=== PATIENT | male | born 1935 | race Caucasian/White ===

== ENCOUNTER → 2018-02-25 10:13 | Outpatient (CLI) | payer MEDICARE, SELFPAY ==
[2018-02-25 12:40] LABS: Anion Gap 9 (5-15); BUN 18 mg/dL (7-18); BUN/Creat Ratio 18.8 RATIO (10-20); Calcium,Total 8.9 mg/dL (8.5-10.1); Chloride 108 mmol/L (98-107); Cholesterol 132 mg/dL (200); Creatinine, Serum 0.96 mg/dL (0.70-1.30); EST Glomerular Filtration Rate 80 mL/min (>60); Est Glom Filt Rate - Afr Amer 97 mL/min (>60); Glucose 143 mg/dL (74-106); High Density Lipoprotein 34 mg/dL; PSA,Total - Annual Screen 1.34 ng/mL (0.00-4.00); Sodium Level 141 mmol/L (136-145); Thyroid Stim Hormone (TSH) 2.44 uIU/mL (0.358-3.74); Triglycerides 131 mg/dL; Very Low Density Lipoprotein 26 mg/dL (5-40)
== END ==
PROVIDERS: Visit Provider Family Medicine
DX: I10 Essential (primary) hypertension (principal); E78.5 Hyperlipidemia, unspecified; N40.0 Benign prostatic hyperplasia without lower urinary tract symptoms
CPT/HCPCS: 36415; 80048; 80061; 84153; 84443; G0103

== ENCOUNTER → 2019-01-16 09:33 | Outpatient (CLI) | payer MEDICARE, SELFPAY ==
[2019-01-16 08:32] VITALS: BMI 29.4
[2019-01-16 11:02] LABS: AST(SGOT) 11 U/L (15-37); Alanine Aminotransfer ALT/SGPT 23 U/L (16-61); Albumin, Serum 3.4 g/dL (3.2-5.0); Alkaline Phosphatase 96 U/L (45-117); Bilirubin, Direct 0.15 mg/dL (0.00-0.30); Cholesterol 117 mg/dL (200); Globulin 3.7 g/dL (2.2-4.2); High Density Lipoprotein 35 mg/dL; Protein, Total 7.1 g/dL (6.4-8.2); Triglycerides 108 mg/dL; Very Low Density Lipoprotein 22 mg/dL (5-40)
== END ==
PROVIDERS: Family Provider Family Medicine; PCP Family Medicine; Referring Provider Internal Medicine Cardiovascular Disease; Visit Provider Internal Medicine Cardiovascular Disease
DX: I10 Essential (primary) hypertension (principal); E78.5 Hyperlipidemia, unspecified
CPT/HCPCS: 36415; 80061; 80076

== ENCOUNTER 2019-07-19 07:08 | Inpatient (IN) | payer MEDICARE, SELFPAY ==
[2019-01-16 08:32] VITALS: BMI 29.4
[2019-07-19] VITALS (28 sets, daily range): BP systolic 105–146; BP diastolic 51–89; PULSE 62–115; RESP 12–26; TEMP 36.1–38.3; O2SAT 96–100; BMI 30.2; BMI 29.4
--- NOTE | 2019-07-19 07:17 | EKG12_ITS ---
Test Reason : GI BLEED Blood Pressure : / mmHG Vent. Rate : 065 BPM Atrial Rate : 065 BPM P-R Int : 260 ms QRS Dur : 094 ms QT Int : 432 ms P-R-T Axes : 039 034 051 degrees QTc Int : 449 ms Sinus rhythm with 1st degree A-V block Otherwise normal ECG Confirmed by MARIBEL VELAZQUEZ, ROSENDO ([id number]), supervising editor trailer DEXTER FOFANA ([id number]) on 07/22/2019 9:56:47 AM Referred By: DOUGLAS Confirmed By:ROSENDO LÓPEZ MD
--- NOTE | 2019-07-19 07:19 | RAD_ITS ---
STUDY: X-RAY - ABDOMEN/PELVIS REASON FOR EXAM: Male, 84 years old. Status post nasogastric tube placement. TECHNIQUE: Single AP view of the abdomen / pelvis. COMPARISON: None. FINDINGS: There is a nasogastric tube with its tip in the region of the stomach. There are nonspecific gaseous bowel loops. The lower abdomen is not included on this examination. RAD/Abdomen Single View (Portable) IMPRESSION: Nasogastric tube with the tip below the level of diaphragm in the region of the stomach. Electronically Signed: Zaire Damian MD at 9:06 EST Tel , Service support ,
--- NOTE | 2019-07-19 07:28 | ED.VIS.GEN ---
History of Present Illness Chief Complaint: GI Bleed Informant: Patient Onset: Today Context: Sudden Onset Timing: Continuous Quality: Read blood per rectum since midnight Location: Lower GI Current Severity: Moderate Maximum Severity: Moderate Worsened by: Possibly ibuprofen Relieved by: Nothing Associated Symptoms: Orthostatic symptoms Narrative: Patient is an elderly male who presents with dark-colored blood per rectum. He has been taking ibuprofen for the past several days. He is on a baby aspirin for paroxysmal H fibrillation. He denies chest discomfort, shortness of breath, dyspnea on exertion, orthopnea PND. He denies vomiting. He denies abdominal pain. He states he has had some increased rumbling. He is on no anticoagulant i.e. Xarelto, Eliquis, Coumadin Pradaxa. He is on no other antiplatelet other than a baby aspirin a day. He denies headache, ocular, visual or auditory symptoms. He denies throat pain, dysphagia, there is bony or dyspepsia. He denies liver problems. He denies bruising easily or problems with bleeding. 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 (4) Hyperlipidemia Status: Chronic (5) Thoracic aortic aneurysm Status: Chronic (6) Postoperative atrial fibrillation Status: Resolved Past Medical History - Allergies and Home Meds Allergies/Adverse Reactions: Allergies ramipril [From Altace] Adverse Reaction (Verified 07/19/19 07:17) dry cough Primary Care Physician: Xu Coleman MD [Primary Care Provider] - Prior records reviewed: Yes Surgical History: noncontributory Lives: Spouse/ Significant Other Smoking Status: Former smoker Alcohol: None Drugs: None Review of Systems General: Denies: Chills, Fever, Sweats Eyes: Denies: Visual changes - bilaterally, Diplopia ENT: Denies: Rhinorrhea, Sore throat Cardiovascular: Reports: - - Static symptoms. Denies: Chest pain, Palpitations, Heart racing Respiratory: Denies: Dyspnea, Cough, Dyspnea on exertion Gastrointestinal: Reports: Hematochezia. Denies: Abdominal pain, Nausea, Vomiting, Diarrhea, Constipation, Melena, -, - Genitourinary: Denies: Dysuria, Hematuria, Frequency Musculoskeletal: Denies: Myalgias, Arthralgias, Neck pain, Back pain, Swelling, Extremity Pain, -, - Skin: Denies: Rash, Wounds Neurological: Reports: Weakness. Denies: Headache, Parasthesia, Numbness, -, - Hematologic: Denies: Easy bruising, Easy bleeding Physical Exam Vital Signs/Narrative: Vital Signs Temp Pulse Resp BP Pulse Ox 07/19/19 07:09 97.8 F 62 15 105/60 97 Inital Vital Signs reviewed: Yes - When patient's bed was at 30 degrees elevation he was hypotensive on more t General: Well nourished, Well developed, No Acute Distress Head: Normocephalic, Atraumatic Eyes: Perrl, EOMI, Pale conjunctiva. Negative for: Scleral icterus ENT: Moist mucous membranes, No rhinorrhea Neck: Supple, Nontender, No lymphadenopathy, No JVD Cardiovascular: Regular rate, Regular rhythm, No murmurs, Normal S1, Normal S2 Respiratory: No distress, CTA bilaterally, Chest nontender Abdomen: Soft, Nontender, Nondistended, Hyperactive bowel sounds Rectal: - - Dark red-brown Back: Nontender, Normal Inspection Extremities: Nontender, No edema, - - Amputation multiple fingers right upper extremity Skin: No rash, Pallor. Negative for: Cyanosis, Diaphoresis, Jaundice, No Trauma Neurological: Alert, Oriented x3, Cranial nerves II-XII grossly intact, Normal Strength, Normal Sensation Psychological: Normal affect, Normal Mood Diagnostic/Tx/Re-eval Chest X-Ray - ED: 1 View, Read by ED Physician, - - KUB was obtained. NG is noted in proper position. X-rays interpreted 0820. 07/19/19 07:19 Abdomen Single View (Portable) [RAD] Stat Laboratory Results 07/19/19 07/19/19 07/19/19 07:34 07:34 07:34 WBC 7.3 RBC 2.99 L Hgb 7.2 L Hct 24.7 L MCV 82.6 MCH 24.1 L MCHC 29.1 L RDW Std Deviation 45.5 H RDW Coeff of Loreta 15.0 H Plt Count 245 MPV 10.5 Immature Gran % (Auto) 0.300 Neut % (Auto) 69.9 Lymph % (Auto) 17.6 L [place] % (Auto) 7.1 Eos % (Auto) 4.6 Baso % (Auto) 0.5 Absolute Neuts (auto) 5.1 Absolute Lymphs (auto) 1.29 Nucleated RBC % 0 PT 15.3 H INR 1.2 APTT 28.0 Sodium 143 Potassium 4.2 Chloride 112 H Carbon Dioxide 26.0 Anion Gap 5 BUN 19 H Creatinine 1.00 Estim Creat Clear Calc 62.51 Est GFR (MDRD) Af Amer 92 Est GFR (MDRD) Non-Af 76 BUN/Creatinine Ratio 19.1 Glucose 148 H Lactic Acid Calcium 7.8 L Total Bilirubin 0.30 AST 11 L ALT 18 Alkaline Phosphatase 75 Troponin I < 0.015 Total Protein 6.1 L Albumin 3.0 L Globulin 3.1 Albumin/Globulin Ratio 1.0 07/19/19 07:34 WBC RBC Hgb Hct MCV MCH MCHC RDW Std Deviation RDW Coeff of Loreta Plt Count MPV Immature Gran % (Auto) Neut % (Auto) Lymph % (Auto) [place] % (Auto) Eos % (Auto) Baso % (Auto) Absolute Neuts (auto) Absolute Lymphs (auto) Nucleated RBC % PT INR APTT Sodium Potassium Chloride Carbon Dioxide Anion Gap BUN Creatinine Estim Creat Clear Calc Est GFR (MDRD) Af Amer Est GFR (MDRD) Non-Af BUN/Creatinine Ratio Glucose Lactic Acid 2.6 H Calcium Total Bilirubin AST ALT Alkaline Phosphatase Troponin I Total Protein Albumin Globulin Albumin/Globulin Ratio Hemoglobin 7.2. Most recent is from a couple years ago and hemoglobin was [address] Ramsey. Lactate is elevated secondary to GI bleed. Labs were normal. Troponin was normal as well. - EKG Initial EKG Interpretation: Sinus Rhythm - Sinus rhythm rate of 65 with a first-degree AV block. NH interval is 260 ms. QS duration 94 ms. QT duration 432 ms. [place] is normal. - Medical Decision Making History and physical exam is consistent with GI bleed. Based on recent ingestion of NSAID and the fact he is hypotensive suspect upper GI bleed. He has been typed and screened. IV bolus was ordered. Appropriate labs were ordered. If NG is positive for blood will page Dr. Guadarrama for emergent EGD. Patient will will require admission to ICU for close observation since he was hypotensive. Patient's heart rate is in the 60s and all likely secondary fact that he is on a beta-samantha and calcium channel samantha. Patient has been scoped in the past. He was scoped at the [facility]. Dr. Ramsey was contacted. He informed me that his last colonoscopy was 2011. There is no edema noted at that time. Dr. Ramsey will gladly follow patient. Because patient was hypotensive with a hemoglobin of 7.2 Dr. Kp Allan for ICU was contacted. He requested IV Protonix. The hospitalist has been paged for admission to ICU. - Critical Care Time Critical care time (excluding procedures): 30-74 minutes - Care time 33 minutes, Discussing w/Patient &/or Family/Road Grader Operator, Discussing w/Consultants, Arranging Admission or Transfer ED Disposition - Plan for ED Patient: Disposition: Acute Care [facility] Diagnosis: GI bleed not requiring more than 4 units of blood in 24 hours, ICU, or surgery, Hypotension, Anemia due to blood loss, acute, Acidosis, lactic Referrals: Xu Coleman MD [Primary Care Provider] -
[2019-07-19] MEDS: 0.9% Normal Saline 1,000 ML 1000 ML IV (07:52)
[2019-07-19 08:14] LABS: Absolute Lymphocyte Count 1.29 X10^3/uL (0.83-4.51); Absolute Neutrophil Count 5.1 X10^3/uL (2.0-7.7); Basophil# 0.04 X10^3/uL; Basophil% 0.5 % (0-1); Eosinophil# 0.34 X10^3/uL; Eosinophils% 4.6 % (0-5); Hematocrit 24.7 % (40-54); Hemoglobin 7.2 g/dL (13.0-16.5); Lymphocyte # 1.29 X10^3/ul (4.0); Lymphocyte % 17.6 % (19-41); Mean Corp Hgb Conc 29.1 g/dL (32-36); Mean Corpuscular Hgb 24.1 pg (27.0-32.0); Mean Corpuscular Volume 82.6 fL (80-94); Mean Platelet Vol. 10.5 fl (6.2-12.0); Monocyte# 0.52 X10^3/uL; Monocyte% 7.1 % (0-10); NRBC Flagged by Analyzer 0 % (0-5); Neutrophil # 5.11 X10^3/uL (2.7-7.7); Neutrophil % 69.9 % (47-70); Platelet Count 245 K/mm3 (150-450); RBC Distribution Width SD 45.5 fl (35.1-43.9); Red Blood Count 2.99 M/mm3 (4.6-6.2); White Blood Count 7.3 K/mm3 (4.4-11.0)
[2019-07-19 08:30] LABS: International Normalized Ratio 1.2; Prothrombin Time (Protime)PT. 15.3 SECONDS (11.7-14.9)
--- NOTE | 2019-07-19 08:34 | HP.PCM_ITS ---
Problem List (1) Hypotension Status: Acute Qualifiers: Hypotension type: unspecified hypotension type Qualified Code(s): I95.9 - Hypotension, unspecified (2) Anemia due to blood loss, acute Status: Acute (3) Postoperative atrial fibrillation Status: Resolved (4) Nonrheumatic mitral (valve) insufficiency Status: Chronic Comment: Severe mitral insufficiency, with ruptured cordae in the P2 area; Mitral valve repair with 34 mm Hutchinson ring 05/16/2007 (5) Essential (primary) hypertension Status: Chronic (6) Hyperlipidemia Status: Chronic Qualifiers: Hyperlipidemia type: unspecified Qualified Code(s): E78.5 - Hyperlipidemia, unspecified (7) Thoracic aortic aneurysm Status: Chronic History of Present Illness Date of Admission: 07/19/19 Chief Complaint: Near syncope, GI bleed - 1 day The patient is a 84 year old M past medical history of mitral valve repair, h ypertension, hyperlipidemia, thoracic aortic aneurysm who comes in with complaints of hematochezia which started on the morning of admission. Patient had noted that he had left knee arthritis and had a history of GI bleed recently when he took ibuprofen. He had gone back to ibuprofen a couple of days prior to admission. He denied any abdominal discomfort or cramps prior to this. He went to bed feeling well. He woke up in the morning and had multiple bowel movements which were bloody. This happened about 5 times. After the last episode, patient felt very lightheaded and diaphoretic and proceeded to lie down on the bathroom floor and called out to his who called the EMS. Patient was observed to have had bright red bleeding in his stools in the bathroom. He had colonoscopy more than 10 years ago and reportedly had no findings. Vitals in the ED showed temperature of 97.8F, heart rate 60, blood pressure 105/60, respiratory rate 15, SPO2 was 97% on room air. Admitting blood work showed WBC count of 7.3, hemoglobin of 7.2, platelet count of 245. INR was 1.2, APTT was 28.0, BMP was unremarkable, lactic acid was 2.6, repeat lactic acid 1.3, troponin x 1 was negative. Past Medical History Past Medical History (Chronic Problems): Chronic Problems (Last Reviewed 01/16/19 @ 09:19 by Zachary August MD) Nonrheumatic mitral (valve) insufficiency (Chronic) Severe mitral insufficiency, with ruptured cordae in the P2 area; Mitral valve repair with 34 mm Hutchinson ring 05/16/2007 Essential (primary) hypertension (Chronic) Hyperlipidemia (Chronic) Thoracic aortic aneurysm (Chronic) History of mitral valve repair (Chronic 05/16/07) 05/16/2007 Mitral valve repair with 34 mm Hutchinson ring Carotid bruit (Chronic) Medical History: Medical History (Last Reviewed 01/16/19 @ 09:19 by Zachary August MD) Postoperative atrial fibrillation (Resolved) I97.89, I48.91 Nonrheumatic mitral (valve) insufficiency (Chronic) I34.0 Severe mitral insufficiency, with ruptured cordae in the P2 area; Mitral valve repair with 34 mm Hutchinson ring 05/16/2007 Essential (primary) hypertension (Chronic) I10 Hyperlipidemia (Chronic) E78.5 Thoracic aortic aneurysm (Chronic) I71.2 Carotid bruit (Chronic) R09.89 CHF (congestive heart failure) I50.9 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 Pulmonary HTN I27.20 Atrial flutter (Inactive) I48.92 Allergies ramipril [From Altace] Adverse Reaction (Verified 07/19/19 07:17) dry cough Home Medications: Ambulatory Orders Medication Instructions Recorded aspirin 81 mg tablet,delayed 81 mg PO QDAY 01/07/18 release multivitamin tablet 1 tab PO QDAY 01/07/18 losartan 50 mg tablet 50 mg PO BID #180 tab 07/15/18 metoprolol tartrate 25 mg tablet 25 mg PO BID #180 tab 07/15/18 Surgical History: Surgical History (Last Reviewed 01/16/19 @ 09:19 by Zachary August MD) History of mitral valve repair (Chronic) Onset Date: 05/16/07 Z98.890 05/16/2007 Mitral valve repair with 34 mm Hutchinson ring History of right and left heart catheterization Onset Date: 05/15/07 Z98.890 Surgical History: noncontributory Psychiatric History: No pertinent psych hx Lives: Spouse/ Significant Other Smoking Status: Former smoker Tobacco Use: Cigarettes Alcohol: None Drugs: None Review of Systems Constitutional: Reports: Weakness, Fatigue. Denies: Anorexia, Chills, Fever, Night Sweats, Malaise, Weight Change Eyes: Denies: Blurred vision, Cataracts, Conjunctivae Inflammation, Pain, Redness HEENT: Denies: Difficulty Hearing, Difficulty Swallowing, Head Aches, Hearing Changes, Sinus Congestion, Sinus Drainage, Sore Throat, Visual Changes Cardiovascular: Reports: Light Headedness, Orthopnea, Syncope - presyncope. Denies: Chest Pain, Claudication, Palpitations, Paroxysmal Noc. Dyspnea Respiratory: Denies: Cough, Shortness of breath at rest, Shortness of breath upon exertion, Sputum production Gastrointestinal: Denies: Abdominal Pain, Hematemesis, Hematochezia, Nausea, Vomiting Genitourinary: Denies: Dysuria Musculoskeletal: Denies: Joint Pain, Joint stiffness, Joint swelling, Joint Tenderness Skin: Denies: Rash, Wounds Neurological: Denies: Numbness, Tingling, Focal weakness Psychiatric: Denies: Anxiety, Depression, Homicidal Ideations, Suicidal Ideations Hematologic/ Lymphatic: Denies: Easy Bruising, Easy Bleeding VTE Information - Inpt Only VTE Present on Admission: No VTE Pharm Prophylaxis ordered?: Yes Patient Problems: Active and Suspected Problems (Last Reviewed 01/16/19 @ 09:19 by Zachary August MD) GI bleed not requiring more than 4 units of blood in 24 hours, ICU, or surgery (Acute) Hypotension (Acute) Anemia due to blood loss, acute (Acute) Acidosis, lactic (Acute) - Physical Exam Vitals/I&O's: Vital Signs Temp Pulse Resp BP Pulse Ox 97.8 F 62 15 105/60 97 07/19/19 07:09 07/19/19 07:09 07/19/19 07:09 07/19/19 07:09 07/19/19 07:09 Oxygen Delivery Method Room Air Weight: 100.9 kg Body Mass Index (BMI) 30.2 General: Alert, Oriented x3, Cooperative, No apparent distress HEENT: Atraumatic, PERRLA, EOMI, Normocephalic Oral: Moist Mucosa Neck: Supple Lungs: Clear to auscultation, Normal air movement Cardiovascular: Regular rate, Regular Rhythm, Normal S1, Normal S2, No murmurs - mechanical click Abdomen: Bowel Sounds Present, Soft, Non Tender, Non-Distended, No Hepato- splenomegaly Extremities: No edema Skin: No rashes, No breakdown Musculoskeletal: No Tenderness to Palpation of Joints or Extremities, - - 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 Neurological: Cranial nerves II-XII grossly intact Psych/Mental Status: Normal Affect, Appropriate Laboratory Results 07/19/19 07:34: WBC 7.3, RBC 2.99 L, Hgb 7.2 L, Hct 24.7 L, MCV 82.6, MCH 24.1 L , MCHC 29.1 L, RDW Std Deviation 45.5 H, RDW Coeff of Loreta 15.0 H, Plt Count 245, MPV 10.5, Immature Gran % (Auto) 0.300, Neut % (Auto) 69.9, Lymph % (Auto) 17.6 L, [place] % (Auto) 7.1, Eos % (Auto) 4.6, Baso % (Auto) 0.5, Absolute Neuts (auto) 5.1, Absolute Lymphs (auto) 1.29, Nucleated RBC % 0 07/19/19 07:34: PT 15.3 H, INR 1.2, APTT 28.0 07/19/19 07:34: Sodium Pending, Potassium Pending, Chloride Pending, Carbon Dioxide Pending, Anion Gap Pending, BUN Pending, Creatinine Pending, Est GFR (MDRD) Af Amer Pending, Est GFR (MDRD) Non-Af Pending, BUN/Creatinine Ratio Pending, Glucose Pending, Calcium Pending, Total Bilirubin Pending, AST Pending, ALT Pending, Alkaline Phosphatase Pending, Troponin I Pending, Total Protein Pending, Albumin Pending 07/19/19 07:34: Lactic Acid Pending 07/19/19 07:34: Blood Type Pending, Antibody Screen Pending Assessment/Plan All Active Problems (Last Reviewed 01/16/19 @ 09:19 by Zachary August MD) GI bleed not requiring more than 4 units of blood in 24 hours, ICU, or surgery (Acute) Hypotension (Acute) Anemia due to blood loss, acute (Acute) Acidosis, lactic (Acute) Postoperative atrial fibrillation (Resolved) 84 year old M with past medical history of mitral valve repair, hypertension, hyperlipidemia, thoracic aortic aneurysm who comes in with complaints of hematochezia which started on the morning of admission. 1. Acute GI bleed/hematochezia, likely secondary to lower GI bleed History of recent NSAID use. Patient is also on aspirin. On IV PPI, Continue to monitor in ICU, H&H every 6hrs, CBCD in am Continue to hold aspirin General surgery consulted 2. Acute blood loss anemia, Hb is 7.2, patient is receiving 2 units of packed RBCs Will trend H&H's 3. Hypertension, on metoprolol and losartan Would hold for now in the light of possible hemodynamic instability May resume in a.m. if patient remains stable 4. History of mitral repair, stable 5. DVT prophylaxis with SCDs Code Visit Inpatient E&M: 11102 Init Hosp L3
[2019-07-19 08:42] LABS: AST(SGOT) 11 U/L (15-37); Alanine Aminotransfer ALT/SGPT 18 U/L (16-61); Alkaline Phosphatase 75 U/L (45-117); Anion Gap 5 (5-15); BUN 19 mg/dL (7-18); BUN/Creat Ratio 19.1 RATIO (10-20); Calcium,Total 7.8 mg/dL (8.5-10.1); Chloride 112 mmol/L (98-107); EST Glomerular Filtration Rate 76 mL/min (>60); Est Glom Filt Rate - Afr Amer 92 mL/min (>60); Estimated Creatinine Clearance 62.51 ml/min; Globulin 3.1 g/dL (2.2-4.2); Glucose 148 mg/dL (74-106); Potassium 4.2 mmol/L (3.5-5.1); Protein, Total 6.1 g/dL (6.4-8.2); Sodium Level 143 mmol/L (136-145)
[2019-07-19 08:48] LABS: Lactic Acid 2.6 mmol/L (0.4-2.0)
--- NOTE | 2019-07-19 09:40 | PCM.CON.CC ---
Reason for Consult Date of Consultation: 07/19/19 Reason for Consultation: Hematochezia/acute blood loss anemia History of Present Illness: The patient is an 84-year-old male, with a history as outlined below, who presented to the emergency department on the morning of July 19 with complaints of several episodes of hematochezia, which initially began overnight. The patient did report some associated dizziness. He is not currently on systemic anticoagulation. Nevertheless, he is on a baby aspirin. He does admit to rather regular use of ibuprofen. He has never had an episode similar to this previously. On presentation to the emergency department, the patient was noted to be afebrile and hemodynamically stable. He was maintaining appropriate oxygen saturations on room air. Initial laboratory work-up revealed a hemoglobin of 7.2 g/dL. INR was noted to be 1.2. Chemistry profile was largely unrevealing. Lactate was notable to be 2.6. An NG tube was placed in the emergency department, which apparently did not demonstrate evidence of upper GI blood loss. The patient did not have any further episodes of hematochezia while in the emergency department. He has remained hemodynamically stable. The patient was typed and crossed with plans to be transfused packed red blood cells. General surgery was contacted and the patient was admitted to the medical intensive care unit for further management. 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/07) 05/16/2007 Mitral valve repair with 34 mm Hutchinson ring Carotid bruit (Chronic) Medical History: Medical History (Last Reviewed 07/20/19 @ 08:16 by Gabriel Ramsey MD) Postoperative atrial fibrillation (Resolved) I97.89, I48.91 Nonrheumatic mitral (valve) insufficiency (Chronic) I34.0 Severe mitral insufficiency, with ruptured cordae in the P2 area; Mitral valve repair with 34 mm Hutchinson ring 05/16/2007 Essential (primary) hypertension (Chronic) I10 Hyperlipidemia (Chronic) E78.5 Thoracic aortic aneurysm (Chronic) I71.2 Carotid bruit (Chronic) R09.89 CHF (congestive heart failure) I50.9 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 Pulmonary HTN I27.20 Atrial flutter (Inactive) I48.92 Allergies ramipril [From Altace] Adverse Reaction (Verified 07/19/19 07:17) dry cough Home Medications: Ambulatory Orders Medication Instructions Recorded aspirin 81 mg tablet,delayed 81 mg PO QDAY 01/07/18 release multivitamin tablet 1 tab PO QDAY 01/07/18 losartan 50 mg tablet 50 mg PO BID #180 tab 07/15/18 metoprolol tartrate 25 mg tablet 25 mg PO BID #180 tab 07/15/18 Surgical History: Surgical History (Last Reviewed 07/20/19 @ 08:16 by Gabriel Ramsey MD) History of mitral valve repair (Chronic) Onset Date: 05/16/07 Z98.890 05/16/2007 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 Denies: Chills, Fever Eyes: Denies: Blurred vision, Double vision HEENT: Denies: Head Aches, Sinus Congestion, Sinus Drainage Cardiovascular: Denies: Chest Pain, Palpitations Respiratory: Denies: Cough, Shortness of breath at rest, Sputum production Gastrointestinal: Reports: Hematochezia. Denies: Abdominal Pain, Nausea, Vomiting Genitourinary: Denies: Dysuria Musculoskeletal: Denies: Joint Pain, Joint Tenderness Skin: Denies: Rash, Wounds Neurological: Denies: Numbness, Tingling, Focal weakness Psychiatric: Denies: Anxiety, Depression, Homicidal Ideations, Suicidal Ideations Hematologic/ Lymphatic: Reports: Anemia Patient Problems: Active and Suspected Problems (Last Reviewed 07/20/19 @ 08:16 by Gabriel Ramsey MD) GI bleed not requiring more than 4 units of blood in 24 hours, ICU, or surgery (Acute) Hypotension (Acute) Anemia due to blood loss, acute (Acute) Acidosis, lactic (Acute) Objective: The patient's most recent lab work, culture data and imaging studies have all been personally reviewed. - Physical Exam Vitals/I&O's: Vital Signs Temp Pulse Resp BP Pulse Ox 97 F L 62 15 115/62 97 07/19/19 08:37 07/19/19 08:37 07/19/19 08:37 07/19/19 08:37 07/19/19 07:09 Oxygen Delivery Method Room Air Weight: 222 lb 7.143 oz Body Mass Index (BMI) 30.2 Intake and Output for Last 24 Hours 07/17/19 07/18/19 07/19/19 23:59 23:59 23:59 Intake Total 250 / 250 Balance 250 / 250 General: Alert, Oriented x3, Cooperative, No apparent distress HEENT: Atraumatic, PERRLA, Normocephalic Oral: No Gingival or Mucosal Lesions/ Ulcerations Neck: Supple, No Nodes, Trachea Midline Lungs: Normal air movement, No rhonchi, No wheeze, No rales Cardiovascular: Regular rate, Regular Rhythm, Normal S1, Normal S2, No murmurs Abdomen: Soft, Non Tender Extremities: No clubbing, No cyanosis, - - 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 Skin: No breakdown Musculoskeletal: No Tenderness to Palpation of Joints or Extremities, No Muscle Wasting Lymphatic: No Cervical, Supraclavicular, or Inguinal Adenopathy Neurological: Cranial nerves II-XII grossly intact, Neuro grossly intact Psych/Mental Status: Normal Affect, Appropriate Labs (Last 48 Hours) 07/19/19 07/19/19 07/19/19 07:34 07:34 07:34 WBC 7.3 RBC 2.99 L Hgb 7.2 L Hct 24.7 L MCV 82.6 MCH 24.1 L MCHC 29.1 L RDW Std Deviation 45.5 H RDW Coeff of Loreta 15.0 H Plt Count 245 MPV 10.5 Immature Gran % (Auto) 0.300 Neut % (Auto) 69.9 Lymph % (Auto) 17.6 L [place] % (Auto) 7.1 Eos % (Auto) 4.6 Baso % (Auto) 0.5 Absolute Neuts (auto) 5.1 Absolute Lymphs (auto) 1.29 Nucleated RBC % 0 PT 15.3 H INR 1.2 APTT 28.0 Sodium 143 Potassium 4.2 Chloride 112 H Carbon Dioxide 26.0 Anion Gap 5 BUN 19 H Creatinine 1.00 Estim Creat Clear Calc 62.51 Est GFR (MDRD) Af Amer 92 Est GFR (MDRD) Non-Af 76 BUN/Creatinine Ratio 19.1 Glucose 148 H Lactic Acid Calcium 7.8 L Total Bilirubin 0.30 AST 11 L ALT 18 Alkaline Phosphatase 75 Troponin I < 0.015 Total Protein 6.1 L Albumin 3.0 L Globulin 3.1 Albumin/Globulin Ratio 1.0 Blood Type Antibody Screen Crossmatch 07/19/19 07/19/19 07/19/19 07:34 07:34 07:34 WBC RBC Hgb Hct MCV MCH MCHC RDW Std Deviation RDW Coeff of Loreta Plt Count MPV Immature Gran % (Auto) Neut % (Auto) Lymph % (Auto) [place] % (Auto) Eos % (Auto) Baso % (Auto) Absolute Neuts (auto) Absolute Lymphs (auto) Nucleated RBC % PT INR APTT Sodium Potassium Chloride Carbon Dioxide Anion Gap BUN Creatinine Estim Creat Clear Calc Est GFR (MDRD) Af Amer Est GFR (MDRD) Non-Af BUN/Creatinine Ratio Glucose Lactic Acid 2.6 H Calcium Total Bilirubin AST ALT Alkaline Phosphatase Troponin I Total Protein Albumin Globulin Albumin/Globulin Ratio Blood Type A POSITIVE Antibody Screen NEGATIVE Crossmatch See Detail Clinical Impression(s) from Imaging Studies KUB X-Ray 07/19/19 07:19 IMPRESSION: Nasogastric tube with the tip below the level of diaphragm in the region of the stomach. Electronically Signed: Zaire Damian MD at 9:06 EST Tel , Service support , Current Medications Acetaminophen (Tylenol) 650 mg PO Q6H PRN PRN PRN Reason: Pain Score 1-3/Temp > 100.7 F Albuterol Sulfate (Ventolin Aerosols) 2.5 mg INHALATION Q2H PRN PRN PRN Reason: SOB/Wheezing Sodium Chloride () 1,000 mls @ 125 mls/hr IV .Q8H SHANTELLE Ondansetron HCl (Zofran) 4 mg IV Q8H PRN PRN PRN Reason: NAUSEA/VOMITING Assessment/Plan Active and Suspected Problems (Last Reviewed 07/20/19 @ 08:16 by Gabriel Ramsey MD) GI bleed not requiring more than 4 units of blood in 24 hours, ICU, or surgery (Acute) Hypotension (Acute) Anemia due to blood loss, acute (Acute) Acidosis, lactic (Acute) RECOMMENDATIONS: 1. Proceed with transfusion of 2 units of packed red blood cells. 2. Check H&H posttransfusion. 3. Continue Protonix twice daily, as ordered. 4. Patient to remain n.p.o. 5. Await general surgery evaluation. IMPRESSIONS: 1. Hematochezia/acute blood loss anemia The patient presented with a hemoglobin of 7.2 g/dL, but has remained hemodynamically stable without further episodes of GI blood loss. There are plans for the patient to be transfused blood products accordingly. Check H&H posttransfusion. The patient does have a long-standing history of ibuprofen use. Therefore, the patient will be continued on Protonix twice daily. General surgery has been consulted to evaluate the patient. 2. Hypertension Antihypertensives are currently on hold. These can be resumed tomorrow, pending stability in the patient's clinical state. This note was generated with Potential dictation software. It may contain incorrect words, spelling, and punctuation that were not noted in checking the note before signing. Code Visit Inpatient E&M: 83293 Init Hosp L3
--- NOTE | 2019-07-19 11:59 | PCM.CONS.GEN ---
Reason for Consult Date of Consultation: 07/19/19 Reason for Consultation: hematochezia History of Present Illness: The patient is a 84 year old M who had multiple episodes of hematochezia. He denied any abdominal pain or burning. He denied upper GI complaints. After multiple episodes of hematochezia he had a near syncopal episode. EMS was notified and is brought twisting the hospital. A CBC was obtained which demonstrated a hemoglobin of 7.2. The patient's lactic acid with level was also elevated. the patient has a history of relatively severe mitral insufficiency and underwent mitral valve repair in April 2007. He has a known chronic thoracic aortic aneurysm. He has chronic bruit and hypertension. 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 Echocardiogram in 2016 demonstrated a normal ejection fraction and mild mitral insufficiency this is stable. the patient notes he has had more arthritic-type pains recently. he notes that he has been taking more Motrin than previously. again however he denies upper abdominal symptoms and denies melena prior to this onset of bleeding. the patient underwent colonoscopy by Dr. Eber Mann in 2011.the patient was found to have few diverticula and small internal hemorrhoids The patient was admitted to the intensive care unit for resuscitation and for transfusion. 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/07) 05/16/2007 Mitral valve repair with 34 mm Hutchinson ring Carotid bruit (Chronic) Medical History: Medical History (Last Reviewed 07/20/19 @ 08:53 by Gabriel Ramsey MD) Postoperative atrial fibrillation (Resolved) I97.89, I48.91 Nonrheumatic mitral (valve) insufficiency (Chronic) I34.0 Severe mitral insufficiency, with ruptured cordae in the P2 area; Mitral valve repair with 34 mm Hutchinson ring 05/16/2007 Essential (primary) hypertension (Chronic) I10 Hyperlipidemia (Chronic) E78.5 Thoracic aortic aneurysm (Chronic) I71.2 Carotid bruit (Chronic) R09.89 CHF (congestive heart failure) I50.9 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 Pulmonary HTN I27.20 Atrial flutter (Inactive) I48.92 Allergies ramipril [From Altace] Adverse Reaction (Verified 07/19/19 07:17) dry cough Home Medications: Ambulatory Orders Medication Instructions Recorded aspirin 81 mg tablet,delayed 81 mg PO QDAY 01/07/18 release multivitamin tablet 1 tab PO QDAY 01/07/18 losartan 50 mg tablet 50 mg PO BID #180 tab 07/15/18 metoprolol tartrate 25 mg tablet 25 mg PO BID #180 tab 07/15/18 Surgical History: Surgical History (Last Reviewed 07/20/19 @ 08:53 by Gabriel Ramsey MD) History of mitral valve repair (Chronic) Onset Date: 05/16/07 Z98.890 05/16/2007 Mitral valve repair with 34 mm Hutchinson ring History of right and left heart catheterization Onset Date: 05/15/07 Z98.890 Surgical History: noncontributory Lives: Spouse/ Significant Other Smoking Status: Former smoker Tobacco Use: Cigarettes, Chew Alcohol: None Drugs: None Review of Systems Constitutional: Denies: Chills, Fever, Weight Change HEENT: Denies: Head Aches, Sinus Congestion, Sinus Drainage Cardiovascular: Denies: Chest Pain, Palpitations Respiratory: Denies: Cough, Shortness of breath at rest, Sputum production Gastrointestinal: Reports: Hematochezia. Denies: Abdominal Pain, Nausea, Vomiting Genitourinary: Denies: Dysuria Musculoskeletal: Denies: Joint Pain, Joint Tenderness Skin: Denies: Rash, Wounds Neurological: Denies: Numbness, Tingling, Focal weakness Psychiatric: Denies: Anxiety, Depression, Homicidal Ideations, Suicidal Ideations Hematologic/ Lymphatic: Denies: Easy Bruising, Easy Bleeding Patient Problems: Active and Suspected Problems (Last Reviewed 07/20/19 @ 08:16 by Gabriel Ramsey MD) GI bleed not requiring more than 4 units of blood in 24 hours, ICU, or surgery (Acute) Hypotension (Acute) Anemia due to blood loss, acute (Acute) Acidosis, lactic (Acute) - Physical Exam Vitals/I&O's: Vital Signs Temp Pulse Resp BP Pulse Ox 97.4 F L 70 16 122/51 H 100 07/19/19 10:33 07/19/19 10:33 07/19/19 10:33 07/19/19 10:33 07/19/19 10:33 Oxygen Delivery Method Room Air Weight: 98.3 kg Body Mass Index (BMI) 29.4 Intake and Output for Last 24 Hours 07/17/19 07/18/19 07/19/19 23:59 23:59 23:59 Intake Total 250 / 250 Balance 250 / 250 General: Alert, Oriented x3, Cooperative Neck: Supple, No JVD, Negative Carotid Bruits Lungs: Clear to auscultation, Normal air movement Cardiovascular: Regular rate, No murmurs Abdomen: Bowel Sounds Present, Soft, Non Tender Laboratory Results 07/19/19 07:34: WBC 7.3, RBC 2.99 L, Hgb 7.2 L, Hct 24.7 L, MCV 82.6, MCH 24.1 L, MCHC 29.1 L, RDW Std Deviation 45.5 H, RDW Coeff of Loreta 15.0 H, Plt Count 245, MPV 10.5, Immature Gran % (Auto) 0.300, Neut % (Auto) 69.9, Lymph % (Auto) 17.6 L, [place] % (Auto) 7.1, Eos % (Auto) 4.6, Baso % (Auto) 0.5, Absolute Neuts (auto) 5.1, Absolute Lymphs (auto) 1.29, Nucleated RBC % 0 07/19/19 07:34: PT 15.3 H, INR 1.2, APTT 28.0 07/19/19 07:34: Sodium 143, Potassium 4.2, Chloride 112 H, Carbon Dioxide 26.0, Anion Gap 5, BUN 19 H, Creatinine 1.00, Estim Creat Clear Calc 62.51, Est GFR (MDRD) Af Amer 92, Est GFR (MDRD) Non-Af 76, BUN/Creatinine Ratio 19.1, Glucose 148 H, Calcium 7.8 L, Total Bilirubin 0.30, AST 11 L, ALT 18, Alkaline Phosphatase 75, Troponin I < 0.015, Total Protein 6.1 L, Albumin 3.0 L, Globulin 3.1, Albumin/Globulin Ratio 1.0 07/19/19 07:34: Lactic Acid 2.6 H 07/19/19 07:34: Blood Type A POSITIVE, Antibody Screen NEGATIVE 07/19/19 07:34: Crossmatch See Detail Current Medications Acetaminophen (Tylenol) 650 mg PO Q6H PRN PRN PRN Reason: Pain Score 1-3/Temp > 100.7 F Albuterol Sulfate (Ventolin Aerosols) 2.5 mg INHALATION Q2H PRN PRN PRN Reason: SOB/Wheezing Sodium Chloride () 1,000 mls @ 125 mls/hr IV .Q8H SHANTELLE Sodium Chloride () 500 mls @ 15 mls/hr IV PRN PRN PRN Reason: Blood Transfusion Sodium Chloride () 250 mls @ 15 mls/hr IV .[id number] PRN PRN Reason: Saline Flush Pantoprazole Sodium 40 mg/ (Sodium Chloride) 110 mls @ 330 mls/hr IV Q12 SHANTELLE Ondansetron HCl (Zofran) 4 mg IV Q8H PRN PRN PRN Reason: NAUSEA/VOMITING Sodium Chloride () 10 - 40 ml IV UD PRN PRN Reason: SALINE FLUSH Assessment/Plan All Active Problems (Last Reviewed 07/20/19 @ 08:16 by Gabriel Ramsey MD) GI bleed not requiring more than 4 units of blood in 24 hours, ICU, or surgery (Acute) Hypotension (Acute) Anemia due to blood loss, acute (Acute) Acidosis, lactic (Acute) Postoperative atrial fibrillation (Resolved) hematochezia, NSAID use, significant anemia with elevated lactic acid level Patient is being admitted to the intensive care unit for transfusion and IV hydration and to assure he has no ongoing significant blood loss. The patient is currently him an enema was stable but given his history and the degree of anemia without a recent blood counts I would plan for resuscitation and transfusion today. If the patient remains stable would plan for bowel prep tomorrow and endoscopy on Sunday. I discussed upper and lower endoscopy with the patient. The patient stands the risks, benefits, alternatives and possible complications and consents to the procedure.
[2019-07-19 12:09] LABS: Reflex Lactate? Y
[2019-07-19 14:13] LABS: Lactic Acid 1.3 mmol/L (0.4-2.0)
--- NOTE | 2019-07-19 15:42 | CM.UR ---
RN CM Assessment Introduced role of RN CM to patient. Patient is alert and able to participate in RN CM Assessment. Care providers, pharmacy, and demographics verified. and daughter at bedside. Presentation: lightheadedness and dark colored blood per rectum. Admit Dx: GI bleed Re-Admit: No Barriers/Issues: motivation--He joked around a lot and did not answer questions directly. 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 PCP: Tamera Specialists: Mariangel Gonzales Pharmacy: [facility] mail order Insurance: [facility] [facility] Rx Benefit: Yes [employer] LNOK: , desiree LW/HPOA: None, declines additional information. Living Arrangements: 1 story home with 1 step to enter. Lives with . ADL?s: independent Transportation: self DME: None DME co: no preference HHC: None SNF: None Goal: Home DC PLAN: Home, NN anticipated. Tobias Marmolejo RN, CCM.
[2019-07-19 22:02] LABS: Hematocrit 29.3 % (40-54)
[2019-07-20] VITALS (14 sets, daily range): BP systolic 105–138; BP diastolic 53–87; PULSE 77–112; RESP 16–21; TEMP 36.7–38.4; O2SAT 92–99
[2019-07-20 06:18] LABS: Absolute Lymphocyte Count 1.92 X10^3/uL (0.83-4.51); Basophil# 0.04 X10^3/uL; Basophil% 0.5 % (0-1); Eosinophil# 0.35 X10^3/uL; Eosinophils% 4.4 % (0-5); Hematocrit 26.8 % (40-54); Hemoglobin 8.2 g/dL (13.0-16.5); Lymphocyte # 1.92 X10^3/ul (4.0); Lymphocyte % 23.9 % (19-41); Mean Corp Hgb Conc 30.6 g/dL (32-36); Mean Corpuscular Hgb 24.8 pg (27.0-32.0); Mean Corpuscular Volume 81.2 fL (80-94); Mean Platelet Vol. 10.6 fl (6.2-12.0); Monocyte# 0.68 X10^3/uL; Monocyte% 8.5 % (0-10); NRBC Flagged by Analyzer 0 % (0-5); Neutrophil # 5.03 X10^3/uL (2.7-7.7); Neutrophil % 62.5 % (47-70); Platelet Count 226 K/mm3 (150-450); RBC Distribution Width CV 14.9 % (11.6-14.6); RBC Distribution Width SD 44.2 fl (35.1-43.9)
--- NOTE | 2019-07-20 06:22 | PN_ITS ---
Subjective: The patient was seen and examined at the bedside this morning. Events from the last 24 hours have been reviewed. The patient is currently febrile with a T-max overnight noted to be 101.1 ?F. He is, nevertheless, hemodynamically stable and maintaining appropriate oxygen saturations on room air. The patient was transfused 2 units packed red blood cells yesterday due to a hemoglobin of 7.2. Hemoglobin initially improved to 9.0 and is currently 8.2 g/dL this morning. The patient denies the presence of abdominal pain or further episodes of he matochezia. Objective: The patient's most recent lab work, culture data and imaging studies have all been personally reviewed. 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 Skin: No breakdown Musculoskeletal: No Tenderness to Palpation of Joints or Extremities Lymphatic: No Cervical, Supraclavicular, or Inguinal Adenopathy Neurological: Cranial nerves II-XII grossly intact, Neuro grossly intact Psych/Mental Status: Normal Affect, Appropriate Vital Signs Temp Pulse Resp BP Pulse Ox 100.0 F H 78 17 138/69 H 92 07/20/19 04:00 07/20/19 06:00 07/20/19 06:00 07/20/19 06:00 07/20/19 06:00 Oxygen Delivery Method Room Air Weight: 217 lb 9.54 oz Body Mass Index (BMI) 29.4 Intake and Output for Last 24 Hours 07/18/19 07/19/19 07/20/19 23:59 23:59 23:59 Intake Total 3285 / 3585 600 / 600 Output Total 300 / 1000 1200 / 1200 Balance 2985 / 2585 -600 / -600 Labs (Last 48 Hours) 07/19/19 07/19/19 07/19/19 07:34 07:34 07:34 WBC 7.3 RBC 2.99 L Hgb 7.2 L Hct 24.7 L MCV 82.6 MCH 24.1 L MCHC 29.1 L RDW Std Deviation 45.5 H RDW Coeff of Loreta 15.0 H Plt Count 245 MPV 10.5 Immature Gran % (Auto) 0.300 Neut % (Auto) 69.9 Lymph % (Auto) 17.6 L [place] % (Auto) 7.1 Eos % (Auto) 4.6 Baso % (Auto) 0.5 Absolute Neuts (auto) 5.1 Absolute Lymphs (auto) 1.29 Nucleated RBC % 0 PT 15.3 H INR 1.2 APTT 28.0 Sodium 143 Potassium 4.2 Chloride 112 H Carbon Dioxide 26.0 Anion Gap 5 BUN 19 H Creatinine 1.00 Estim Creat Clear Calc 62.51 Est GFR (MDRD) Af Amer 92 Est GFR (MDRD) Non-Af 76 BUN/Creatinine Ratio 19.1 Glucose 148 H Lactic Acid Calcium 7.8 L Total Bilirubin 0.30 AST 11 L ALT 18 Alkaline Phosphatase 75 Troponin I < 0.015 Total Protein 6.1 L Albumin 3.0 L Globulin 3.1 Albumin/Globulin Ratio 1.0 Blood Type Antibody Screen Crossmatch 07/19/19 07/19/19 07/19/19 07:34 07:34 07:34 WBC RBC Hgb Hct MCV MCH MCHC RDW Std Deviation RDW Coeff of Loreta Plt Count MPV Immature Gran % (Auto) Neut % (Auto) Lymph % (Auto) [place] % (Auto) Eos % (Auto) Baso % (Auto) Absolute Neuts (auto) Absolute Lymphs (auto) Nucleated RBC % PT INR APTT Sodium Potassium Chloride Carbon Dioxide Anion Gap BUN Creatinine Estim Creat Clear Calc Est GFR (MDRD) Af Amer Est GFR (MDRD) Non-Af BUN/Creatinine Ratio Glucose Lactic Acid 2.6 H Calcium Total Bilirubin AST ALT Alkaline Phosphatase Troponin I Total Protein Albumin Globulin Albumin/Globulin Ratio Blood Type A POSITIVE Antibody Screen NEGATIVE Crossmatch See Detail 07/19/19 07/19/19 07/20/19 13:25 21:40 05:45 WBC 8.0 RBC 3.30 L Hgb 9.0 L 8.2 L Hct 29.3 L 26.8 L MCV 81.2 MCH 24.8 L MCHC 30.6 L RDW Std Deviation 44.2 H RDW Coeff of Loreta 14.9 H Plt Count 226 MPV 10.6 Immature Gran % (Auto) 0.200 Neut % (Auto) 62.5 Lymph % (Auto) 23.9 [place] % (Auto) 8.5 Eos % (Auto) 4.4 Baso % (Auto) 0.5 Absolute Neuts (auto) 5.0 Absolute Lymphs (auto) 1.92 Nucleated RBC % 0 PT INR APTT Sodium Potassium Chloride Carbon Dioxide Anion Gap BUN Creatinine Estim Creat Clear Calc Est GFR (MDRD) Af Amer Est GFR (MDRD) Non-Af BUN/Creatinine Ratio Glucose Lactic Acid 1.3 Calcium Total Bilirubin AST ALT Alkaline Phosphatase Troponin I Total Protein Albumin Globulin Albumin/Globulin Ratio Blood Type Antibody Screen Crossmatch 07/20/19 05:45 WBC RBC Hgb Hct MCV MCH MCHC RDW Std Deviation RDW Coeff of Loreta Plt Count MPV Immature Gran % (Auto) Neut % (Auto) Lymph % (Auto) [place] % (Auto) Eos % (Auto) Baso % (Auto) Absolute Neuts (auto) Absolute Lymphs (auto) Nucleated RBC % PT INR APTT Sodium Pending Potassium Pending Chloride Pending Carbon Dioxide Pending Anion Gap Pending BUN Pending Creatinine Pending Estim Creat Clear Calc Est GFR (MDRD) Af Amer Pending Est GFR (MDRD) Non-Af Pending BUN/Creatinine Ratio Pending Glucose Pending Lactic Acid Calcium Pending Total Bilirubin Pending AST Pending ALT Pending Alkaline Phosphatase Pending Troponin I Total Protein Pending Albumin Pending Globulin Albumin/Globulin Ratio Blood Type Antibody Screen Crossmatch Clinical Impression(s) from Imaging Studies KUB X-Ray 07/19/19 07:19 IMPRESSION: Nasogastric tube with the tip below the level of diaphragm in the region of the stomach. Electronically Signed: Zaire Damian MD at 9:06 EST Tel , Service support , Medical Necessity - Tobacco Use Smoking Status: Former smoker Tobacco Use: Cigarettes, Chew Assessment/Plan All Active Problems (Last Reviewed 07/20/19 @ 08:53 by Gabriel Ramesy MD) GI bleed not requiring more than 4 units of blood in 24 hours, ICU, or surgery (Acute) Hypotension (Acute) Anemia due to blood loss, acute (Acute) Acidosis, lactic (Acute) Postoperative atrial fibrillation (Resolved) RECOMMENDATIONS: 1. Continue to monitor blood counts daily. No indication for transfusion of additional blood products at this time. 2. Continue Protonix twice daily, as ordered. 3. Dietary advancement per surgery recommendations. 4. Plans for prep with endoscopic evaluation tomorrow. 5. The patient is medically stable for transfer out of the ICU. IMPRESSIONS: 1. Hematochezia/acute blood loss anemia The patient presented with a hemoglobin of 7.2 g/dL, but has remained hemodynamically stable without further episodes of GI blood loss. The patient was subsequently transfused 2 units of packed red blood cells. Hemoglobin did improve. There have been no further episodes of hematochezia. The patient will be continued on Protonix with plans to undergo prep and endoscopic evaluation tomorrow. 2. Hypertension Antihypertensives are currently on hold. These can be resumed, pending stability in the patient's clinical state. This note was generated with [employer] dictation software. It may contain incorrect words, spelling, and punctuation that were not noted in checking the note before signing. Code Visit Inpatient E&M: 76119 Subs Hosp L2
[2019-07-20 06:49] LABS: AST(SGOT) 10 U/L (15-37); Alanine Aminotransfer ALT/SGPT 17 U/L (16-61); Albumin, Serum 2.9 g/dL (3.2-5.0); Alkaline Phosphatase 69 U/L (45-117); Anion Gap 6 (5-15); BUN 11 mg/dL (7-18); BUN/Creat Ratio 13.1 RATIO (10-20); Calcium,Total 8.1 mg/dL (8.5-10.1); Chloride 111 mmol/L (98-107); Creatinine, Serum 0.84 mg/dL (0.70-1.30); EST Glomerular Filtration Rate 93 mL/min (>60); Est Glom Filt Rate - Afr Amer 113 mL/min (>60); Estimated Creatinine Clearance 74.42 ml/min; Globulin 2.8 g/dL (2.2-4.2); Glucose 97 mg/dL (74-106); Potassium 3.7 mmol/L (3.5-5.1); Protein, Total 5.7 g/dL (6.4-8.2); Sodium Level 143 mmol/L (136-145)
--- NOTE | 2019-07-20 10:08 | PN_ITS ---
Patient Problems: Active and Suspected Problems (Last Reviewed 07/20/19 @ 08:53 by Gabriel Ramsey MD) GI bleed not requiring more than 4 units of blood in 24 hours, ICU, or surgery (Acute) Hypotension (Acute) Anemia due to blood loss, acute (Acute) Acidosis, lactic (Acute) Subjective: Follow-up on GI bleed: Patient was seen and examined. Denied any new complaints. No more bleeding seen hospital. No acute events overnight. Denies any dizziness or palpitations or chest pain. 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 Neurological: Cranial nerves II-XII grossly intact Psych/Mental Status: Normal Affect, Appropriate Vitals/I&O's: Vital Signs Temp Pulse Resp BP Pulse Ox 98.9 F 93 18 138/65 H 97 07/20/19 07:48 07/20/19 07:48 07/20/19 07:48 07/20/19 07:48 07/20/19 07:48 Oxygen Delivery Method Room Air Weight: 98.7 kg Body Mass Index (BMI) 29.4 Intake and Output for Last 24 Hours 07/18/19 07/19/19 07/20/19 23:59 23:59 23:59 Intake Total 3395 / 3695 600 / 600 Output Total 300 / 1000 1200 / 1200 Balance 3095 / 2695 -600 / -600 Laboratory Results 07/19/19 07:34: Crossmatch See Detail 07/19/19 13:25: Lactic Acid 1.3 07/19/19 21:40: Hgb 9.0 L, Hct 29.3 L 07/20/19 05:45: WBC 8.0, RBC 3.30 L, Hgb 8.2 L, Hct 26.8 L, MCV 81.2, MCH 24.8 L , MCHC 30.6 L, RDW Std Deviation 44.2 H, RDW Coeff of Loreta 14.9 H, Plt Count 226, MPV 10.6, Immature Gran % (Auto) 0.200, Neut % (Auto) 62.5, Lymph % (Auto) 23.9, [place] % (Auto) 8.5, Eos % (Auto) 4.4, Baso % (Auto) 0.5, Absolute Neuts (auto) 5.0, Absolute Lymphs (auto) 1.92, Nucleated RBC % 0 07/20/19 05:45: Sodium 143, Potassium 3.7, Chloride 111 H, Carbon Dioxide 26.0, Anion Gap 6, BUN 11, Creatinine 0.84, Estim Creat Clear Calc 74.42, Est GFR (MDRD) Af Amer 113, Est GFR (MDRD) Non-Af 93, BUN/Creatinine Ratio 13.1, Glucose 97, Calcium 8.1 L, Total Bilirubin 0.70, AST 10 L, ALT 17, Alkaline Phosphatase 69, Total Protein 5.7 L, Albumin 2.9 L, Globulin 2.8, Albumin/Globulin Ratio 1.0 Current Medications Acetaminophen (Tylenol) 650 mg PO Q4H PRN PRN PRN Reason: Pain Score 1-10/Temp > 100.7 F Albuterol Sulfate (Ventolin Aerosols) 2.5 mg INHALATION Q2H PRN PRN PRN Reason: SOB/Wheezing Sodium Chloride () 500 mls @ 15 mls/hr IV PRN PRN PRN Reason: Blood Transfusion Sodium Chloride () 250 mls @ 15 mls/hr IV .[id number] PRN PRN Reason: Saline Flush Pantoprazole Sodium 40 mg/ (Sodium Chloride) 110 mls @ 330 mls/hr IV Q12 [facility] Last Infusion: 07/19/19 23:00 Dose: Infused Documented by: Ondansetron HCl (Zofran) 4 mg IV Q8H PRN PRN PRN Reason: NAUSEA/VOMITING Sodium Chloride () 10 - 40 ml IV UD PRN PRN Reason: SALINE FLUSH STROKE Vital Signs/Narrative: Vital Signs Temp Pulse Resp BP Pulse Ox 07/20/19 07:48 98.9 F 93 18 138/65 H 97 Medical Necessity - Tobacco Use Smoking Status: Former smoker Tobacco Use: Cigarettes, Chew Assessment/Plan All Active Problems (Last Reviewed 07/20/19 @ 08:53 by Gabriel Ramsey MD) GI bleed not requiring more than 4 units of blood in 24 hours, ICU, or surgery (Acute) Hypotension (Acute) Anemia due to blood loss, acute (Acute) Acidosis, lactic (Acute) Postoperative atrial fibrillation (Resolved) 84 year old M with past medical history of mitral valve repair, hypertension, hyperlipidemia, thoracic aortic aneurysm who comes in with complaints of hematochezia which started on the morning of admission. 1. Acute GI bleed/hematochezia, likely secondary to lower GI bleed History of recent NSAID use. Patient was also on aspirin. On IV PPI BID General surgery consulted; EGD/colonoscopy planned for tomorrow morning 2. Acute blood loss anemia due to #1. Hb is 8.2 today, status post 2 units of packed RBCs CBCD in a.m. 3. Hypertension, on metoprolol and losartan, BP this morning remains relatively low. Would continue to hold for now Will resume if blood pressures are much better. 4. History of mitral repair, stable 5. DVT prophylaxis with SCDs Code Visit Inpatient E&M: 36017 Subs Hosp L2
[2019-07-20] MEDS: Losartan Potassium 50 MG Tablet PO (14:40)
[2019-07-20] MEDS: Electrolyte Solution/Peg's 4000 ML PO (16:08)
[2019-07-20] MEDS: Metoprolol Tartrate 25 MG Tablet PO (16:09)
[2019-07-20] MEDS: 0.9% Saline Lock 10 ML Syringe IV ×2 (16:10→21:54)
[2019-07-20 19:15] LABS: Hematocrit 28.2 % (40-54); Hemoglobin 8.6 g/dL (13.0-16.5)
[2019-07-21] VITALS (19 sets, daily range): BP systolic 96–154; BP diastolic 38–89; PULSE 69–116; RESP 12–18; TEMP 36.3–37; O2SAT 94–100; BMI 29.0
[2019-07-21 05:46] LABS: Absolute Lymphocyte Count 2.17 X10^3/uL (0.83-4.51); Absolute Neutrophil Count 4.2 X10^3/uL (2.0-7.7); Basophil# 0.04 X10^3/uL; Basophil% 0.5 % (0-1); Eosinophil# 0.49 X10^3/uL; Eosinophils% 6.4 % (0-5); Hematocrit 26.1 % (40-54); Hemoglobin 7.9 g/dL (13.0-16.5); Lymphocyte # 2.17 X10^3/ul (4.0); Lymphocyte % 28.6 % (19-41); Mean Corp Hgb Conc 30.3 g/dL (32-36); Mean Corpuscular Hgb 24.5 pg (27.0-32.0); Mean Corpuscular Volume 81.1 fL (80-94); Mean Platelet Vol. 10.5 fl (6.2-12.0); Monocyte# 0.68 X10^3/uL; Monocyte% 8.9 % (0-10); NRBC Flagged by Analyzer 0 % (0-5); Neutrophil # 4.19 X10^3/uL (2.7-7.7); Neutrophil % 55.2 % (47-70); Platelet Count 209 K/mm3 (150-450); RBC Distribution Width CV 15.3 % (11.6-14.6); Red Blood Count 3.22 M/mm3 (4.6-6.2); White Blood Count 7.6 K/mm3 (4.4-11.0)
[2019-07-21 06:01] LABS: International Normalized Ratio 1.2; Prothrombin Time (Protime)PT. 15.1 SECONDS (11.7-14.9)
[2019-07-21 06:19] LABS: Anion Gap 7 (5-15); BUN 9 mg/dL (7-18); BUN/Creat Ratio 10.9 RATIO (10-20); Calcium,Total 8.2 mg/dL (8.5-10.1); Chloride 111 mmol/L (98-107); Creatinine, Serum 0.82 mg/dL (0.70-1.30); EST Glomerular Filtration Rate 95 mL/min (>60); Est Glom Filt Rate - Afr Amer 115 mL/min (>60); Estimated Creatinine Clearance 76.23 ml/min; Glucose 89 mg/dL (74-106); Potassium 3.9 mmol/L (3.5-5.1); Sodium Level 144 mmol/L (136-145)
[2019-07-21 07:01] LABS: AST(SGOT) 11 U/L (15-37); Alanine Aminotransfer ALT/SGPT 18 U/L (16-61); Alkaline Phosphatase 72 U/L (45-117); Bilirubin, Direct 0.16 mg/dL (0.00-0.30); Globulin 2.8 g/dL (2.2-4.2); Protein, Total 5.8 g/dL (6.4-8.2)
[2019-07-21] MEDS: 0.9% Saline Lock 10 ML Syringe IV ×2 (08:22→09:34)
[2019-07-21] MEDS: Losartan Potassium 50 MG Tablet PO ×2 (08:23→19:18)
[2019-07-21] MEDS: Metoprolol Tartrate 25 MG Tablet PO ×2 (08:23→19:18)
--- NOTE | 2019-07-21 10:37 | PN_ITS ---
Subjective: Patient did well overnight. No acute issues were reported. Patient is denying any symptoms today, but was orthostatic this morning on check. Patient states he is tolerated his bowel prep and has not noted any blood in the toilet bowl. Patient is on room air. General: Alert, Oriented x3, Cooperative, No apparent distress, Well developed, Well nourished, - - No conversational dyspnea. HEENT: Atraumatic, PERRLA, EOMI, Normocephalic, - - No scleral icterus or injection noted Oral: Moist Mucosa, No Gingival or Mucosal Lesions/ Ulcerations Neck: Supple, No JVD, No Nodes, Trachea Midline Lungs: Clear to auscultation, Normal air movement, No rhonchi, No wheeze, No rales Cardiovascular: Regular rate, Regular Rhythm, Normal S1, Normal S2, No murmurs, No rub noted, No Gallop Abdomen: Bowel Sounds Present, Soft, Non Tender, Non-Distended, Obese Extremities: No clubbing, No cyanosis, No edema, Capillary Refill Less than 3 Seconds, - - Multiple amputation of the right hand Skin: No rashes, No breakdown Musculoskeletal: No Tenderness to Palpation of Joints or Extremities Lymphatic: No Cervical, Supraclavicular, or Inguinal Adenopathy Neurological: Cranial nerves II-XII grossly intact, Neuro grossly intact, Motor Exam 5/5 strength throughout Psych/Mental Status: Alert and oriented to time, place, person, mood and affect Vital Signs Temp Pulse Resp BP Pulse Ox 36.7 C 81 12 125/67 H 95 07/21/19 08:07 07/21/19 08:23 07/21/19 08:08 07/21/19 08:23 07/21/19 08:08 Oxygen Delivery Method Room Air Weight: 97 kg Body Mass Index (BMI) 29.0 Orthostatic Vital Signs Start: 07/21/19 05:37 Freq: Q12H Status: Active Protocol: Activity Type Activity Date Activity User E-Sign Co-Sign Detail Recorded Client Recorded Date Recorded By Document 07/21/19 05:37 MM [id number] 07/21/19 05:44 MM 07/21/19 05:37 Orthostatic Vitals Standing -Blood Pressure (90/60-120/80) 145/89 H -Extremity Use Left Arm -Pulse Rate (60-100) 116 H Sitting -Blood Pressure (90/60-120/80) 136/83 H -Extremity Use Left Arm -Pulse Rate (60-100) 97 Lying -Blood Pressure (90/60-120/80) 135/77 H -Extremity Use Left Arm -Pulse Rate (60-100) 85 Intake and Output for Last 24 Hours 07/19/19 07/20/19 07/21/19 23:59 23:59 23:59 Intake Total 3395 / 3695 1420 / 1420 310 / 310 Output Total 300 / 1000 2125 / 2125 Balance 3095 / 2695 -705 / -705 310 / 310 Labs (Last 48 Hours) 07/19/19 07/19/19 07/19/19 07:34 13:25 21:40 WBC RBC Hgb 9.0 L Hct 29.3 L MCV MCH MCHC RDW Std Deviation RDW Coeff of Loreta Plt Count MPV Immature Gran % (Auto) Neut % (Auto) Lymph % (Auto) [place] % (Auto) Eos % (Auto) Baso % (Auto) Absolute Neuts (auto) Absolute Lymphs (auto) Nucleated RBC % PT INR Sodium Potassium Chloride Carbon Dioxide Anion Gap BUN Creatinine Estim Creat Clear Calc Est GFR (MDRD) Af Amer Est GFR (MDRD) Non-Af BUN/Creatinine Ratio Glucose Lactic Acid 1.3 Calcium Total Bilirubin Direct Bilirubin AST ALT Alkaline Phosphatase Total Protein Albumin Globulin Albumin/Globulin Ratio Crossmatch See Detail 07/20/19 07/20/19 07/20/19 05:45 05:45 19:05 WBC 8.0 RBC 3.30 L Hgb 8.2 L 8.6 L Hct 26.8 L 28.2 L MCV 81.2 MCH 24.8 L MCHC 30.6 L RDW Std Deviation 44.2 H RDW Coeff of Loreta 14.9 H Plt Count 226 MPV 10.6 Immature Gran % (Auto) 0.200 Neut % (Auto) 62.5 Lymph % (Auto) 23.9 [place] % (Auto) 8.5 Eos % (Auto) 4.4 Baso % (Auto) 0.5 Absolute Neuts (auto) 5.0 Absolute Lymphs (auto) 1.92 Nucleated RBC % 0 PT INR Sodium 143 Potassium 3.7 Chloride 111 H Carbon Dioxide 26.0 Anion Gap 6 BUN 11 Creatinine 0.84 Estim Creat Clear Calc 74.42 Est GFR (MDRD) Af Amer 113 Est GFR (MDRD) Non-Af 93 BUN/Creatinine Ratio 13.1 Glucose 97 Lactic Acid Calcium 8.1 L Total Bilirubin 0.70 Direct Bilirubin AST 10 L ALT 17 Alkaline Phosphatase 69 Total Protein 5.7 L Albumin 2.9 L Globulin 2.8 Albumin/Globulin Ratio 1.0 Crossmatch 07/21/19 07/21/19 07/21/19 05:20 05:20 05:20 WBC 7.6 RBC 3.22 L Hgb 7.9 L Hct 26.1 L MCV 81.1 MCH 24.5 L MCHC 30.3 L RDW Std Deviation 45.0 H RDW Coeff of Loreta 15.3 H Plt Count 209 MPV 10.5 Immature Gran % (Auto) 0.400 Neut % (Auto) 55.2 Lymph % (Auto) 28.6 [place] % (Auto) 8.9 Eos % (Auto) 6.4 H Baso % (Auto) 0.5 Absolute Neuts (auto) 4.2 Absolute Lymphs (auto) 2.17 Nucleated RBC % 0 PT 15.1 H INR 1.2 Sodium 144 Potassium 3.9 Chloride 111 H Carbon Dioxide 26.0 Anion Gap 7 BUN 9 Creatinine 0.82 Estim Creat Clear Calc 76.23 Est GFR (MDRD) Af Amer 115 Est GFR (MDRD) Non-Af 95 BUN/Creatinine Ratio 10.9 Glucose 89 Lactic Acid Calcium 8.2 L Total Bilirubin Direct Bilirubin AST ALT Alkaline Phosphatase Total Protein Albumin Globulin Albumin/Globulin Ratio Crossmatch 07/21/19 05:20 WBC RBC Hgb Hct MCV MCH MCHC RDW Std Deviation RDW Coeff of Loreta Plt Count MPV Immature Gran % (Auto) Neut % (Auto) Lymph % (Auto) [place] % (Auto) Eos % (Auto) Baso % (Auto) Absolute Neuts (auto) Absolute Lymphs (auto) Nucleated RBC % PT INR Sodium Potassium Chloride Carbon Dioxide Anion Gap BUN Creatinine Estim Creat Clear Calc Est GFR (MDRD) Af Amer Est GFR (MDRD) Non-Af BUN/Creatinine Ratio Glucose Lactic Acid Calcium Total Bilirubin 0.60 Direct Bilirubin 0.16 AST 11 L ALT 18 Alkaline Phosphatase 72 Total Protein 5.8 L Albumin 3.0 L Globulin 2.8 Albumin/Globulin Ratio Crossmatch Medical Necessity - Tobacco Use Smoking Status: Former smoker Tobacco Use: Cigarettes, Chew Assessment/Plan All Active Problems (Last Reviewed 07/20/19 @ 08:53 by Gabriel Ramsey MD) GI bleed not requiring more than 4 units of blood in 24 hours, ICU, or surgery (Acute) Hypotension (Acute) Anemia due to blood loss, acute (Acute) Acidosis, lactic (Acute) Postoperative atrial fibrillation (Resolved) RECOMMENDATIONS: 1. Continue to monitor blood counts daily. No indication for transfusion of additional blood products at this time. 2. Possibly transition Protonix to p.o. twice daily pending EGD results 3. Dietary advancement per surgery recommendations. 4. Await endoscopic evaluation 5. We will likely sign off from an ICU perspective if endoscopic evaluation is unremarkable IMPRESSIONS: 1. Hematochezia/acute blood loss anemia The patient presented with a hemoglobin of 7.2 g/dL, but has remained hemodynamically stable without further episodes of GI blood loss. Patient is denying any further blood loss, but was orthostatic this morning. Patient may benefit from gentle volume resuscitation. Hemoglobin was relatively stable today. Coagulation studies are within normal limits. Await results of endoscopic evaluation. If unremarkable, will likely sign off from a critical care perspective. If visible vessel or active bleeding, will continue to follow given increased risk for complications. 2. Hypertension Antihypertensives are currently on hold. These can be resumed, pending stability in the patient's clinical state. Code Visit Inpatient E&M: 50052 Subs Hosp L2
--- NOTE | 2019-07-21 14:57 | PCM.PN.HOSP ---
Patient Problems: Active and Suspected Problems (Last Reviewed 07/20/19 @ 08:53 by Gabriel Ramsey MD) GI bleed not requiring more than 4 units of blood in 24 hours, ICU, or surgery (Acute) Hypotension (Acute) Anemia due to blood loss, acute (Acute) Acidosis, lactic (Acute) Subjective: Follow-up on GI bleed: Patient was seen and examined. No more bleeding seen. He did a colonoscopy prep last night. Denied any dizziness or palpitation. Going for EGD/colonoscopy this afternoon. 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 Neurological: Cranial nerves II-XII grossly intact Psych/Mental Status: Normal Affect, Appropriate Vitals/I&O's: Vital Signs Temp Pulse Resp BP Pulse Ox 98.5 F 83 12 137/67 H 97 07/21/19 12:28 07/21/19 12:41 07/21/19 12:41 07/21/19 12:28 07/21/19 12:41 Oxygen Delivery Method Room Air Weight: 97 kg Body Mass Index (BMI) 29.0 Orthostatic Vital Signs Start: 07/21/19 05:37 Freq: Q12H Status: Active Protocol: Activity Type Activity Date Activity User E-Sign Co-Sign Detail Recorded Client Recorded Date Recorded By Document 07/21/19 05:37 MM [id number] 07/21/19 05:44 MM 07/21/19 05:37 Orthostatic Vitals Standing -Blood Pressure (90/60-120/80) 145/89 H -Extremity Use Left Arm -Pulse Rate (60-100) 116 H Sitting -Blood Pressure (90/60-120/80) 136/83 H -Extremity Use Left Arm -Pulse Rate (60-100) 97 Lying -Blood Pressure (90/60-120/80) 135/77 H -Extremity Use Left Arm -Pulse Rate (60-100) 85 Intake and Output for Last 24 Hours 07/19/19 07/20/19 07/21/19 23:59 23:59 23:59 Intake Total 3395 / 3695 1420 / 1420 360 / 360 Output Total 300 / 1000 2125 / 2125 Balance 3095 / 2695 -705 / -705 360 / 360 Laboratory Results 07/20/19 19:05: Hgb 8.6 L, Hct 28.2 L 07/21/19 05:20: WBC 7.6, RBC 3.22 L, Hgb 7.9 L, Hct 26.1 L, MCV 81.1, MCH 24.5 L, MCHC 30.3 L, RDW Std Deviation 45.0 H, RDW Coeff of Loreta 15.3 H, Plt Count 209, MPV 10.5, Immature Gran % (Auto) 0.400, Neut % (Auto) 55.2, Lymph % (Auto) 28.6, [place] % (Auto) 8.9, Eos % (Auto) 6.4 H, Baso % (Auto) 0.5, Absolute Neuts (auto) 4.2, Absolute Lymphs (auto) 2.17, Nucleated RBC % 0 07/21/19 05:20: Sodium 144, Potassium 3.9, Chloride 111 H, Carbon Dioxide 26.0, Anion Gap 7, BUN 9, Creatinine 0.82, Estim Creat Clear Calc 76.23, Est GFR (MDRD) Af Amer 115, Est GFR (MDRD) Non-Af 95, BUN/Creatinine Ratio 10.9, Glucose 89, Calcium 8.2 L 07/21/19 05:20: PT 15.1 H, INR 1.2 07/21/19 05:20: Total Bilirubin 0.60, Direct Bilirubin 0.16, AST 11 L, ALT 18, Alkaline Phosphatase 72, Total Protein 5.8 L, Albumin 3.0 L, Globulin 2.8 Current Medications Acetaminophen (Tylenol) 650 mg PO Q4H PRN PRN PRN Reason: Pain Score 1-10/Temp > 100.7 F Albuterol Sulfate (Ventolin Aerosols) 2.5 mg INHALATION Q2H PRN PRN PRN Reason: SOB/Wheezing Sodium Chloride () 500 mls @ 15 mls/hr IV PRN PRN PRN Reason: Blood Transfusion Sodium Chloride () 250 mls @ 15 mls/hr IV .[id number] PRN PRN Reason: Saline Flush Pantoprazole Sodium 40 mg/ (Sodium Chloride) 110 mls @ 330 mls/hr IV Q12 [facility] Last Infusion: 07/21/19 08:42 Dose: Infused Documented by: Losartan Potassium (Cozaar) 50 mg PO BID [facility] Last Admin: 07/21/19 08:23 Dose: 50 mg Documented by: Metoprolol Tartrate (Lopressor (Beta Andree)) 25 mg PO BID [facility] Last Admin: 07/21/19 08:23 Dose: 25 mg Documented by: Ondansetron HCl (Zofran) 4 mg IV Q8H PRN PRN PRN Reason: NAUSEA/VOMITING Sodium Chloride () 10 - 40 ml IV UD PRN PRN Reason: SALINE FLUSH Last Admin: 07/21/19 09:34 Dose: 10 ml Documented by: STROKE Vital Signs/Narrative: Vital Signs Temp Pulse Resp BP Pulse Ox 07/21/19 12:41 83 12 97 07/21/19 12:28 98.5 F 83 12 137/67 H 97 Medical Necessity - Tobacco Use Smoking Status: Former smoker Tobacco Use: Cigarettes, Chew Assessment/Plan All Active Problems (Last Reviewed 07/20/19 @ 08:53 by Gabriel Ramsey MD) GI bleed not requiring more than 4 units of blood in 24 hours, ICU, or surgery (Acute) Hypotension (Acute) Anemia due to blood loss, acute (Acute) Acidosis, lactic (Acute) Postoperative atrial fibrillation (Resolved) 84 year old M with past medical history of mitral valve repair, hypertension, hyperlipidemia, thoracic aortic aneurysm who comes in with complaints of hematochezia which started on the morning of admission. 1. Acute GI bleed/hematochezia, likely secondary to lower GI bleed No more bleeding seen since admission History of recent NSAID use. Patient was also on aspirin. On IV PPI BID General surgery consulted; EGD/colonoscopy planned for today We will follow-up on recommendations 2. Acute blood loss anemia due to #1. Hb is7.9, drop from 8.6 Status post 2 units of packed RBCs CBCD in a.m. 3. Hypertension, controlled, on metoprolol and losartan Will continue to monitor 4. History of mitral repair, stable 5. DVT prophylaxis with SCDs Code Visit Inpatient E&M: 80223 Subs Hosp L2
--- NOTE | 2019-07-21 15:45 | IMM_PTH ---
PATIENT: AIDEN WHITTAKER LOC: MS3 U#:[id number] AGE/SX: 84/M ROOM: MS308 RE07/19/[address]: Dr. Sharda Hamilton MD : 1935 BED: 1 DIS: 07/22/2019 SPEC #: [id number] RECD: 07/22/19 14:38 STATUS: BIN REQ #: [id number] OLIVIA: 07/21/19 15:[address]: Gabriel Ramsye DEPT: IMMUNOHISTOCHEMISTRY RECD BY: Diana Nelson ENTERED: 07/22/19 14:39 SP TYPE: IMMUNO OTHR DR: MD Dr. Kp Espinal DO Dr. Paul Nielsen, MD Tissues: Stomach, NOS Procedures: H Pylori (initial) PHYSICIAN & INSTITUTION [place] [id number] SPECIMEN INFORMATION: Tissue Source: Antral biopsy Clinical Info: Anemia, blood in stool Specimen Number: [id number] CPT code: 66520 METHODOLOGY: Deparaffinized sections of prefer/formalin-fixed tissue or PAP/DQ stained slides are incubated with monoclonal/polyclonal antibodies/oligonucleotide probes. Localization is made via biotin free immunoperoxidase method. Appropriate controls are performed and reacted as expected. Results on target cell population are indicated in the following table: RESULTS: ANTIBODY / CLONE RESULT H Pylori (polyclonal) negative These tests were developed and their performance characteristics determined by [facility]. They may not have been cleared or approved by the U.S. Food and Drug Administration. The FDA has determined that such clearance or approval is not necessary. INTERPRETATION: Antral biopsy: Negative for Helicobacter pylori organisms. SJ:mi 07/23/19
--- NOTE | 2019-07-21 15:45 | EGD_PTH ---
PATIENT: AIDEN WHITTAKER LOC: MS3 U#:[id number] AGE/SX: 84/M ROOM: MS308 RE07/19/[address]: Dr. Sharda Hamilton MD : 1935 BED: 1 DIS: 07/22/2019 SPEC #: [id number] RECD: 07/21/19 19:31 STATUS: BIN DIEGO #: [id number] OLIVIA: 07/21/19 15:[address]: Gabriel Ramsey DEPT: SURGICAL PATHOLOGY RECD BY: Yao Ochoa ENTERED: 07/22/19 10:53 SP TYPE: EGD BIOPSY OTHR DR: MD Dr. Kp Espinal DO Dr. Paul Nielsen, MD Tissues: Gastric mucous membrane Procedures: Surgery Specimen Level IV HEADER OPERATION: Colonoscopy, EGD ([facility] [place]) PRE-OP DIAGNOSIS: Anemia, blood in stool TISSUE SUBMITTED: Antral biopsy MICROSCOPIC DIAGNOSIS Antral biopsy: Mild gastritis. See microscopic description and comment. SJ:mi 07/23/19 COMMENT The results of immunohistochemistry for Helicobacter pylori will be reported separately ([id number]). MICROSCOPIC DESCRIPTION Slides are reviewed. The specimen shows fragments of gastric mucosa with chronic inflammatory cell infiltrates in the lamina propria consisting of lymphocytes and plasma cells, consistent with mild chronic gastritis. GROSS DESCRIPTION Received in fixative is one container labeled with the patient's name and designated antral biopsy. The specimen consists of one irregular fragment of light lovelace soft tissue that measures 0.4 x 0.3 x 0.1 cm. The specimen is totally submitted in one cassette. / AM:mi 07/22/19 TC:3 CPT: 79333
--- NOTE | 2019-07-21 18:10 | EKG12_ITS ---
Test Reason : ABNORMAL RHYTHM Blood Pressure : / mmHG Vent. Rate : 071 BPM Atrial Rate : 071 BPM P-R Int : 220 ms QRS Dur : 094 ms QT Int : 396 ms P-R-T Axes : 020 043 046 degrees QTc Int : 430 ms Sinus rhythm with 1st degree A-V block with Premature supraventricular complexes Otherwise normal ECG When compared with ECG of 19-JUL-2019 07:22, MANUAL COMPARISON REQUIRED, DATA IS UNCONFIRMED Confirmed by ISABELA MARTINEZ ([id number]), sound editor JULIO CESAR VELA ([id number]) on 07/25/2019 11:37:19 AM Referred By: DR RIOS Confirmed By:ISABELA MARTINEZ
--- NOTE | 2019-07-21 18:11 | OP.EGD_ITS ---
Patient Name: Gabino Grady Procedure Date: 07/21/2019 5:29 PM Date of : 1935 Age: 84 Procedure: Upper GI endoscopy Indications: Hematochezia Providers: Gabriel Ramsey MD Medicines: Monitored Anesthesia Care Patient Profile: This is an 84 year old male. Refer to note in patient chart for documentation of history and physical. Complications: No immediate complications. Procedure: Pre-Anesthesia Assessment: - Prior to the procedure, a History and Physical was performed, and patient medications and allergies were reviewed. The patient is competent. The risks and benefits of the procedure and the sedation options and risks were discussed with the patient. All questions were answered and informed consent was obtained. Patient identification and proposed procedure were verified by the physician, the nurse and the ethnoarchaeology professor in the procedure room. Mental Status Examination: alert and oriented. Airway Examination: normal oropharyngeal airway and neck mobility. Respiratory Examination: clear to auscultation. CV Examination: normal. Prophylactic Antibiotics: The patient does not require prophylactic antibiotics. Prior Anticoagulants: The patient has taken no previous anticoagulant or antiplatelet agents. ASA Grade Assessment: III - A patient with severe systemic disease. After reviewing the risks and benefits, the patient was deemed in satisfactory condition to undergo the procedure. The anesthesia plan was to use monitored anesthesia care (MAC). Immediately prior to administration of medications, the patient was re-assessed for adequacy to receive sedatives. The heart rate, respiratory rate, oxygen saturations, blood pressure, adequacy of pulmonary ventilation, and response to care were monitored throughout the procedure. The physical status of the patient was re-assessed after the procedure. After obtaining informed consent, the endoscope was passed under direct vision. Throughout the procedure, the patient's blood pressure, pulse, and oxygen saturations were monitored continuously. The gastroscope was introduced through the mouth, and advanced to the jejunum. The upper GI endoscopy was accomplished without difficulty. The patient tolerated the procedure well. Scope In: 5:39:52 PM Scope Out: 5:43:02 PM Total Procedure Duration Time 0 hours 3 minutes 10 seconds Findings: The examined jejunum was normal. The entire examined stomach was normal. Biopsies were taken with a cold forceps for Helicobacter pylori testing using PyloriTek test. Biopsies were taken with a cold forceps for histology. Patchy mildly erythematous mucosa without active bleeding and with no stigmata of bleeding was found in the duodenal bulb. The examined esophagus was normal. Impression: - Normal examined jejunum. - Normal stomach. Biopsied. - Erythematous duodenopathy. - Normal esophagus. Recommendation: - Return patient to [facility] for [facility] care. - Continue present medications. Procedure Code(s): --- Professional --- 03855, Esophagogastroduodenoscopy, flexible, transoral; with biopsy, single or multiple CPT copyright 2017 [employer]. All rights reserved. The codes documented in this report are preliminary and upon forest fire specialist supervisor review may be revised to meet current compliance requirements. Gabriel Ramsey MD 07/21/2019 6:11:13 PM This report has been signed electronically. Number of Addenda: 0 Note Initiated On: 07/21/2019 5:29 PM
--- NOTE | 2019-07-21 18:13 | OP.COLON_ITS ---
Patient Name: Gabino Grady Procedure Date: 07/21/2019 5:43 PM Date of : 1935 Age: 84 Procedure: Colonoscopy Indications: Hematochezia Providers: Gabriel Ramsey MD Medicines: Monitored Anesthesia Care Patient Profile: This is an 84 year old male. Refer to note in patient chart for documentation of history and physical. Last Colonoscopy: more than 10 years ago. Complications: No immediate complications. Procedure: Pre-Anesthesia Assessment: - Prior to the procedure, a History and Physical was performed, and patient medications and allergies were reviewed. The patient is competent. The risks and benefits of the procedure and the sedation options and risks were discussed with the patient. All questions were answered and informed consent was obtained. Patient identification and proposed procedure were verified by the physician, the nurse and the equipment worker in the procedure room. Mental Status Examination: alert and oriented. Airway Examination: normal oropharyngeal airway and neck mobility. Respiratory Examination: clear to auscultation. CV Examination: normal. Prophylactic Antibiotics: The patient does not require prophylactic antibiotics. Prior Anticoagulants: The patient has taken no previous anticoagulant or antiplatelet agents. ASA Grade Assessment: III - A patient with severe systemic disease. After reviewing the risks and benefits, the patient was deemed in satisfactory condition to undergo the procedure. The anesthesia plan was to use monitored anesthesia care (MAC). Immediately prior to administration of medications, the patient was re-assessed for adequacy to receive sedatives. The heart rate, respiratory rate, oxygen saturations, blood pressure, adequacy of pulmonary ventilation, and response to care were monitored throughout the procedure. The physical status of the patient was re-assessed after the procedure. After I obtained informed consent, the scope was passed under direct vision. Throughout the procedure, the patient's blood pressure, pulse, and oxygen saturations were monitored continuously. The Duodenoscope was introduced through the anus and advanced to the cecum, identified by the appendiceal orifice, ileocecal valve and palpation. The colonoscopy was performed without difficulty. The patient tolerated the procedure well. The quality of the bowel preparation was good. Scope In: 5:45:58 PM Scope Withdrawal Time 0 hours 5 minutes 8 seconds Scope Out: 6:04:16 PM Total Procedure Duration Time 0 hours 18 minutes 18 seconds Findings: The perianal and digital rectal examinations were normal. Many small and large-mouthed diverticula were found in the sigmoid colon. The exam was otherwise without abnormality. The retroflexed view of the distal rectum and anal verge was normal and showed no anal or rectal abnormalities. Impression: - Diverticulosis in the sigmoid colon. - The examination was otherwise normal. - The distal rectum and anal verge are normal on retroflexion view. - No specimens collected. Recommendation: - Return patient to [facility] for ongoing care. - Resume regular diet. - Continue present medications. - No repeat colonoscopy. Procedure Code(s): --- Professional --- 65078, Colonoscopy, flexible; diagnostic, including collection of specimen(s) by brushing or washing, when performed (separate procedure) CPT copyright 2017 [employer]. All rights reserved. The codes documented in this report are preliminary and upon medical biller/coder review may be revised to meet current compliance requirements. Gabriel Ramsey MD 07/21/2019 6:13:08 PM This report has been signed electronically. Number of Addenda: 0 Note Initiated On: 07/21/2019 5:43 PM
[2019-07-22 04:22] VITALS: BP 119/56; PULSE 99; RESP 18; TEMP 37; O2SAT 95
[2019-07-22 05:35] LABS: Absolute Neutrophil Count 5.7 X10^3/uL (2.0-7.7); Basophil# 0.04 X10^3/uL; Basophil% 0.5 % (0-1); Eosinophil# 0.46 X10^3/uL; Eosinophils% 5.3 % (0-5); Hematocrit 27.8 % (40-54); Hemoglobin 8.4 g/dL (13.0-16.5); Lymphocyte % 21.9 % (19-41); Mean Corp Hgb Conc 30.2 g/dL (32-36); Mean Corpuscular Hgb 24.6 pg (27.0-32.0); Mean Corpuscular Volume 81.3 fL (80-94); Mean Platelet Vol. 10.2 fl (6.2-12.0); Monocyte# 0.55 X10^3/uL; Monocyte% 6.3 % (0-10); NRBC Flagged by Analyzer 0 % (0-5); Neutrophil # 5.72 X10^3/uL (2.7-7.7); Neutrophil % 65.8 % (47-70); Platelet Count 212 K/mm3 (150-450); RBC Distribution Width CV 15.1 % (11.6-14.6); RBC Distribution Width SD 45.1 fl (35.1-43.9); Red Blood Count 3.42 M/mm3 (4.6-6.2); White Blood Count 8.7 K/mm3 (4.4-11.0)
[2019-07-22 06:07] LABS: Anion Gap 9 (5-15); BUN 10 mg/dL (7-18); BUN/Creat Ratio 11.6 RATIO (10-20); Calcium,Total 8.3 mg/dL (8.5-10.1); Chloride 109 mmol/L (98-107); Creatinine, Serum 0.86 mg/dL (0.70-1.30); EST Glomerular Filtration Rate 90 mL/min (>60); Est Glom Filt Rate - Afr Amer 109 mL/min (>60); Estimated Creatinine Clearance 72.69 ml/min; Glucose 131 mg/dL (74-106); Potassium 3.6 mmol/L (3.5-5.1); Sodium Level 141 mmol/L (136-145)
--- NOTE | 2019-07-22 07:42 | PCM.DC ---
- Discharge Diagnoses Current Active Problems: Current Active and Chronic Problems (Last Reviewed 07/20/19 @ 08:53 by Gabriel Ramsey MD) GI bleed not requiring more than 4 units of blood in 24 hours, ICU, or surgery (Acute) Hypotension (Acute) Anemia due to blood loss, acute (Acute) Acidosis, lactic (Acute) Reason(s) for Visit for Discharge Instructions: Acute GI bleed You will use the following diet at home:: Cardiac Your food should be the consistency of: Regular Your liquids should be the consistency of: Regular/Thin Discharge Activity: Return to Normal Activity Additional Instructions: Continue to take all your medications. Continue to keep yourself hydrated Allergies/Adverse Reactions: Allergies ramipril [From Altace] Adverse Reaction (Verified 07/19/19 07:17) dry cough Medications to take at Discharge aspirin 81 mg tablet,delayed release 81 mg PO QDAY 01/07/18 multivitamin tablet 1 tab PO QDAY 01/07/18 losartan 50 mg tablet 50 mg PO BID #180 tab 07/15/18 metoprolol tartrate 25 mg tablet 25 mg PO BID #180 tab 07/15/18 Pantoprazole Sodium 40 mg PO BID #60 tablet.dr 07/22/19 The following prescriptions were given: Pantoprazole Sodium 40 mg PO BID #60 tablet. Transmission Status: Pending to [facility] Primary Care Physician: Xu Coleman MD [Primary Care Provider] - Please follow up with your Primary Care Physician in: within 1-2 weeks Test Results: Test results from this visit will be discussed in further detail at your follow-up appointment, if applicable. Please Follow Up With: Gabriel Ramsey MD When: in 1 week Proposed Discharge Date: 07/22/19
--- NOTE | 2019-07-22 07:45 | DS.PCM_ITS ---
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 Electronically Signed: Zaire Damian MD at 9:06 EST Tel , Service support , General surgery Operations: None Procedures: Colonoscopy, EGD Summary of Care Provided: The patient is a 84 year old M with past medical history of mitral valve repair, hypertension, hyperlipidemia, thoracic aortic aneurysm who was admitted with complaints of hematochezia which started on the morning of admission. Patient had been on ibuprofen for left knee arthritis. He had multiple bright red bloody movement on the day of admission. He was lightheaded and diaphoretic and had a near syncopal episode where he had to lie down on the bathroom floor. He had a history of colonoscopy 10 years prior. His hemoglobin on admission was 7.2. Patient was managed in the ICU initially on PPI drip. General surgery was consulted. He underwent EGD and colonoscopy which showed some gastritis and diverticulosis. He was discharged home on PPIs. Discussed w [facility] general surgery, they are okay with his aspirin being continued. Likely source of his GI bleed was diverticulosis. He will follow-up with general surgery in a week for repeat blood work. Subjective: On the day of discharge, patient was seen and examined. No more bleeding. He underwent colonoscopy and EGD yesterday that showed diverticulosis and some ga stritis. He had tolerated his breakfast. Eager to be discharged. 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 Neurological: Cranial nerves II-XII grossly intact Psych/Mental Status: Normal Affect, Appropriate - Physical Exam Vitals/I&O's: Vital Signs Temp Pulse Resp BP Pulse Ox 98.6 F 99 18 119/56 L 95 07/22/19 04:22 07/22/19 04:22 07/22/19 04:22 07/22/19 04:22 07/22/19 04:22 Oxygen Delivery Method Room Air Weight: 98.1 kg Body Mass Index (BMI) 29.0 Orthostatic Vital Signs Start: 07/21/19 05:37 Freq: Q12H Status: Active Protocol: Activity Type Activity Date Activity User E-Sign Co-Sign Detail Recorded Client Recorded Date Recorded By Document 07/21/19 21:56 [facility] [id number] 07/21/19 22:00 [facility] 07/21/19 21:56 Orthostatic Vitals Standing -Blood Pressure (90/60-120/80) 123/61 H -Extremity Use Left Arm -Pulse Rate (60-100) 94 Sitting -Blood Pressure (90/60-120/80) 135/61 H -Extremity Use Left Arm -Pulse Rate (60-100) 93 Lying -Blood Pressure (90/60-120/80) 126/62 H -Extremity Use Left Arm -Pulse Rate (60-100) 89 Intake and Output for Last 24 Hours 07/20/19 07/21/19 07/22/19 23:59 23:59 23:59 Intake Total 1420 / 1420 810 / 810 800 / 800 Output Total 2124 / 2124 Balance -705 / -705 810 / 810 800 / 800 Laboratory Results 07/22/19 05:20: WBC 8.7, RBC 3.42 L, Hgb 8.4 L, Hct 27.8 L, MCV 81.3, MCH 24.6 L , MCHC 30.2 L, RDW Std Deviation 45.1 H, RDW Coeff of Loreta 15.1 H, Plt Count 212, MPV 10.2, Immature Gran % (Auto) 0.200, Neut % (Auto) 65.8, Lymph % (Auto) 21.9, Grand % (Auto) 6.3, Eos % (Auto) 5.3 H, Baso % (Auto) 0.5, Absolute Neuts (auto) 5.7, Absolute Lymphs (auto) 1.90, Nucleated RBC % 0 07/22/19 05:20: Sodium 141, Potassium 3.6, Chloride 109 H, Carbon Dioxide 23.0, Anion Gap 9, BUN 10, Creatinine 0.86, Estim Creat Clear Calc 72.69, Est GFR (MDRD) Af Amer 109, Est GFR (MDRD) Non-Af 90, BUN/Creatinine Ratio 11.6, Glucose 131 H, Calcium 8.3 L Current Medications Acetaminophen (Tylenol) 650 mg PO Q4H PRN PRN PRN Reason: Pain Score 1-10/Temp > 100.7 F Albuterol Sulfate (Ventolin Aerosols) 2.5 mg INHALATION Q2H PRN PRN PRN Reason: SOB/Wheezing Sodium Chloride () 500 mls @ 15 mls/hr IV PRN PRN PRN Reason: Blood Transfusion Sodium Chloride () 250 mls @ 15 mls/hr IV .[id number] PRN PRN Reason: Saline Flush Pantoprazole Sodium 40 mg/ (Sodium Chloride) 110 mls @ 330 mls/hr IV Q12 [facility] Last Admin: 07/21/19 21:47 Dose: Not Given Documented by: Losartan Potassium (Cozaar) 50 mg PO BID [facility] Last Admin: 07/21/19 19:18 Dose: 50 mg Documented by: Metoprolol Tartrate (Lopressor (Beta Andree)) 25 mg PO BID [facility] Last Admin: 07/21/19 19:18 Dose: 25 mg Documented by: Ondansetron HCl (Zofran) 4 mg IV Q8H PRN PRN PRN Reason: NAUSEA/VOMITING Sodium Chloride () 10 - 40 ml IV UD PRN PRN Reason: SALINE FLUSH Last Admin: 07/21/19 09:34 Dose: 10 ml Documented by: Discharge Diet: Low fat/ Low Cholesterol, 2000 mg Sodium Diet Discharge Activity: Return to Normal Activity Home Medications: Medications to take at Discharge aspirin 81 mg tablet,delayed release 81 mg PO QDAY 01/07/18 multivitamin tablet 1 tab PO QDAY 01/07/18 losartan 50 mg tablet 50 mg PO BID #180 tab 07/15/18 metoprolol tartrate 25 mg tablet 25 mg PO BID #180 tab 07/15/18 Ferrous Sulfate 325 mg PO BID 30 Days #60 tablet. 07/22/19 Pantoprazole Sodium 40 mg PO BID #60 tablet. 07/22/19 Following Prescrptions Were Given to Patient: Ferrous Sulfate 325 mg PO BID 30 Days #60 tablet. Transmission Status: Received by [facility] Pantoprazole Sodium 40 mg PO BID #60 tablet.dr Transmission Status: Received by [facility] Primary Care Physician: Xu Coleman MD [Primary Care Provider] - Please follow up with your Primary Care Physician in: within 1-2 weeks Please Follow Up With: Gabriel Ramsey MD When: in 1 week Disposition: Home Minutes spent on discharge:: 40 Patient Condition:: Stable Medical Necessity - Tobacco Use Smoking Status: Former smoker Tobacco Use: Cigarettes, Chew Meaningful Use Info Meaningful Use Diagnoses (Choose all that apply): None applicable Code Visit Inpatient E&M: 28495 Disch Hosp
[2019-07-22 09:25] VITALS: BP 144/64; PULSE 80; RESP 18; TEMP 37; O2SAT 99
--- NOTE | 2019-07-22 19:33 | PN.SURG_ITS ---
Subjective: no complaints, no further bleeding noted - Physical Exam Vitals/I&O's: Vital Signs Temp Pulse Resp BP Pulse Ox 98.6 F 80 18 144/64 H 99 07/22/19 09:25 07/22/19 09:25 07/22/19 09:25 07/22/19 09:25 07/22/19 09:25 Oxygen Delivery Method Room Air Weight: 98.1 kg Body Mass Index (BMI) 29.0 Intake and Output for Last 24 Hours 07/20/19 07/21/19 07/22/19 23:59 23:59 23:59 Intake Total 1420 / 1420 810 / 810 800 / 800 Output Total 2125 / 2125 Balance -705 / -705 810 / 810 800 / 800 General: Alert, Oriented x3, Cooperative Lungs: Clear to auscultation, Normal air movement Cardiovascular: Regular rate, No murmurs Abdomen: Bowel Sounds Present, Soft, Non Tender Laboratory Results 07/22/19 05:20: WBC 8.7, RBC 3.42 L, Hgb 8.4 L, Hct 27.8 L, MCV 81.3, MCH 24.6 L , MCHC 30.2 L, RDW Std Deviation 45.1 H, RDW Coeff of Loreta 15.1 H, Plt Count 212, MPV 10.2, Immature Gran % (Auto) 0.200, Neut % (Auto) 65.8, Lymph % (Auto) 21.9, Jennings % (Auto) 6.3, Eos % (Auto) 5.3 H, Baso % (Auto) 0.5, Absolute Neuts (auto) 5.7, Absolute Lymphs (auto) 1.90, Nucleated RBC % 0 07/22/19 05:20: Sodium 141, Potassium 3.6, Chloride 109 H, Carbon Dioxide 23.0, Anion Gap 9, BUN 10, Creatinine 0.86, Estim Creat Clear Calc 72.69, Est GFR (MDRD) Af Amer 109, Est GFR (MDRD) Non-Af 90, BUN/Creatinine Ratio 11.6, Glucose 131 H, Calcium 8.3 L Medical Necessity - Tobacco Use Smoking Status: Former smoker Tobacco Use: Cigarettes, Chew Assessment/Plan All Active Problems (Last Reviewed 07/20/19 @ 08:53 by Gabriel Ramsey MD) GI bleed not requiring more than 4 units of blood in 24 hours, ICU, or surgery (Acute) Hypotension (Acute) Anemia due to blood loss, acute (Acute) Acidosis, lactic (Acute) Postoperative atrial fibrillation (Resolved) hematochezia, NSAID use, significant anemia with elevated lactic acid level Patient is being admitted to the intensive care unit for transfusion and IV hydration and to assure he has no ongoing significant blood loss. The patient is currently him an enema was stable but given his history and the degree of anemia without a recent blood counts I would plan for resuscitation and transfusion today. If the patient remains stable would plan for bowel prep tomorrow and endoscopy on Sunday. He underwent upper and lower endoscopy yesterday. He had multiple small polyps, diverticulosis and mild gastritis with no signs of bleeding. The patient is doing well without complaints. He is OK for discharge and should follow up in my office in one week
== END 2019-07-22 10:37 | disposition home or self-care (01) | DRG 378 ==
LOC: ED 08:26 → ICU 10:50 → MS3 07-20 11:11
PROVIDERS: Anesthesiology; Surgery; Admitting Provider Internal Medicine; Emergency Provider Emergency Medicine; Family Provider Family Medicine; PCP Family Medicine; Visit Provider Internal Medicine
PROC: 0DJD8ZZ Inspection of Lower Intestinal Tract, Via Natural or Artificial Opening Endoscopic (ICD-10-PCS; CPT 45378; principal; 2019-07-21 15:40)
DX: K57.31 Diverticulosis of large intestine without perforation or abscess with bleeding (principal); D62 Acute posthemorrhagic anemia; E87.2 Acidosis; K31.89 Other diseases of stomach and duodenum; I48.91 Unspecified atrial fibrillation; I95.9 Hypotension, unspecified; K29.70 Gastritis, unspecified, without bleeding; I34.0 Nonrheumatic mitral (valve) insufficiency; E78.5 Hyperlipidemia, unspecified; I10 Essential (primary) hypertension; M17.12 Unilateral primary osteoarthritis, left knee; Z79.82 Long term (current) use of aspirin; Z72.0 Tobacco use
CPT/HCPCS: 36415; 74018; 80048; 80053; 80076; 83605; 84484; 85014; 85018; 85025; 85610; 85730; 86850; 86900; 86901; 86920; 88305; 88342; 93005; 99285; J7030; P9016; A4216; J2405; J3490

== ENCOUNTER → 2019-09-03 14:10 | Outpatient (CLI) | payer MEDICARE, SELFPAY ==
[2019-07-21 08:29] VITALS: BMI 29.0
[2019-09-03 15:37] LABS: Absolute Lymphocyte Count 1.29 X10^3/uL (0.83-4.51); Absolute Neutrophil Count 6.3 X10^3/uL (2.0-7.7); Basophil# 0.06 X10^3/uL; Basophil% 0.7 % (0-1); Eosinophil# 0.34 X10^3/uL; Eosinophils% 3.9 % (0-5); Hematocrit 33.9 % (40-54); Hemoglobin 9.9 g/dL (13.0-16.5); Lymphocyte # 1.29 X10^3/ul (4.0); Lymphocyte % 14.9 % (19-41); Mean Corp Hgb Conc 29.2 g/dL (32-36); Mean Corpuscular Hgb 25.5 pg (27.0-32.0); Mean Corpuscular Volume 87.4 fL (80-94); Mean Platelet Vol. 10.4 fl (6.2-12.0); Monocyte# 0.69 X10^3/uL; NRBC Flagged by Analyzer 0 % (0-5); Neutrophil # 6.27 X10^3/uL (2.7-7.7); Neutrophil % 72.3 % (47-70); Platelet Count 282 K/mm3 (150-450); RBC Distribution Width CV 19.6 % (11.6-14.6); RBC Distribution Width SD 62.1 fl (35.1-43.9); Red Blood Count 3.88 M/mm3 (4.6-6.2); White Blood Count 8.7 K/mm3 (4.4-11.0)
== END ==
PROVIDERS: Family Provider Family Medicine; PCP Family Medicine; Referring Provider Family Medicine; Visit Provider Family Medicine
DX: D64.9 Anemia, unspecified (principal)
CPT/HCPCS: 36415; 85025

== ENCOUNTER 2019-09-10 01:29 | Observation (INO) | payer MEDICARE, SELFPAY ==
[2019-07-21 08:29] VITALS: BMI 29.0
[2019-09-10] VITALS (9 sets, daily range): BP systolic 131–146; BP diastolic 71–82; PULSE 67–105; RESP 13–20; TEMP 36.3–36.8; O2SAT 95–100; BMI 29.3; BMI 29.4; BMI 27.9
--- NOTE | 2019-09-10 01:55 | ED.VIS.GEN ---
History of Present Illness Chief Complaint: GI Bleed Narrative: Patient is an 84-year-old male who presents with a GI bleed. He has a history of GI bleed last June which required hospitalization and transfusion. He had upper and lower endoscopies which showed diverticulosis and a mild gastritis. His bleeding was attributed to diverticulosis. He has had 4 episodes of maroon-colored stools over the past 4 hours, last episode was about 1 hour ago. He denies any abdominal pain, chest pain, shortness of breath, dizziness, diaphoresis. He is on aspirin but no other anticoagulants. Past Medical History - Allergies and Home Meds Allergies/Adverse Reactions: Allergies ramipril [From Altace] Adverse Reaction (Verified 09/10/19 01:31) dry cough Primary Care Physician: Xu Coleman MD [Primary Care Provider] - Past Medical History: - - Mitral valve repair, history of diverticulosis, history of GI bleed Surgical History: noncontributory Smoking Status: Never smoker Review of Systems All systems negative except as indicated General: Denies: Fever Cardiovascular: Denies: Chest pain Gastrointestinal: Reports: Hematochezia. Denies: Nausea, Vomiting Musculoskeletal: Denies: Myalgias, Arthralgias Skin: Denies: Rash Neurological: Denies: Headache Hematologic: Denies: Easy bruising Allergy: Denies: Uticaria Physical Exam Vital Signs/Narrative: Vital Signs Temp Pulse Resp BP Pulse Ox 09/10/19 01:31 97.5 F L 79 16 146/72 H 95 Inital Vital Signs reviewed: Yes General: Well nourished, Well developed Head: Normocephalic Eyes: EOMI ENT: Moist mucous membranes Neck: Supple Cardiovascular: Regular rate, Regular rhythm Respiratory: No distress, CTA bilaterally Abdomen: Soft, Nontender, Nondistended Rectal: - - Small amount of grossly bloody maroon-colored stool on digital rectal exam Skin: Normal color Neurological: Alert Psychological: Normal affect Diagnostic/Tx/Re-eval Laboratory Results 09/10/19 09/10/19 01:45 01:45 WBC 8.3 RBC 3.61 L Hgb 9.5 L Hct 32.3 L MCV 89.5 MCH 26.3 L MCHC 29.4 L RDW Std Deviation 66.9 H RDW Coeff of Loreta 20.3 H Plt Count 244 MPV 10.3 Immature Gran % (Auto) 0.400 Neut % (Auto) 55.9 Lymph % (Auto) 26.8 Carson % (Auto) 7.3 Eos % (Auto) 9.0 H Baso % (Auto) 0.6 Absolute Neuts (auto) 4.6 Absolute Lymphs (auto) 2.21 Nucleated RBC % 0 Platelet Estimate ADEQUATE Hypochromasia 2+ Anisocytosis 2+ Ovalocytes RARE Schistocytes RARE Sodium 145 Potassium 4.1 Chloride 114 H Carbon Dioxide 29.0 Anion Gap 2 L BUN 17 Creatinine 1.06 Estim Creat Clear Calc 58.97 Est GFR (MDRD) Af Amer 86 Est GFR (MDRD) Non-Af 71 BUN/Creatinine Ratio 16.0 Glucose 113 H Calcium 8.8 - Medical Decision Making Labs as above notable for hemoglobin 9.5. Patient has not had any further bloody bowel movements while here. He is hemodynamically stable. However given his prior history I did feel observation and serial hemoglobins monitoring for ongoing bleeding appropriate. I spoke to the hospitalist who agrees to admit. I suspect this is a recurrent diverticular bleed. ED Disposition - Plan for ED Patient: Disposition: Acute Care Hospital [facility] Diagnosis: GI bleed Referrals: Xu Coleman MD [Primary Care Provider] -
[2019-09-10 02:02] LABS: Absolute Lymphocyte Count 2.21 X10^3/uL (0.83-4.51); Absolute Neutrophil Count 4.6 X10^3/uL (2.0-7.7); Basophil# 0.05 X10^3/uL; Basophil% 0.6 % (0-1); Differential Indicated SCAN CRITERIA MET; Eosinophil# 0.74 X10^3/uL; Hematocrit 32.3 % (40-54); Hemoglobin 9.5 g/dL (13.0-16.5); Lymphocyte # 2.21 X10^3/ul (4.0); Lymphocyte % 26.8 % (19-41); Mean Corp Hgb Conc 29.4 g/dL (32-36); Mean Corpuscular Hgb 26.3 pg (27.0-32.0); Mean Corpuscular Volume 89.5 fL (80-94); Mean Platelet Vol. 10.3 fl (6.2-12.0); Monocyte% 7.3 % (0-10); NRBC Flagged by Analyzer 0 % (0-5); Neutrophil # 4.63 X10^3/uL (2.7-7.7); Neutrophil % 55.9 % (47-70); POSITIVE MORPHOLOGY YES; Platelet Count 244 K/mm3 (150-450); RBC Distribution Width CV 20.3 % (11.6-14.6); RBC Distribution Width SD 66.9 fl (35.1-43.9); Red Blood Count 3.61 M/mm3 (4.6-6.2); White Blood Count 8.3 K/mm3 (4.4-11.0)
[2019-09-10 02:05] LABS: International Normalized Ratio 1.1; Prothrombin Time (Protime)PT. 14.3 SECONDS (11.7-14.9)
[2019-09-10 02:10] LABS: Anion Gap 2 (5-15); BUN 17 mg/dL (7-18); Calcium,Total 8.8 mg/dL (8.5-10.1); Chloride 114 mmol/L (98-107); Creatinine, Serum 1.06 mg/dL (0.70-1.30); EST Glomerular Filtration Rate 71 mL/min (>60); Est Glom Filt Rate - Afr Amer 86 mL/min (>60); Estimated Creatinine Clearance 58.97 ml/min; Glucose 113 mg/dL (74-106); Potassium 4.1 mmol/L (3.5-5.1); Sodium Level 145 mmol/L (136-145)
[2019-09-10 02:21] LABS: Anisocytosis 2+; Hypochromasia 2+; Ovalocyte RARE; Platelet Estimate ADEQUATE (ADEQ); Schistocytes RARE
--- NOTE | 2019-09-10 02:24 | HP.PCM_ITS ---
Problem List (1) GI bleed Status: Acute Qualifiers: GI bleed type/associated pathology: unspecified gastrointestinal hemorrhage type Qualified Code(s): K92.2 - Gastrointestinal hemorrhage, unspecified (2) PAF (paroxysmal atrial fibrillation) Status: Chronic (3) Iron deficiency anemia Status: Chronic Qualifiers: Iron deficiency anemia type: unspecified iron deficiency Qualified Code(s): D50.9 - Iron deficiency anemia, unspecified (4) Essential (primary) hypertension Status: Chronic (5) Hyperlipidemia Status: Chronic Qualifiers: Hyperlipidemia type: unspecified Qualified Code(s): E78.5 - Hyperlipidemia, unspecified (6) Thoracic aortic aneurysm Status: Chronic Qualifiers: Presence of rupture: without rupture Qualified Code(s): I71.2 - Thoracic aortic aneurysm, without rupture (7) History of mitral valve repair Status: Chronic Comment: 05/16/2007 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 CHF Unclear type, Valvular Heart Disease, Hx Thoracic Aortic Aneurysm, HTN, HLD, Fe deficiency anemia, GERD with history of hematochezia with 07/21/2019 endoscopy with normal exam the jejunum, stomach biopsied with erythematous duodenum with a normal esophagus discharge at that time on PPIs with clearance for continuation of aspirin only with concern that GI bleed etiology was secondary to diverticular etiology who now re- presents to the [facility] ED on 09/10/19 with history of onset maroon colored stools on evening prior to ED presentation with last blood bowel movement ~ 1 am, no associated abdominal pain, nausea, emesis associated with rectal exam in the ED with very small amount of maroon appearing stools. He denies any lightheadedness, fatigue. Work-up in the ED included T 97.5, heart rate 79, BP 146/72, respiratory rate 16, 95% on room air, CBC with WBC 8.3, hemoglobin 9.5, platelet 244 with no evidence of left shift, pending coags upon requested evaluation of patient, BMP with chloride 114, glucose 113 otherwise not market appearing, type and screen pending per ED. 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 mm Hutchinson ring 05/16/2007 Essential (primary) hypertension (Chronic) Hyperlipidemia (Chronic) Thoracic aortic aneurysm (Chronic) History of mitral valve repair (Chronic 05/16/07) 05/16/2007 Mitral valve repair with 34 mm Hutchinson ring Carotid bruit (Chronic) Medical History: Medical History (Last Reviewed 07/20/19 @ 08:53 by Gabriel Ramsey MD) Postoperative atrial fibrillation (Resolved) I97.89, I48.91 Nonrheumatic mitral (valve) insufficiency (Chronic) I34.0 Severe mitral insufficiency, with ruptured cordae in the P2 area; Mitral valve repair with 34 mm Hutchinson ring 05/16/2007 Essential (primary) hypertension (Chronic) I10 Hyperlipidemia (Chronic) E78.5 Thoracic aortic aneurysm (Chronic) I71.2 Carotid bruit (Chronic) R09.89 CHF (congestive heart failure) I50.9 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 Pulmonary HTN I27.20 Atrial flutter (Inactive) I48.92 Allergies ramipril [From Altace] Adverse Reaction (Verified 09/10/19 01:31) dry cough Home Medications: Ambulatory Orders Medication Instructions Recorded aspirin 81 mg tablet,delayed 81 mg PO QDAY 01/07/18 release multivitamin 1 tab PO QDAY 01/07/18 losartan 50 mg tablet 50 mg PO BID #180 tab 08/08/19 metoprolol tartrate 25 mg tablet 25 mg PO BID #180 tab 08/08/19 Ferrous Sulfate 352 mg PO BID 09/10/19 Pantoprazole Sodium 40 mg PO DAILY 09/10/19 Surgical History: Surgical History (Last Reviewed 07/20/19 @ 08:53 by Gabriel Ramsey MD) History of mitral valve repair (Chronic) Onset Date: 05/16/07 Z98.890 05/16/2007 Mitral valve repair with 34 mm Hutchinson ring History of right and left heart catheterization Onset Date: 05/15/07 Z98.890 Surgical History: - - Status post mitral valve repair, 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 Psychiatric History: No pertinent psych hx Lives: Spouse/ Significant Other Smoking Status: Never smoker Tobacco Use: Non-smoker Alcohol: None Drugs: None - *Family History Maternal Family History: Family History (Last Reviewed 07/20/19 @ 08:16 by Gabriel Ramsey MD) Mother Arthritis Brother CAD (coronary artery disease) Son Diabetes Son Cancer Multiple sclerosis History Items: - - Mother with history of rheumatoid arthritis. Paternal Family History: Family History (Last Reviewed 07/20/19 @ 08:16 by Gabriel Ramsey MD) Mother Arthritis Brother CAD (coronary artery disease) Son Diabetes Son Cancer Multiple sclerosis History Items: Heart Disease Review of Systems Constitutional: Denies: Chills, Fever, Weight Change HEENT: Denies: Head Aches, Sinus Congestion, Sinus Drainage Cardiovascular: Denies: Chest Pain, Palpitations Respiratory: Denies: Cough, Shortness of breath at rest, Sputum production Gastrointestinal: Reports: Hematochezia. Denies: Abdominal Pain, Nausea, Vomiting Genitourinary: Denies: Dysuria Musculoskeletal: Reports: Joint Pain. Denies: Joint Tenderness Skin: Denies: Rash, Wounds Neurological: Denies: Numbness, Tingling, Focal weakness Psychiatric: Denies: Anxiety, Depression, Homicidal Ideations, Suicidal I deations Hematologic/ Lymphatic: Reports: Anemia. Denies: Easy Bruising, Easy Bleeding VTE Information - Inpt Only VTE Present on Admission: No VTE Mechan Device Prophylaxis: SCD's Reason prophylaxis not ordered:: Medical Contraindication Patient Problems: Active and Suspected Problems (Last Reviewed 07/20/19 @ 08:53 by Gabriel Ramsey MD) GI bleed (Acute) Subjective: Seated upright in the ED bed, well-appearing, notes feeling well and states that he has had no recurrent maroon-colored stools since 1 AM. Objective: Physical Examination: General: awake, alert, oriented x 3 and cooperative, seated upright in the ED bed in no apparent distress. Skin: normal color, turgor, no icterus, cyanosis. HEENT: AT/NC, EOMI, PERRLA, MMM, no carotid bruits or JVD noted. Lungs: CTA bilaterally, moderate effort, mild decrease BL bases, no rales, ronchi or wheezing. Heart: Regular rate and rhythm; no gallop, rub audible. Abdomen: soft, NTTP, ND, hyperactive BS, no HSM. Extremities: no cyanosis, clubbing, or edema but do note that left ankle is enlarged compared to right, discussed with patient and suspected he likely had prior fracture as well as serial strains and sprains but has range of motion no pain. Neurological: patient awake, alert, oriented x 3; cognitive function intact; pupils equally reactive to light and accomodation; cranial nerves II-XII grossly normal, moving all 4 extremities, no focal deficits, strength mildly global decrease secondary to acute presentation. Psychiatric: affect appears normal, no acute evidence of depressive or anxiety feelings. - Physical Exam Vitals/I&O's: Vital Signs Temp Pulse Resp BP Pulse Ox 97.5 F L 79 16 146/72 H 95 09/10/19 01:31 09/10/19 01:31 09/10/19 01:31 09/10/19 01:31 09/10/19 01:31 Oxygen Delivery Method Room Air Weight: 216 lb 7.903 oz Body Mass Index (BMI) 29.3 Laboratory Results 09/10/19 01:45: WBC 8.3, RBC 3.61 L, Hgb 9.5 L, Hct 32.3 L, MCV 89.5, MCH 26.3 L , MCHC 29.4 L, RDW Std Deviation 66.9 H, RDW Coeff of Loreta 20.3 H, Plt Count 244, MPV 10.3, Immature Gran % (Auto) 0.400, Neut % (Auto) 55.9, Lymph % (Auto) 26.8, Webb % (Auto) 7.3, Eos % (Auto) 9.0 H, Baso % (Auto) 0.6, Absolute Neuts (auto) 4.6, Absolute Lymphs (auto) 2.21, Nucleated RBC % 0, Platelet Estimate ADEQUATE, Hypochromasia 2+, Anisocytosis 2+, Ovalocytes RARE, Schistocytes RARE 09/10/19 01:45: PT Pending, INR Pending 09/10/19 01:45: Sodium 145, Potassium 4.1, Chloride 114 H, Carbon Dioxide 29.0, Anion Gap 2 L, BUN 17, Creatinine 1.06, Estim Creat Clear Calc 58.97, Est GFR (MDRD) Af Amer 86, Est GFR (MDRD) Non-Af 71, BUN/Creatinine Ratio 16.0, Glucose 113 H, Calcium 8.8 09/10/19 02:02: Blood Type Pending, Antibody Screen Pending Assessment/Plan All Active Problems (Last Reviewed 07/20/19 @ 08:53 by Gabriel Ramsey MD) GI bleed not requiring more than 4 units of blood in 24 hours, ICU, or surgery (Acute) Hypotension (Acute) Anemia due to blood loss, acute (Acute) Acidosis, lactic (Acute) GI bleed (Acute) Postoperative atrial fibrillation (Resolved) The patient is a 84 y/o M w/ PMHx: PAF, ? CHF Unclear type, Valvular Heart Disease, Hx Thoracic Aortic Aneurysm, HTN, HLD, Fe deficiency anemia, GERD with history of hematochezia with 07/21/2019 endoscopy with normal exam the jejunum, stomach biopsied with erythematous duodenum with a normal esophagus discharge at that time on PPIs with clearance for continuation of aspirin only with concern that GI bleed etiology was secondary to diverticular etiology who now re- presents to the [facility] ED on 09/10/19 with history of onset maroon colored stools on evening prior to ED presentation. 1. Acute GI Bleed w/ iron deficiency anemia, ? Recurrent Diverticular GI Bleed: Admission Hgb 9.5, similar to prior, noted 09/03/19 9.9, will admit to [facility], maintain on IVFs, obtain serial H+H q 4 hours, T+S pending per ED, maintain on IV PPI. Will consult Dr. Willis, pending. Holding ASA. 2. CHF, unclear type: From cardiology's note no mention of CHF, unclear if this was near the time as a valvular heart disease, no echocardiogram in [facility] noted, holding aspirin, continue metoprolol, losartan, not on statin therapy, defer to outpatient. 3. Valvular heart disease: Status post MVR with a 34 mm Hutchinson ring in 2006, last echo 01/2016 demonstrated normal LV size, normal LV systolic function, EF 65%, mild diffuse MV thickening, mild eccentric MVI with a well repaired mitral annuloplasty with no significant change from prior echocardiogram. 4. PAF: Episode noted post-operatively. Continue patient home metoprolol, not anticoagulated. 5. Hypertension: Continue home regimen including metoprolol, losartan, PRN hydralazine. 6. Hyperlipidemia: Not on agent, defer to outpatient. 7. GERD: IV PPI as noted above #1. 8. Thoracic Aortic Aneurysm: Patient w/ history of mitral valve prolapse with insufficiency status post repair w/ postoperative atrial fibrillation and a dilated aortic root. 9. DVT prophylaxis: SCDs, defer chemoprophylaxis given acute presentation as noted. Code Visit OBSV E&M: 30798 Initial observation care L3
[2019-09-10] MEDS: 0.9% Normal Saline 1,000 ML 100 ML IV (03:25)
[2019-09-10 03:42] LABS: Hematocrit 30.9 % (40-54); Hemoglobin 9.2 g/dL (13.0-16.5)
[2019-09-10 03:55] LABS: Anion Gap 2 (5-15); BUN 17 mg/dL (7-18); BUN/Creat Ratio 18.6 RATIO (10-20); Calcium,Total 8.7 mg/dL (8.5-10.1); Chloride 111 mmol/L (98-107); Creatinine, Serum 0.91 mg/dL (0.70-1.30); EST Glomerular Filtration Rate 84 mL/min (>60); Est Glom Filt Rate - Afr Amer 102 mL/min (>60); Estimated Creatinine Clearance 68.69 ml/min; Glucose 103 mg/dL (74-106); Magnesium 2.3 mg/dL (1.6-2.6); Potassium 4.3 mmol/L (3.5-5.1); Sodium Level 144 mmol/L (136-145)
--- NOTE | 2019-09-10 07:10 | PCM.PN.BLA ---
Progress Note Patient is an 84-year-old gentleman admitted with maroon stools. Patient was apparently on admission from 07/19/2019 to 07/22/2019 for similar presentation. GENERAL: cooperative HEENT: Atraumatic; EYES; Anicteric, Normal Conjunctiva NECK; supple, normal thyroid, RESPIRATORY: Diminished to auscultation CARDIOVASCULAR: Regular S1 S2, GI: soft, normoactive bowel sounds, : No Renal angle tenderness; EXTREMITIES: No edema, no clubbing, MUSCULOSKELETAL: no muscle waisting NEURO: Awake; no lateralizing signs. SKIN: No Rash PSYCH; Flat affect 1. Anemia secondary to acute on chronic blood loss from acute lower GI bleed ?Suspected to be secondary to diverticular bleed. Patient is on aspirin this was held. EGD obtained on 07/21/2019 demonstrated normal esophagus, normal jejunum and erythematous duodenum. Patient admitted to monitored bed ordered H&H serially and consult placed to general surgery 2. Congestive heart failure With preserved ejection fraction currently stable 3. 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 Paroxysmal atrial fibrillation ?Rate controlled not on systemic anticoagulation in view of his recent significant lower GI bleed 5. Dyslipidemia ?Diet controlled 6. Essential hypertension ?Blood pressure stable did continue with home meds 7. GERD ?On PPI 8. DVT prophylaxis ?SCDs only at this point STROKE Vital Signs/Narrative: Vital Signs Temp Pulse Resp BP Pulse Ox 09/10/19 04:14 73 09/10/19 03:30 97.3 F L 74 13 131/71 H 95
[2019-09-10 07:42] LABS: Hematocrit 30.4 % (40-54); Hemoglobin 8.9 g/dL (13.0-16.5)
--- NOTE | 2019-09-10 09:52 | CASEMGMT ---
RN CM Assessment Presentation: GIB Intro role of CM and purpose of RN CM assessment to patient in room. Pt is irritable, wanting to know when he can eat. Questions answered, and nurse in room will also explain plan for day. Demographics, PCP and Pharmacy verified. Pt states he is independent, no care needs and short terse answers were given. PCP: Dr. Xu Coleman Specialists: Dr. August, cardiology. GI consult in hospital [facility] (changed in chart) Insurance: [employer] Prescription Benefit: yes LNOK: Vikki Grady Living Arrangements: Lives in one story home with . Denies care needs. Transportation: drives DME: none per pt. HHC/SNF: deferred SW Referral: no Patient DC goals: Home DC PLAN: Home. Bhavik HENRY RN ACM
[2019-09-10] MEDS: oxyCODONE 5 MG Tablet PO (09:59)
[2019-09-10] MEDS: Metoprolol Tartrate 25 MG Tablet PO (09:59)
[2019-09-10] MEDS: Losartan Potassium 50 MG Tablet PO (10:00)
[2019-09-10 12:18] LABS: Hematocrit 30.5 % (40-54); Hemoglobin 8.8 g/dL (13.0-16.5)
--- NOTE | 2019-09-10 12:40 | PCM.CONS.B ---
- Consult Date of Consult: 09/10/19 - Reason for Consult CC: hematochezia History of present illness: 84 y/o WM admitted to the hospitalist service. Had four episode of bloody bowel movements last night. Denies abdominal pain No bowel movements since admission. Alyse hungnaveen Underwent upper and lower endoscopy by Dr. Ramsey on 07/21/19. Suspected diverticular bleeding. The patient was admitted to the MS unit for observation. 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 Pulmonary HTN I27.20 Atrial flutter (Inactive) I48.92 MEDICATIONS aspirin 81 mg tablet,delayed 81 mg PO QDAY 01/07/18 release multivitamin tablet 1 tab PO QDAY 01/07/18 losartan 50 mg tablet 50 mg PO BID #180 tab 07/15/18 metoprolol tartrate 25 mg tablet 25 mg PO BID #180 tab 07/15/18 Allergies ramipril Surgical History: History of mitral valve repair (Chronic) Onset Date: 05/16/07 Z98.890 05/16/2007 Mitral valve repair with 34 mm Hutchinson ring History of right and left heart catheterization Onset Date: 05/15/07 Z98.890 Surgical History: noncontributory Lives: Spouse/ Significant Other Smoking Status: Former smoker Tobacco Use: Cigarettes, Chew Alcohol: None Drugs: None Review of Systems Constitutional: Denies: Chills, Fever, Weight Change HEENT: Denies: Head Aches, Sinus Congestion, Sinus Drainage Cardiovascular: Denies: Chest Pain, Palpitations Respiratory: Denies: Cough, Shortness of breath at rest, Sputum production Gastrointestinal: Reports: Hematochezia. Denies: Abdominal Pain, Nausea, Vomiting Genitourinary: Denies: Dysuria Musculoskeletal: Denies: Joint Pain, Joint Tenderness Skin: Denies: Rash, Wounds Neurological: Denies: Numbness, Tingling, Focal weakness Psychiatric: Denies: Anxiety, Depression, Homicidal Ideations, Suicidal Ideations Hematologic/ Lymphatic: Denies: Easy Bruising, Easy Bleeding PHYSICAL EXAMINATION Temp Pulse Resp BP 98.3F 75 16 135/82 General: Alert, Oriented x3, Cooperative Neck: Supple, No JVD, Negative Carotid Bruits Lungs: Clear to auscultation, Normal air movement Cardiovascular: Regular rate, No murmurs Abdomen: Bowel Sounds Present, Soft, Non Tender Impression: episode of hematochezia Plan: I have discussed above with patient and his who is present with him. I have offered colonoscopy for evaluation, but likelihood that diverticular bleeding has spontaneously ceased. I had scheduled for this tomorrow at noon after patient has completed colon cleansing preparation Patient not interested in colonoscopy at this point and wants to go home. Will discuss with hospitalists - patient's wishes. I have answered all his questions and he has no further questions.
--- NOTE | 2019-09-10 12:53 | DCINST_ITS ---
- Discharge Diagnoses Current Active Problems: Current Active and Chronic Problems (Last Reviewed 07/20/19 @ 08:53 by Gabriel Ramsey MD) PAF (paroxysmal atrial fibrillation) (Chronic) Iron deficiency anemia (Chronic) GI bleed (Acute) GI bleed (Acute) You will use the following diet at home:: No restrictions Your food should be the consistency of: Regular Call your doctor if you observe: Dizziness Allergies/Adverse Reactions: Allergies ramipril [From Altace] Adverse Reaction (Verified 09/10/19 01:31) dry cough Medications to take at Discharge multivitamin 1 tab PO QDAY 01/07/18 losartan 50 mg tablet 50 mg PO BID #180 tab 08/08/19 metoprolol tartrate 25 mg tablet 25 mg PO BID #180 tab 08/08/19 Ferrous Sulfate 352 mg PO BID 09/10/19 Pantoprazole Sodium 40 mg PO DAILY 09/10/19 Primary Care Physician: Xu Coleman MD [Primary Care Provider] - Please follow up with your Primary Care Physician in: in Test Results: Test results from this visit will be discussed in further detail at your follow- up appointment, if applicable. Please Follow Up With: Brianda Willis MD When: in 1-2 weeks Proposed Discharge Date: 09/10/19
--- NOTE | 2019-09-10 13:02 | PCM.DC.SUM ---
Discharge Date and Diagnosis - Problem List Patient Problems: Active and Suspected Problems (Last Reviewed 07/20/19 @ 08:53 by Gabriel Ramsey MD) GI bleed (Acute) GI bleed (Acute) Date of Admission: 09/10/19 Date of Discharge: 09/10/19 - Primary Discharge Diagnosis Active and Suspected Problems (Last Reviewed 07/20/19 @ 08:53 by Gabriel Ramsey MD) GI bleed (Acute) GI bleed (Acute) - Secondary Discharge Diagnosis Chronic Problems (Last Reviewed 07/20/19 @ 08:53 by Gabriel Ramsey MD) PAF (paroxysmal atrial fibrillation) (Chronic) Iron deficiency anemia (Chronic) Nonrheumatic mitral (valve) insufficiency (Chronic) Severe mitral insufficiency, with ruptured cordae in the P2 area; 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 Patient was apparently on admission from 07/19/2019 to 07/22/2019 for similar presentation. 1. Anemia secondary to acute on chronic blood loss from acute lower GI bleed ?Suspected to be secondary to diverticular bleed. Patient is on aspirin this was held. EGD obtained on 07/21/2019 demonstrated normal esophagus, normal jejunum and erythematous duodenum. Patient admitted to monitored bed ordered H&H serially and consult placed to general surgery Dr. Brianda Willis. Patient was seen in consultation by general surgery. He declined any further endoscopic evaluation and requested to be discharged home. He was instructed to hold his aspirin on discharge until he is evaluated by his primary care physician. He was also instructed to present back to the emergency department if his bleeding recurred or if he became lightheaded. 2. Congestive heart failure With preserved ejection fraction currently stable 3. 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 Paroxysmal atrial fibrillation ?Rate controlled not on systemic anticoagulation in view of his recent significant lower GI bleed 5. Dyslipidemia ?Diet controlled 6. Essential hypertension ?Blood pressure stable did continue with home meds 7. GERD ?On PPI 8. DVT prophylaxis ?SCDs only at this point Patient Problems: Active and Suspected Problems (Last Reviewed 07/20/19 @ 08:53 by Gabriel Ramsey MD) GI bleed (Acute) GI bleed (Acute) Objective: GENERAL: cooperative HEENT: Atraumatic; EYES; Anicteric, Normal Conjunctiva NECK; supple, normal thyroid, RESPIRATORY: Diminished to auscultation CARDIOVASCULAR: Regular S1 S2, GI: soft, normoactive bowel sounds, : No Renal angle tenderness; EXTREMITIES: No edema, no clubbing, MUSCULOSKELETAL: no muscle waisting NEURO: Awake; no lateralizing signs. SKIN: No Rash PSYCH; Flat affect - Physical Exam Vitals/I&O's: Vital Signs Temp Pulse Resp BP Pulse Ox 98.3 F 67 20 H 135/82 H 100 09/10/19 08:40 09/10/19 11:36 09/10/19 08:40 09/10/19 08:40 09/10/19 08:40 Oxygen Delivery Method Room Air Weight: 96 kg Body Mass Index (BMI) 27.9 Intake and Output for Last 24 Hours 09/08/19 09/09/19 09/10/19 23:59 23:59 23:59 Intake Total 410 / 410 Output Total 550 / 550 Balance -140 / -140 Laboratory Results 09/10/19 01:45: WBC 8.3, RBC 3.61 L, Hgb 9.5 L, Hct 32.3 L, MCV 89.5, MCH 26.3 L, MCHC 29.4 L, RDW Std Deviation 66.9 H, RDW Coeff of Loreta 20.3 H, Plt Count 244, MPV 10.3, Immature Gran % (Auto) 0.400, Neut % (Auto) 55.9, Lymph % (Auto) 26.8, Sequoyah % (Auto) 7.3, Eos % (Auto) 9.0 H, Baso % (Auto) 0.6, Absolute Neuts (auto) 4.6, Absolute Lymphs (auto) 2.21, Nucleated RBC % 0, Platelet Estimate ADEQUATE, Hypochromasia 2+, Anisocytosis 2+, Ovalocytes RARE, Schistocytes RARE 09/10/19 01:45: PT 14.3, INR 1.1 09/10/19 01:45: Sodium 145, Potassium 4.1, Chloride 114 H, Carbon Dioxide 29.0, Anion Gap 2 L, BUN 17, Creatinine 1.06, Estim Creat Clear Calc 58.97, Est GFR (MDRD) Af Amer 86, Est GFR (MDRD) Non-Af 71, BUN/Creatinine Ratio 16.0, Glucose 113 H, Calcium 8.8 09/10/19 02:02: Blood Type A POSITIVE, Antibody Screen NEGATIVE 09/10/19 03:30: Hgb 9.2 L, Hct 30.9 L 09/10/19 03:30: Sodium 144, Potassium 4.3, Chloride 111 H, Carbon Dioxide 31.0, Anion Gap 2 L, BUN 17, Creatinine 0.91, Estim Creat Clear Calc 68.69, Est GFR (MDRD) Af Amer 102, Est GFR (MDRD) Non-Af 84, BUN/Creatinine Ratio 18.6, Glucose 103, Calcium 8.7, Magnesium 2.3 09/10/19 07:30: Hgb 8.9 L, Hct 30.4 L 09/10/19 12:00: Hgb 8.8 L, Hct 30.5 L Current Medications Acetaminophen (Tylenol) 650 mg PO Q4H PRN PRN PRN Reason: Pain Score 1-10/Temp > 100.7 F Ferrous Sulfate (Ferrous Sulfate) 325 mg PO BID@1200,1700 SHANTELLE Glucagon () 1 mg IM .X1 PRN PRN Reason: Hypoglycemia Guaifenesin (Robitussin) 20 ml PO Q4H PRN PRN PRN Reason: COUGH Hydralazine HCl (Apresoline Iv) 10 mg IV Q4H PRN PRN PRN Reason: SBP > 160 Pantoprazole Sodium 40 mg/ (Sodium Chloride) 110 mls @ 330 mls/hr IV Q12 [facility] Last Infusion: 09/10/19 11:15 Dose: Infused Documented by: Sodium Chloride () 1,000 mls @ 100 mls/hr IV .Q10H [facility] Last Infusion: 09/10/19 04:28 Dose: 100 mls/hr Documented by: Sodium Chloride () 250 mls @ 15 mls/hr IV .[id number] PRN PRN Reason: Saline Flush Sodium Chloride () 250 mls @ 15 mls/hr IV .[id number] PRN PRN Reason: Additional IVPB Infusion Dextrose (Dextrose 10%-Water) 250 mls @ 999 mls/hr IV .Q16M PRN; Protocol PRN Reason: HYPOGLYCEMIA Losartan Potassium (Cozaar) 50 mg PO BID [facility] Last Admin: 09/10/19 10:00 Dose: 50 mg Documented by: Melatonin (Melatonin) 3 mg PO QHS PRN PRN PRN Reason: INSOMNIA Metoprolol Tartrate (Lopressor (Beta Andree)) 25 mg PO BID [facility] Last Admin: 09/10/19 09:59 Dose: 25 mg Documented by: Morphine Sulfate () 2 mg IV Q3H PRN PRN PRN Reason: Pain Score 6-10/10 Ondansetron HCl (Zofran) 4 mg IV Q8H PRN PRN PRN Reason: NAUSEA/VOMITING Oxycodone HCl (Oxyir) 5 mg PO Q4H PRN PRN PRN Reason: Pain Score 4-5/10 Last Admin: 09/10/19 09:59 Dose: 5 mg Documented by: Sodium Chloride () 10 - 40 ml IV UD PRN PRN Reason: SALINE FLUSH Throat Lozenges (Cepacol Sore Throat Lozenge) 1 lozenge MUCOUS MEM Q2H PRN PRN PRN Reason: Sore throat or cough Discharge Diet: No Restrictions Discharge Activity: Return to Normal Activity Call your doctor if you observe: Dizziness Home Medications: Medications to take at Discharge multivitamin 1 tab PO QDAY 01/07/18 losartan 50 mg tablet 50 mg PO BID #180 tab 08/08/19 metoprolol tartrate 25 mg tablet 25 mg PO BID #180 tab 08/08/19 Ferrous Sulfate 352 mg PO BID 09/10/19 Pantoprazole Sodium 40 mg PO DAILY 09/10/19 Primary Care Physician: Xu Coleman MD [Primary Care Provider] - Please follow up with your Primary Care Physician in: in Please Follow Up With: Brianda Willis MD When: in 1-2 weeks Disposition: Home Minutes spent on discharge:: 35 Patient Condition:: Stable Medical Necessity - Tobacco Use Smoking Status: Never smoker Tobacco Use: Non-smoker Meaningful Use Info Meaningful Use Diagnoses (Choose all that apply): None applicable Code Visit OBSV E&M: 92243 Observation care discharge
== END 2019-09-10 13:20 | disposition home or self-care (01) ==
LOC: ED 02:38 → ICU 02:47
PROVIDERS: Admitting Provider Family Medicine; Emergency Provider Emergency Medicine; Family Provider Family Medicine; PCP Family Medicine; Visit Provider Internal Medicine
DX: K92.2 Gastrointestinal hemorrhage, unspecified (principal); D62 Acute posthemorrhagic anemia; E78.5 Hyperlipidemia, unspecified; I48.20 Chronic atrial fibrillation, unspecified; I48.0 Paroxysmal atrial fibrillation; D50.9 Iron deficiency anemia, unspecified; I71.2 Thoracic aortic aneurysm, without rupture; I50.30 Unspecified diastolic (congestive) heart failure; K21.9 Gastro-esophageal reflux disease without esophagitis; I11.0 Hypertensive heart disease with heart failure; I27.20 Pulmonary hypertension, unspecified; Z79.899 Other long term (current) drug therapy; Z79.82 Long term (current) use of aspirin; Z87.891 Personal history of nicotine dependence
CPT/HCPCS: 80048; 83735; 85014; 85018; 85025; 85610; 86850; 86900; 86901; 96361; 96365; 96366; 99218; 99284; J7030; A4216; G0378

== ENCOUNTER → 2019-11-25 15:47 | Outpatient (CLI) | payer MEDICARE, SELFPAY ==
[2019-09-10 09:24] VITALS: BMI 27.9
[2019-11-25 17:44] LABS: Absolute Lymphocyte Count 2.17 X10^3/uL (0.83-4.51); Absolute Neutrophil Count 5.2 X10^3/uL (2.0-7.7); Basophil# 0.07 X10^3/uL; Basophil% 0.8 % (0-1); Eosinophil# 0.34 X10^3/uL; Eosinophils% 3.9 % (0-5); Hematocrit 36.1 % (40-54); Hemoglobin 10.7 g/dL (13.0-16.5); Lymphocyte # 2.17 X10^3/ul (4.0); Lymphocyte % 25.1 % (19-41); Mean Corp Hgb Conc 29.6 g/dL (32-36); Mean Corpuscular Hgb 27.9 pg (27.0-32.0); Mean Platelet Vol. 10.8 fl (6.2-12.0); Monocyte# 0.82 X10^3/uL; Monocyte% 9.5 % (0-10); NRBC Flagged by Analyzer 0 % (0-5); Neutrophil # 5.21 X10^3/uL (2.7-7.7); Neutrophil % 60.5 % (47-70); Platelet Count 287 K/mm3 (150-450); RBC Distribution Width CV 13.2 % (11.6-14.6); RBC Distribution Width SD 45.3 fl (35.1-43.9); Red Blood Count 3.84 M/mm3 (4.6-6.2); White Blood Count 8.6 K/mm3 (4.4-11.0)
[2019-11-25 18:13] LABS: ALB/GLOB Ratio 1.1 RATIO (0.9-2.4); AST(SGOT) 13 U/L (15-37); Alanine Aminotransfer ALT/SGPT 21 U/L (16-61); Albumin, Serum 3.8 g/dL (3.2-5.0); Alkaline Phosphatase 85 U/L (45-117); Anion Gap 6 (5-15); BUN 17 mg/dL (7-18); BUN/Creat Ratio 20.8 RATIO (10-20); Chloride 111 mmol/L (98-107); Creatinine, Serum 0.82 mg/dL (0.70-1.30); EST Glomerular Filtration Rate 96 mL/min (>60); Est Glom Filt Rate - Afr Amer 116 mL/min (>60); Globulin 3.5 g/dL (2.2-4.2); Glucose 94 mg/dL (74-106); Potassium 4.4 mmol/L (3.5-5.1); Protein, Total 7.3 g/dL (6.4-8.2); Sodium Level 144 mmol/L (136-145)
== END ==
PROVIDERS: PCP Family Medicine; Referring Provider Family Medicine; Visit Provider Family Medicine
DX: K92.1 Melena (principal)
CPT/HCPCS: 36415; 80053; 85025

== ENCOUNTER → 2020-03-04 10:09 | Outpatient (CLI) | payer MEDICARE, SELFPAY ==
[2019-09-10 09:24] VITALS: BMI 27.9
[2020-03-04 13:02] LABS: Absolute Lymphocyte Count 1.63 X10^3/uL (0.83-4.51); Absolute Neutrophil Count 5.3 X10^3/uL (2.0-7.7); Basophil# 0.05 X10^3/uL; Basophil% 0.6 % (0-1); Eosinophil# 0.39 X10^3/uL; Eosinophils% 4.8 % (0-5); Hematocrit 42.7 % (40-54); Hemoglobin 12.3 g/dL (13.0-16.5); Lymphocyte # 1.63 X10^3/ul (4.0); Lymphocyte % 20.2 % (19-41); Mean Corp Hgb Conc 28.8 g/dL (32-36); Mean Corpuscular Hgb 24.9 pg (27.0-32.0); Mean Corpuscular Volume 86.4 fL (80-94); Mean Platelet Vol. 11.5 fl (6.2-12.0); Monocyte# 0.71 X10^3/uL; Monocyte% 8.8 % (0-10); NRBC Flagged by Analyzer 0 % (0-5); Neutrophil # 5.25 X10^3/uL (2.7-7.7); Neutrophil % 65.4 % (47-70); Platelet Count 281 K/mm3 (150-450); RBC Distribution Width CV 16.6 % (11.6-14.6); RBC Distribution Width SD 52.3 fl (35.1-43.9); Red Blood Count 4.94 M/mm3 (4.6-6.2); White Blood Count 8.1 K/mm3 (4.4-11.0)
[2020-03-04 13:16] LABS: Anion Gap 7 (5-15); BUN 15 mg/dL (7-18); BUN/Creat Ratio 17.3 RATIO (10-20); Calcium,Total 8.6 mg/dL (8.5-10.1); Chloride 110 mmol/L (98-107); Cholesterol 119 mg/dL (200); Creatinine, Serum 0.87 mg/dL (0.70-1.30); EST Glomerular Filtration Rate 89 mL/min (>60); Est Glom Filt Rate - Afr Amer 108 mL/min (>60); Glucose 111 mg/dL (74-106); High Density Lipoprotein 36 mg/dL; Potassium 4.1 mmol/L (3.5-5.1); Sodium Level 142 mmol/L (136-145); Triglycerides 79 mg/dL; Very Low Density Lipoprotein 16 mg/dL (5-40)
== END ==
PROVIDERS: PCP Family Medicine; Referring Provider Family Medicine; Visit Provider Family Medicine
DX: Z00.00 Encounter for general adult medical examination without abnormal findings (principal); I10 Essential (primary) hypertension; K92.2 Gastrointestinal hemorrhage, unspecified
CPT/HCPCS: 36415; 80048; 80061; 85025

== ENCOUNTER → 2020-03-30 10:38 | Outpatient (CLI) | payer MEDICARE, SELFPAY ==
[2019-09-10 09:24] VITALS: BMI 27.9
[2020-03-30 12:27] LABS: Absolute Lymphocyte Count 1.44 X10^3/uL (0.83-4.51); Absolute Neutrophil Count 8.1 X10^3/uL (2.0-7.7); Basophil# 0.04 X10^3/uL; Basophil% 0.4 % (0-1); Eosinophil# 0.18 X10^3/uL; Eosinophils% 1.7 % (0-5); Hematocrit 37.1 % (40-54); Hemoglobin 10.8 g/dL (13.0-16.5); Lymphocyte # 1.44 X10^3/ul (4.0); Lymphocyte % 13.8 % (19-41); Mean Corp Hgb Conc 29.1 g/dL (32-36); Mean Corpuscular Hgb 26.4 pg (27.0-32.0); Mean Corpuscular Volume 90.7 fL (80-94); Mean Platelet Vol. 11.3 fl (6.2-12.0); Monocyte# 0.65 X10^3/uL; Monocyte% 6.2 % (0-10); NRBC Flagged by Analyzer 0 % (0-5); Neutrophil # 8.07 X10^3/uL (2.7-7.7); Neutrophil % 77.5 % (47-70); Platelet Count 290 K/mm3 (150-450); RBC Distribution Width CV 18.1 % (11.6-14.6); Red Blood Count 4.09 M/mm3 (4.6-6.2); White Blood Count 10.4 K/mm3 (4.4-11.0)
== END ==
PROVIDERS: Family Medicine; PCP Family Medicine; Referring Provider Family Medicine; Visit Provider Family Medicine
DX: K92.1 Melena (principal)
CPT/HCPCS: 36415; 85025

== ENCOUNTER → 2020-03-31 14:42 | Outpatient (CLI) | payer MEDICARE, SELFPAY ==
[2019-09-10 09:24] VITALS: BMI 27.9
[2020-03-31 17:38] LABS: Absolute Lymphocyte Count 2.02 X10^3/uL (0.83-4.51); Absolute Neutrophil Count 5.7 X10^3/uL (2.0-7.7); Basophil# 0.04 X10^3/uL; Basophil% 0.5 % (0-1); Eosinophil# 0.33 X10^3/uL; Eosinophils% 3.7 % (0-5); Hematocrit 34.8 % (40-54); Hemoglobin 9.9 g/dL (13.0-16.5); Lymphocyte # 2.02 X10^3/ul (4.0); Lymphocyte % 22.9 % (19-41); Mean Corp Hgb Conc 28.4 g/dL (32-36); Mean Corpuscular Volume 91.3 fL (80-94); Mean Platelet Vol. 11.1 fl (6.2-12.0); Monocyte# 0.72 X10^3/uL; Monocyte% 8.2 % (0-10); NRBC Flagged by Analyzer 0 % (0-5); Neutrophil # 5.68 X10^3/uL (2.7-7.7); Neutrophil % 64.5 % (47-70); Platelet Count 277 K/mm3 (150-450); RBC Distribution Width CV 17.9 % (11.6-14.6); RBC Distribution Width SD 59.4 fl (35.1-43.9); Red Blood Count 3.81 M/mm3 (4.6-6.2); White Blood Count 8.8 K/mm3 (4.4-11.0)
== END ==
PROVIDERS: PCP Family Medicine; Referring Provider Family Medicine; Visit Provider Family Medicine
DX: K92.1 Melena (principal)
CPT/HCPCS: 36415; 85025

== ENCOUNTER → 2020-04-02 16:00 | Outpatient (CLI) | payer MEDICARE, SELFPAY ==
[2019-09-10 09:24] VITALS: BMI 27.9
[2020-04-02 17:20] LABS: Hematocrit 32.5 % (40-54); Hemoglobin 9.6 g/dL (13.0-16.5); Mean Corp Hgb Conc 29.5 g/dL (32-36); Mean Corpuscular Hgb 25.8 pg (27.0-32.0); Mean Corpuscular Volume 87.4 fL (80-94); Platelet Count 286 K/mm3 (150-450); RBC Distribution Width CV 17.2 % (11.6-14.6); RBC Distribution Width SD 55.6 fl (35.1-43.9); Red Blood Count 3.72 M/mm3 (4.6-6.2); White Blood Count 9.1 K/mm3 (4.4-11.0)
== END ==
PROVIDERS: Family Medicine; PCP Family Medicine; Referring Provider Family Medicine; Visit Provider Family Medicine
DX: K92.2 Gastrointestinal hemorrhage, unspecified (principal)
CPT/HCPCS: 36415; 85027

== ENCOUNTER → 2021-02-10 12:32 | Outpatient (CLI) | payer MEDICARE, SELFPAY ==
[2021-02-04 09:19] VITALS: BMI 29.0
--- NOTE | 2021-02-10 12:35 | ECHOD_ITS ---
Version 2 Reason For Study: VALVE REPLACEMENT EVAL Procedure This was a 2D Doppler, Color Flow transthoracic echocardiogram. Exam performed in department. Left Ventricle Normal LV size. Left ventricular systolic function is normal. The estimated ejection fraction is 60 %. Stage 3 diastolic dysfunction. No regional wall motion abnormalities noted. Right Ventricle Normal RV size. Normal systolic function. Atria Normal left atrium. Normal right atrium. Mitral Valve An annuloplasty ring is noted in the mitral position. Tricuspid Valve Normal tricuspid valve. Mild (1+) tricuspid valve insufficiency. Pulmonary artery systolic pressure is 36 mmHg. Aortic Valve Normal aortic valve. Great Vessels Mildly dilated aortic root. Compared to the previous echo the aortic root is mildly dilated but remains under 4 cm. The pulmonary artery is normal size. Pericardium/Pleural No pericardial effusion. MMode/2D Measurements & Calculations LVIDd: 5.2 cm IVSd: 1.0 cm Ao root diam: 3.9 cm LVIDs: 3.5 cm LVPWd: 1.0 cm RVDd: 3.8 cm FS: 33.5 % LAV(MOD-bp): 101.5 ml LA A4 area: 28.2 cm2 LA dimension(2D): 4.8 cm LAV(MOD-bp) Indexed: 45.3 ml/m2 LAV(MOD-sp2): 99.5 ml LAV(MOD-sp4): 98.0 ml RA A4 area: 18.0 cm2 Time Measurements MV dec time: 0.20 sec Doppler Measurements & Calculations MV E max sebastian: 165.7 cm/sec Lat Peak E' Sebastian: 9.9 cm/sec Med Peak E' Sebastian: 11.6 cm/sec MV A max sebastian: 55.5 cm/sec E/E' lat: 16.8 E/E' med: 14.3 MV E/A: 3.0 MV V2 max: 186.2 cm/sec MV P1/2t max sebastian: 188.8 cm/sec Ao V2 max: 112.7 cm/sec MV max P.9 mmHg MV P1/2t: 59.5 msec Ao max P.1 mmHg MV V2 mean: 89.6 cm/sec MV dec slope: 929.3 cm/sec2 MV mean P.2 mmHg MVA(P1/2t): 3.7 cm2 MV V2 VTI: 39.6 cm LV V1 max: 91.0 cm/sec PA V2 max: 108.8 cm/sec TR max sebastian: 288.1 cm/sec LV V1 max P.3 mmHg TR max P.2 mmHg MV P1/2t-pr_phl: 61.2 msec ECHO/Echo Complete Interpretation Summary Normal LV size. Left ventricular systolic function is normal. The estimated ejection fraction is 60 %. Stage 3 diastolic dysfunction. An annuloplasty ring is noted in the mitral position. Compared to the previous echo the aortic root is mildly dilated but remains und er 4 cm. Ordering Physician: Zachary August Referring Physician: Xu Coleman Performed By: Gertrudis Phan, CHRISTY, RVT
== END ==
PROVIDERS: PCP Family Medicine; Referring Provider Internal Medicine Cardiovascular Disease; Visit Provider Internal Medicine Cardiovascular Disease
DX: Z98.890 Other specified postprocedural states (principal)
CPT/HCPCS: 93306

== ENCOUNTER → 2021-03-07 10:28 | Outpatient (CLI) | payer MEDICARE, SELFPAY ==
[2021-02-04 09:19] VITALS: BMI 29.0
--- NOTE | 2021-03-07 10:11 | FLU_PTH ---
PATIENT: AIDEN WHITTAKER LOC: [facility] U#:[id number] AGE/SX: 89/M ROOM: RE03/07/[address]: Dr. Xu Coleman MD : 1935 BED: DIS: SPEC #: [id number] RECD: 03/07/21 14:26 STATUS: BIN JOHNATHON #: [id number] OLIVIA: 03/07/21 10:[address]: Xu Coleman DEPT: CYTOLOGY RECD BY: Patti Ordoñez Tissues: Urine Procedures: Special Stain Group II Surgery Specimen Level IV Cytospin Fluid HEADER OPERATION: Not noted PRE-OP DIAGNOSIS: Hematuria TISSUE SUBMITTED: Urine for cytology DIAGNOSIS CYTOLOGY Urine for cytology (cytospin and cell block): Negative for malignant cells. AM:mi 03/08/2021 CYTOLOGY STUDY Slides are reviewed. CYTOLOGY GROSS Received is 0.2 ml of red cloudy fluid labeled with the patient's name and and designated per the requisition as urine. Submitted for cytology preparation and cell block. / mi 03/07/2021 TC:5 CPT: 21264, 69344
[2021-03-07 12:55] LABS: Absolute Lymphocyte Count 1.69 X10^3/uL (0.83-4.51); Absolute Neutrophil Count 4.6 X10^3/uL (2.0-7.7); Basophil# 0.07 X10^3/uL; Basophil% 0.9 % (0-1); Eosinophil# 0.61 X10^3/uL; Eosinophils% 8.1 % (0-5); Hematocrit 40.6 % (40-54); Hemoglobin 11.9 g/dL (13.0-16.5); Lymphocyte # 1.69 X10^3/ul (0.83-4.51); Lymphocyte % 22.4 % (19-41); Mean Corp Hgb Conc 29.3 g/dL (32-36); Mean Corpuscular Hgb 25.1 pg (27.0-32.0); Mean Corpuscular Volume 85.7 fL (80-94); Mean Platelet Vol. 11.7 fl (6.2-12.0); NRBC Flagged by Analyzer 0 % (0-5); Neutrophil # 4.56 X10^3/uL (2.7-7.7); Neutrophil % 60.5 % (47-70); Platelet Count 264 K/mm3 (150-450); RBC Distribution Width CV 19.4 % (11.6-14.6); RBC Distribution Width SD 58.5 fl (35.1-43.9); Red Blood Count 4.74 M/mm3 (4.6-6.2); White Blood Count 7.5 K/mm3 (4.4-11.0)
[2021-03-07 13:35] LABS: Cytology, Body Fluid / CSF SEE PATHOLOGY REPORT
[2021-03-07 13:39] LABS: Anion Gap 7 (5-15); BUN 15 mg/dL (7-18); BUN/Creat Ratio 17.2 RATIO (10-20); Calcium,Total 8.7 mg/dL (8.5-10.1); Chloride 109 mmol/L (98-107); Cholesterol 124 mg/dL (200); Creatinine, Serum 0.87 mg/dL (0.70-1.30); EST Glomerular Filtration Rate 89 mL/min (>60); Est Glom Filt Rate - Afr Amer 108 mL/min (>60); Glucose 113 mg/dL (74-106); High Density Lipoprotein 39 mg/dL; PSA,Total - Annual Screen 1.31 ng/mL (0.00-4.00); Potassium 4.4 mmol/L (3.5-5.1); Sodium Level 141 mmol/L (136-145); Triglycerides 93 mg/dL; Very Low Density Lipoprotein 19 mg/dL (5-40)
== END ==
PROVIDERS: PCP Family Medicine; Referring Provider Family Medicine; Visit Provider Family Medicine
DX: Z00.00 Encounter for general adult medical examination without abnormal findings (principal); R31.9 Hematuria, unspecified; Z12.5 Encounter for screening for malignant neoplasm of prostate; I10 Essential (primary) hypertension
CPT/HCPCS: 36415; 80048; 80061; 84153; 85025; 88108; 88305; 88313; G0103

== ENCOUNTER 2021-03-17 19:57 | Inpatient (IN) | payer MEDICARE, SELFPAY ==
[2021-02-04 09:19] VITALS: BMI 29.0
[2021-03-17] VITALS (9 sets, daily range): BP systolic 98–152; BP diastolic 56–85; PULSE 66–86; RESP 16–18; TEMP 36.3–37.2; O2SAT 93–99; BMI 28.5
--- NOTE | 2021-03-17 17:35 | PCM.HP.STD ---
HPI - General General Date of Admission: 03/17/21 HPI Narrative AIDEN WHITTAKER, is a 86 M who presents to the hospital with gross hematuria and significant bleeding that has been getting worse. Patient will be admitted for further control of his bleeding again taken to the operating room for evacuation of blood clots and identify the cause of the bleeding. [facility] Medical History (Updated 03/17/21 @ 17:[address] Taj Bey MD) Acidosis, lactic Alcohol abuse Anemia Anemia due to blood loss, acute Arthritis Atrial fibrillation Cancer Carotid bruit Dilated aortic root Diverticulosis Essential (primary) hypertension GI bleed (08/2019) GI bleed not requiring more than 4 units of blood in 24 hours, ICU, or surgery (08/2019) Hyperlipidemia Iron deficiency anemia Nonrheumatic mitral (valve) insufficiency Postoperative atrial fibrillation (05/16/07) Home Medications multivitamin 1 tab PO QDAY 01/07/18 [History Last Taken 03/17/21] ciprofloxacin HCl [Cipro] 500 mg PO BID #14 tab 03/17/21 [Rx Last Taken Unknown] losartan [Cozaar] 50 mg PO BID 03/17/21 [History Last Taken 03/17/21] metoprolol tartrate 25 mg PO BID 03/17/21 [History Last Taken 03/17/21] polyethylene glycol 3350 [Miralax] 17 g PO DAILY 03/17/21 [History Last Taken 03/16/21] Allergy/AdvReac Type Severity Reaction Status Date / Time No Known Allergies Allergy Verified 03/17/21 16:15 Family History Mother Arthritis Brother CAD (coronary artery disease) CABG Son Diabetes Son Cancer Multiple sclerosis Surgical History History of cardioversion (06/2007) History of mitral valve repair (05/16/07) History of right and left heart catheterization (05/15/07) Social History Smoking Status: Never smoker alcohol intake: current alcohol intake frequency: holidays/special occasions only Alcohol type: beer substance use type: does not use ROS Constitutional Constitutional: Denies chills, fever(s) or malaise Eyes Eyes: Denies blurry vision or change in vision ENT HEENT: Reports none Cardiovascular Cardiovascular: Denies chest pain or palpitations Respiratory/Chest Respiratory/Chest: Denies cough or shortness of breath with exertion Gastrointestinal Gastrointestinal: Denies abdominal pain, constipation or diarrhea Musculoskeletal Musculoskeletal: Denies back pain, joint stiffness or joint swelling Integumentary Integumentary: Denies dry skin, jaundice, lesions or rash Neurologic Neurologic: Denies confusion, syncope or weakness Psychiatric Psychiatric: Reports none; Denies anxiety or depression Endocrine Endocrinology: Denies excessive sweating, fatigue or flushing Hematologic/Lymphatic Hematologic/Lymphatic: Denies anemia, easy bleeding or easy bruising Vital Signs Vital Signs Vital Signs: 03/17/21 16:41 03/17/21 17:00 Temperature 98.9 F Temperature Source Oral Pulse Rate 72 Respiratory Rate 18 Respiratory Effort Normal Non-Labored Respiratory Depth Normal Respiratory Pattern Normal Blood Pressure 129/70 H Blood Pressure Mean 89 Blood Pressure Source Monitor Blood Pressure Position Semi-Fowlers Blood Pressure Location Left Arm Pulse Ox 99 Oxygen Delivery Method Room Air Room Air Weight Weight: 98.2 kg Body Mass Index (BMI) 28.5 Physical Exam Const alert and oriented x3 General Appearance: cooperative HEENT normocephalic, head/scalp atraumatic, EAC's normal and TM's normal bilaterally Eyes PERRL and EOMs intact bilaterally Pupil: sluggish Neck no lymphadenopathy, supple and no JVD General: trachea midline Lymph Lymphatic: no lymphadenopathy noted, lymphedema and lymphadenopathy Resp normal respiratory effort, normal air movement and clear to auscultation bilaterally Cardio regular rate, regular rhythm and peripheral pulses 2+ throughout GI soft to palpation, non-tender and non-distended Extremity normal capillary refill and no clubbing, cyanosis or edema General Extremity: no tenderness to palpation of joints or extremities Skin no rashes or lesions noted General Skin Exam: turgor normal Lesions: no lesions Rashes: no rashes Neuro CN's II-XII intact bilaterally Speech: speech normal Motor Exam: strength 5/5 throughout; Negative for general weakness Psych thought process normal, cooperative and affect normal Appearance: appropriate Assessment & Plan Assessment/Plan (1) Gross hematuria: PLAN: Plan to proceed with evacuation of blood clots and cauterization of bleeding and resection of tumor.
--- NOTE | 2021-03-17 17:40 | BLB_PTH ---
PATIENT: AIDEN WHITTAKER LOC: [facility] U#:[id number] AGE/SX: 86/M ROOM: [facility] [place] RE03/17/[address]: Dr. Taj Bey MD : 1935 BED: 1 DIS: 03/19/2021 SPEC #: [id number] RECD: 03/18/21 12:38 STATUS: BIN DIEGO #: [id number] OLIVIA: 03/17/21 17:[address]: Taj Bey DEPT: SURGICAL PATHOLOGY RECD BY: Yao Ochoa ENTERED: 03/18/21 13:53 SP TYPE: TURB OTHR DR: Dr. Xu Coleman MD Tissues: Urinary bladder, NOS Procedures: Surgery Specimen Level V HEADER OPERATION: Cystoscopy, evacuation hematoma, resection of bladder tumor PRE-OP DIAGNOSIS: Gross hematuria TISSUE SUBMITTED: Bladder tumor MICROSCOPIC DIAGNOSIS Bladder tumor, TUR: Papillary urothelial carcinoma. See cancer summary in the comment section. SJ:mi 03/21/2021 COMMENT BLADDER CANCER (TUR) SUMMARY Procedure: Transurethral resection of bladder (TURBT) Tumor site: Not specified Histologic type: Papillary urothelial carcinoma, noninvasive Histologic grade: Low grade (2/3) Tumor configuration: Papillary Muscularis propria presence: muscularis propria (detrusor muscle) is present and free of tumor. 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 The above summary is in compliance with [employer] (CAP) Cancer Protocols Checklist and [place] Joint Committee on Cancer (AJCC), Staging Manual, 8th Ed. Case has been reviewed in consultation with Dr. Sol who concurs with the above diagnosis. IDC:AM MICROSCOPIC DESCRIPTION Slides are reviewed. GROSS DESCRIPTION Received in fixative is one container labeled with the patient's name and designated bladder tumor. The specimen consists of multiple irregular and friable fragments of pink-lovelace soft tissue that in aggregate measure 7 x 6 x 1.2 cm. The specimen is totally submitted in ten cassettes. / AM:mi 03/18/21 TC:0 CPT: 01401
--- NOTE | 2021-03-17 17:41 | PCM.DC ---
Discharge Instructions Diet Discharge Diet: No restrictions Activity Discharge Activity: Return to Normal Activity and May Not Drive (while taking narcotic pain medications.) Dressing / Incision Call your doctor if you observe: Fever of 101 or Higher Follow Up Care Please Follow Up With: Taj Bey MD When: Call [phone] for an appointment Test Results: Test results from this visit will be discussed in further detail at your follow-up appointment, if applicable. Discharge Plan Admission Admit Date/Time: 03/17/21 15:32 Primary Reason for Your Visit: Gross hematuria Attending Provider: Taj Bey Primary Care Provider: Xu Coleman Discharge Orders/Prescriptions Prescriptions: New ciprofloxacin HCl [Cipro] 500 mg tablet 500 mg PO BID Qty: 14 RF: 0 Continued multivitamin tablet 1 tab PO QDAY RF: 0 losartan [Cozaar] 50 mg tablet 50 mg PO BID RF: 0 metoprolol tartrate 25 mg tablet 25 mg PO BID RF: 0 polyethylene glycol 3350 [Miralax] 17 gram Powder In Packet 17 g PO DAILY RF: 0 Discontinued aspirin [Adult Low Dose Aspirin] 81 mg tablet,delayed release (DR/EC) 81 mg PO DAILY RF: 0 Referrals / Follow Up: Taj Bey MD [STAFF PHYSICIAN] - Xu Coleman MD [Primary Care Provider] -
--- NOTE | 2021-03-17 19:58 | OP.PCM_ITS ---
Report of Operation Date of Procedure: 03/17/21 Pre-Operative Diagnosis: Gross hematuria and large bladder tumor Post-Operative Diagnosis: Transurethral resection of very large bladder tumor, evacuation of blood clots Surgery/Procedure Performed:: Transurethral section of very large bladder tumor, evacuation of blood clots Description of Surgical Findings:: 86-year-old male who I saw today in the office with extensive amount of gross hematuria patient was admitted to the hospital for further care taken back to the operating room, he underwent general anesthesia, I went into the bladder with a resectoscope the penis and testicles were prepped and draped in usual sterile fashion once again the bladder immediately identified a lot of blood clots are evacuated out and then after this was done then a very large tumor was added evident that was coming from the patient's right lateral wall I then proceeded with the resection of the tumor the the tumor was extensively involved in the bladder probably 8 to 10 cm in size as a started resecting this tumor went laterally to tell that this was an invasive tumor that appeared to be invasive through the bladder muscle resected down to the fat of the bladder on the right side I did identify the right ureteral orifice which was resected and identified the left ureter orifice which was not resected after resecting the tumor for quite some long time obtained hemostasis that was not able to do a complete resection given the extensive moderate disease and at this point cauterized as much as possible and I most likely the patient will need more treatment such as either bladder removal or chemotherapy or radiation to treat the rest of his cancer we put a 24 [place] catheter into the bladder and continuous irrigation the patient anesthetic was reversed again an extremely large tumor was resected from the right side of the bladder but it extensively involved was incomplete resection could not resect the entire tumor given how big it was. Surgeon: ness Type of Anesthesia: General Drains: [address] Admit VTE Documentation VTE Present on Admission: No VTE Mechan Device Prophylaxis: SCD's
[2021-03-17] MEDS: Lactated Ringers 1,000 ML 100 ML IV (20:26)
--- NOTE | 2021-03-17 20:55 | NURSING ---
Arrived on unit by bed, CBI running. Awake and alert, denies any pain at this time.
[2021-03-17] MEDS: 0.9% Normal Saline 1,000 ML 125 ML IV (21:12)
[2021-03-17] MEDS: Metoprolol Tartrate 25 MG Tablet PO (21:24)
[2021-03-17] MEDS: Losartan Potassium 50 MG Tablet PO (21:24)
[2021-03-17 23:10] LABS: Bedside Glucose 133 mg/dL (70-110)
--- NOTE | 2021-03-17 23:18 | PCM.PN.BLA ---
Progress Note Rapid response was called because patient was hypotensive with blood pressure of 58/35. Also patient had diaphoresis and blurry vision. At the time of examination patient was getting a normal fluid bolus and blood pressure had improved to 108/50. Nurses reports that there is clot from a Gonzales and Gonzales is difficult to irrigate. Patient is alert oriented x3. S1-S2 present. lungs clear to ausculatate. Abdomen soft nontender nondistended. Gross blood from a Gonzales catheter. Extremities without edema Impression: Acute blood loss anemia. Continue normal saline bolus. Give fresh frozen plasma. Type and screen. Give Tranexamic acid. Discussed with urologist.
[2021-03-17 23:33] LABS: Hemoglobin 9.7 g/dL (13.0-16.5)
[2021-03-17 23:45] LABS: International Normalized Ratio 1.2; Prothrombin Time (Protime)PT. 14.8 SECONDS (11.7-14.9)
[2021-03-18] VITALS (14 sets, daily range): BP systolic 102–138; BP diastolic 48–72; PULSE 60–103; RESP 16–18; TEMP 36–37.3; O2SAT 93–99
[2021-03-18] MEDS: 0.9% Normal Saline 1,000 ML 999 ML IV (00:30)
[2021-03-18] MEDS: Cefazolin 1 GM/50 ML BAG IV ×2 (05:56→11:33)
--- NOTE | 2021-03-18 07:30 | CT_ITS ---
STUDY: CT CHEST, ABDOMEN T PELVIS WITH CONTRAST REASON FOR EXAM: Male, 86 years old. History of recent resection of bladder cancer. RADIATION DOSAGE (If Supplied By Facility): CTDIvol = ( 19.87 ) mGy, DLP = ( 2549.30 ) mGycm TECHNIQUE: Transaxial imaging was performed following intravenous administration of IV 100ML ISOVUE 370. Individualized dose optimization techniques were used for this CT. COMPARISON: No relevant priors. FINDINGS: CHEST Mild heterogeneous enlargement of the left lobe of thyroid gland suggestive of possible goitrous change. This extends into the substernal region. There is a 2.8 cm x 1.7 cm pleural-based mass in the lateral anterior aspect of the right upper lobe. No bony destruction is seen at this time. Increased markings are seen at both lung bases with the findings suggestive of a bibasilar atelectasis. Minimal pleural thickening. There is a 1.5 cm calcified granuloma in the posterior medial segment of the right lower lobe. Sternal cerclage wires and vascular clips are present from a prior sternotomy and coronary artery bypass graft procedure (CABG). Mitral valve replacement. Normal mediastinum. Normal hilar regions. Normal unenhanced pulmonary arteries. There is atherosclerotic calcification of the aortic arch with tortuosity and elongation of the aortic arch and descending thoracic aorta. There are multi-level degenerative changes of the thoracic spine. There is a 1.3 cm x 1.4 cm lytic lesion along the lateral aspect of the T6 or T7 vertebrae. ABDOMEN There is a 1.2 cm cyst in the anterior medial aspect of the right lobe of the liver superiorly. A similar appearing cyst is seen along the anterior margin of the right lobe in its mid level. This measures 1.1 cm x 1.2 cm. There are multiple small gallstones. Normal spleen. Normal pancreas. Normal bilateral adrenal glands. 1.7 cm cyst in the anterior superior margin of the right kidney. 1.9 cm cyst in the lateral midportion of the left kidney. Normal visualized stomach. Normal small intestine. There are scattered colonic diverticula consistent with diverticulosis. The appendix is visualized and appears normal. There is diffuse atherosclerotic calcification of the abdominal aorta, without a demonstrated aneurysm. Normal inferior vena cava. There is borderline retroperitoneal lymphadenopathy with enlarged nodes no greater than 10mm in the short axis diameter. Normal abdominal wall. Normal osseous structures. PELVIS A SPENCER catheter is seen within the urinary bladder. There is a 3.2 cm x 6.5 cm hyperdensity within the urinary bladder. This may represent a mass although with the patient''s history of recent surgery and irrigation this may represent blood clot. Tiny air bubbles are seen within it. No fluid levels are also seen along the anterior aspect of the urinary bladder. There is mild degree of bladder wall thickening. There are increased markings in the peritoneal fat surrounding the urinary bladder. There is no pelvic fluid. There is no pelvic lymphadenopathy or mass lesion. There is diffuse atherosclerotic calcification of the pelvic arteries. Small bilateral inguinal hernias containing fat. There are diffuse degenerative changes of the visualized lumbar spine. CT/CT Chest, Abd, Pel w/Contrast IMPRESSION: 2.8 cm x 1.7 cm pleural-based mass in the lateral anterior aspect of the right upper lobe. No bony destruction is seen at this time. Possible 1.3 cm x 1.4 cm lytic lesion in the lateral aspect of the T6 or T7 vertebrae. Small hepatic cysts. Small bilateral renal cysts. Multiple small gallstones. Heterogeneous appearance of the urinary bladder with the hyperdense mass/process within the bladder as described. Electronically Signed: Mati Knowles MD at 10:23 EDT , Service support ,
--- NOTE | 2021-03-18 07:33 | PCM.PN.GU ---
Subjective Subjective Status post resection of a very large invasive looking bladder tumor was not able to resect the entire tumor out he does not have a tumor that is resectable. I am concerned that he may have more advanced disease so he will need a CT scan of the abdomen pelvis and chest to rule out metastatic disease. Objective Data Objective Data Vital Signs: Vital Signs Temp Pulse Resp BP Pulse Ox 98.7 F 66 18 127/57 H 97 03/18/21 07:18 03/18/21 07:18 03/18/21 07:18 03/18/21 07:18 03/18/21 07:18 Oxygen Flow Rate (L/min) 4 Oxygen Delivery Method Room Air Weight: 98.2 kg Body Mass Index (BMI) 28.5 Intake & Output: Intake and Output for Last 24 Hours 03/16/21 03/17/21 03/18/21 23:59 23:59 23:59 Intake Total 456.67 / 456.67 2485.00 / 2485.00 Output Total 1550 / 2200 1500 / 1500 Balance -1093.33 / -1743.33 985.00 / 985.00 Lab / Micro Data Result Diagrams: 03/17/21 23:20 Labs: Laboratory Results - last 24 hr 03/17/21 23:08: POC Glucose 133 H 03/17/21 23:20: Hgb 9.7 L, Hct 33.0 L 03/17/21 23:20: PT 14.8, INR 1.2 03/17/21 23:20: Blood Type A POSITIVE, Antibody Screen NEGATIVE Physical Exam Const alert and oriented x3 General Appearance: cooperative HEENT normocephalic, head/scalp atraumatic, EAC's normal and TM's normal bilaterally Eyes PERRL and EOMs intact bilaterally Pupil: sluggish Neck no lymphadenopathy, supple and no JVD General: trachea midline Lymph Lymphatic: no lymphadenopathy noted, lymphedema and lymphadenopathy Resp normal respiratory effort, normal air movement and clear to auscultation bilaterally Cardio regular rate, regular rhythm and peripheral pulses 2+ throughout GI soft to palpation, non-tender and non-distended Extremity normal capillary refill and no clubbing, cyanosis or edema General Extremity: no tenderness to palpation of joints or extremities Skin no rashes or lesions noted General Skin Exam: turgor normal Lesions: no lesions Rashes: no rashes Neuro CN's II-XII intact bilaterally Speech: speech normal Motor Exam: strength 5/5 throughout; Negative for general weakness Psych thought process normal, cooperative and affect normal Appearance: appropriate Assessment & Plan Assessment/Plan (1) Gross hematuria: (2) Bladder cancer: QUALIFIERS: Bladder location: overlapping sites Qualified Code(s): C67.8 - Malignant neoplasm of overlapping sites of bladder PLAN: He has bladder cancer plan to do a CT scan of the chest abdomen pelvis with IV contrast to evaluate Gonzales extent of the cancer continue with irrigation. Has significant bleeding last night but this morning has slowed down and stopped continue with irrigation hopefully home tomorrow with a catheter I spoke to the patient today regarding his situation understands he has advanced cancer and he may require a cystectomy and prostatectomy to remove his cancer I do not think this cancer is resectable transurethrally for complete resection it was very difficult large tumor.
[2021-03-18 08:09] LABS: Hematocrit 27.9 % (40-54); Hemoglobin 8.2 g/dL (13.0-16.5); Mean Corp Hgb Conc 29.4 g/dL (32-36); Mean Corpuscular Hgb 25.2 pg (27.0-32.0); Mean Corpuscular Volume 85.8 fL (80-94); Mean Platelet Vol. 10.6 fl (6.2-12.0); Platelet Count 207 K/mm3 (150-450); RBC Distribution Width CV 18.2 % (11.6-14.6); RBC Distribution Width SD 57.1 fl (35.1-43.9); Red Blood Count 3.25 M/mm3 (4.6-6.2); White Blood Count 9.4 K/mm3 (4.4-11.0)
[2021-03-18] MEDS: 0.9% Normal Saline 1,000 ML 125 ML IV ×2 (08:24→18:02)
[2021-03-18 08:33] LABS: Anion Gap 8 (5-15); BUN 14 mg/dL (7-18); BUN/Creat Ratio 18.9 RATIO (10-20); Calcium,Total 8.2 mg/dL (8.5-10.1); Chloride 107 mmol/L (98-107); Creatinine, Serum 0.74 mg/dL (0.70-1.30); EST Glomerular Filtration Rate 107 mL/min (>60); Est Glom Filt Rate - Afr Amer 129 mL/min (>60); Estimated Creatinine Clearance 62.14 ml/min; Glucose 91 mg/dL (74-106); Potassium 3.9 mmol/L (3.5-5.1); Sodium Level 144 mmol/L (136-145)
[2021-03-18] MEDS: Polyethylene Glycol 3350 17 GM PACKET PO (10:05)
[2021-03-18] MEDS: Multivitamins,Therapeutic Tablet 1 TABLET PO (10:08)
[2021-03-18] MEDS: Losartan Potassium 50 MG Tablet PO ×2 (10:08→21:18)
[2021-03-18] MEDS: Metoprolol Tartrate 25 MG Tablet PO ×2 (10:08→21:18)
[2021-03-18] MEDS: 0.9% Saline Lock 10 ML Syringe IV (10:11)
--- NOTE | 2021-03-18 11:00 | CASEMGMT ---
Addendum entered by Caterina Murray 03/18/21 13:00: Pt states he just received his diagnosis of bladder cancer this morning. Pt made several comments about this throughout the assessment. Notified Nancy DE LEON. Original Note: SALIMA FRAGOSO Assessment: Face to Face with pt for initial transition planning/care coordination assessment. SALIMA FRAGOSO introduced self and role at [facility], pt voices understanding and consents to assessment. Pt is A/O x4 and answers all questions appropriately at this time. Pt sitting up in bed in no distress. Care providers, pharmacy, and demographics verified/updated. Admitting Dx: hemorragic cystitis PCP:Jared Specialists: Mariangel, cardio; Barry, derm; Sotero, uro Preferred Pharmacy: [facility] Insurance: [employer] Prescription Benefit: yes LW/HPOA: Pt denies having LW/DPOA LNOK: Vikki Grady, Living Arrangements: Pt lives in a single story house with 2 steps to enter with rail. Pt reports being I in ADL's and denies concerns at home. Transportation: Pt drives self and denies concerns with transportation. DME/HHC/SNF: Pt states his has a bp cuff at home, otherwise no DME. Pt denies any hx of SNF or HHC. Pt states no concerns with going home at time of dc. 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 Discussed that pt may have catheter with leg bag. Pt denies need for HHC. States he would be able to attach leg bag and switch to patel at night without difficulty. Pt states he has a neighbor he could call who he thinks is a SHINE WORKER that could assist if needed. Pt states no further concerns/needs. CM to follow. Advised pt to ask CM if any further question/concerns/needs arise, voices understanding. Pt Goal: Home Plan: Home with support.
--- NOTE | 2021-03-18 12:19 | CASEMGMT ---
Social Work Note SW received referral for diagnosis related support. Pt diagnosed with advanced cancer. SW in to speak with pt. SW introduced self and role at [facility]. Pt states I don't need a Grounds Crew Supervisor. SW informed pt that this worker is just checking in with pt as pt got some hefty news/information this morning. Pt states what, you all know now. SW informed pt that SALIMA FRAGOSO updated this worker regarding the new diagnosis and this worker is just checking in with him. Pt states I am not going to go home and kill myself, there your job is done. Pt states I have guns at home, but I am not going to kill myself. SW informed pt again that this worker is just checking in with pt regarding new diagnosis this morning. Pt states he lives with a , who is older than he is, but is good support. Pt denied wanting any cancer resources/information. Pt denied any current suicidal thoughts/plans/ideations. Pt then switched top to politics. SW remained in room and utilized active listening skills for pt. 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 Pt denied any additional needs or concerns at this time. Carolann Villalobos COMMISSION ASSOCIATE, OPERA SINGER
[2021-03-19] MEDS: 0.9% Normal Saline 1,000 ML 125 ML IV (02:03)
[2021-03-19 02:04] VITALS: BP 119/52; PULSE 102; RESP 18; TEMP 37.6; O2SAT 93
--- NOTE | 2021-03-19 07:04 | DS.PCM_ITS ---
Providers Date of Admission: 03/17/21 Primary Care Physician: Dr. Xu Coleman MD Reason For Visit: HEMORRAGIC CYSTITIS Diagnosis Discharge Diagnosis (1) Gross hematuria: Status: Acute Code(s): R31.0 - Gross hematuria (2) Bladder cancer: Status: Acute Code(s): C67.9 - Malignant neoplasm of bladder, unspecified Qualifiers: Bladder location: overlapping sites Qualified Code(s): C67.8 - Malignant neoplasm of overlapping sites of bladder Medications at Discharge Home Medications multivitamin 1 tab PO QDAY 01/07/18 ciprofloxacin HCl [Cipro] 500 mg PO BID #14 tab 03/17/21 losartan [Cozaar] 50 mg PO BID 03/17/21 metoprolol tartrate 25 mg PO BID 03/17/21 polyethylene glycol 3350 [Miralax] 17 g PO DAILY 03/17/21 Hospital Course Operations - (Transurethral section of a large tumor that was bleeding) Summary of Care Provided Minutes Spent on Discharge: 30 Hospital Course: 86-year-old male who admitted directly from my office to the hospital for continuously worse gross hematuria he was taken to surgery later that day and was found to have a very large mass growing within the bladder I resected a lot of the mass but it was not a resectable mass it was too big too invasive so I cauterized and stop the bleeding first night after surgery had a significant bout of bleeding required fresh frozen plasma and aggressive irrigation and eventually the bleeding stopped. We did a CT scan to do further evaluation the CAT scan demonstrates a large mass within the bladder that is not resectable by a transurethral was approach. There is a question of a lytic lesion in the spine but on my review of the CAT scan I think a bone scan would be necessary to confirm this there is also question of a lesion in the lung but I am not really sure if this is just is some other scarring or finding may not be related to the bladder cancer. Spoke to the patient regarding these findings want to do further work-up when he comes to the office for now he will go home and the catheter will remove the catheter next week and we may have to consider doing a radical cystoprostatectomy and ileal conduit diversion may be just for palliation since he has such a large unresectable tumor inside the bladder and also could be for cure. Probably would need to do work-up when I see him in the office for a PET scan and bone scan and a biopsy of the lung mass. After long discussion with the patient and the family they agree with the with this plan be discharged home today with a catheter I will see him next . Physical Exam Const alert and oriented x3 General Appearance: cooperative HEENT normocephalic, head/scalp atraumatic, EAC's normal and TM's normal bilaterally Eyes PERRL and EOMs intact bilaterally Pupil: sluggish Neck no lymphadenopathy, supple and no JVD General: trachea midline Lymph Lymphatic: no lymphadenopathy noted, lymphedema and lymphadenopathy Resp normal respiratory effort, normal air movement and clear to auscultation bilaterally Cardio regular rate, regular rhythm and peripheral pulses 2+ throughout GI soft to palpation, non-tender and non-distended Extremity normal capillary refill and no clubbing, cyanosis or edema General Extremity: no tenderness to palpation of joints or extremities Skin no rashes or lesions noted General Skin Exam: turgor normal Lesions: no lesions Rashes: no rashes Neuro CN's II-XII intact bilaterally Speech: speech normal Motor Exam: strength 5/5 throughout; Negative for general weakness Psych thought process normal, cooperative and affect normal Appearance: appropriate Medical Records Data Medical Nutrition Assessment Dietitian: Nutrition Therapy Diagnosis Start: 03/18/21 11:50 Freq: Status: Active Protocol: Document 03/18/21 11:58 (Rec: 03/18/21 11:58 [id number]) Nutrition Malnutrition Evidence of Malnutrition Exists No Clinical Problem None at this time Status Active Problem Recommendation Dietitian Recommendations/Changes regular diet Weight / BMI Weight Weight: 98.2 kg Body Mass Index (BMI) 28.5 ABG / Lab / Microbiology Data Result Diagrams: 03/18/21 07:56 03/18/21 07:56 Laboratory: Laboratory Results - last 24 hr 03/18/21 07:56: WBC 9.4, RBC 3.25 L, Hgb 8.2 L, Hct 27.9 L, MCV 85.8, MCH 25.2 L , MCHC 29.4 L, RDW Std Deviation 57.1 H, RDW Coeff of Loreta 18.2 H, Plt Count 207, MPV 10.6 03/18/21 07:56: Sodium 144, Potassium 3.9, Chloride 107, Carbon Dioxide 29.0, Anion Gap 8, BUN 14, Creatinine 0.74, Estim Creat Clear Calc 62.14, Est GFR (MDRD) Af Amer 129, Est GFR (MDRD) Non-Af 107, BUN/Creatinine Ratio 18.9, Glucose 91, Calcium 8.2 L Radiography Diagnostic Testing: Radiology Impression Chest/Abdomen/Pelvis CT 03/18/21 07:30 IMPRESSION: 2.8 cm x 1.7 cm pleural-based mass in the lateral anterior aspect of the right upper lobe. No bony destruction is seen at this time. Possible 1.3 cm x 1.4 cm lytic lesion in the lateral aspect of the T6 or T7 vertebrae. Small hepatic cysts. Small bilateral renal cysts. Multiple small gallstones. Heterogeneous appearance of the urinary bladder with the hyperdense mass/process within the bladder as described. Electronically Signed: Mati Knowles MD at 10:23 EDT , Service support , D/C Instructions Discharge Diet: No restrictions Call your doctor if you observe: Fever of 101 or Higher Catheter: Gonzales to leg bag and Gonzales to large bag Please Follow Up With: Taj Bey MD When: Call [phone] for an appointment Meaningful Use Info Meaningful Use Diagnoses (Choose all that apply): None applicable Discharge Plan Admission Admit Date/Time: 03/17/21 19:57 Primary Reason for Your Visit: Gross hematuria Attending Provider: Taj Bey Primary Care Provider: Xu Coleman Discharge Orders/Prescriptions Prescriptions: New ciprofloxacin HCl [Cipro] 500 mg tablet 500 mg PO BID Qty: 14 RF: 0 Continued multivitamin tablet 1 tab PO QDAY RF: 0 losartan [Cozaar] 50 mg tablet 50 mg PO BID RF: 0 metoprolol tartrate 25 mg tablet 25 mg PO BID RF: 0 polyethylene glycol 3350 [Miralax] 17 gram Powder In Packet 17 g PO DAILY RF: 0 Discontinued aspirin [Adult Low Dose Aspirin] 81 mg tablet,delayed release (DR/EC) 81 mg PO DAILY RF: 0 Referrals / Follow Up: Taj Bey MD [STAFF PHYSICIAN] - Xu Coleman MD [Primary Care Provider] -
[2021-03-19 07:51] VITALS: BP 135/70; PULSE 98; RESP 18; TEMP 36.8; O2SAT 95
--- NOTE | 2021-03-19 11:32 | NURSING ---
pt d/c but wants to take his own meds at home instead of meds provided by hospital
[2021-03-19 11:34] VITALS: BP 132/65; PULSE 80; RESP 18; TEMP 36.9; O2SAT 97
== END 2021-03-19 11:25 | disposition home or self-care (01) | DRG 669 ==
PROVIDERS: Hospitalist; Admitting Provider Urology; PCP Family Medicine; Visit Provider Urology
PROC: 0TBB8ZZ Excision of Bladder, Via Natural or Artificial Opening Endoscopic (ICD-10-PCS; CPT 52214; principal; 2021-03-17 17:40)
DX: C67.8 Malignant neoplasm of overlapping sites of bladder (principal); D62 Acute posthemorrhagic anemia; R31.0 Gross hematuria; I95.9 Hypotension, unspecified; H53.8 Other visual disturbances; Z82.49 Family history of ischemic heart disease and other diseases of the circulatory system; Z95.1 Presence of aortocoronary bypass graft; I10 Essential (primary) hypertension; E78.5 Hyperlipidemia, unspecified
CPT/HCPCS: 36415; 71260; 74177; 80048; 82962; 85014; 85018; 85027; 85610; 86850; 86900; 86901; 88307; 99251; J7030; J7040; J7120; P9017; Q9967; A4216; G0463

== ENCOUNTER 2021-03-21 17:17 | Emergency (ER) | payer MEDICARE, SELFPAY ==
[2021-03-17 17:49] VITALS: BMI 28.5
[2021-03-21 17:19] VITALS: BP 136/67; PULSE 98; RESP 18; TEMP 36.8; O2SAT 96; BMI 28.3
--- NOTE | 2021-03-21 19:56 | US_ITS ---
STUDY: VENOUS DOPPLER ULTRASOUND - RIGHT LOWER EXTREMITY REASON FOR EXAM: Male, 86 years old. SWELLING -- recent hospitalization TECHNIQUE: Ultrasound evaluation of the deep vein system to include garland-scale imaging and compression was performed. Garland-scale imaging and Doppler sonographic evaluation, including duplex spectral analysis and qualitative color flow sonography, was performed. COMPARISON: None. FINDINGS: Common Femoral Vein: Normal compression, spontaneity and augmentation. Normal color Doppler. Common Femoral Vein/Greater Saphenous Junction: Normal compression, spontaneity and augmentation. Normal color Doppler. Deep Femoral Vein: Normal compression, spontaneity and augmentation. Normal color Doppler. Femoral Proximal: Normal compression, spontaneity and augmentation. Normal color Doppler. Femoral Middle: Normal compression, spontaneity and augmentation. Normal color Doppler. Femoral Distal: Normal compression, spontaneity and augmentation. Normal color Doppler. Popliteal Vein: Normal compression, spontaneity and augmentation. Normal color Doppler. Posterior Tibial Vein: Normal compression, spontaneity and augmentation. Normal color Doppler. Peroneal Vein: Normal compression, spontaneity and augmentation. Normal color Doppler. There is evidence of an 8.9 cm x 3.6 cm x 2.4 cm complex fluid collection in the popliteal fossa of the right knee suggestive of a Jean''s cyst. US/Venous Duplex Imag/Limited/Uni IMPRESSION: No evidence of deep venous thrombosis. Findings suggestive of an 8.9 cm x 3.6 cm x 2.4 cm complex Jean''s cyst in the popliteal fossa. Electronically Signed: Mati Knowles MD at 21:16 EDT , Service support ,
--- NOTE | 2021-03-21 19:58 | EDS_ITS ---
HPI History of Present Illness Chief Complaint: Edema Informant: patient Narrative Narrative: 86-year-old male presents the emergency department with right leg swelling. He tells me that he underwent bladder surgery for bladder cancer last . He was discharged in the hospital on Sunday. He had SCDs on and Sunday noted some discomfort in the calf and the foot. He did not think much about it because he was taken to the hospital in a wheelchair and placed in his car. When he got home he had pain in the foot and the leg. He states it got so bad yesterday that it was hard to walk but today he has been able to walk. He states that the nurse from [facility] called him and recommended that he come to emergency. [facility] Medical History Acidosis, lactic Alcohol abuse Anemia Anemia due to blood loss, acute Arthritis Atrial fibrillation Cancer Carotid bruit Dilated aortic root Diverticulosis Essential (primary) hypertension GI bleed (08/2019) GI bleed not requiring more than 4 units of blood in 24 hours, ICU, or surgery (08/2019) Hyperlipidemia Iron deficiency anemia Nonrheumatic mitral (valve) insufficiency Postoperative atrial fibrillation (05/16/07) Home Medications multivitamin 1 tab PO QDAY 01/07/18 [History Last Taken 03/17/21] ciprofloxacin HCl [Cipro] 500 mg PO BID #14 tab 03/17/21 [Rx Last Taken Unknown] losartan [Cozaar] 50 mg PO BID 03/17/21 [History Last Taken 03/17/21] metoprolol tartrate 25 mg PO BID 03/17/21 [History Last Taken 03/17/21] polyethylene glycol 3350 [Miralax] 17 g PO DAILY 03/17/21 [History Last Taken 03/16/21] Allergy/AdvReac Type Severity Reaction Status Date / Time No Known Allergies Allergy Verified 03/21/21 17:22 Family History Mother Arthritis Brother CAD (coronary artery disease) CABG Son Diabetes Son Cancer Multiple sclerosis Surgical History History of cardioversion (06/2007) History of mitral valve repair (05/16/07) History of right and left heart catheterization (05/15/07) Social History Smoking Status: Never smoker alcohol intake: current alcohol intake frequency: holidays/special occasions only Alcohol type: beer substance use type: does not use ROS ROS ED Constitutional Constitutional ED: Denies chills or weight loss Eyes Eyes: Denies change in vision or diplopia ENT ENT ED: Denies ear pain, rhinorrhea or sore throat Cardiovascular Cardiovascular: Denies chest pain, orthopnea, palpitations or racing heartbeat Respiratory/Chest Respiratory/Chest: Denies cough, dyspnea or orthopnea Gastrointestinal Gastrointestinal: Denies abdominal pain, diarrhea, nausea or vomiting Genitourinary Genitourinary ED: Reports hematuria; Denies dysuria or urinary frequency Musculoskeletal Musculoskeletal: Reports other Details: Right leg and foot swelling and pain ; Denies arthralgias or myalgias Integumentary Denies abscess or rash Neurologic Neurologic: Denies headache(s) or weakness Psychiatric Psychiatric: Denies anxiety, depression, suicidal ideation or suicidal thoughts Endocrine Endocrinology: Denies polydipsia, polyphagia or polyuria Allergic/Immunologic Allergic/Immunologic ED: Denies mouth swelling, tongue swelling or urticaria EXAM Physical Exam Const Vital Signs: 03/21/21 17:19 03/21/21 19:17 03/21/21 20:08 Temperature 98.3 F Temperature Source Temporal Pulse Rate 98 Respiratory Rate 18 12 Respiratory Effort Normal Non-Labored Respiratory Pattern Normal Blood Pressure 136/67 H Blood Pressure Mean 90 Pulse Ox 96 Oxygen Delivery Method Room Air Positive well nourished and well developed General Appearance ED: well developed HEENT Reports normocephalic, head/scalp atraumatic and moist mucous membranes Eyes PERRL and EOMs intact bilaterally Neck no lymphadenopathy, supple and no JVD Resp normal respiratory effort and clear to auscultation bilaterally Cardio regular rate, regular rhythm and no murmurs GI normal to inspection, nondistended, normoactive bowel sounds and non-tender Palpation: soft Back/Spine no CVA tenderness and normal ROM Extremity Extremity Narrative: Mild tenderness palpation in the calf. There is mild to moderate swelling nonpitting of the right foot and leg. No palpable cords. No discoloration. Strong dorsalis pedis pulse. Excellent capillary refill General Extremety ED: Yes edema and tenderness General Extremity: edema Neuro oriented x3 and CN's II-XII intact bilaterally Sensorium / Orientation: alert Motor Exam: strength 5/5 throughout Psych mental status grossly normal Mood & Affect: Negative for depressed or tearful Skin no rashes or lesions noted and no wounds MDM MDM MDM Narrative Medical decision making narrative: Duplex ultrasound was negative for DVT. Noted Jean's cyst. Patient will be discharged home. If the cyst becomes more problematic he can follow-up with his orthopedist Dr. Zarate. Discharge Plan Triage Chief Complaint: Edema ED Provider: Angus Rhoades Dx/Rx/DC Orders Clinical Impression: Acute pain of right lower extremity, Jean's cyst of knee Instructions: ED Jean's Cyst Prescriptions: No Action multivitamin tablet 1 tab PO QDAY RF: 0 losartan [Cozaar] 50 mg tablet 50 mg PO BID RF: 0 metoprolol tartrate 25 mg tablet 25 mg PO BID RF: 0 polyethylene glycol 3350 [Miralax] 17 gram Powder In Packet 17 g PO DAILY RF: 0 ciprofloxacin HCl [Cipro] 500 mg tablet 500 mg PO BID Qty: 14 RF: 0 Primary Care Provider: Xu Coleman Referrals: Taj Bey MD [STAFF PHYSICIAN] - Keep [facility] appointment David Zarate DO [STAFF PHYSICIAN] - Keep [facility] appointment Xu Coleman MD [Primary Care Provider] - As Needed Disposition Disposition: Home, Self Care
[2021-03-21 20:08] VITALS: RESP 12
[2021-03-21 21:35] VITALS: BP 139/84; PULSE 77; RESP 16; O2SAT 95
== END 2021-03-21 21:36 | disposition home or self-care (01) ==
PROVIDERS: Emergency Provider Emergency Medicine; PCP Family Medicine
DX: M71.21 Synovial cyst of popliteal space [Baker], right knee (principal); R60.9 Edema, unspecified; M79.604 Pain in right leg; D50.9 Iron deficiency anemia, unspecified; I10 Essential (primary) hypertension; I34.0 Nonrheumatic mitral (valve) insufficiency; I48.91 Unspecified atrial fibrillation; M19.90 Unspecified osteoarthritis, unspecified site; I77.810 Thoracic aortic ectasia
CPT/HCPCS: 93971; 99282

== ENCOUNTER 2021-04-22 05:41 | Inpatient (IN) | payer MEDICARE, SELFPAY ==
--- NOTE | 2021-04-18 12:12 | EKG12_ITS ---
Test Reason : PRE-OP Blood Pressure : / mmHG Vent. Rate : 075 BPM Atrial Rate : 075 BPM P-R Int : 254 ms QRS Dur : 090 ms QT Int : 378 ms P-R-T Axes : 022 027 044 degrees QTc Int : 422 ms Sinus rhythm with marked sinus arrhythmia with 1st degree A-V block Otherwise normal ECG Confirmed by MARIBEL VELAZQUEZ, ROSENDO ([id number]), editorial writer CY SANTANA ([id number]) on 04/19/2021 7:57:48 AM Referred By: Taj Bey Confirmed By:ROSENDO LÓPEZ MD
[2021-04-18 13:35] LABS: Hematocrit 39.8 % (40-54); Hemoglobin 11.5 g/dL (13.0-16.5); Mean Corp Hgb Conc 28.9 g/dL (32-36); Mean Corpuscular Hgb 25.2 pg (27.0-32.0); Mean Corpuscular Volume 87.3 fL (80-94); POSITIVE MORPHOLOGY YES; Platelet Count 235 K/mm3 (150-450); RBC Distribution Width CV 21.6 % (11.6-14.6); RBC Distribution Width SD 68.8 fl (35.1-43.9); Red Blood Count 4.56 M/mm3 (4.6-6.2); White Blood Count 7.7 K/mm3 (4.4-11.0)
[2021-04-18 14:13] LABS: AST(SGOT) 12 U/L (15-37); Alanine Aminotransfer ALT/SGPT 20 U/L (16-61); Albumin, Serum 3.6 g/dL (3.2-5.0); Alkaline Phosphatase 99 U/L (45-117); Anion Gap 3 (5-15); BUN 17 mg/dL (7-18); BUN/Creat Ratio 20.9 RATIO (10-20); Calcium,Total 8.9 mg/dL (8.5-10.1); Chloride 111 mmol/L (98-107); Creatinine, Serum 0.81 mg/dL (0.70-1.30); EST Glomerular Filtration Rate 96 mL/min (>60); Est Glom Filt Rate - Afr Amer 116 mL/min (>60); Globulin 3.7 g/dL (2.2-4.2); Glucose 105 mg/dL (74-106); Protein, Total 7.3 g/dL (6.4-8.2); Sodium Level 141 mmol/L (136-145)
[2021-04-18 14:14] LABS: Scan Indicated on CBC? Y/N YES- FLAGS NOTED
[2021-04-22] VITALS (49 sets, daily range): BP systolic 63–138; BP diastolic 40–73; PULSE 69–160; RESP 15–26; TEMP 35.9–37.3; O2SAT 88–100; BMI 27.9; BMI 29.4
--- NOTE | 2021-04-22 | URE_PTH ---
PATIENT: AIDEN WHITTAKER LOC: MS3 U#:[id number] AGE/SX: 86/M ROOM: [facility] RE04/22/[address]: Dr. Ernesto Stock MD : [id number] BED: 1 DIS: 04/28/2021 SPEC #: [id number] RECD: 04/22/21 11:14 STATUS: BIN [place]IE[place] #: [id number] OLIVIA: 04/22/21 00:[address]: Taj Bey DEPT: SURGICAL PATHOLOGY RECD BY: Diana Nelson ENTERED: 04/22/21 11:47 SP TYPE: URETER BX OTHR DR: MD Dr. Xu Heaton MD Tissues: A - Ureter, NOS B - Ureter, NOS C - Prostate, NOS Procedures: Frozen Section (charge) Surgery Specimen Level IV Surgery Specimen Level HEADER OPERATION: Lap robot cystoprostatectomy and open ileal conduit PRE-OP DIAGNOSIS: Bladder cancer TISSUE SUBMITTED: A ? Left ureteral segment, FS, B ? Right ureteral segment, FS, C ? Bladder/ prostate FROZEN SECTION DIAGNOSIS A. Left ureteral segment, biopsy: Negative for carcinoma. B. Right ureteral segment, biopsy: Negative for carcinoma. SJ:mi 04/22/2021 MICROSCOPIC DIAGNOSIS A. Left ureteral segment, biopsy: Negative for carcinoma. B. Right ureteral segment, biopsy: Negative for carcinoma. C. 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 See cancer checklist below. AM:mi 04/28/2021 COMMENT URINARY BLADDER CANCER SUMMARY Procedure ? radical cystoprostatectomy Tumor site ? anterior wall, posterior wall and right wall Tumor size ? 3.6 x 3 x 1.2 cm Histologic type ? papillary urothelial carcinoma, noninvasive Histologic grade ? low grade (grade 2/3, WHO low grade) Tumor extension - noninvasive papillary carcinoma Margins ? uninvolved by invasive carcinoma. Lymphvascular invasion ? not identified Regional lymph nodes ? no lymph nodes submitted. PATHOLOGIC STAGE: shake feeder Nx Mx Reference is made to the patient's previous TUR ([id number]) in which papillary urothelial carcinoma, low grade (2/3) was identified with no evidence of invasive carcinoma. PROSTATE CANCER (RADICAL) SUMMARY Procedure: Radical cystoprostatectomy Prostate Size: 4 x 3.5 x 3.5 cm Histologic type: Adenocarcinoma Histologic grade: 3+3=7 Percent of Pattern 3: 100% Percent of Pattern 4: 0 Percent of Pattern 5: 0 Intraductal Carcinoma: Not identified Tumor Quantitation: 9 x 7 x 6 millimeters, present in apex of prostate Extraprostatic Extension: Not identified Urinary Bladder Neck Invasion: Not identified Seminal Vesicle Invasion: Not identified Lymphvascular Invasion: Not identified Perineural Invasion: Not identified Margins: Free of carcinoma Regional Lymph Nodes: No lymph nodes submitted. Treatment Effect: Unknown Additional Pathologic Findings: Minimal chronic inflammation and benign hyperplasia. PATHOLOGIC STAGE: T2 Nx Mx The above summary is in compliance with [employer] (CAP) Cancer Protocols Checklist and [place] [employer] Committee on Cancer (AJCC), Staging Manual, 8th Ed. Case has been reviewed in consultation with Dr. Galvan who concurs with the above diagnosis. IDC:[id number] MICROSCOPIC DESCRIPTION Slides are reviewed. GROSS DESCRIPTION A - Received fresh for frozen section diagnosis labeled with the patient's name is a specimen designated left ureteral segment. The specimen consists of a piece of lovelace soft tissue measuring 0.3 x 0.1 x 0.1 cm. The entire specimen is submitted for frozen section diagnosis in one cassette. / SJ:rg 04/22/21 B - Received fresh for frozen section diagnosis labeled with the patient's name is a specimen designated right ureteral segment. The specimen consists of a piece of lovelace-pink soft tissue measuring 0.5 x 0.5 x 0.2 cm. The entire specimen is submitted for frozen section diagnosis in one cassette. / SJ:rg 04/22/21 C - Received in fixative is one container labeled with the patient's name and designated bladder/prostate. The specimen consists of a radical cystoprostatectomy specimen consisting of bladder, prostate and bilateral seminal vesicles and vas deferens weighing 366 gm. The entire specimen measures 12 x 12 x 6 cm. The bladder measures 5 x 4 x 2 cm. Prostate measures 4 cm transversely, 3.5 cm craniocaudally and 3.5 cm anterior-posteriorly. The right seminal vesicle measures 2.5 x 2.5 x 1 cm and right vas deferens measures 3 cm in length and 0.6 cm in diameter. The left seminal vesicle measures 3 x 1.5 x 1 cm and the left vas deferens measures 2.5 cm in length and 0.5 cm in diameter. The entire specimen is inked as follows: anterior surface - yellow, posterior surface - black, right lateral surface - blue, left lateral surface - green. The bladder lumen is filled with hemorrhagic mucoid tumor mass. More dictation will follow after fixation. / SJ:mi 04/25/21 Right and left ureters could not be probed. A polypoid, hemorrhagic tumor tissue is noted in the anterior bladder wall. The loose tumor tissue measures 3 x 2.5 x 1 cm and attached portion of the tumor tissue measures 1.8 x 1 x 1 cm. The posterior bladder wall and right bladder wall appear ragged. A possible segment of right ureter is noted which measures 5 cm in length and 0.5 cm in diameter. The tumor does not appear to invade in to the bladder wall. No tumor is noted at the left bladder wall or dome of the bladder. Sections of the prostate do not reveal any mass lesion. Sections of perivesicle adipose tissue do not reveal any mass lesion. Printing Roller [employer]isher sections are submitted as follows: 1 & 2 - tumor loose in the lumen, 3 & 4 - tumor posterior bladder wall, 5 & 7 - more sections of posterior bladder wall, 8-11 - right bladder wall, 12 - left bladder wall, 13 - dome of bladder, 14 - most apical portion of the bladder close to prostate, 15 - right ureter, 16 - apical portion prostate, 17 - right seminal vesicle and vas deferens, 18 - left seminal vesicle and vas deferens, 19 & 20 - apical portion of prostate, 21 & 22 - middle portion prostate, 23 - basal portion prostate, 24 - perivesicle adipose tissue. / SJ:mi 04/26/21 Additional sections, 25-32 are additional sections of prostate. / AM:mi 04/27/21 TC:0 CPT: 55714 x2, 33665, 76175 x2
[2021-04-22] MEDS: Lactated Ringers 1,000 ML 100 ML IV ×3 (06:15→13:00)
--- NOTE | 2021-04-22 06:46 | HP.PCM_ITS ---
History and Physical Date of Admission: 04/22/21 Intake Vital Signs 03/30/21 08:42 03/30/21 08:46 Height 6 ft Weight: 220 lb 2 oz BMI 29.8 28.3 BP 122/71 H Blood Pressure Location Rt brachial Position Sitting Respiration 18 Pulse 68 Pulse Source NIBP Temp 97.9 F Temp Source Temporal Pulse Oximetry (%) 98 Oxygen Delivery Method room air Intake Visit Reasons: DISCUSS SURGERY Chief Complaint: discuss prostate/bladder surgery Funeral Pre Arrangement Counselor Required: No Is patient in pain?: No Allergies No Known Allergies Allergy (Verified 03/30/21 08:42) Medications multivitamin 1 tab PO QDAY 01/07/18 [History Confirmed 03/30/21] losartan [Cozaar] 50 mg PO BID 03/17/21 [History Confirmed 03/30/21] aspirin 81 mg tablet,delayed release 81 mg PO DAILY 03/30/21 [History Confirmed 03/30/21] ferrous sulfate 325 mg (65 mg iron) tablet,delayed release 325 mg PO DAILY 03/30/21 [History Confirmed 03/30/21] metoprolol tartrate 25 mg tablet 50 mg PO BID tab 03/30/21 [History Confirmed 03/30/21] omega-3 fatty acids 1,000 mg capsule 1,000 mg PO DAILY 03/30/21 [History Confirmed 03/30/21] [facility] Medical History (Updated 03/30/21 @ 08:41 by Ivana Velázquez) Acidosis, lactic Alcohol abuse Anemia due to blood loss, acute Arthritis Atrial fibrillation Cancer Carotid bruit Dilated aortic root Diverticulosis Essential (primary) hypertension GI bleed (08/2019) Hyperlipidemia Iron deficiency anemia Nonrheumatic mitral (valve) insufficiency Postoperative atrial fibrillation (05/16/07) Surgical History (Updated 03/30/21 @ 08:41 by Ivana Velázquez) History of bladder surgery (~02/2021) History of cardioversion (06/2007) History of mitral valve repair (05/16/07) History of right and left heart catheterization (05/15/07) Family History (Updated 03/30/21 @ 08:42 by Ivana Velázquez) Mother Arthritis Brother CAD (coronary artery disease) CABG Myocardial infarction Son Diabetes Son Cancer Multiple sclerosis Social History Smoking Status: Never smoker alcohol intake: current alcohol intake frequency: holidays/special occasions only Alcohol type: beer substance use type: does not use HPI HPI HPI: AIDEN WHITTAKER, is a 86 M who presents to the office today for discussion of cystectomy with ileal conduit. Patient has bladder tumor and requires cystectomy with ileal conduit ROS General General: No weight change, appetite, fatigue, colon cancer, breast cancer or weakness HEENT HEENT: No difficulty swallowing, eye injury, eye surgery, swollen glands or hoarseness Endo Endocrine: No thyroid disease, diabetes mellitus, thyroid cancer, Hair loss, heat intolerance or cold intolerance Musc Musculoskeletal: Yes arthritis; No back problems, rheumatoid arthritis, gout or joint pain Cardio Cardiovascular: Yes high blood pressure; No murmur, pacemaker, heart disease, atrial fibrillation, heart attack, heart stent, palpitations, shortness of breat with exertion or chest pain Psych Psychiatric: No depression, anxiety or hearing voices Resp Respiratory: No shortness of breath, No sleep apnea, No cough, No COPD, No asthma, No emphysema and No wheezing Gastro Gastrointestinal: No abdominal pain, No nausea or vomiting, No diarrhea, No constipation, No blood in stool, No acid reflux, No hemorrhoids, No ulcers, No gallbladder problem and No black,tarry stools Homero Hematologic: No blood thinners, No blood disorders, No bleeding, No anemia and No blood clots Neuro Neurologic: No weakness Exam Const General: cooperative Orientation: alert and oriented x3 HENMT Head: normal to inspection Neck Neck: normal visual inspection and full ROM Chest Chest palpation & inspection: normal inspection of the chest Resp Effort & Inspection: normal respiratory effort Auscultation: clear to auscultation bilaterally Cardio Rate: regular rate Rhythm: regular rhythm GI Inspection: non-distended Palpation: soft and nontender Skin General: no rashes or lesions noted Neuro General: patient alert and patient oriented x3 Extrem General: full ROM Psych Appearance: grossly normal Mental Status: mental status grossly normal Assessment and Plan Assessment and Plan (1) Bladder cancer: Status: Acute Qualifiers: Bladder location: overlapping sites Qualified Code(s): C67.8 - Malignant neoplasm of overlapping sites of bladder Plan - Dr. Jer Ramirez MD: The patient is having radical cystectomy with Dr. Bey. I discussed the ileal conduit portion of the procedure. I discussed bowel resection with ileal conduit and anastomosis. I discussed the risks include modality of bleeding, infection, anastomotic leak, parastomal hernia or injury to surrounding bowel. Patient understands the risks and is willing to proceed. Jer Ramirez MD Pager: [facility] [address] [place] [address], [address] [place] [address] Office: I have re-examined the patient. There are no clinical changes since date of exam.
[2021-04-22] MEDS: Cefotetan 2 GM in 0.9% NS 100 ML IV (07:30)
--- NOTE | 2021-04-22 07:35 | HP.PCM_ITS ---
[facility] - General General Date of Admission: 04/22/21 HPI Narrative 86-year-old male presents for radical cystoprostatectomy and formation of an ileal conduit, he has bladder cancer very large unresectable tumor within the bladder, is possible this is not invasive bladder cancer but given the size and the extensive amount of disease within the bladder I recommended the patient consider cystectomy and he is agreeable with proceeding. anastomosis at the General surgery will be assisting with the and the formation of the ileal conduit. [facility] Medical History (Updated 04/15/21 @ 10:39 by Shelby Pennington) Abrasion Acidosis, lactic Alcohol abuse Anemia due to blood loss, acute Arthritis Atrial fibrillation Bilateral tinnitus Bladder tumor Cancer Cardiology follow-up encounter Carotid bruit Dilated aortic root Diverticulosis Diverticulosis Easy bruising Esophageal spasm Essential (primary) hypertension Excessive bleeding Gastric reflux GI bleed (08/2019) History of CHF (congestive heart failure) History of echocardiogram Hyperlipidemia Iron deficiency anemia Non-smoker Nonrheumatic mitral (valve) insufficiency Postoperative atrial fibrillation (05/16/07) Wears glasses Home Medications multivitamin 1 tab PO QDAY 01/07/18 [History Last Taken 03/17/21] losartan [Cozaar] 50 mg PO BID 03/17/21 [History Last Taken 03/17/21] aspirin 81 mg tablet,delayed release 81 mg PO DAILY 03/30/21 [History Last Taken Unknown] ferrous sulfate 325 mg (65 mg iron) tablet,delayed release 325 mg PO QHS 03/30/21 [History Last Taken Unknown] metoprolol tartrate 25 mg tablet 50 mg PO BID tab 03/30/21 [History Last Taken Unknown] omega-3 fatty acids 1,000 mg capsule 1,000 mg PO DAILY 03/30/21 [History Last Taken Unknown] Cbd Gummies 1 tab PO/SL BID 04/15/21 [History Last Taken Unknown] Allergy/AdvReac Type Severity Reaction Status Date / Time No Known Allergies Allergy Verified 04/22/21 06:11 Family History (Updated 03/30/21 @ 08:42 by Ivana Velázquez) Mother Arthritis Brother CAD (coronary artery disease) CABG Myocardial infarction Son Diabetes Son Cancer Multiple sclerosis Surgical History (Updated 04/15/21 @ 10:15 by Shelby Pennington) History of bladder surgery (~02/2021) History of cardioversion (06/2007) History of colonoscopy History of mitral valve repair (05/16/07) History of right and left heart catheterization (05/15/07) History of surgery on extremity Social History Smoking Status: Never smoker alcohol intake: current alcohol intake frequency: holidays/special occasions only Alcohol type: beer substance use type: does not use Vital Signs Vital Signs Vital Signs: 04/22/21 06:48 Temperature 99.1 F Temperature Source Temporal Pulse Rate 81 Respiratory Rate 16 Respiratory Pattern Normal Blood Pressure 138/73 H Blood Pressure Mean 94 Blood Pressure Source Monitor Blood Pressure Position Semi-Fowlers Blood Pressure Location Right Arm Pulse Ox 94 Oxygen Delivery Method Room Air Weight Weight: 96.2 kg Body Mass Index (BMI) 27.9 Physical Exam Const alert and oriented x3 General Appearance: cooperative HEENT normocephalic, head/scalp atraumatic, EAC's normal and TM's normal bilaterally Eyes PERRL and EOMs intact bilaterally Pupil: sluggish Neck no lymphadenopathy, supple and no JVD General: trachea midline Lymph Lymphatic: no lymphadenopathy noted, lymphedema and lymphadenopathy Resp normal respiratory effort, normal air movement and clear to auscultation bilaterally Cardio regular rate, regular rhythm and peripheral pulses 2+ throughout GI soft to palpation, non-tender and non-distended Extremity normal capillary refill and no clubbing, cyanosis or edema General Extremity: no tenderness to palpation of joints or extremities Skin no rashes or lesions noted General Skin Exam: turgor normal Lesions: no lesions Rashes: no rashes Neuro CN's II-XII intact bilaterally Speech: speech normal Motor Exam: strength 5/5 throughout; Negative for general weakness Psych thought process normal, cooperative and affect normal Appearance: appropriate Results Lab / Micro Data Result Diagrams: 04/18/21 12:31 04/18/21 12:31 Labs: Laboratory Results - last 24 hr 04/18/21 12:35: Blood Type Cancelled, A1 Antigen Typing Cancelled, Rho(D) Type Cancelled, Antibody Screen Cancelled, Crossmatch See Detail Assessment & Plan Assessment/Plan (1) Bladder cancer: QUALIFIERS: Bladder location: overlapping sites Qualified Code(s): C67.8 - Malignant neoplasm of overlapping sites of bladder
--- NOTE | 2021-04-22 12:50 | OP.PCM_ITS ---
Problems Associated Problem List Diagnoses (1) Bladder cancer: Report of Operation Date of Procedure: 04/22/21 Pre-Operative Diagnosis: Bladder cancer Post-Operative Diagnosis: Same Surgery/Procedure Performed:: Ileal conduit Description of Procedure: Please see Dr. Bey's operative report for the portion of the procedure. When I was called into the room the bladder and prostate had been dissected free. Midline incision was created using scalpel and deepened to the fascia is electrocautery. The fascia was elevated and electrocautery was used to divide the fascia. Wound protector was placed into the abdomen. The specimen was delivered through the wound protector. The pelvis was packed. Distal ileum was identified and proximal to this a segment of bowel was selected. Using ANNELIESE stapler the small bowel was divided proximally and distally and the distal conduit was marked with a silk suture. Next the corner of each staple line was removed using scissors and a ANNELIESE stapler was placed into the proximal and distal small bowel. These were stapled together using the 75 ANNELIESE stapler. The staple line was inspected from the inside and was intact. Babcocks were used to grasp the staple lines and a TX 60 was used to close the enterotomy. A crotch suture of 3-0 silk was used to fortify the staple line. Next using the LigaSure impact a small area of mesentery was div ided to allow for mobility of the conduit. The mesenteric defect was closed with running 3-[address] Bey perform the anastomosis from the distal ureters to the proximal conduit. After stents were placed the abdomen was irrigated and suctioned dry and a drain was placed in the left lower quadrant. The bowel appeared viable and in good condition. Next an area of skin on the right side of the abdomen was grasped and elevated and removed using electrocautery. The subcutaneous tissue was divided and the fascia was opened in a cruciate form. The muscle was divided and the posterior sheath was opened using electrocautery with a finger guarding the bowel. The bowel and catheters were delivered through this incision. Next the fascia at the midline incision was closed with running #1 PDS suture starting at the top and bottom meeting in the middle. The distal conduit was matured into an ileostomy using interrupted 3-0 Vicryl sutures in a Emili fashion. There was good perfusion to the mucosa. Next the skin incisions were closed using Monocryl suture. Stoma appliance was applied. This ended my portion of the procedure.
[2021-04-22] MEDS: Bupivacaine Mpf 0.5% 30 ML VIAL (12:56)
--- NOTE | 2021-04-22 13:11 | PCM.OPRPT ---
Report of Operation Date of Procedure: 04/22/21 Pre-Operative Diagnosis: Bladder cancer Post-Operative Diagnosis: Same Surgery/Procedure Performed:: Radical cystoprostatectomy and formation of an ileal conduit Description of Surgical Findings:: 86-year-old male presented to my office with severe bleeding was found to have a very large nonresectable papillary bladder cancer the pathology on the resection came back noninvasive but is such a large tumor that it was not feasible to do a resection and he is at very high risk of recurrence given how extensively involve the bladder is involved with cancer so I recommended that we consider a cystectomy and formation of ileal conduit as a means to manage his bladder cancer he was agreeable with this approach he understands his risk of surgery bleeding infection blood clots heart stroke scar tissue formation anastomotic stricture ureteral stricture and problems with the stoma after full discussion with the patient he did meet with general surgery and general surgery is can assist with the creation of the ileal conduit and the anastomosis of the intestines. Patient was taken back to the operating room at the smooth induction of general anesthesia he was placed supine on the table. The abdomen was shaved prepped and draped in usual sterile fashion, we went into the umbilicus with a Veress needle insufflated the peritoneum with CO2 gas and then placed our camera trocar right arm trocar assistant teaching professor port suction air seal port and 2 left-sided robotic ports. I then started the dissection posterior to the bladder I dissected the sigmoid colon free off the lateral aspect of the abdomen retracted the sigmoid out of the pelvis and then followed the right vas deferens all the way down posteriorly until I encountered the seminal vesicle and then dissected under the several vesicle on the right side and then dissected and some vesicle in the left side and the left vas deferens. I then opened up the window of peritoneum on the right side of the bladder and sidewall and dissected until I reached the endopelvic fascia and then with clips I came along underneath the prostate and bladder clubbing as I went along following the the ureter the ureter was then dissected out the right side and then we dissected out the ureter on the left side. I then came underneath the ureter and with clips ligated the was blood supply to the bladder and prostate as we came along with clips and then we came up deep in the pelvis we went to the left side again took the pedicle to the bladder on the left side with clips all the way down there was some oozing during the entire case we ended up giving 2 units of blood at the end of the case as a result of his minor bleeding. We then dropped the bladder completely came above the prostate transected through the dorsal vein complex place a stitch in the dorsal vein complex to control bleeding and then we transected through the urethra and then the triangular extension of the dynamically's fascia was released and then we released the prostate off the rectum and then we pulled the specimen out of the abdomen. The left ureter was then cut from the bladder and the right ureter was kept in the bladder we sent a specimen from each and these came back negative for the frozen section with no carcinoma at the tips of the ureters. At this point the robot was undocked and then 3 hours of surgery to do this part. The robot was undocked and then Dr. Hudson from general General surgery scrub then please see his dictation for his part basically segment of the conduit about 20 cm in length was isolated from the ileum and anastomosis was performed by the general surgeon and then at this point I did the anastomosis of the ureters to the end of the conduit this was done over 5 Kazakh Pollick catheter the Pollack catheter was secured to the conduit and then the conduit was brought up through the stoma site and the general surgeon matured the stoma on the skin we then irrigated copiously we we removed the sponge in the in the in the abdomen. And then drain was placed in the pelvis and then we closed the fascia with running 0 PDS and then closed the skin with running 4-0 Monocryl the stoma was matured dressings and bandages were placed we placed a drain sponge around the drain the skin was closed with subcuticular stitches and the stoma was matured and an appliance was placed in the PACU. It was about a 5-hour case to remove his prostate and bladder and created an ileal conduit with the assistance of general surgery patient was stable during the case he was given 2 units of blood for some bleeding at the initial part of the case during the initial resection and removal of the bladder. And he is extubated pack taken back to PACU in good condition. All sponges and needles were accounted for and all instruments were accounted for at the end of the case before the fascia was closed. Type of Anesthesia: General Drains: left 5 fr ureteral cath, and right 5fr ureteral cath. drain Admit VTE Documentation VTE Present on Admission: No VTE Mechan Device Prophylaxis: SCD's
--- NOTE | 2021-04-22 14:00 | SUR.PHASEI ---
Ileil conduit care; bag applied to stoma site. Connector for leg bag to be sent with patient.
--- NOTE | 2021-04-22 14:11 | SUR.PHASEI ---
Patient arrived to PACU with blood transfusion complete. Verbal report of blood end time as 1320. Two units given and complete per OR.
[2021-04-22] MEDS: Lactated Ringers 1,000 ML 999 ML IV ×2 (16:15→18:20)
[2021-04-22 16:36] LABS: Hematocrit 38.7 % (40-54); Hemoglobin 11.4 g/dL (13.0-16.5); Mean Corp Hgb Conc 29.5 g/dL (32-36); Mean Corpuscular Hgb 26.1 pg (27.0-32.0); Mean Corpuscular Volume 88.6 fL (80-94); Mean Platelet Vol. 10.8 fl (6.2-12.0); Platelet Count 244 K/mm3 (150-450); RBC Distribution Width CV 19.9 % (11.6-14.6); RBC Distribution Width SD 63.5 fl (35.1-43.9); Red Blood Count 4.37 M/mm3 (4.6-6.2); White Blood Count 21.7 K/mm3 (4.4-11.0)
[2021-04-22 16:40] LABS: International Normalized Ratio 1.3; Prothrombin Time (Protime)PT. 15.4 SECONDS (11.7-14.9)
--- NOTE | 2021-04-22 16:54 | SUR.PHASEI ---
1610 DR GODWIN NOTIFIED OF CONTINUED HYPOTENSION AND BLEEDING FROM [facility] . BP 85/46. PATIENT PLACED IN [place] AGAIN. DR DUNN PAGED. 16[address] GODWIN [address] DR JOHNSON AT BEDSIDE, DR JOHNSON ORDER LABS.
[2021-04-22 17:02] LABS: ALB/GLOB Ratio 0.9 RATIO (0.9-2.4); AST(SGOT) 13 U/L (15-37); Alanine Aminotransfer ALT/SGPT 14 U/L (16-61); Albumin, Serum 2.6 g/dL (3.2-5.0); Alkaline Phosphatase 79 U/L (45-117); Anion Gap 8 (5-15); BUN 15 mg/dL (7-18); BUN/Creat Ratio 9.7 RATIO (10-20); Chloride 110 mmol/L (98-107); Creatinine, Serum 1.55 mg/dL (0.70-1.30); EST Glomerular Filtration Rate 46 mL/min (>60); Est Glom Filt Rate - Afr Amer 55 mL/min (>60); Estimated Creatinine Clearance 40.09 ml/min; Globulin 2.9 g/dL (2.2-4.2); Glucose 212 mg/dL (74-106); Potassium 4.2 mmol/L (3.5-5.1); Protein, Total 5.5 g/dL (6.4-8.2); Sodium Level 144 mmol/L (136-145)
[2021-04-22] MEDS: Lactated Ringers 1,000 ML 125 ML IV (17:25)
--- NOTE | 2021-04-22 17:48 | SUR.PHASEI ---
PT READY FOR DISCHARGE TO FLOOR PER LAMAR RN, WHEN PT REPOSITIONED IN BED WITH HOB ELEVATED, BECAME LT HEADED AND DIZZY, STATED VISION WAS TUNNELED, RECONNECTED TO MONITIR AND BP FOUND AT TO BE 76/44 WHILE SITTING UP. WHEN ASSIST TO LAY BACK DOWN JAD 86/46 HR 90'S, TC TO DR JOHNSON INFORMED. NEW ORDERS FOR ANOTHER 250CC LR BOLUS.
--- NOTE | 2021-04-22 18:00 | SUR.PHASEI ---
ASSUMED CARE OF PT AT 1740, DRESSING TO ABD D/I. SM AMT APPROX 30CC TEA COLORED URINE IN OSTOMY BAG, MICHELLE HAD DK RED DRAINAGE, DRESSING AROUND OSTOMY AND MICHELLE IS D/I. PT PLACED IN SUPINE POSITION D/T BP, LR BOLUS INFUSING
[2021-04-22] MEDS: 0.9% Normal Saline 1,000 ML 999 ML IV ×2 (19:20→20:02)
[2021-04-22] MEDS: 0.9% Saline Lock 10 ML Syringe IV ×2 (19:35→23:13)
[2021-04-22 20:32] LABS: Absolute Lymphocyte Count 0.51 X10^3/uL (0.83-4.51); Absolute Neutrophil Count 22.5 X10^3/uL (2.0-7.7); Basophil# 0.02 X10^3/uL; Basophil% 0.1 % (0-1); Hematocrit 29.3 % (40-54); Hemoglobin 8.4 g/dL (13.0-16.5); Lymphocyte # 0.51 X10^3/ul (0.83-4.51); Lymphocyte % 2.1 % (19-41); Mean Corp Hgb Conc 28.7 g/dL (32-36); Mean Corpuscular Hgb 26.2 pg (27.0-32.0); Mean Corpuscular Volume 91.3 fL (80-94); Mean Platelet Vol. 10.9 fl (6.2-12.0); Monocyte# 1.09 X10^3/uL; Monocyte% 4.5 % (0-10); NRBC Flagged by Analyzer 0 % (0-5); Neutrophil # 22.49 X10^3/uL (2.7-7.7); Neutrophil % 92.6 % (47-70); POSITIVE DIFFERENTIAL YES; POSITIVE MORPHOLOGY YES; Platelet Count 223 K/mm3 (150-450); RBC Distribution Width CV 20.1 % (11.6-14.6); RBC Distribution Width SD 67.3 fl (35.1-43.9); Red Blood Count 3.21 M/mm3 (4.6-6.2); White Blood Count 24.3 K/mm3 (4.4-11.0)
[2021-04-22 20:41] LABS: International Normalized Ratio 1.5; Prothrombin Time (Protime)PT. 17.8 SECONDS (11.7-14.9)
[2021-04-22 20:42] LABS: Partial Thromboplast Time 29.7 Seconds (24.1-36.2)
[2021-04-22 20:46] LABS: Differential Indicated SCAN CRITERIA MET
[2021-04-22 21:14] LABS: Anisocytosis 1+; Crenated RBC 1+; Differential Comment SCANNED
[2021-04-22 21:29] LABS: Anion Gap 13 (5-15); BUN 17 mg/dL (7-18); BUN/Creat Ratio 9.4 RATIO (10-20); Calcium,Total 7.7 mg/dL (8.5-10.1); Chloride 109 mmol/L (98-107); EST Glomerular Filtration Rate 38 mL/min (>60); Est Glom Filt Rate - Afr Amer 46 mL/min (>60); Estimated Creatinine Clearance 33.53 ml/min; Glucose 207 mg/dL (74-106); Magnesium 1.6 mg/dL (1.6-2.6); Phosphorus 6.2 mg/dL (2.5-4.9); Potassium 4.6 mmol/L (3.5-5.1); Sodium Level 142 mmol/L (136-145)
[2021-04-22] MEDS: Ciprofloxacin 400 MG/200 ML BAG 200 MG IV (21:50)
--- NOTE | 2021-04-22 22:04 | PCM.PN.GU ---
Subjective Subjective 86-year-old male status post radical cystoprostatectomy he was transferred to the ICU after long prolonged stay in the PACU because he still had low blood pressures in the ICU he is required some pressors to keep his blood pressure up urine output been marginal at this point we have ordered 2 units of blood stat his hemoglobin is dropped to 8.4 and might be some of signs of acute blood loss. Objective Data Objective Data Vital Signs: Vital Signs Temp Pulse Resp BP Pulse Ox 97 F L 103 H 21 H 92/50 L 97 04/22/21 20:51 04/22/21 20:51 04/22/21 20:51 04/22/21 20:51 04/22/21 20:51 Oxygen Flow Rate (L/min) 5 Oxygen Delivery Method Nasal Cannula Weight: 100.6 kg Body Mass Index (BMI) 29.4 Intake & Output: Intake and Output for Last 24 Hours 04/20/21 04/21/21 04/22/21 23:59 23:59 23:59 Intake Total 3799.3 / 3799.3 Output Total 750 / 750 Balance 3049.3 / 3049.3 Lab / Micro Data Result Diagrams: 04/22/21 20:15 04/22/21 20:15 Labs: Laboratory Results - last 24 hr 04/18/21 12:35: Blood Type TNP, A1 Antigen Typing Cancelled, Rho(D) Type Cancelled, Antibody Screen TNP, Crossmatch See Detail 04/22/21 16:21: WBC 21.7 H, RBC 4.37 L, Hgb 11.4 L, Hct 38.7 L, MCV 88.6, MCH 26.1 L, MCHC 29.5 L, RDW Std Deviation 63.5 H, RDW Coeff of Loreta 19.9 H, Plt Count 244, MPV 10.8 04/22/21 16:21: Sodium 144, Potassium 4.2, Chloride 110 H, Carbon Dioxide 26.0, Anion Gap 8, BUN 15, Creatinine 1.55 H, Estim Creat Clear Calc 40.09, Est GFR (MDRD) Af Amer 55 L, Est GFR (MDRD) Non-Af 46 L, BUN/Creatinine Ratio 9.7 L, Glucose 212 H, Calcium 8.0 L, Total Bilirubin 0.80, AST 13 L, ALT 14 L, Alkaline Phosphatase 79, Total Protein 5.5 L, Albumin 2.6 L, Globulin 2.9, Albumin/Globulin Ratio 0.9 04/22/21 16:21: PT 15.4 H, INR 1.3 04/22/21 20:15: WBC 24.3 H, RBC 3.21 L, Hgb 8.4 L, Hct 29.3 L, MCV 91.3, MCH 26.2 L, MCHC 28.7 L, RDW Std Deviation 67.3 H, RDW Coeff of Loreta 20.1 H, Plt Count 223, MPV 10.9, Immature Gran % (Auto) 0.700, Neut % (Auto) 92.6 H, Lymph % (Auto) 2.1 L, [place] % (Auto) 4.5, Eos % (Auto) 0.0, Baso % (Auto) 0.1, Absolute Neuts (auto) 22.5 H, Absolute Lymphs (auto) 0.51 L, Nucleated RBC % 0, Differential Comment SCANNED, Anisocytosis 1+, Crenated Cell 1+ 04/22/21 20:15: PT 17.8 H, INR 1.5, APTT 29.7 04/22/21 20:15: Sodium 142, Potassium 4.6, Chloride 109 H, Carbon Dioxide 20.0 L, Anion Gap 13, BUN 17, Creatinine 1.80 H, Estim Creat Clear Calc 33.53, Est GFR (MDRD) Af Amer 46 L, Est GFR (MDRD) Non-Af 38 L, BUN/Creatinine Ratio 9.4 L, Glucose 207 H, Calcium 7.7 L, Phosphorus 6.2 H, Magnesium 1.6 Physical Exam Narrative On exam he is alert he is lucid he is talking he is interactive he is not in any distress his abdomen is soft and benign Assessment & Plan Assessment/Plan (1) Bladder cancer: QUALIFIERS: Bladder location: overlapping sites Qualified Code(s): C67.8 - Malignant neoplasm of overlapping sites of bladder PLAN: Status post cystectomy and prostatectomy for bladder cancer postop hypotension we will give him fluid support 2 units of blood will recheck after 2 units of bladder given possible he may need more blood but hopefully this will resolve the issues urine output been low I think it is prerenal he has stents in place bilaterally. Abdomen soft is not distended. I think he is hypovolemic and probably has acute blood loss anemia. Will consult hospitalist for possible central line if necessary and further care and also will consult new accounts banking representative to manage him for hemodynamic stability. Currently I do not see any reason to take the patient back to the operating room I think resuscitation is with necessary at this point.
[2021-04-22] MEDS: Acetaminophen 500 MG Tablet 1000 MG PO (23:05)
--- NOTE | 2021-04-22 23:14 | PCM.CONS.GEN ---
Assessment & Plan Assessment/Plan (1) Hemorrhagic shock: PLAN: The patient is an 86 y/o M w/ PMHx: PAF, HTN, HLD, GERD, Chronic anemia/Fe deficiency anemia w/ Hx GI bleed, Chronic CHF unclear type, Bladder CA with ongoing hematuria following w/ Dr. Bey who presented to the [facility] on 04/22/21 for planned Radical cystoprostatectomy and formation of an ileal conduit with operative intervention in conjunction with Dr. Ramirez with post-operatively notably low blood pressures, eventually initiated on NEP with repeat CBC with notable Hgb drop. 1. Acute hemorrhagic shock secondary to recent interventions as noted #2: We will admit patient from PACU to the ICU, continue plan administration 2 unit PRBC as well as FFP with repeat H&H following completion of transfusion and repeat CBC in a.m., maintain on fall precautions, utilize Trendelenburg as needed, continue norepinephrine administration and if elevated level required we will plan placement central line, academic affairs specialist consulted per patient primary surgeon. 2. Acute kidney injury: Secondary to likely hypovolemia with shock as noted #1. Preop 04/18/2021 BUN/creatinine 17/0.81, currently postoperative BUN/: 17/1.80, continue IV fluids judiciously given underlying cardiac history, planned 2 unit PRBC administration as noted as well as FFP. We will hold nephrotoxic medications, trend CMP's as noted. 3. Bladder cancer: Status post 04/22/2021 cystoprostatectomy, radical with ileal conduit placement. Patient admitted per Dr. Bey with OR assist with creation conduit per Dr. Ramirez. Continued interventions as noted #1. 4. Chronic CHF, Unclear type: Given acute presentation as noted #1, discussed with ICU staff and if necessary may require IV Lasix in between unit and IV fluids, continue to closely monitor, holding aspirin, holding metoprolol as well as losartan, not on statin therapy, defer until off pressor therapy as noted. 5. PAF: Given significant hypotension will temporarily hold patient metoprolol, resume once appropriate, not anticoagulated and given presentation will defer. 6. Hypertension: Currently holding all hypertensive regimen given hypotensive presentation requiring pressors noted above, resume once appropriate. 7. Hyperlipidemia: Not on statin therapy, defer to outpatient. 8. DVT prophylaxis: SCDs, defer any chemoprophylaxis given acute presentation as noted #1. Critical Care Time: 50 minutes, time from 23:00-23:50, were spent addressing patients acute post-operative hemorrhagic shock, addressing initiation of blood products, review of all data in collaboration with care team in addition to discussion with patient and care team. HPI Consult Data Date of Consult: 04/23/21 HPI Narrative HPI Narrative: The patient is an 86 y/o M w/ PMHx: PAF, HTN, HLD, GERD, Chronic anemia/Fe deficiency anemia w/ Hx GI bleed, Chronic CHF unclear type, Bladder CA with ongoing hematuria following w/ Dr. Bey who presented to the [facility] on 04/22/21 for planned Radical cystoprostatectomy and formation of an ileal conduit with operative intervention in conjunction with Dr. Ramirez with post-operatively notably low blood pressures, eventually initiated on NEP with repeat CBC with notable Hgb drop with reported intraoperative decent blood loss with 2 U PRBC as well as FFP ordered per Urology. Patient transitioned from PACU to the ICU given hemorrhagic shock. Hospitalist medicine consultation and evaluation requested. Patient noted significant lightheadedness, dizziness while in the PACU. Upon ICU transition he notes feeling improved, reporting notable fatigue and dry mouth. Patient MICHELLE in place with serosanguinous drainage and ileal conduit with no evidence of any bleeding. 04/18/2021 hemoglobin 11.5, preop 04/22/2021 hemoglobin 11.4, postop 8.4 but by that time patient had received significant IV fluids. [facility] Medical History (Updated 04/23/21 @ 04:[address] Serena Rangel MD) Abrasion Acidosis, lactic Alcohol abuse Anemia due to blood loss, acute Arthritis Atrial fibrillation Bilateral tinnitus Bladder tumor Cancer Cardiology follow-up encounter Carotid bruit Dilated aortic root Diverticulosis Diverticulosis Easy bruising Esophageal spasm Essential (primary) hypertension Excessive bleeding Gastric reflux GI bleed (08/2019) History of CHF (congestive heart failure) History of echocardiogram Hyperlipidemia Iron deficiency anemia Non-smoker Nonrheumatic mitral (valve) insufficiency Postoperative atrial fibrillation (05/16/07) Wears glasses Home Medications multivitamin 1 tab PO QDAY 01/07/18 [History Last Taken 03/17/21] losartan [Cozaar] 50 mg PO BID 03/17/21 [History Last Taken 03/17/21] aspirin 81 mg tablet,delayed release 81 mg PO DAILY 03/30/21 [History Last Taken Unknown] ferrous sulfate 325 mg (65 mg iron) tablet,delayed release 325 mg PO QHS 03/30/21 [History Last Taken Unknown] metoprolol tartrate 25 mg tablet 50 mg PO BID tab 03/30/21 [History Last Taken Unknown] omega-3 fatty acids 1,000 mg capsule 1,000 mg PO DAILY 03/30/21 [History Last Taken Unknown] Cbd Gummies 1 tab PO/SL BID 04/15/21 [History Last Taken Unknown] Allergy/AdvReac Type Severity Reaction Status Date / Time No Known Allergies Allergy Verified 04/22/21 06:11 Family History (Updated 03/30/21 @ 08:42 by Ivana Velázquez) Mother Arthritis Brother CAD (coronary artery disease) CABG Myocardial infarction Son Diabetes Son Cancer Multiple sclerosis Surgical History (Updated 04/15/21 @ 10:15 by Shelby Pennington) History of bladder surgery (~02/2021) History of cardioversion (06/2007) History of colonoscopy History of mitral valve repair (05/16/07) History of right and left heart catheterization (05/15/07) History of surgery on extremity Social History (Updated 04/23/21 @ 04:[address] Serena Rangel MD) household members: spouse Smoking Status: Never smoker alcohol intake: current alcohol intake frequency: holidays/special occasions only Alcohol type: beer substance use type: does not use ROS ROS Narrative Admission Review of Systems: CONSTITUTIONAL: No weight loss, fever, chills, + weakness or fatigue. HEENT: Eyes: No visual loss, blurred vision, double vision or yellow sclerae. Ears, Nose, Throat: No hearing loss, sneezing, congestion, runny nose or sore throat. SKIN: No rash or itching, lesions, wounds. CARDIOVASCULAR: + LH/dizziness. No chest pain, chest pressure or chest discomfort, palpitations, edema, orthopnea, syncopal events. RESPIRATORY: No shortness of breath, cough or sputum, wheezing, hemoptysis. GASTROINTESTINAL: + anorexia, nausea, abdominal pain, No vomiting, diarrhea, melena, BRBPR. GENITOURINARY: + s/p bladder resection with ileal conduit. NEUROLOGICAL: + LH/Dizziness. No headache, syncope, paralysis, ataxia, numbness or tingling in the extremities, focal weakness, change in bowel or bladder control, seizure. MUSCULOSKELETAL: + muscle, back pain, joint pain or stiffness. HEMATOLOGIC: No anemia, bleeding or bruising. LYMPHATICS: No enlarged nodes. No history of splenectomy. PSYCHIATRIC: No history of depression or anxiety. ENDOCRINOLOGIC: + reports of sweating, cold or heat intolerance. No polyuria or polydipsia. ALLERGIES: No history of asthma, hives, eczema or rhinitis. Physical Exam Narrative Physical Examination: General: Awake, alert, oriented x 3 and cooperative, laying in the ICU bed, pale, notes feeling improved with less lightheadedness and dizziness, recently taken out of Trendelenburg. Skin: Normal color, normal turgor, no icterus, no cyanosis. HEENT: AT/NC, EOMI, PERRLA, dry MM, no carotid bruits or JVD noted. Lungs: Diminished, greater bases, moderate effort, no rales, ronchi or wheezing. Heart: Moderately tachycardic with regular rhythm; no gallop, rub audible. Abdomen: Soft, expected tenderness palpation with recent operative intervention, MICHELLE with serosanguineous drainage, ileal conduit in place right lower quadrant, moderately distended, hypoactive bowel sounds, no obvious HSM however recent intervention and pain makes evaluation difficult. Extremities: No cyanosis, clubbing, or edema. Neurological: Patient awake, alert, oriented as noted, cognitive function intact; pupils equally reactive to light and accommodation, cranial nerves II-XII grossly normal, moving all 4 extremities, no focal deficits, strength severely global decrease secondary to recent interventions and acute presentation currently. Psychiatric: Affect appears fatigued, no acute evidence of depressive or anxiety feelings. Lab / Micro Data Result Diagrams: 04/22/21 20:15 04/22/21 20:15 Labs: Laboratory Results - last 24 hr 04/18/21 12:35: Blood Type TNP, A1 Antigen Typing Cancelled, Rho(D) Type Cancelled, Antibody Screen TNP, Crossmatch See Detail 04/22/21 16:21: WBC 21.7 H, RBC 4.37 L, Hgb 11.4 L, Hct 38.7 L, MCV 88.6, MCH 26.1 L, MCHC 29.5 L, RDW Std Deviation 63.5 H, RDW Coeff of Loreta 19.9 H, Plt Count 244, MPV 10.8 04/22/21 16:21: Sodium 144, Potassium 4.2, Chloride 110 H, Carbon Dioxide 26.0, Anion Gap 8, BUN 15, Creatinine 1.55 H, Estim Creat Clear Calc 40.09, Est GFR (MDRD) Af Amer 55 L, Est GFR (MDRD) Non-Af 46 L, BUN/Creatinine Ratio 9.7 L, Glucose 212 H, Calcium 8.0 L, Total Bilirubin 0.80, AST 13 L, ALT 14 L, Alkaline Phosphatase 79, Total Protein 5.5 L, Albumin 2.6 L, Globulin 2.9, Albumin/Globulin Ratio 0.9 04/22/21 16:21: PT 15.4 H, INR 1.3 04/22/21 20:15: WBC 24.3 H, RBC 3.21 L, Hgb 8.4 L, Hct 29.3 L, MCV 91.3, MCH 26.2 L, MCHC 28.7 L, RDW Std Deviation 67.3 H, RDW Coeff of Loreta 20.1 H, Plt Count 223, MPV 10.9, Immature Gran % (Auto) 0.700, Neut % (Auto) 92.6 H, Lymph % (Auto) 2.1 L, [place] % (Auto) 4.5, Eos % (Auto) 0.0, Baso % (Auto) 0.1, Absolute Neuts (auto) 22.5 H, Absolute Lymphs (auto) 0.51 L, Nucleated RBC % 0, Differential Comment SCANNED, Anisocytosis 1+, Crenated Cell 1+ 04/22/21 20:15: PT 17.8 H, INR 1.5, APTT 29.7 04/22/21 20:15: Sodium 142, Potassium 4.6, Chloride 109 H, Carbon Dioxide 20.0 L, Anion Gap 13, BUN 17, Creatinine 1.80 H, Estim Creat Clear Calc 33.53, Est GFR (MDRD) Af Amer 46 L, Est GFR (MDRD) Non-Af 38 L, BUN/Creatinine Ratio 9.4 L, Glucose 207 H, Calcium 7.7 L, Phosphorus 6.2 H, Magnesium 1.6 04/22/21 22:10: Crossmatch See Detail Charges/Coding Procedures Hospitalists Procedures: [id number] [facility] H[facility]
[2021-04-23] VITALS (38 sets, daily range): BP systolic 80–133; BP diastolic 44–80; PULSE 94–119; RESP 15–30; TEMP 36.1–36.8; O2SAT 82–98
[2021-04-23] MEDS: Lactated Ringers 1,000 ML 150 ML IV ×3 (02:56→15:23)
--- NOTE | 2021-04-23 06:02 | EX.PCM.CONCC ---
Assessment & Plan Assessment/Plan (1) Hemorrhagic shock: PLAN: RECOMMENDATIONS: 1. Continue Levophed and wean to maintain a mean arterial pressure at or above 65 mmHg. 2. Recheck CBC this afternoon. Plan to transfuse for hemoglobin less than 7 g/dL. 3. Continue lactated ringer infusion. 4. Encourage incentive spirometer use while in bed. 5. If no improvement clinically, recommend CT abdomen/pelvis be obtained. IMPRESSIONS: 1. Hemorrhagic shock The patient developed postoperative hypotension and was noted to have a 3 g drop in his hemoglobin. The patient did receive supplemental IV fluids along with transfusion of blood products. The patient did require the initiation of vasopressor support to maintain hemodynamic stability. However, the patient has improved clinically and is only on a small amount of Levophed. Hemoglobin has improved this morning to 10.6 g/dL. Platelet count is stable. 2. Acute kidney injury Clinical concern for prerenal etiology/ischemic ATN in the setting of #1. The patient's hemodynamic status has stabilized. Hopeful for improvement in creatinine in light of the aforementioned intervention. Continue to monitor urine output for now. No current indication for renal replacement therapy. 3. Bladder cancer, now POD #1 s/p radical cystoprostatectomy and formation of ileal conduit Continue routine postoperative care per general surgery/urology recommendations. 4. History of paroxysmal atrial fibrillation/hypertension/hyperlipidemia Complicates care, management, recovery and prognosis. Continue to hold home antihypertensives for now, pending stability and hemodynamics. TIME: 33 minutes of critical care time, independent of procedures, was spent addressing the patient's hemorrhagic shock, acute kidney injury, bladder cancer, review of all data and collaboration with the care team. ([id number]) HPI Consult Data Date of Consult: 04/24/21 HPI Narrative Reason for Consultation: Hypovolemic shock HPI Narrative: The patient is an 86-year-old male, with a history as outlined below, who presented to the hospital for elective outpatient radical cystoprostatectomy and formation of an ileal conduit due to a history of bladder cancer with an unresectable tumor within the bladder. The patient was taken to the OR on the afternoon of April 22. It was documented that the case lasted approximately 5 hours. 2 units of intraoperative packed red blood cells was administered. Postoperatively, the patient was hypotensive in the PACU. The patient was initially noted to have a hemoglobin of 11.4 g/dL at 1600 hrs. 4 hours later, the patient had a 3 g drop in his hemoglobin to 8.4 g/dL. Platelet count has been normal. Coagulation profile was within normal limits. The patient has also developed acute kidney injury with a creatinine this morning of 1.8. Bicarbonate is low at 20. The patient was unable to be stabilized in the PACU and was subsequently transferred to the medical intensive care unit, where he was placed on vasopressor support. The patient is currently on Levophed at 5 mcg/min. In total, as of this morning, the patient has received 4 units of packed red blood cells and 2 units of FFP. No abdominal imaging was completed overnight. Surface echocardiogram from January 2021 demonstrated evidence of stage III diastolic dysfunction and a pulmonary artery systolic pressure estimated to be 36 mmHg. The patient is resting comfortably in bed this morning without any specific complaints. [facility] Medical History (Updated 04/23/21 @ 04:[address] Serena Rangel MD) Abrasion Acidosis, lactic Alcohol abuse Anemia due to blood loss, acute Arthritis Atrial fibrillation Bilateral tinnitus Bladder tumor Cancer Cardiology follow-up encounter Carotid bruit Dilated aortic root Diverticulosis Diverticulosis Easy bruising Esophageal spasm Essential (primary) hypertension Excessive bleeding Gastric reflux GI bleed (08/2019) History of CHF (congestive heart failure) History of echocardiogram Hyperlipidemia Iron deficiency anemia Non-smoker Nonrheumatic mitral (valve) insufficiency Postoperative atrial fibrillation (05/16/07) Wears glasses Home Medications multivitamin 1 tab PO QDAY 01/07/18 [History Last Taken 03/17/21] losartan [Cozaar] 50 mg PO BID 03/17/21 [History Last Taken 03/17/21] aspirin 81 mg tablet,delayed release 81 mg PO DAILY 03/30/21 [History Last Taken Unknown] ferrous sulfate 325 mg (65 mg iron) tablet,delayed release 325 mg PO QHS 03/30/21 [History Last Taken Unknown] metoprolol tartrate 25 mg tablet 50 mg PO BID tab 03/30/21 [History Last Taken Unknown] omega-3 fatty acids 1,000 mg capsule 1,000 mg PO DAILY 03/30/21 [History Last Taken Unknown] Cbd Gummies 1 tab PO/SL BID 04/15/21 [History Last Taken Unknown] Allergy/AdvReac Type Severity Reaction Status Date / Time oxycodone AdvReac Other Verified 04/23/21 21:44 Family History (Updated 03/30/21 @ 08:42 by Ivana Velázquez) Mother Arthritis Brother CAD (coronary artery disease) CABG Myocardial infarction Son Diabetes Son Cancer Multiple sclerosis Surgical History (Updated 04/23/21 @ 08:[address] Ayana Brewer MD) History of bladder surgery (~02/2021) History of cardioversion (06/2007) History of colonoscopy History of mitral valve repair (05/16/07) History of right and left heart catheterization (05/15/07) History of surgery on extremity Social History (Updated 04/23/21 @ 04:[address] Serena Rangel MD) household members: spouse Smoking Status: Never smoker alcohol intake: current alcohol intake frequency: holidays/special occasions only Alcohol type: beer substance use type: does not use ROS Constitutional Constitutional: Denies chills, fatigue or fever(s) Eyes Eyes: Denies blurry vision or change in vision ENT HEENT: Denies headache(s), hoarseness or loss taste/smell Cardiovascular Cardiovascular: Denies chest pain or dyspnea Respiratory/Chest Respiratory/Chest: Denies cough or dyspnea Gastrointestinal Gastrointestinal: Reports abdominal pain; Denies diarrhea, nausea or vomiting Genitourinary Genitourinary: Reports difficulty urinating Musculoskeletal Musculoskeletal: Denies arthralgias or back pain Integumentary Integumentary: Denies lesions, rash or skin ulcer Neurologic Neurologic: Denies abnormal gait, abnormal speech or confusion Psychiatric Psychiatric: Denies anxiety or depression Endocrine Endocrinology: Denies fatigue or polydipsia Hematologic/Lymphatic Hematologic/Lymphatic: Denies easy bleeding or easy bruising Physical Exam Const alert and no apparent distress General Appearance: cooperative HEENT normocephalic and head/scalp atraumatic Eyes PERRL, EOMs intact bilaterally and conjunctivae normal Neck supple General: trachea midline Resp normal respiratory effort Effort and Inspection: able to speak in complete sentences Auscultation: Negative for rales, rhonchi or wheezes Cardio S1 normal heart sound and S2 normal heart sound Rate: tachycardic GI soft to palpation and non-tender Inspection: abdominal distention Extremity no clubbing, cyanosis or edema Skin no rashes or lesions noted Neuro CN's II-XII intact bilaterally and no focal motor deficits Psych cooperative and affect normal Lab / Micro Data Result Diagrams: 04/24/21 03:50 04/24/21 03:50 Labs: Laboratory Results - last 24 hr 04/18/21 12:35: Blood Type TNP, A1 Antigen Typing Cancelled, Rho(D) Type Cancelled, Antibody Screen TNP, Crossmatch See Detail 04/22/21 16:21: WBC 21.7 H, RBC 4.37 L, Hgb 11.4 L, Hct 38.7 L, MCV 88.6, MCH 26.1 L, MCHC 29.5 L, RDW Std Deviation 63.5 H, RDW Coeff of Loreta 19.9 H, Plt Count 244, MPV 10.8 04/22/21 16:21: Sodium 144, Potassium 4.2, Chloride 110 H, Carbon Dioxide 26.0, Anion Gap 8, BUN 15, Creatinine 1.55 H, Estim Creat Clear Calc 40.09, Est GFR (MDRD) Af Amer 55 L, Est GFR (MDRD) Non-Af 46 L, BUN/Creatinine Ratio 9.7 L, Glucose 212 H, Calcium 8.0 L, Total Bilirubin 0.80, AST 13 L, ALT 14 L, Alkaline Phosphatase 79, Total Protein 5.5 L, Albumin 2.6 L, Globulin 2.9, Albumin/Globulin Ratio 0.9 04/22/21 16:21: PT 15.4 H, INR 1.3 04/22/21 20:15: WBC 24.3 H, RBC 3.21 L, Hgb 8.4 L, Hct 29.3 L, MCV 91.3, MCH 26.2 L, MCHC 28.7 L, RDW Std Deviation 67.3 H, RDW Coeff of Loreta 20.1 H, Plt Count 223, MPV 10.9, Immature Gran % (Auto) 0.700, Neut % (Auto) 92.6 H, Lymph % (Auto) 2.1 L, [place] % (Auto) 4.5, Eos % (Auto) 0.0, Baso % (Auto) 0.1, Absolute Neuts (auto) 22.5 H, Absolute Lymphs (auto) 0.51 L, Nucleated RBC % 0, Differential Comment SCANNED, Anisocytosis 1+, Crenated Cell 1+ 04/22/21 20:15: PT 17.8 H, INR 1.5, APTT 29.7 04/22/21 20:15: Sodium 142, Potassium 4.6, Chloride 109 H, Carbon Dioxide 20.0 L, Anion Gap 13, BUN 17, Creatinine 1.80 H, Estim Creat Clear Calc 33.53, Est GFR (MDRD) Af Amer 46 L, Est GFR (MDRD) Non-Af 38 L, BUN/Creatinine Ratio 9.4 L, Glucose 207 H, Calcium 7.7 L, Phosphorus 6.2 H, Magnesium 1.6 04/22/21 22:10: Blood Type A POSITIVE, Antibody Screen NEGATIVE, Crossmatch See Detail Charges/Coding Procedures Hospitalists Procedures: [id number] Critial Care 1st Hr
[2021-04-23 06:45] LABS: Hematocrit 35.3 % (40-54); Hemoglobin 10.6 g/dL (13.0-16.5); Mean Corpuscular Hgb 26.5 pg (27.0-32.0); Mean Corpuscular Volume 88.3 fL (80-94); Mean Platelet Vol. 10.5 fl (6.2-12.0); Platelet Count 191 K/mm3 (150-450); RBC Distribution Width CV 18.9 % (11.6-14.6); RBC Distribution Width SD 61.1 fl (35.1-43.9); White Blood Count 20.9 K/mm3 (4.4-11.0)
[2021-04-23 07:04] LABS: Anion Gap 9 (5-15); BUN 24 mg/dL (7-18); BUN/Creat Ratio 8.7 RATIO (10-20); Calcium,Total 7.7 mg/dL (8.5-10.1); Chloride 107 mmol/L (98-107); Creatinine, Serum 2.76 mg/dL (0.70-1.30); EST Glomerular Filtration Rate 23 mL/min (>60); Est Glom Filt Rate - Afr Amer 28 mL/min (>60); Estimated Creatinine Clearance 21.87 ml/min; Glucose 171 mg/dL (74-106); Potassium 5.4 mmol/L (3.5-5.1); Sodium Level 138 mmol/L (136-145)
[2021-04-23] MEDS: Ciprofloxacin 400 MG/200 ML BAG 200 MG IV (07:12)
[2021-04-23] MEDS: Acetaminophen 500 MG Tablet PO ×2 (08:18→15:25)
[2021-04-23] MEDS: Docusate Sodium 100 MG Capsule 200 MG PO ×2 (08:20→21:41)
--- NOTE | 2021-04-23 08:41 | PCM.PN.SRG ---
Subjective Subjective events overnight noted, Hb 10.6 this AM, got additional 2 units PRBC and levo on 5 Objective Data Objective Data Vital Signs: Vital Signs Temp Pulse Resp BP Pulse Ox 98.2 F 109 H 19 H 121/52 H 92 04/23/21 05:30 04/23/21 07:00 04/23/21 07:00 04/23/21 07:00 04/23/21 07:00 Oxygen Flow Rate (L/min) 2 Oxygen Delivery Method Room Air Weight: 224 lb 6.889 oz Body Mass Index (BMI) 29.4 Intake & Output: Intake and Output for Last 24 Hours 04/21/21 04/22/21 04/23/21 23:59 23:59 23:59 Intake Total 7879.38 / 7884.08 1912.80 / 1912.80 Output Total 775 / 775 60 / 60 Balance 7104.38 / 7109.08 1852.80 / 1852.80 Lab / Micro Data Result Diagrams: 04/23/21 06:30 04/23/21 06:30 Labs: Laboratory Results - last 24 hr 04/18/21 12:35: Blood Type TNP, Antibody Screen TNP, Crossmatch See Detail 04/22/21 16:21: WBC 21.7 H, RBC 4.37 L, Hgb 11.4 L, Hct 38.7 L, MCV 88.6, MCH 26.1 L, MCHC 29.5 L, RDW Std Deviation 63.5 H, RDW Coeff of Loreta 19.9 H, Plt Count 244, MPV 10.8 04/22/21 16:21: Sodium 144, Potassium 4.2, Chloride 110 H, Carbon Dioxide 26.0, Anion Gap 8, BUN 15, Creatinine 1.55 H, Estim Creat Clear Calc 40.09, Est GFR (MDRD) Af Amer 55 L, Est GFR (MDRD) Non-Af 46 L, BUN/Creatinine Ratio 9.7 L, Glucose 212 H, Calcium 8.0 L, Total Bilirubin 0.80, AST 13 L, ALT 14 L, Alkaline Phosphatase 79, Total Protein 5.5 L, Albumin 2.6 L, Globulin 2.9, Albumin/Globulin Ratio 0.9 04/22/21 16:21: PT 15.4 H, INR 1.3 04/22/21 20:15: WBC 24.3 H, RBC 3.21 L, Hgb 8.4 L, Hct 29.3 L, MCV 91.3, MCH 26.2 L, MCHC 28.7 L, RDW Std Deviation 67.3 H, RDW Coeff of Loreta 20.1 H, Plt Count 223, MPV 10.9, Immature Gran % (Auto) 0.700, Neut % (Auto) 92.6 H, Lymph % (Auto) 2.1 L, [place] % (Auto) 4.5, Eos % (Auto) 0.0, Baso % (Auto) 0.1, Absolute Neuts (auto) 22.5 H, Absolute Lymphs (auto) 0.51 L, Nucleated RBC % 0, Differential Comment SCANNED, Anisocytosis 1+, Crenated Cell 1+ 04/22/21 20:15: PT 17.8 H, INR 1.5, APTT 29.7 04/22/21 20:15: Sodium 142, Potassium 4.6, Chloride 109 H, Carbon Dioxide 20.0 L, Anion Gap 13, BUN 17, Creatinine 1.80 H, Estim Creat Clear Calc 33.53, Est GFR (MDRD) Af Amer 46 L, Est GFR (MDRD) Non-Af 38 L, BUN/Creatinine Ratio 9.4 L, Glucose 207 H, Calcium 7.7 L, Phosphorus 6.2 H, Magnesium 1.6 04/22/21 22:10: Blood Type A POSITIVE, Antibody Screen NEGATIVE, Crossmatch See Detail 04/23/21 06:30: WBC 20.9 H, RBC 4.00 L, Hgb 10.6 L, Hct 35.3 L, MCV 88.3, MCH 26.5 L, MCHC 30.0 L, RDW Std Deviation 61.1 H, RDW Coeff of Loreta 18.9 H, Plt Count 191, MPV 10.5 04/23/21 06:30: Sodium 138, Potassium 5.4 H, Chloride 107, Carbon Dioxide 22.0, Anion Gap 9, BUN 24 H, Creatinine 2.76 H, Estim Creat Clear Calc 21.87, Est GFR (MDRD) Af Amer 28 L, Est GFR (MDRD) Non-Af 23 L, BUN/Creatinine Ratio 8.7 L, Glucose 171 H, Calcium 7.7 L Physical Exam Narrative abd: s/nd/ tender near incisions c/d/i, MICHELLE sang. and leaking small amount at drain site. Assessment & Plan Assessment/Plan (1) S/P ileal conduit: (2) Hemorrhagic shock: PLAN: BP improved and Hb adequate after 2 units- weaning levo per ICU continue sips until +BF
--- NOTE | 2021-04-23 12:20 | CASEMGMT ---
SALIMA FRAGOSO assessment: Face to Face with patient for initial transition planning/care coordination assessment. SALIMA FRAGOSO introduced self and role at [facility], pt voices understanding and consents to assessment. Pt is lying in bed in no distress. Pt is A/Ox4 and answers all questions appropriately. Care providers, pharmacy, and demographics verified/updated. Presentation: cystoprostatectomy with sotero Admitting dx: Hypovolemic shock s/p cystoprostatectomy PCP: Jared Specialists: Sotero, uro; Mariangel, cardio [facility] Living Will/HPOA: Pt does not have LW/HPOA and declines info at this time. LNOK: Vikki Grady, Living Arrangements: Pt lives with in 1 story home with 2 steps in and states no concerns at home. Pt is independent with ADL's. Transportation: Pt states drives self and states no transportation concerns. DME/HHC: Pt has a walker at home and states no need for any further DME. Pt states no hx of HHC or SNF. Pt states no concerns with going home at time of discharge. Pt works parts person. Pt states does not smoke cigarettes and rarely drinks ETOH. Pt states no further concerns/needs. CM to follow for any further discharge planning/needs. Advised pt to ask for CM if any further questions/concerns/needs arise, voices understanding. Pt Goal: Home Plan: [place] SALIMA FRAGOSO
[2021-04-23 13:15] LABS: Absolute Lymphocyte Count 1.99 X10^3/uL (0.83-4.51); Absolute Neutrophil Count 15.8 X10^3/uL (2.0-7.7); Basophil# 0.03 X10^3/uL; Basophil% 0.2 % (0-1); Hemoglobin 9.5 g/dL (13.0-16.5); Lymphocyte # 1.99 X10^3/ul (0.83-4.51); Lymphocyte % 10.1 % (19-41); Mean Corp Hgb Conc 30.6 g/dL (32-36); Mean Corpuscular Hgb 26.6 pg (27.0-32.0); Mean Corpuscular Volume 86.8 fL (80-94); Mean Platelet Vol. 10.7 fl (6.2-12.0); Monocyte# 1.82 X10^3/uL; Monocyte% 9.2 % (0-10); NRBC Flagged by Analyzer 0 % (0-5); Neutrophil # 15.83 X10^3/uL (2.7-7.7); Neutrophil % 80.1 % (47-70); POSITIVE DIFFERENTIAL YES; Platelet Count 180 K/mm3 (150-450); RBC Distribution Width SD 59.7 fl (35.1-43.9); Red Blood Count 3.57 M/mm3 (4.6-6.2); White Blood Count 19.7 K/mm3 (4.4-11.0)
[2021-04-23 13:18] LABS: Differential Indicated SCAN CRITERIA MET
[2021-04-23 13:23] LABS: International Normalized Ratio 1.4; Prothrombin Time (Protime)PT. 16.5 SECONDS (11.7-14.9)
[2021-04-23 13:39] LABS: Anisocytosis 1+; Hypochromasia 2+; Macrocytosis 1+; Platelet Estimate ADEQUATE (ADEQ)
--- NOTE | 2021-04-23 16:47 | PN.HOSP_ITS ---
Subjective Subjective Patient seen and examined. He has no complaints and feels well. He developed hemorrhagic shock after his urologic procedure yesterday was admitted to the ICU. He is s/p transfusion of 2 units of packed red blood cells as well as FFP's. He also had KHADIJAH and was hydrated with IV fluids. He has no complaints this morning though he was mildly tachycardic at time of review. Review of symptoms otherwise negative. Objective Data Objective Data Vital Signs: Vital Signs Temp Pulse Resp BP Pulse Ox 98.1 F 99 24 H 119/52 L 93 04/23/21 14:00 04/23/21 16:00 04/23/21 16:00 04/23/21 16:00 04/23/21 16:00 Oxygen Flow Rate (L/min) 2 Oxygen Delivery Method Room Air Weight: 224 lb 6.889 oz Body Mass Index (BMI) 29.4 Intake & Output: Intake and Output for Last 24 Hours 04/21/21 04/22/21 04/23/21 23:59 23:59 23:59 Intake Total 7879.38 / 7884.08 3789.70 / 3789.70 Output Total 775 / 775 200 / 200 Balance 7104.38 / 7109.08 3589.70 / 3589.70 Lab / Micro Data Result Diagrams: 04/23/21 13:00 04/23/21 06:30 Labs: Laboratory Results - last 24 hr 04/18/21 12:35: Blood Type TNP, Antibody Screen TNP, Crossmatch See Detail 04/22/21 16:21: Sodium 144, Potassium 4.2, Chloride 110 H, Carbon Dioxide 26.0, Anion Gap 8, BUN 15, Creatinine 1.55 H, Estim Creat Clear Calc 40.09, Est GFR (MDRD) Af Amer 55 L, Est GFR (MDRD) Non-Af 46 L, BUN/Creatinine Ratio 9.7 L, G lucose 212 H, Calcium 8.0 L, Total Bilirubin 0.80, AST 13 L, ALT 14 L, Alkaline Phosphatase 79, Total Protein 5.5 L, Albumin 2.6 L, Globulin 2.9, Albumin/Globulin Ratio 0.9 04/22/21 20:15: WBC 24.3 H, RBC 3.21 L, Hgb 8.4 L, Hct 29.3 L, MCV 91.3, MCH 26.2 L, MCHC 28.7 L, RDW Std Deviation 67.3 H, RDW Coeff of Loreta 20.1 H, Plt Count 223, MPV 10.9, Immature Gran % (Auto) 0.700, Neut % (Auto) 92.6 H, Lymph % (Auto) 2.1 L, [place] % (Auto) 4.5, Eos % (Auto) 0.0, Baso % (Auto) 0.1, Absolute Neuts (auto) 22.5 H, Absolute Lymphs (auto) 0.51 L, Nucleated RBC % 0, Differential Comment SCANNED, Anisocytosis 1+, Crenated Cell 1+ 04/22/21 20:15: PT 17.8 H, INR 1.5, APTT 29.7 04/22/21 20:15: Sodium 142, Potassium 4.6, Chloride 109 H, Carbon Dioxide 20.0 L , Anion Gap 13, BUN 17, Creatinine 1.80 H, Estim Creat Clear Calc 33.53, Est GFR (MDRD) Af Amer 46 L, Est GFR (MDRD) Non-Af 38 L, BUN/Creatinine Ratio 9.4 L, Glucose 207 H, Calcium 7.7 L, Phosphorus 6.2 H, Magnesium 1.6 04/22/21 22:10: Blood Type A POSITIVE, Antibody Screen NEGATIVE, Crossmatch See Detail 04/23/21 06:30: WBC 20.9 H, RBC 4.00 L, Hgb 10.6 L, Hct 35.3 L, MCV 88.3, MCH 26.5 L, MCHC 30.0 L, RDW Std Deviation 61.1 H, RDW Coeff of Loreta 18.9 H, Plt Count 191, MPV 10.5 04/23/21 06:30: Sodium 138, Potassium 5.4 H, Chloride 107, Carbon Dioxide 22.0, Anion Gap 9, BUN 24 H, Creatinine 2.76 H, Estim Creat Clear Calc 21.87, Est GFR (MDRD) Af Amer 28 L, Est GFR (MDRD) Non-Af 23 L, BUN/Creatinine Ratio 8.7 L, Glucose 171 H, Calcium 7.7 L 04/23/21 13:00: WBC 19.7 H, RBC 3.57 L, Hgb 9.5 L, Hct 31.0 L, MCV 86.8, MCH 26.6 L, MCHC 30.6 L, RDW Std Deviation 59.7 H, RDW Coeff of Loreta 19.0 H, Plt Count 180, MPV 10.7, Immature Gran % (Auto) 0.400, Neut % (Auto) 80.1 H, Lymph % (Auto) 10.1 L, [place] % (Auto) 9.2, Eos % (Auto) 0.0, Baso % (Auto) 0.2, Absolute Neuts (auto) 15.8 H, Absolute Lymphs (auto) 1.99, Nucleated RBC % 0, Diff Path Review December, Platelet Estimate ADEQUATE, Hypochromasia 2+, Anisocytosis 1+, Macrocytosis 1+ 04/23/21 13:00: PT 16.5 H, INR 1.4 Physical Exam Const alert, oriented x3 and no apparent distress Exam Limitations: no limitations HEENT head/scalp atraumatic and moist oral mucous membranes Eyes PERRL, EOMs intact bilaterally and conjunctivae normal Neck no lymphadenopathy Resp normal respiratory effort, no retractions, no use of accessory muscles and clear to auscultation bilaterally Cardio regular rhythm, S1 normal heart sound, S2 normal heart sound and no murmurs Cardio Narrative: Tachycardic GI normal to inspection, nondistended, normoactive bowel sounds, soft to palpation and non-tender GI Narrative: abdominal dressing in place; has ileostomy bag. Extremity normal to inspection Peripheral Pulses: Yes pulses 2+ throughout Neuro oriented x3, CN's II-XII intact bilaterally and moves all extremities Sensorium / Orientation: awake and alert Psych affect normal Assessment & Plan Assessment/Plan (1) Hemorrhagic shock: (2) Bladder cancer: QUALIFIERS: Bladder location: overlapping sites Qualified Code(s): C67.8 - Malignant neoplasm of overlapping sites of bladder PLAN: #Hemorrhagic shock * likely due to acute blood loss from surgery * s/p transfusion of 2 units of PRBCs as well as FFPs * Hb is 9.6 today * stable * #KHADIJAH: Cr trended upwards to 2.76 today from 1.8. Will continue gentle hydration with IVF and trend. Likely pre renal, from KHADIJAH. #Hyperkalemia: K is 5.4 today. Will give kayexalate and trend #Bladder cancer * s/p radical cystoprostatectomy with ileal conduit placement * management as per urology and general surgery * #HF: EF unknown. Not in exacerbation. stable #Paroxysmal afib * metoprolol was held yesterday * patient tachycardic today. Will resume metoprolol * #Hyeprtension: BP meds held on admission due to hemorrhagic shock DVT prophylaxis: SCDs Charges/Coding Visit Charges Inpatient E&M: 10479 [facility] Hosp L3
[2021-04-23] MEDS: Morphine 2 MG/ML Syringe IV ×2 (17:10→20:14)
[2021-04-23 20:24] LABS: Hematocrit 28.5 % (40-54); Hemoglobin 8.9 g/dL (13.0-16.5); Mean Corp Hgb Conc 31.2 g/dL (32-36); Mean Corpuscular Hgb 27.5 pg (27.0-32.0); Mean Platelet Vol. 10.7 fl (6.2-12.0); Platelet Count 161 K/mm3 (150-450); RBC Distribution Width CV 19.4 % (11.6-14.6); RBC Distribution Width SD 62.7 fl (35.1-43.9); Red Blood Count 3.24 M/mm3 (4.6-6.2); White Blood Count 19.1 K/mm3 (4.4-11.0)
--- NOTE | 2021-04-23 22:42 | PCM.HOSP.N ---
Hospitalist Note From discussions with nursing staff patient during day with oozing frequently with several dressing reinforcements required. Hgb repeat decreased from AM although VS stable, off NEP. Patient with worsening hypoxia, crackles. Does have noted KHADIJAH; however, given current status will d/c IVFs, obtain CXR and plan IV lasix administration as suspected volume overload given notable amounts of IVFs and blood products administered over the last 24 hours.
[2021-04-23] MEDS: Furosemide 40 MG/4 ML Vial IV (22:51)
--- NOTE | 2021-04-23 23:05 | NURSING ---
Addendum entered by Beatriz Powell 04/24/21 04:44: pulse ox dropping into the 80's, not 60's Original Note: pt pulse ox dropping into the high 60'S, pt placed on 2l then eventually needed 6l to maintain a pox of 92%, lungs now with crackles to the left base, resp in the room, call placed to dr henriquez, dc'd ivf and lasix 40mg given.
--- NOTE | 2021-04-23 23:15 | RAD_ITS ---
HISTORY: Dyspnea EXAMINATION/TECHNIQUE: XR Chest 1 View portable AP view COMPARISON: Chest CT from 03/18/21 FINDINGS: LINES/DEVICES: Sternotomy wires, monitor car operator leads and prosthetic mitral valve. LUNGS: No overt pulmonary edema. Left basilar linear opacities. Mildly elevated right hemidiaphragm. No sizable pleural effusion. No pneumothorax detected. MEDIASTINUM AND CARDIOVASCULAR STRUCTURES: Heart size within normal limits for imaging technique. Status post mitral valve replacement. Atherosclerotic calcifications along the aorta. BONES AND SOFT TISSUES: Skeletal degenerative changes. RAD/Chest 1 View (Portable) IMPRESSION: Left basilar linear scarring versus atelectasis. at 0042 Reported and signed by: Jomar Thomas MD Electronically Signed: Jomar Thomas MD at 0:41 EDT Tel , Service support ,
[2021-04-24] VITALS (18 sets, daily range): BP systolic 102–147; BP diastolic 47–77; PULSE 78–122; RESP 15–23; TEMP 36.2–36.9; O2SAT 95–113
[2021-04-24 00:10] LABS: Hematocrit 27.9 % (40-54); Hemoglobin 8.6 g/dL (13.0-16.5)
[2021-04-24 03:59] LABS: Hematocrit 27.9 % (40-54); Hemoglobin 8.7 g/dL (13.0-16.5)
[2021-04-24 04:17] LABS: Absolute Lymphocyte Count 1.39 X10^3/uL (0.83-4.51); Basophil# 0.03 X10^3/uL; Basophil% 0.2 % (0-1); Hematocrit 28.4 % (40-54); Hemoglobin 8.6 g/dL (13.0-16.5); Lymphocyte # 1.39 X10^3/ul (0.83-4.51); Lymphocyte % 7.3 % (19-41); Mean Corp Hgb Conc 30.3 g/dL (32-36); Mean Corpuscular Hgb 26.5 pg (27.0-32.0); Mean Corpuscular Volume 87.7 fL (80-94); Monocyte# 1.66 X10^3/uL; Monocyte% 8.7 % (0-10); NRBC Flagged by Analyzer 0 % (0-5); Neutrophil # 15.98 X10^3/uL (2.7-7.7); Neutrophil % 83.3 % (47-70); POSITIVE DIFFERENTIAL YES; Platelet Count 172 K/mm3 (150-450); RBC Distribution Width CV 19.2 % (11.6-14.6); RBC Distribution Width SD 61.8 fl (35.1-43.9); Red Blood Count 3.24 M/mm3 (4.6-6.2); White Blood Count 19.2 K/mm3 (4.4-11.0)
[2021-04-24 04:40] LABS: ALB/GLOB Ratio 0.8 RATIO (0.9-2.4); AST(SGOT) 39 U/L (15-37); Alanine Aminotransfer ALT/SGPT 25 U/L (16-61); Albumin, Serum 2.5 g/dL (3.2-5.0); Alkaline Phosphatase 63 U/L (45-117); Anion Gap 4 (5-15); BUN 40 mg/dL (7-18); BUN/Creat Ratio 12.9 RATIO (10-20); Calcium,Total 7.8 mg/dL (8.5-10.1); Chloride 106 mmol/L (98-107); Creatinine, Serum 3.11 mg/dL (0.70-1.30); EST Glomerular Filtration Rate 20 mL/min (>60); Est Glom Filt Rate - Afr Amer 25 mL/min (>60); Estimated Creatinine Clearance 19.98 ml/min; Globulin 3.1 g/dL (2.2-4.2); Glucose 124 mg/dL (74-106); Potassium 5.5 mmol/L (3.5-5.1); Protein, Total 5.6 g/dL (6.4-8.2); Sodium Level 137 mmol/L (136-145)
[2021-04-24 04:42] LABS: Differential Indicated SCAN CRITERIA MET
--- NOTE | 2021-04-24 07:00 | PCM.PN.INT ---
Assessment & Plan Assessment/Plan (1) Hemorrhagic shock: PLAN: RECOMMENDATIONS: 1. Wean supplemental oxygen to maintain saturations at or above 90%. 2. Encourage incentive spirometer use and mobilize patient as tolerated. 3. Gentle diuresis as tolerated by hemodynamics and renal function. 4. Restart home beta-samantha. 5. Continue to monitor blood counts and transfuse if hemoglobin is less than 7 g/dL. IMPRESSIONS: 1. Hemorrhagic shock The patient developed postoperative hypotension and was noted to have a 3 g drop in his hemoglobin. The patient did receive supplemental IV fluids along with transfusion of blood products. The patient did require the initiation of vasopressor support to maintain hemodynamic stability. However, the patient has improved clinically and has since been weaned from vasopressor support. Hemoglobin and platelet count are stable this morning. Plan to continue to monitor blood counts daily and transfuse if hemoglobin drops below 7 g/dL. 2. Acute hypoxemic respiratory insufficiency Likely secondary to hypervolemia and atelectasis leading to VQ mismatch. Recommend cautious use of diuretics given underlying renal insufficiency. Encourage incentive spirometer use and mobilize patient as tolerated. Wean supplemental oxygen to maintain saturations at or above 90%. 3. Acute kidney injury Clinical concern for prerenal etiology/ischemic ATN in the setting of #1. The patient's hemodynamic status has stabilized. Hopeful for improvement in creatinine in light of the aforementioned intervention. Continue to monitor urine output for now. No current indication for renal replacement therapy. 4. Bladder cancer, now POD #2 s/p radical cystoprostatectomy and formation of ileal conduit Continue routine postoperative care per general surgery/urology recommendations. 5. History of paroxysmal atrial fibrillation/hypertension/hyperlipidemia Complicates care, management, recovery and prognosis. Restart home beta-samantha dose. This note was generated with [employer] dictation software. It may contain incorrect words, spelling, and punctuation that were not noted in checking the note before signing. Subjective Subjective The patient was seen and examined at the bedside this morning. Events from the last 24 hours have been reviewed. The patient is currently afebrile, hemodynamically stable and maintaining appropriate oxygen saturations on 5 L/min via nasal cannula. The patient was able to be weaned off of Levophed completely. However, in light of the patient's volume resuscitation and administration of blood products yesterday, he is now documented to be overall net +11 L for the hospital admission. Fluids were subsequently discontinued and IV Lasix was ordered. However, the patient's creatinine is 3.1. Hemoglobin is stable at 8.6 g/dL. Platelet count is likewise stable. The patient has been going in and out of atrial fibrillation with a rapid ventricular rate, as his home beta-samantha was on hold yesterday. The patient has been utilizing his incentive spirometer as encouraged. Objective Data Objective Data The patient's most recent lab work, culture data and imaging studies have all been personally reviewed. Vital Signs: Vital Signs Temp Pulse Resp BP Pulse Ox 97.2 F L 101 H 17 129/58 H 95 04/24/21 04:00 04/24/21 05:00 04/24/21 05:00 04/24/21 05:00 04/24/21 05:00 Oxygen Flow Rate (L/min) 6 Oxygen Delivery Method Nasal Cannula Weight: 101.8 kg Body Mass Index (BMI) 29.4 Intake & Output: Intake and Output for Last 24 Hours 04/22/21 04/23/21 04/24/21 23:59 23:59 23:59 Intake Total 7879.38 / 7884.08 4789.70 / 4789.70 Output Total 775 / 775 305 / 530 675 / 675 Balance 7104.38 / 7109.08 4484.70 / 4259.70 -675 / -675 Lab / Micro Data Attestation: I reviewed the patient's lab results. Result Diagrams: 04/24/21 03:50 04/24/21 03:50 Labs: Laboratory Results - last 24 hr 04/23/21 06:30: Sodium 138, Potassium 5.4 H, Chloride 107, Carbon Dioxide 22.0, Anion Gap 9, BUN 24 H, Creatinine 2.76 H, Estim Creat Clear Calc 21.87, Est GFR (MDRD) Af Amer 28 L, Est GFR (MDRD) Non-Af 23 L, BUN/Creatinine Ratio 8.7 L, Glucose 171 H, Calcium 7.7 L 04/23/21 13:00: WBC 19.7 H, RBC 3.57 L, Hgb 9.5 L, Hct 31.0 L, MCV 86.8, MCH 26.6 L, MCHC 30.6 L, RDW Std Deviation 59.7 H, RDW Coeff of Loreta 19.0 H, Plt Count 180, MPV 10.7, Immature Gran % (Auto) 0.400, Neut % (Auto) 80.1 H, Lymph % (Auto) 10.1 L, [place] % (Auto) 9.2, Eos % (Auto) 0.0, Baso % (Auto) 0.2, Absolute Neuts (auto) 15.8 H, Absolute Lymphs (auto) 1.99, Nucleated RBC % 0, Diff Path Review December, Platelet Estimate ADEQUATE, Hypochromasia 2+, Anisocytosis 1+, Macrocytosis 1+ 04/23/21 13:00: PT 16.5 H, INR 1.4 04/23/21 20:05: WBC 19.1 H, RBC 3.24 L, Hgb 8.9 L, Hct 28.5 L, MCV 88.0, MCH 27.5, MCHC 31.2 L, RDW Std Deviation 62.7 H, RDW Coeff of Loreta 19.4 H, Plt Count 161, MPV 10.7 04/23/21 23:55: Hgb 8.6 L, Hct 27.9 L 04/24/21 03:50: Hgb 8.7 L, Hct 27.9 L 04/24/21 03:50: WBC 19.2 H, RBC 3.24 L, Hgb 8.6 L, Hct 28.4 L, MCV 87.7, MCH 26.5 L, MCHC 30.3 L, RDW Std Deviation 61.8 H, RDW Coeff of Loreta 19.2 H, Plt Count 172, MPV 11.0, Immature Gran % (Auto) 0.500, Neut % (Auto) 83.3 H, Lymph % (Auto) 7.3 L, [place] % (Auto) 8.7, Eos % (Auto) 0.0, Baso % (Auto) 0.2, Absolute Neuts (auto) 16.0 H, Absolute Lymphs (auto) 1.39, Nucleated RBC % 0, Diff Path Review December burton 04/24/21 03:50: Sodium 137, Potassium 5.5 H, Chloride 106, Carbon Dioxide 27.0, Anion Gap 4 L, BUN 40 H, Creatinine 3.11 H, Estim Creat Clear Calc 19.98, Est GFR (MDRD) Af Amer 25 L, Est GFR (MDRD) Non-Af 20 L, BUN/Creatinine Ratio 12.9, Glucose 124 H, Calcium 7.8 L, Total Bilirubin 0.50, AST 39 H, ALT 25, Alkaline Phosphatase 63, Total Protein 5.6 L, Albumin 2.5 L, Globulin 3.1, Albumin/Globulin Ratio 0.8 L Radiography Diagnostic Testing: Radiology Impression Chest X-Ray 04/23/21 23:15 IMPRESSION: Left basilar linear scarring versus atelectasis. at 0042 Reported and signed by: Jomar Thomas MD Electronically Signed: Jomar Thomas MD at 0:41 EDT Tel , Service support , Physical Exam Const alert and no apparent distress General Appearance: cooperative HEENT normocephalic and head/scalp atraumatic Eyes PERRL, EOMs intact bilaterally and conjunctivae normal Neck supple General: trachea midline Resp normal respiratory effort Effort and Inspection: able to speak in complete sentences Auscultation: rales; Negative for rhonchi or wheezes Cardio S1 normal heart sound and S2 normal heart sound Rate: tachycardic Rhythm: abnormal rhythm GI soft to palpation and non-tender Inspection: abdominal distention Extremity General Extremity: edema; Negative for clubbing Skin no rashes or lesions noted Neuro CN's II-XII intact bilaterally and no focal motor deficits Psych cooperative and affect normal Charges/Coding Visit Charges Inpatient E&M: 87822 Subs Hosp L3
--- NOTE | 2021-04-24 08:20 | PCM.PN.SRG ---
Subjective Subjective Patient states he is feeling better today. Patient's hemoglobin still 8.6. Patient still having burping and denies any flatus. Drain sanguinous, patient did have some leaking out of port site on the right lower quadrant which a pressure dressing was placed. No current leakage this morning. Objective Data Objective Data Vital Signs: Vital Signs Temp Pulse Resp BP Pulse Ox 97.2 F L 122 H 17 129/58 H 95 04/24/21 04:00 04/24/21 07:03 04/24/21 05:00 04/24/21 05:00 04/24/21 05:00 Oxygen Flow Rate (L/min) 6 Oxygen Delivery Method Nasal Cannula Weight: 224 lb 6.889 oz Body Mass Index (BMI) 29.4 Intake & Output: Intake and Output for Last 24 Hours 04/22/21 04/23/21 04/24/21 23:59 23:59 23:59 Intake Total 7879.38 / 7884.08 4789.70 / 4789.70 Output Total 775 / 775 305 / 530 675 / 675 Balance 7104.38 / 7109.08 4484.70 / 4259.70 -675 / -675 Lab / Micro Data Result Diagrams: 04/24/21 03:50 04/24/21 03:50 Labs: Laboratory Results - last 24 hr 04/23/21 13:00: WBC 19.7 H, RBC 3.57 L, Hgb 9.5 L, Hct 31.0 L, MCV 86.8, MCH 26.6 L, MCHC 30.6 L, RDW Std Deviation 59.7 H, RDW Coeff of Loreta 19.0 H, Plt Count 180, MPV 10.7, Immature Gran % (Auto) 0.400, Neut % (Auto) 80.1 H, Lymph % (Auto) 10.1 L, [place] % (Auto) 9.2, Eos % (Auto) 0.0, Baso % (Auto) 0.2, Absolute Neuts (auto) 15.8 H, Absolute Lymphs (auto) 1.99, Nucleated RBC % 0, Diff Path Review December, Platelet Estimate ADEQUATE, Hypochromasia 2+, Anisocytosis 1+, Macrocytosis 1+ 04/23/21 13:00: PT 16.5 H, INR 1.4 04/23/21 20:05: WBC 19.1 H, RBC 3.24 L, Hgb 8.9 L, Hct 28.5 L, MCV 88.0, MCH 27.5, MCHC 31.2 L, RDW Std Deviation 62.7 H, RDW Coeff of Loreta 19.4 H, Plt Count 161, MPV 10.7 04/23/21 23:55: Hgb 8.6 L, Hct 27.9 L 04/24/21 03:50: Hgb 8.7 L, Hct 27.9 L 04/24/21 03:50: WBC 19.2 H, RBC 3.24 L, Hgb 8.6 L, Hct 28.4 L, MCV 87.7, MCH 26.5 L, MCHC 30.3 L, RDW Std Deviation 61.8 H, RDW Coeff of Loreta 19.2 H, Plt Count 172, MPV 11.0, Immature Gran % (Auto) 0.500, Neut % (Auto) 83.3 H, Lymph % (Auto) 7.3 L, [place] % (Auto) 8.7, Eos % (Auto) 0.0, Baso % (Auto) 0.2, Absolute Neuts (auto) 16.0 H, Absolute Lymphs (auto) 1.39, Nucleated RBC % 0, Diff Path Review December04/24/21 03:50: Sodium 137, Potassium 5.5 H, Chloride 106, Carbon Dioxide 27.0, Anion Gap 4 L, BUN 40 H, Creatinine 3.11 H, Estim Creat Clear Calc 19.98, Est GFR (MDRD) Af Amer 25 L, Est GFR (MDRD) Non-Af 20 L, BUN/Creatinine Ratio 12.9, Glucose 124 H, Calcium 7.8 L, Total Bilirubin 0.50, AST 39 H, ALT 25, Alkaline Phosphatase 63, Total Protein 5.6 L, Albumin 2.5 L, Globulin 3.1, Albumin/Globulin Ratio 0.8 L Radiography Diagnostic Testing: Radiology Impression Chest X-Ray 04/23/21 23:15 IMPRESSION: Left basilar linear scarring versus atelectasis. at 0042 Reported and signed by: Jomar Thomas MD Electronically Signed: Jomar Thomas MD at 0:41 EDT Tel , Service support , Physical Exam Narrative abd: s/nd/ tender near incisions c/d/i, MICHELLE sang. No further drainage from the right lower quadrant port site. Incision dry, ileal conduit pink Assessment & Plan Assessment/Plan (1) S/P ileal conduit: (2) Hemorrhagic shock: PLAN: Continue sips until patient has bowel function as well as decrease burping. Out of bed to chair today. Aynaa Brewer M.D. Pager: [phone] [facility] [address] [place] [address], [address] [place] [id number] Office: [phone]
[2021-04-24] MEDS: Docusate Sodium 100 MG Capsule 200 MG PO ×2 (08:34→20:39)
[2021-04-24] MEDS: Metoprolol Tartrate 50 MG Tablet PO ×2 (08:34→20:39)
[2021-04-24] MEDS: Furosemide 40 MG/4 ML Vial IV (08:34)
--- NOTE | 2021-04-24 09:02 | PCM.PN.GU ---
Subjective Subjective 86-year-old male status post radical cystoprostatectomy, had acute blood loss anemia postop we had a transfusing 4 units of blood 2 units in the operating room 2 units postop and this caused him up he did have low urine output and has acute renal failure with creatinine bumped up to 3.1 but now he is now making better urine output and I expect his creatinine to plateau and slowly improve. He is up adage the bed in a chair he is up he is conversational he is alert and oriented x3 in no acute distress. Objective Data Objective Data Vital Signs: Vital Signs Temp Pulse Resp BP Pulse Ox 97.8 F 120 H 16 127/54 H 98 04/24/21 08:00 04/24/21 08:34 04/24/21 08:00 04/24/21 08:00 04/24/21 08:00 Oxygen Flow Rate (L/min) 4 Oxygen Delivery Method Nasal Cannula Weight: 101.8 kg Body Mass Index (BMI) 29.4 Intake & Output: Intake and Output for Last 24 Hours 04/22/21 04/23/21 04/24/21 23:59 23:59 23:59 Intake Total 7879.38 / 7884.08 4789.70 / 4789.70 Output Total 775 / 775 305 / 530 675 / 675 Balance 7104.38 / 7109.08 4484.70 / 4259.70 -675 / -675 Lab / Micro Data Result Diagrams: 04/24/21 03:50 04/24/21 03:50 Labs: Laboratory Results - last 24 hr 04/23/21 13:00: WBC 19.7 H, RBC 3.57 L, Hgb 9.5 L, Hct 31.0 L, MCV 86.8, MCH 26.6 L, MCHC 30.6 L, RDW Std Deviation 59.7 H, RDW Coeff of [place]ore[place] 19.0 H, Plt Count 180, MPV 10.7, Immature Gran % (Auto) 0.400, Neut % (Auto) 80.1 H, Lymph % (Auto) 10.1 L, [place] % (Auto) 9.2, Eos % (Auto) 0.0, Baso % (Auto) 0.2, Absolute Neuts (auto) 15.8 H, Absolute Lymphs (auto) 1.99, Nucleated RBC % 0, Diff Path Review May foll, Platelet Estimate ADEQUATE, Hypochromasia 2+, Anisocytosis 1+, Macrocytosis 1+ 04/23/21 13:00: PT 16.5 H, INR 1.4 04/23/21 20:05: WBC 19.1 H, RBC 3.24 L, Hgb 8.9 L, Hct 28.5 L, MCV 88.0, MCH 27.5, MCHC 31.2 L, RDW Std Deviation 62.7 H, RDW Coeff of [place] 19.4 H, Plt Count 161, MPV 10.7 04/23/21 23:55: Hgb 8.6 L, Hct 27.9 L 04/24/21 03:50: Hgb 8.7 L, Hct 27.9 L 04/24/21 03:50: WBC 19.2 H, RBC 3.24 L, Hgb 8.6 L, Hct 28.4 L, MCV 87.7, MCH 26.5 L, MCHC 30.3 L, RDW Std Deviation 61.8 H, RDW Coeff of [place] 19.2 H, Plt Count 172, MPV 11.0, Immature Gran % (Auto) 0.500, Neut % (Auto) 83.3 H, Lymph % (Auto) 7.3 L, [place] % (Auto) 8.7, Eos % (Auto) 0.0, Baso % (Auto) 0.2, Absolute Neuts (auto) 16.0 H, Absolute Lymphs (auto) 1.39, Nucleated RBC % 0, Diff Path Review December04/24/21 03:50: Sodium 137, Potassium 5.5 H, Chloride 106, Carbon Dioxide 27.0, Anion Gap 4 L, BUN 40 H, Creatinine 3.11 H, Estim Creat Clear Calc 19.98, Est GFR (MDRD) Af Amer 25 L, Est GFR (MDRD) Non-Af 20 L, BUN/Creatinine Ratio 12.9, Glucose 124 H, Calcium 7.8 L, Total Bilirubin 0.50, AST 39 H, ALT 25, Alkaline Phosphatase 63, Total Protein 5.6 L, Albumin 2.5 L, Globulin 3.1, Albumin/Globulin Ratio 0.8 L Radiography Diagnostic Testing: Radiology Impression Chest X-Ray 04/23/21 23:15 IMPRESSION: Left basilar linear scarring versus atelectasis. at 0042 Reported and signed by: Jomar Thomas MD Electronically Signed: Jomar Thomas MD at 0:41 EDT Tel , Service support , Physical Exam Const alert and oriented x3 General Appearance: cooperative HEENT normocephalic, head/scalp atraumatic, EAC's normal and TM's normal bilaterally Eyes PERRL and EOMs intact bilaterally Pupil: sluggish Neck no lymphadenopathy, supple and no JVD General: trachea midline Lymph Lymphatic: no lymphadenopathy noted, lymphedema and lymphadenopathy Resp normal respiratory effort, normal air movement and clear to auscultation bilaterally Cardio regular rate, regular rhythm and peripheral pulses 2+ throughout GI soft to palpation, non-tender and non-distended GI Narrative: He is soft slightly distended few bowel sounds. Still has burps no flatus Extremity normal capillary refill and no clubbing, cyanosis or edema General Extremity: no tenderness to palpation of joints or extremities Skin no rashes or lesions noted General Skin Exam: turgor normal Lesions: no lesions Rashes: no rashes Neuro CN's II-XII intact bilaterally Speech: speech normal Motor Exam: strength 5/5 throughout; Negative for general weakness Psych thought process normal, cooperative and affect normal Appearance: appropriate Assessment & Plan Assessment/Plan (1) S/P ileal conduit: (2) Hemorrhagic shock: (3) Gross hematuria: (4) Bladder cancer: QUALIFIERS: Bladder location: overlapping sites Qualified Code(s): C67.8 - Malignant neoplasm of overlapping sites of bladder PLAN: Status post cystoprostatectomy for bladder cancer postop required resuscitation 4 units of blood but now stable urine output has improved and hopefully will not continue to improve which I expect, I expect his creatinine to plateau and then slowly recover from the hemorrhagic shock that he had after surgery but now he looks like he is caught up at this point now we are just awaiting his return of bowel function he can get out of bed I would like him to do a little bit of walking today and I think it would be safe for him to get transferred down to progressive care unit on a monitor. Book Coverer is planning on restarting his beta-blockers he is somewhat tachycardic this could be from holding his beta blockers from low blood pressure. Appreciate input from hospitalist and candy department manager with this patient's postop care thanks
--- NOTE | 2021-04-24 10:34 | PN.HOSP_ITS ---
Subjective Subjective Patient seen and examined. He has no complaints today. He was noted to be more short of breath overnight, so he was given IV lasix. He has been weaned off levophed. He was tachycardic this morning, with his HR being in the 120s. His beta samantha which had been on hold o/a of hypotension was resumed this morning. Review of systems otherwise negative. Objective Data Objective Data Vital Signs: Vital Signs Temp Pulse Resp BP Pulse Ox 97.8 F 117 H 18 123/58 H 97 04/24/21 08:00 04/24/21 09:00 04/24/21 09:00 04/24/21 09:00 04/24/21 09:00 Oxygen Flow Rate (L/min) 4 Oxygen Delivery Method Nasal Cannula Weight: 224 lb 6.889 oz Body Mass Index (BMI) 29.4 Intake & Output: Intake and Output for Last 24 Hours 04/22/21 04/23/21 04/24/21 23:59 23:59 23:59 Intake Total 7879.38 / 7884.08 4789.70 / 4789.70 75 / 75 Output Total 775 / 775 305 / 530 1405 / 1405 Balance 7104.38 / 7109.08 4484.70 / 4259.70 -1330 / -1330 Lab / Micro Data Result Diagrams: 04/24/21 03:50 04/24/21 03:50 Labs: Laboratory Results - last 24 hr 04/23/21 13:00: WBC 19.7 H, RBC 3.57 L, Hgb 9.5 L, Hct 31.0 L, MCV 86.8, MCH 26.6 L, MCHC 30.6 L, RDW Std Deviation 59.7 H, RDW Coeff of [place]ore[place] 19.0 H, Plt Count 180, MPV 10.7, Immature Gran % (Auto) 0.400, Neut % (Auto) 80.1 H, Lymph % (Auto) 10.1 L, [place] % (Auto) 9.2, Eos % (Auto) 0.0, Baso % (Auto) 0.2, Absolute Neuts (auto) 15.8 H, Absolute Lymphs (auto) 1.99, Nucleated RBC % 0, Diff Path Review May , Platelet Estimate ADEQUATE, Hypochromasia 2+, Anisocytosis 1+, Macrocytosis 1+ 04/23/21 13:00: PT 16.5 H, INR 1.4 04/23/21 20:05: WBC 19.1 H, RBC 3.24 L, Hgb 8.9 L, Hct 28.5 L, MCV 88.0, MCH 27.5, MCHC 31.2 L, RDW Std Deviation 62.7 H, RDW Coeff of [place]ore[place] 19.4 H, Plt Count 161, MPV 10.7 04/23/21 23:55: Hgb 8.6 L, Hct 27.9 L 04/24/21 03:50: Hgb 8.7 L, Hct 27.9 L 04/24/21 03:50: WBC 19.2 H, RBC 3.24 L, Hgb 8.6 L, Hct 28.4 L, MCV 87.7, MCH 26.5 L, MCHC 30.3 L, RDW Std Deviation 61.8 H, RDW Coeff of [place] 19.2 H, Plt Count 172, MPV 11.0, Immature Gran % (Auto) 0.500, Neut % (Auto) 83.3 H, Lymph % (Auto) 7.3 L, [place] % (Auto) 8.7, Eos % (Auto) 0.0, Baso % (Auto) 0.2, Absolute Neuts (auto) 16.0 H, Absolute Lymphs (auto) 1.39, Nucleated RBC % 0, Diff Path Review December04/24/21 03:50: Sodium 137, Potassium 5.5 H, Chloride 106, Carbon Dioxide 27.0, Anion Gap 4 L, BUN 40 H, Creatinine 3.11 H, Estim Creat Clear Calc 19.98, Est GFR (MDRD) Af Amer 25 L, Est GFR (MDRD) Non-Af 20 L, BUN/Creatinine Ratio 12.9, Glucose 124 H, Calcium 7.8 L, Total Bilirubin 0.50, AST 39 H, ALT 25, Alkaline Phosphatase 63, Total Protein 5.6 L, Albumin 2.5 L, Globulin 3.1, Albumin/Globulin Ratio 0.8 L Radiography Diagnostic Testing: Radiology Impression Chest X-Ray 04/23/21 23:15 IMPRESSION: Left basilar linear scarring versus atelectasis. at 0042 Reported and signed by: Jomar Thomas MD Electronically Signed: Jomar Thomas MD at 0:41 EDT Tel , Service support , Physical Exam Const alert, oriented x3 and no apparent distress Exam Limitations: no limitations HEENT head/scalp atraumatic and moist oral mucous membranes Head and Scalp: normocephalic Eyes PERRL, EOMs intact bilaterally and conjunctivae normal Neck no lymphadenopathy Resp normal respiratory effort, no retractions, no use of accessory muscles and clear to auscultation bilaterally Cardio S1 normal heart sound, S2 normal heart sound and no murmurs Cardio Narrative: Tachycardic, afib GI normal to inspection, nondistended, normoactive bowel sounds, soft to palpation and non-tender GI Narrative: abdominal dressing in place; has ileostomy bag. Extremity normal to inspection Peripheral Pulses: Yes pulses 2+ throughout Skin no rashes or lesions noted Neuro oriented x3, CN's II-XII intact bilaterally and moves all extremities Sensorium / Orientation: awake and alert Psych affect normal Assessment & Plan Assessment/Plan (1) Hemorrhagic shock: (2) Bladder cancer: QUALIFIERS: Bladder location: overlapping sites Qualified Code(s): C67.8 - Malignant neoplasm of overlapping sites of bladder PLAN: #Hemorrhagic shock * likely due to acute blood loss from surgery * s/p transfusion of 2 units of PRBCs as well as FFPs * Hb is 8.6 * stable * #KHADIJAH: * Cr today has trended upwards some more and is 3.11. * IV dc'd yesterday. now on IV lasix * check FeNa and FeUrea; get renal USG tomorrow * if kidney function trends upward some more tomorrow, consult nephrology. * KHADIJAH is likely pre-renal, due to hemorrhagic shock. * #Hyperkalemia: K is 5.5 today. didnt get kayexalate yesterday as he was NPO. Will give rectal kayexalate tomorrow. #Bladder cancer * s/p radical cystoprostatectomy with ileal conduit placement * management as per urology and general surgery * #HF: EF unknown. Not in exacerbation. stable #Paroxysmal afib * metoprolol resumed today * HR in the 110s and 120s, and he has been in and out of afib. * #Hypertension: BP meds held on admission due to hemorrhagic shock DVT prophylaxis: SCDs Charges/Coding Visit Charges Inpatient E&M: 88576 Subs Hosp L3
[2021-04-24] MEDS: Acetaminophen 500 MG Tablet PO ×2 (11:32→20:39)
[2021-04-25] VITALS (12 sets, daily range): BP systolic 121–137; BP diastolic 55–69; PULSE 72–86; RESP 18; TEMP 36.7–37.3; O2SAT 94–96
[2021-04-25 07:04] LABS: Absolute Lymphocyte Count 1.04 X10^3/uL (0.83-4.51); Basophil# 0.02 X10^3/uL; Basophil% 0.1 % (0-1); Eosinophil# 0.03 X10^3/uL; Eosinophils% 0.2 % (0-5); Hematocrit 24.9 % (40-54); Hemoglobin 7.5 g/dL (13.0-16.5); Lymphocyte # 1.04 X10^3/ul (0.83-4.51); Lymphocyte % 7.4 % (19-41); Mean Corp Hgb Conc 30.1 g/dL (32-36); Mean Corpuscular Hgb 26.7 pg (27.0-32.0); Mean Corpuscular Volume 88.6 fL (80-94); Monocyte# 0.92 X10^3/uL; Monocyte% 6.5 % (0-10); NRBC Flagged by Analyzer 0 % (0-5); Neutrophil # 11.98 X10^3/uL (2.7-7.7); Neutrophil % 85.3 % (47-70); Platelet Count 187 K/mm3 (150-450); RBC Distribution Width CV 19.1 % (11.6-14.6); RBC Distribution Width SD 62.8 fl (35.1-43.9); Red Blood Count 2.81 M/mm3 (4.6-6.2); White Blood Count 14.1 K/mm3 (4.4-11.0)
--- NOTE | 2021-04-25 07:08 | PN.SURG_ITS ---
Subjective Subjective Patient reports no nausea or vomiting. He reports minimal abdominal pain. He says he is passing flatus and did have a small liquid bowel movement. Objective Data Objective Data Vital Signs: Vital Signs Temp Pulse Resp BP Pulse Ox 98.8 F 79 18 129/55 H 94 04/25/21 02:54 04/25/21 02:54 04/25/21 02:54 04/25/21 02:54 04/25/21 02:54 Oxygen Flow Rate (L/min) 2 Oxygen Delivery Method Room Air Weight: 217 lb 13.067 oz Body Mass Index (BMI) 29.4 Intake & Output: Intake and Output for Last 24 Hours 04/23/21 04/24/21 04/25/21 23:59 23:59 23:59 Intake Total 4789.70 / 4789.70 75 / 75 0 / 0 Output Total 305 / 530 1985 / 2220 645 / 645 Balance 4484.70 / 4259.70 -1910 / -2145 -645 / -645 Lab / Micro Data Result Diagrams: 04/25/21 06:26 04/24/21 03:50 Labs: Laboratory Results - last 24 hr 04/25/21 06:26: WBC 14.1 H, RBC 2.81 L, Hgb 7.5 L, Hct 24.9 L, MCV 88.6, MCH 26.7 L, MCHC 30.1 L, RDW Std Deviation 62.8 H, RDW Coeff of [place]oreta 19.1 H, Plt Count 187, MPV 11.0, Immature Gran % (Auto) 0.500, Neut % (Auto) 85.3 H, Lymph % (Auto) 7.4 L, [place] % (Auto) 6.5, Eos % (Auto) 0.2, Baso % (Auto) 0.1, Absolute Neuts (auto) 12.0 H, Absolute Lymphs (auto) 1.04, Nucleated RBC % 0 Physical Exam Const no apparent distress Resp normal respiratory effort Cardio regular rate GI soft to palpation Assessment & Plan Assessment/Plan (1) S/P ileal conduit: PLAN: Patient has some bloody urine in the ostomy bag and stoma looks pink. Patient reports minimal abdominal pain. He does report flatus and small liquid bowel movement. If okay with Dr. Bey, I would advance the patient to a clear liquid diet. Jer Ramirez MD Pager: [facility] [address] [place] [address], [address] [place] [address] Office:
[2021-04-25 07:16] LABS: Anion Gap 7 (5-15); BUN 50 mg/dL (7-18); BUN/Creat Ratio 25.5 RATIO (10-20); Calcium,Total 8.1 mg/dL (8.5-10.1); Chloride 108 mmol/L (98-107); Creatinine, Serum 1.96 mg/dL (0.70-1.30); EST Glomerular Filtration Rate 35 mL/min (>60); Est Glom Filt Rate - Afr Amer 42 mL/min (>60); Estimated Creatinine Clearance 31.71 ml/min; Glucose 106 mg/dL (74-106); Potassium 4.5 mmol/L (3.5-5.1); Sodium Level 140 mmol/L (136-145)
--- NOTE | 2021-04-25 08:56 | NURSING ---
Pt resting in bed. states he has had some loose stools. pt states I think I would feel much better if I could eat. Pt states he has only been able to have a very small amount of water. ostomy appliance is intact. dressing to abdomen is D&I. plan to change ostomy appliance with later today when she visits. Pt denies further needs at this time. Dr Ramirez had been in to see patient this am.
[2021-04-25] MEDS: Metoprolol Tartrate 50 MG Tablet PO ×2 (10:22→21:35)
[2021-04-25] MEDS: Furosemide 40 MG/4 ML Vial IV (10:54)
[2021-04-25] MEDS: 0.9% Saline Lock 10 ML Syringe IV (10:55)
--- NOTE | 2021-04-25 11:06 | PN.HOSP_ITS ---
Subjective Subjective Patient seen and examined. He complained of feeling bored because he was just lying in bed; he also expressed frustration about not being able to eat. He had no other complaints today. Review of systems otherwise negative. Hemoglobin has dropped to 7.5 today from 8.6 yesterday. Wbc is 14.1 today, and CR has trended down to 1.96. Objective Data Objective Data Vital Signs: Vital Signs Temp Pulse Resp BP Pulse Ox 98.0 F 80 18 127/65 H 94 04/25/21 07:34 04/25/21 10:22 04/25/21 07:34 04/25/21 07:34 04/25/21 08:46 Oxygen Flow Rate (L/min) 2 Oxygen Delivery Method Room Air Weight: 217 lb 13.067 oz Body Mass Index (BMI) 29.4 Intake & Output: Intake and Output for Last 24 Hours 04/23/21 04/24/21 04/25/21 23:59 23:59 23:59 Intake Total 4789.70 / 4789.70 75 / 75 0 / 0 Output Total 305 / 530 1984 / 2220 645 / 645 Balance 4484.70 / 4259.70 -1910 / -2145 -645 / -645 Lab / Micro Data Result Diagrams: 04/25/21 06:26 04/25/21 06:26 Labs: Laboratory Results - last 24 hr 04/22/21 22:10: Crossmatch See Detail 04/25/21 06:26: WBC 14.1 H, RBC 2.81 L, Hgb 7.5 L, Hct 24.9 L, MCV 88.6, MCH 26.7 L, MCHC 30.1 L, RDW Std Deviation 62.8 H, RDW Coeff of [place]oreta 19.1 H, Plt Count 187, MPV 11.0, Immature Gran % (Auto) 0.500, Neut % (Auto) 85.3 H, Lymph % (Auto) 7.4 L, [place] % (Auto) 6.5, Eos % (Auto) 0.2, Baso % (Auto) 0.1, Absolute Neuts (auto) 12.0 H, Absolute Lymphs (auto) 1.04, Nucleated RBC % 0 04/25/21 06:26: Sodium 140, Potassium 4.5, Chloride 108 H, Carbon Dioxide 25.0, Anion Gap 7, BUN 50 H, Creatinine 1.96 H, Estim Creat Clear Calc 31.71, Est GFR (MDRD) Af Amer 42 L, Est GFR (MDRD) Non-Af 35 L, BUN/Creatinine Ratio 25.5 H, Glucose 106, Calcium 8.1 L Physical Exam Const alert, oriented x3 and no apparent distress Exam Limitations: no limitations HEENT head/scalp atraumatic and moist oral mucous membranes Head and Scalp: normocephalic Eyes PERRL, EOMs intact bilaterally and conjunctivae normal Neck no lymphadenopathy Resp normal respiratory effort, no retractions, no use of accessory muscles and clear to auscultation bilaterally Cardio S1 normal heart sound, S2 normal heart sound and no murmurs Cardio Narrative: afib, rate controlled GI normal to inspection, nondistended, normoactive bowel sounds, soft to palpation and non-tender GI Narrative: abdominal dressing in place; has ileostomy bag which contains blood tinged fluid. Surgical drain also contains blood tinged fluid. Extremity normal to inspection Peripheral Pulses: Yes pulses 2+ throughout Skin no rashes or lesions noted Neuro oriented x3, CN's II-XII intact bilaterally and moves all extremities Sensorium / Orientation: awake and alert Psych affect normal Assessment & Plan Assessment/Plan (1) Hemorrhagic shock: (2) Bladder cancer: QUALIFIERS: Bladder location: overlapping sites Qualified Code(s) : C67.8 - Malignant neoplasm of overlapping sites of bladder PLAN: #Hemorrhagic shock * likely due to acute blood loss from surgery * s/p transfusion of 2 units of PRBCs as well as FFPs * Hb is 7.5. shock has resolved today. * stable * #Acute on chronic anemia * due to acute blood loss from surgery * is s/p 4 units of PRBCs * Hb dropped to 7.5 today, from 8.5 yesterday. WIll transfuse with one more unit of PRBC today * #KHADIJAH: * CR is down to 1.96 today. All likely due to hemorrhagic shock * hold off on renal USG since kidney function is improving * will trend Cr * #Hyperkalemia: K is 4.5 today. Will monitor #Bladder cancer * s/p radical cystoprostatectomy with ileal conduit placement * management as per urology and general surgery * #HF: EF unknown. Not in exacerbation. stable #Paroxysmal afib * on metoprolol 50mg bid. * * #Hypertension:metoprolol resumed o/a of paroxysmal afib. losartan on hold. DVT prophylaxis: SCDs Charges/Coding Visit Charges Inpatient E&M: 23374 Subs Hosp L2
--- NOTE | 2021-04-25 13:03 | NURSING ---
Ileal conduit appliance leaking. removed at this time. there was some blistering noted to the lateral edge of the flange. stent in place to stoma. stoma is well budded and beefy red. peristomal skin is intact. cleansed with warm water. pat dry. applied a new flat 1 piece [place] appliance. Pt tolerated well. will monitor. planned on changing appliance with , but not present in room at this time. will continue education with patient and spouse.
--- NOTE | 2021-04-25 13:08 | PN.CC_ITS ---
Assessment & Plan Assessment/Plan (1) Hemorrhagic shock: PLAN: RECOMMENDATIONS: 1. Walking oximetry prior to discharge. 2. Encourage incentive spirometer use and mobilize patient as tolerated. 3. Defer further diuresis to primary surface 4. Continue beta-samantha. 5. Hemodynamically stable on room air. Will sign off from a critical care perspective IMPRESSIONS: 1. Hemorrhagic shock The patient developed postoperative hypotension and was noted to have a 3 g drop in his hemoglobin. The patient did receive supplemental IV fluids along with transfusion of blood products. The patient did require the initiation of vasopressor support to maintain hemodynamic stability. However, the patient has improved clinically and has since been weaned off vasopressor support. Hemoglobin and platelet count are stable this morning. Plan to continue to monitor blood counts daily and transfuse if hemoglobin drops below 7 g/dL. Patient did have a drop in hemoglobin, but has remained normotensive. Clinical suspicion for an element of equilibration leading to a drop in hemoglobin. 2. Acute hypoxemic respiratory insufficiency Likely secondary to hypervolemia and atelectasis leading to VQ mismatch. Recommend cautious use of diuretics given underlying renal insufficiency. Encourage incentive spirometer use and mobilize patient as tolerated. Patient has been able to be taken off of supplemental oxygen. Atelectasis versus mild volume overload would be a concern. Patient should have a walking oximetry prior to discharge. 3. Acute kidney injury Clinical concern for prerenal etiology/ischemic ATN in the setting of #1. The patient's hemodynamic status has stabilized. Hopeful for improvement in creatinine in light of the aforementioned intervention. Continue to monitor urine output for now. No current indication for renal replacement therapy. 4. Bladder cancer, now POD #3 s/p radical cystoprostatectomy and formation of ileal conduit Continue routine postoperative care per general surgery/urology recommendations. 5. History of paroxysmal atrial fibrillation/hypertension/hyperlipidemia Complicates care, management, recovery and prognosis. Restart home beta- samantha dose. This note was generated with [employer] dictation software. It may contain incorrect words, spelling, and punctuation that were not noted in checking the note before signing. Subjective Subjective Patient did well overnight. No acute issues were reported. Patient overall feels subjectively improved compared to previous. No bleeding clinically has been noted. Patient is not reporting any change in his abdominal findings. Objective Data Objective Data Vital Signs: Vital Signs Temp Pulse Resp BP Pulse Ox 37.3 C 81 18 124/63 H 94 08/30/21 12:45 04/25/21 12:45 04/25/21 12:45 04/25/21 12:45 04/25/21 12:45 Oxygen Flow Rate (L/min) 2 Oxygen Delivery Method Room Air Weight: 98.8 kg Body Mass Index (BMI) 29.4 Intake & Output: Intake and Output for Last 24 Hours 04/23/21 04/24/21 04/25/21 23:59 23:59 23:59 Intake Total 4789.70 / 4789.70 75 / 75 700 / 700 Output Total 305 / 530 1985 / 2220 1845 / 1845 Balance 4484.70 / 4259.70 -1910 / -2145 -1145 / -1145 Lab / Micro Data Result Diagrams: 04/25/21 06:26 04/25/21 06:26 Labs: Laboratory Results - last 24 hr 04/22/21 22:10: Crossmatch See Detail 04/22/21 22:10: Crossmatch See Detail 04/25/21 06:26: WBC 14.1 H, RBC 2.81 L, Hgb 7.5 L, Hct 24.9 L, MCV 88.6, MCH 26.7 L, MCHC 30.1 L, RDW Std Deviation 62.8 H, RDW Coeff of [place]ore[place] 19.1 H, Plt Count 187, MPV 11.0, Immature Gran % (Auto) 0.500, Neut % (Auto) 85.3 H, Lymph % (Auto) 7.4 L, [place] % (Auto) 6.5, Eos % (Auto) 0.2, Baso % (Auto) 0.1, Absolute Neuts (auto) 12.0 H, Absolute Lymphs (auto) 1.04, Nucleated RBC % 0 04/25/21 06:26: Sodium 140, Potassium 4.5, Chloride 108 H, Carbon Dioxide 25.0, Anion Gap 7, BUN 50 H, Creatinine 1.96 H, Estim Creat Clear Calc 31.71, Est GFR (MDRD) Af Amer 42 L, Est GFR (MDRD) Non-Af 35 L, BUN/Creatinine Ratio 25.5 H, Glucose 106, Calcium 8.1 L Physical Exam Const alert, oriented x3 and no apparent distress General Appearance: cooperative, comfortable and well kempt HEENT normocephalic and head/scalp atraumatic Head and Scalp: normal to inspection Eyes PERRL, EOMs intact bilaterally, conjunctivae normal and no scleral icterus Chest inspection of chest normal Chest: symmetrical chest wall rise; Negative for crepitus Resp Auscultation: rales Cardio Rhythm: abnormal rhythm GI soft to palpation and non-tender GI Narrative: MICHELLE drain with 15 mL seroanguinous Auscultation: normoactive bowel sounds Palpation: soft Extremity General Extremity: edema; Negative for clubbing Skin Skin Narrative: Incisions clean, dry and intact. No fluctuance Neuro oriented x3, CN's II-XII intact bilaterally, moves all extremities and no focal motor deficits Psych mental status grossly normal, thought process normal, cooperative and affect normal Charges/Coding Visit Charges Inpatient E&M: 44623 Subs Hosp L2
[2021-04-25 14:05] LABS: Pathologist Review Reviewed
[2021-04-25 14:10] LABS: Pathologist Review Reviewed
[2021-04-25] MEDS: Acetaminophen 500 MG Tablet PO (14:23)
--- NOTE | 2021-04-25 15:36 | PCM.PN.GU ---
Subjective Subjective doing well improving good uop cr better, givne PRBC today but okay stable Objective Data Objective Data Vital Signs: Vital Signs Temp Pulse Resp BP Pulse Ox 98.7 F 82 18 137/66 H 96 04/25/21 13:45 04/25/21 13:45 04/25/21 13:45 04/25/21 13:45 04/25/21 13:45 Oxygen Flow Rate (L/min) 2 Oxygen Delivery Method Room Air Weight: 98.8 kg Body Mass Index (BMI) 29.4 Intake & Output: Intake and Output for Last 24 Hours 04/23/21 04/24/21 04/25/21 23:59 23:59 23:59 Intake Total 4789.70 / 4789.70 75 / 75 1625 / 1625 Output Total 305 / 530 1984 / 2220 2395 / 2395 Balance 4484.70 / 4259.70 -1910 / -2145 -770 / -770 Lab / Micro Data Result Diagrams: 04/25/21 06:26 04/25/21 06:26 Labs: Laboratory Results - last 24 hr 04/22/21 22:10: Crossmatch See Detail 04/22/21 22:10: Crossmatch See Detail 04/23/21 13:00: Diff Path Review Reviewed 04/24/21 03:50: Diff Path Review Reviewed 04/25/21 06:26: WBC 14.1 H, RBC 2.81 L, Hgb 7.5 L, Hct 24.9 L, MCV 88.6, MCH 26.7 L, MCHC 30.1 L, RDW Std Deviation 62.8 H, RDW Coeff of Loreta 19.1 H, Plt Count 187, MPV 11.0, Immature Gran % (Auto) 0.500, Neut % (Auto) 85.3 H, Lymph % (Auto) 7.4 L, [place] % (Auto) 6.5, Eos % (Auto) 0.2, Baso % (Auto) 0.1, Absolute Neuts (auto) 12.0 H, Absolute Lymphs (auto) 1.04, Nucleated RBC % 0 04/25/21 06:26: Sodium 140, Potassium 4.5, Chloride 108 H, Carbon Dioxide 25.0, Anion Gap 7, BUN 50 H, Creatinine 1.96 H, Estim Creat Clear Calc 31.71, Est GFR (MDRD) Af Amer 42 L, Est GFR (MDRD) Non-Af 35 L, BUN/Creatinine Ratio 25.5 H, Glucose 106, Calcium 8.1 L Physical Exam Const alert and oriented x3 General Appearance: cooperative HEENT normocephalic, head/scalp atraumatic, EAC's normal and TM's normal bilaterally Eyes PERRL and EOMs intact bilaterally Pupil: sluggish Neck no lymphadenopathy, supple and no JVD General: trachea midline Lymph Lymphatic: no lymphadenopathy noted, lymphedema and lymphadenopathy Resp normal respiratory effort, normal air movement and clear to auscultation bilaterally Cardio regular rate, regular rhythm and peripheral pulses 2+ throughout GI soft to palpation, non-tender and non-distended Extremity normal capillary refill and no clubbing, cyanosis or edema General Extremity: no tenderness to palpation of joints or extremities Skin no rashes or lesions noted General Skin Exam: turgor normal Lesions: no lesions Rashes: no rashes Neuro CN's II-XII intact bilaterally Speech: speech normal Motor Exam: strength 5/5 throughout; Negative for general weakness Psych thought process normal, cooperative and affect normal Appearance: appropriate
[2021-04-26] VITALS (7 sets, daily range): BP systolic 121–140; BP diastolic 61–72; PULSE 72–93; RESP 16–18; TEMP 36.8–37.6; O2SAT 94–96
--- NOTE | 2021-04-26 01:15 | PCS.PANDOC ---
PANDEMIC DOCUMENTATION INITIATED: Date: 04/22/2021 Time: 914
[2021-04-26 05:52] LABS: Absolute Lymphocyte Count 1.25 X10^3/uL (0.83-4.51); Absolute Neutrophil Count 9.3 X10^3/uL (2.0-7.7); Basophil# 0.03 X10^3/uL; Basophil% 0.3 % (0-1); Eosinophil# 0.15 X10^3/uL; Eosinophils% 1.3 % (0-5); Hematocrit 29.3 % (40-54); Hemoglobin 8.9 g/dL (13.0-16.5); Lymphocyte # 1.25 X10^3/ul (0.83-4.51); Lymphocyte % 10.7 % (19-41); Mean Corp Hgb Conc 30.4 g/dL (32-36); Mean Corpuscular Hgb 27.1 pg (27.0-32.0); Mean Corpuscular Volume 89.3 fL (80-94); Mean Platelet Vol. 10.4 fl (6.2-12.0); Monocyte# 0.92 X10^3/uL; Monocyte% 7.8 % (0-10); NRBC Flagged by Analyzer 0 % (0-5); Neutrophil # 9.31 X10^3/uL (2.7-7.7); Neutrophil % 79.3 % (47-70); Platelet Count 217 K/mm3 (150-450); RBC Distribution Width SD 59.6 fl (35.1-43.9); Red Blood Count 3.28 M/mm3 (4.6-6.2); White Blood Count 11.7 K/mm3 (4.4-11.0)
[2021-04-26 06:19] LABS: Anion Gap 6 (5-15); BUN 45 mg/dL (7-18); BUN/Creat Ratio 34.4 RATIO (10-20); Calcium,Total 8.4 mg/dL (8.5-10.1); Chloride 109 mmol/L (98-107); Creatinine, Serum 1.31 mg/dL (0.70-1.30); EST Glomerular Filtration Rate 55 mL/min (>60); Est Glom Filt Rate - Afr Amer 67 mL/min (>60); Estimated Creatinine Clearance 47.44 ml/min; Glucose 118 mg/dL (74-106); Potassium 4.1 mmol/L (3.5-5.1); Sodium Level 139 mmol/L (136-145)
--- NOTE | 2021-04-26 07:36 | PN.SURG_ITS ---
Subjective Subjective Reports he is passing flatus with no abdominal pain. No nausea or vomiting. Tolerated clears. Objective Data Objective Data Vital Signs: Vital Signs Temp Pulse Resp BP Pulse Ox 99.0 F 72 18 136/61 H 94 04/26/21 02:18 04/26/21 02:18 04/26/21 02:18 04/26/21 02:18 04/26/21 02:18 Oxygen Flow Rate (L/min) 2 Oxygen Delivery Method Room Air Weight: 212 lb 4.882 oz Body Mass Index (BMI) 29.4 Intake & Output: Intake and Output for Last 24 Hours 04/24/21 04/25/21 04/26/21 23:59 23:59 23:59 Intake Total 75 / 75 1625 / 1625 Output Total 1984 / 2219 2745 / 2745 550 / 550 Balance -1910 / -2145 -1120 / -1120 -550 / -550 Lab / Micro Data Result Diagrams: 04/26/21 05:44 04/26/21 05:44 Labs: Laboratory Results - last 24 hr 04/22/21 22:10: Crossmatch See Detail 04/22/21 22:10: Crossmatch See Detail 04/23/21 13:00: Diff Path Review Reviewed 04/24/21 03:50: Diff Path Review Reviewed 04/26/21 05:44: WBC 11.7 H, RBC 3.28 L, Hgb 8.9 L, Hct 29.3 L, MCV 89.3, MCH 27.1, MCHC 30.4 L, RDW Std Deviation 59.6 H, RDW Coeff of [place]oreta 18.0 H, Plt Count 217, MPV 10.4, Immature Gran % (Auto) 0.600, Neut % (Auto) 79.3 H, Lymph % (Auto) 10.7 L, [place] % (Auto) 7.8, Eos % (Auto) 1.3, Baso % (Auto) 0.3, Absolute Neuts (auto) 9.3 H, Absolute Lymphs (auto) 1.25, Nucleated RBC % 0 04/26/21 05:44: Sodium 139, Potassium 4.1, Chloride 109 H, Carbon Dioxide 24.0, Anion Gap 6, BUN 45 H, Creatinine 1.31 H, Estim Creat Clear Calc 47.44, Est GFR (MDRD) Af Amer 67, Est GFR (MDRD) Non-Af 55 L, BUN/Creatinine Ratio 34.4 H, Glucose 118 H, Calcium 8.4 L Physical Exam Const oriented x3 and no apparent distress Resp normal respiratory effort GI soft to palpation Assessment & Plan Assessment/Plan (1) S/P ileal conduit: PLAN: Stoma is pink and has blood tinged urine in the bag. Patient tolerating clears and passing flatus. I will advance to full liquids for breakfast and advance as tolerated to regular throughout the rest of the day. Jer Ramirez MD Pager: [facility] [address] [place] [address], [address] [place] [address] Office:
--- NOTE | 2021-04-26 08:01 | WOUNDNOTE ---
Ileal conduit appliance intact. emptied for 250 cc's blood tinged urine. appliance was changed by this nurse yesterday. the blistering around the appliance improving. blistering most likely d/t abdominal distension. pt up to chair. moving well. denies further needs at this time.
[2021-04-26] MEDS: Metoprolol Tartrate 50 MG Tablet PO ×2 (08:32→21:31)
--- NOTE | 2021-04-26 11:09 | WOUNDNOTE ---
Pt had small watery yellow/green stool in the bathroom. patient had just started on full liquids this am. patient denies cramping now, but states he did have some cramping after he ate the chocolate pudding for breakfast. pt currently resting in bed. has been up moving around well in the room.
[2021-04-26] MEDS: 0.9% Saline Lock 10 ML Syringe IV (11:19)
[2021-04-26] MEDS: Furosemide 40 MG/4 ML Vial IV (11:19)
--- NOTE | 2021-04-26 11:25 | CASEMGMT ---
Addendum entered by Caterina Murray 04/26/21 15:06: [facility] will accept pt for SN services. Pt notified. Original Note: RN CM in to pt room to discuss [place]. Pt is agreeable to this. Patient was provided a list of C providers including quality and resource use data and consistent with the patient?s preferred geographic region, medical needs, and insurance network. The patient?s preferred provider is [facility]. TC to Isabel intake and left voicemail with referral. Awaiting returned call.
--- NOTE | 2021-04-26 13:19 | PCM.PN.HOSP ---
Subjective Subjective Doing well, no issues overnight. Does have multiple bowel movements. He does have some blood in his MICHELLE and blood-tinged urine in his urostomy Objective Data Objective Data Vital Signs: Vital Signs Temp Pulse Resp BP Pulse Ox 98.2 F 81 18 137/72 H 96 04/26/21 08:29 04/26/21 08:32 04/26/21 08:29 04/26/21 08:32 04/26/21 08:29 Oxygen Flow Rate (L/min) 2 Oxygen Delivery Method Room Air Weight: 212 lb 4.882 oz Body Mass Index (BMI) 29.4 Intake & Output: Intake and Output for Last 24 Hours 04/25/21 04/26/21 04/27/21 03:59 03:59 03:59 Intake Total 75 / 75 1625 / 1625 480 / 480 Output Total 1670 / 1670 2785 / 2785 1925 / 1925 Balance -1595 / -1595 -1160 / -1160 -1445 / -1445 Lab / Micro Data Result Diagrams: 04/26/21 05:44 04/26/21 05:44 Labs: Laboratory Results - last 24 hr 04/22/21 22:10: Crossmatch See Detail 04/23/21 13:00: Diff Path Review Reviewed 04/24/21 03:50: Diff Path Review Reviewed 04/26/21 05:44: WBC 11.7 H, RBC 3.28 L, Hgb 8.9 L, Hct 29.3 L, MCV 89.3, MCH 27.1, MCHC 30.4 L, RDW Std Deviation 59.6 H, RDW Coeff of Loreta 18.0 H, Plt Count 217, MPV 10.4, Immature Gran % (Auto) 0.600, Neut % (Auto) 79.3 H, Lymph % (Auto) 10.7 L, [place] % (Auto) 7.8, Eos % (Auto) 1.3, Baso % (Auto) 0.3, Absolute Neuts (auto) 9.3 H, Absolute Lymphs (auto) 1.25, Nucleated RBC % 0 04/26/21 05:44: Sodium 139, Potassium 4.1, Chloride 109 H, Carbon Dioxide 24.0, Anion Gap 6, BUN 45 H, Creatinine 1.31 H, Estim Creat Clear Calc 47.44, Est GFR (MDRD) Af Amer 67, Est GFR (MDRD) Non-Af 55 L, BUN/Creatinine Ratio 34.4 H, Glucose 118 H, Calcium 8.4 L Physical Exam Const alert, oriented x3 and no apparent distress General Appearance: cooperative HEENT normocephalic and moist oral mucous membranes Eyes PERRL, EOMs intact bilaterally and conjunctivae normal Neck supple and no JVD Resp normal respiratory effort, no retractions, no use of accessory muscles and clear to auscultation bilaterally Auscultation: Negative for crackles, rales, rhonchi or wheezes Cardio regular rate, regular rhythm, S1 normal heart sound, S2 normal heart sound and no murmurs GI soft to palpation, non-tender and non-distended; Negative for hepatosplenomegaly Extremity no clubbing, cyanosis or edema Skin no rashes or lesions noted Neuro no focal motor deficits and no sensory deficits noted Psych affect normal Appearance: appropriate Assessment & Plan Assessment/Plan (1) Hemorrhagic shock: (2) Bladder cancer: QUALIFIERS: Bladder location: overlapping sites Qualified Code(s): C67.8 - Malignant neoplasm of overlapping sites of bladder PLAN: 1. 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 HTN/HLD/chronic diastolic CHF/A. fib -No anticoagulation given his hemorrhagic shock -Continue with his home blood pressure medications -Will hold off his his losartan until his renal function is stable -Echo in January 2021 with an EF of 60% and stage III diastolic dysfunction -Continue with Lasix for now and continue to monitor kidney function closely DVT: SCDs Charges/Coding Visit Charges Inpatient E&M: 57077 Subs Hosp L2
--- NOTE | 2021-04-26 13:49 | WOUNDNOTE ---
Script for ostomy on front of chart for Dr Bey to sign prior to patient going home. Case Management getting home health arranged for home for further ostomy teaching as well. was not able to watch ostomy change yesterday since patient had leak prior to coming for visit. Pt has been shown how to empty the ostomy appliance and how to hook appliance up to the night drainage bag. Pt denies needs at this time.
[2021-04-26 19:16] LABS: Hematocrit 31.1 % (40-54); Hemoglobin 9.6 g/dL (13.0-16.5)
[2021-04-27] VITALS (9 sets, daily range): BP systolic 120–150; BP diastolic 60–74; PULSE 70–110; RESP 16–18; TEMP 36.8–37.2; O2SAT 94–98
[2021-04-27 07:05] LABS: Absolute Lymphocyte Count 1.17 X10^3/uL (0.83-4.51); Absolute Neutrophil Count 8.2 X10^3/uL (2.0-7.7); Basophil# 0.03 X10^3/uL; Basophil% 0.3 % (0-1); Eosinophil# 0.36 X10^3/uL; Eosinophils% 3.3 % (0-5); Hematocrit 30.6 % (40-54); Hemoglobin 9.1 g/dL (13.0-16.5); Lymphocyte # 1.17 X10^3/ul (0.83-4.51); Lymphocyte % 10.7 % (19-41); Mean Corp Hgb Conc 29.7 g/dL (32-36); Mean Corpuscular Hgb 27.1 pg (27.0-32.0); Mean Corpuscular Volume 91.1 fL (80-94); Mean Platelet Vol. 10.5 fl (6.2-12.0); Monocyte# 1.13 X10^3/uL; Monocyte% 10.3 % (0-10); NRBC Flagged by Analyzer 0 % (0-5); Neutrophil # 8.16 X10^3/uL (2.7-7.7); Neutrophil % 74.8 % (47-70); Platelet Count 231 K/mm3 (150-450); RBC Distribution Width CV 17.6 % (11.6-14.6); RBC Distribution Width SD 59.5 fl (35.1-43.9); Red Blood Count 3.36 M/mm3 (4.6-6.2); White Blood Count 10.9 K/mm3 (4.4-11.0)
[2021-04-27 07:31] LABS: Anion Gap 6 (5-15); BUN 42 mg/dL (7-18); BUN/Creat Ratio 38.2 RATIO (10-20); Calcium,Total 8.4 mg/dL (8.5-10.1); Chloride 110 mmol/L (98-107); EST Glomerular Filtration Rate 68 mL/min (>60); Est Glom Filt Rate - Afr Amer 82 mL/min (>60); Estimated Creatinine Clearance 56.49 ml/min; Glucose 110 mg/dL (74-106); Potassium 3.7 mmol/L (3.5-5.1); Sodium Level 141 mmol/L (136-145)
[2021-04-27] MEDS: Metoprolol Tartrate 50 MG Tablet PO ×2 (09:31→21:23)
[2021-04-27] MEDS: Furosemide 40 MG/4 ML Vial IV (09:32)
--- NOTE | 2021-04-27 12:00 | PN.URO_ITS ---
Subjective Subjective 86-year-old male with a history of bladder cancer status post radical cystoprostatectomy is now doing well tolerating regular diet had some bowel movements abdomen soft and benign MICHELLE drain is still quite high so we will leave the MICHELLE drain in place ileostomy output is good he is clinically stable. Objective Data Objective Data Vital Signs: Vital Signs Temp Pulse Resp BP Pulse Ox 98.7 F 74 16 133/60 H 94 04/27/21 08:22 04/27/21 09:31 04/27/21 08:22 04/27/21 09:31 04/27/21 08:22 Oxygen Flow Rate (L/min) 2 Oxygen Delivery Method Room Air Weight: 95.6 kg Body Mass Index (BMI) 29.4 Intake & Output: Intake and Output for Last 24 Hours 04/25/21 04/26/21 04/27/21 23:59 23:59 23:59 Intake Total 1625 / 1625 480 / 480 Output Total 2745 / 2745 3450 / 3450 1100 / 1100 Balance -1120 / -1120 -2970 / -2970 -1100 / -1100 Lab / Micro Data Result Diagrams: 04/27/21 06:44 04/27/21 06:44 Labs: Laboratory Results - last 24 hr 04/26/21 19:10: Hgb 9.6 L, Hct 31.1 L 04/27/21 06:44: WBC 10.9, RBC 3.36 L, Hgb 9.1 L, Hct 30.6 L, MCV 91.1, MCH 27.1, MCHC 29.7 L, RDW Std Deviation 59.5 H, RDW Coeff of Loreta 17.6 H, Plt Count 231, MPV 10.5, Immature Gran % (Auto) 0.600, Neut % (Auto) 74.8 H, Lymph % (Auto) 10.7 L, [place] % (Auto) 10.3 H, Eos % (Auto) 3.3, Baso % (Auto) 0.3, Absolute Neuts (auto) 8.2 H, Absolute Lymphs (auto) 1.17, Nucleated RBC % 0 04/27/21 06:44: Sodium 141, Potassium 3.7, Chloride 110 H, Carbon Dioxide 25.0, Anion Gap 6, BUN 42 H, Creatinine 1.10, Estim Creat Clear Calc 56.49, Est GFR (MDRD) Af Amer 82, Est GFR (MDRD) Non-Af 68, BUN/Creatinine Ratio 38.2 H, Glucose 110 H, Calcium 8.4 L Physical Exam Const alert and oriented x3 General Appearance: cooperative HEENT normocephalic, head/scalp atraumatic, EAC's normal and TM's normal bilaterally Eyes PERRL and EOMs intact bilaterally Pupil: sluggish Neck no lymphadenopathy, supple and no JVD General: trachea midline Lymph Lymphatic: no lymphadenopathy noted, lymphedema and lymphadenopathy Resp normal respiratory effort, normal air movement and clear to auscultation bilaterally Cardio regular rate, regular rhythm and peripheral pulses 2+ throughout GI soft to palpation, non-tender and non-distended Extremity normal capillary refill and no clubbing, cyanosis or edema General Extremity: no tenderness to palpation of joints or extremities Skin no rashes or lesions noted General Skin Exam: turgor normal Lesions: no lesions Rashes: no rashes Neuro CN's II-XII intact bilaterally Speech: speech normal Motor Exam: strength 5/5 throughout; Negative for general weakness Psych thought process normal, cooperative and affect normal Appearance: appropriate Assessment & Plan Assessment/Plan (1) Bladder cancer: QUALIFIERS: Bladder location: overlapping sites Qualified Code(s): C67.8 - Malignant neoplasm of overlapping sites of bladder PLAN: Status post cystoprostatectomy for bladder cancer, doing well plan for discharge home tomorrow with ileal conduit ostomy supplies he will need nu rsing care at home he also have to go with the MICHELLE to drain the MICHELLE he will follow-up next week for MICHELLE removal in my office.
--- NOTE | 2021-04-27 12:02 | CASEMGMT ---
Spoke with , pt to be dc'd tomorrow. States MICHELLE will remain in place and C nurse will need to provide education on draining it. Message to Isabel at [facility] to make aware of this.
--- NOTE | 2021-04-27 12:36 | PN.HOSP_ITS ---
Subjective Subjective Doing well, feels better today. Eating well, there is still some MICHELLE drainage and primary service would like to keep him 1 more day Objective Data Objective Data Vital Signs: Vital Signs Temp Pulse Resp BP Pulse Ox 98.7 F 74 16 133/60 H 94 04/27/21 08:22 04/27/21 09:31 04/27/21 08:22 04/27/21 09:31 04/27/21 08:22 Oxygen Flow Rate (L/min) 2 Oxygen Delivery Method Room Air Weight: 210 lb 12.191 oz Body Mass Index (BMI) 29.4 Intake & Output: Intake and Output for Last 24 Hours 04/26/21 04/27/21 04/28/21 03:59 03:59 03:59 Intake Total 1625 / 1625 480 / 480 850 / 850 Output Total 2785 / 2785 3175 / 3175 1200 / 1200 Balance -1160 / -1160 -2695 / -2695 -350 / -350 Lab / Micro Data Result Diagrams: 04/27/21 06:44 04/27/21 06:44 Labs: Laboratory Results - last 24 hr 04/26/21 19:10: Hgb 9.6 L, Hct 31.1 L 04/27/21 06:44: WBC 10.9, RBC 3.36 L, Hgb 9.1 L, Hct 30.6 L, MCV 91.1, MCH 27.1, MCHC 29.7 L, RDW Std Deviation 59.5 H, RDW Coeff of Loreta 17.6 H, Plt Count 231, MPV 10.5, Immature Gran % (Auto) 0.600, Neut % (Auto) 74.8 H, Lymph % (Auto) 10.7 L, [place] % (Auto) 10.3 H, Eos % (Auto) 3.3, Baso % (Auto) 0.3, Absolute Neuts (auto) 8.2 H, Absolute Lymphs (auto) 1.17, Nucleated RBC % 0 04/27/21 06:44: Sodium 141, Potassium 3.7, Chloride 110 H, Carbon Dioxide 25.0, Anion Gap 6, BUN 42 H, Creatinine 1.10, Estim Creat Clear Calc 56.49, Est GFR (MDRD) Af Amer 82, Est GFR (MDRD) Non-Af 68, BUN/Creatinine Ratio 38.2 H, Glucose 110 H, Calcium 8.4 L Physical Exam Const alert, oriented x3 and no apparent distress General Appearance: cooperative HEENT normocephalic and moist oral mucous membranes Eyes PERRL, EOMs intact bilaterally and conjunctivae normal Neck supple and no JVD Resp normal respiratory effort, no retractions, no use of accessory muscles and clear to auscultation bilaterally Auscultation: Negative for crackles, rales, rhonchi or wheezes Cardio regular rate, regular rhythm, S1 normal heart sound, S2 normal heart sound and no murmurs GI soft to palpation, non-tender and non-distended; Negative for hepatosplenomegaly Extremity normal to inspection and no clubbing, cyanosis or edema Skin no rashes or lesions noted Neuro no focal motor deficits and no sensory deficits noted Psych affect normal Appearance: appropriate Assessment & Plan Assessment/Plan (1) Hemorrhagic shock: (2) Bladder cancer: QUALIFIERS: Bladder location: overlapping sites Qualified Code(s): C67.8 - Malignant neoplasm of overlapping sites of bladder PLAN: 1. Acute on chronic anemia with hemorrhagic shock status post radical cystoprostatectomy for bladder cancer with ileal conduit/KHADIJAH -Feeling much better, he did have to have a transfusion 04/25/2021 his hemoglobin responded, remained stable -Renal function is improving, will continue to monitor -Continue with iron replacement 2. HTN/HLD/chronic diastolic CHF/A. fib -No anticoagulation given his hemorrhagic shock -Continue with his home blood pressure medications -Will hold off his his losartan until his renal function is stable -Echo in January 2021 with an EF of 60% and stage III diastolic dysfunction -Continue with Lasix for now and continue to monitor kidney function closely DVT: SCDs Charges/Coding Visit Charges Inpatient E&M: 51732 Subs Hosp L2
--- NOTE | 2021-04-27 13:18 | WOUNDNOTE ---
Had reviewed and demonstrated emptying the MICHELLE drain with the patient numerous times. Patient states he feels comfortable emptying the drain at home. Pt states the plan is for discharge home tomorrow. Script for ostomy supplies had been faxed to home health per case management. will change ostomy appliance with patient and later today once the arrives to the hospital. will send a few appliances home with patient tomorrow as well. pt denies further needs at this time.
--- NOTE | 2021-04-27 14:04 | WOUNDNOTE ---
Ileal conduit appliance changed with patient and . gently removed the ostomy appliance. patient still has some healing blisters to the edges of the flange. stoma is well budded, pink, and moist. peristomal skin is intact except for the small blistering to the lateral edge of the flange. steri strips remain in place to the mid abdomen and MICHELLE drain in place to the LLQ. Pt states the drain will remain in place until next Sunday. patient has emptied the drain and feels comfortable with the care of the drain. cleansed the peristomal skin with warm water. pat dry. applied a new 1 piece flat appliance. pt tolerated well. Pt will have home health to assist with appliance changes at home as well. No further needs voiced at this time.
[2021-04-27] MEDS: Calcium Carbonate 500 MG Tablet 1000 MG PO (19:44)
[2021-04-27] MEDS: Famotidine 20 MG Tablet PO (21:24)
[2021-04-28 03:55] VITALS: BP 127/64; PULSE 88; RESP 16; TEMP 36.9; O2SAT 97
--- NOTE | 2021-04-28 06:47 | PCM.PN.SRG ---
Subjective Subjective Patient is tolerating a diet and having bowel movements Objective Data Objective Data Vital Signs: Vital Signs Temp Pulse Resp BP Pulse Ox 98.4 F 88 16 127/64 H 97 04/28/21 03:55 04/28/21 03:55 04/28/21 03:55 04/28/21 03:55 04/28/21 03:55 Oxygen Flow Rate (L/min) 2 Oxygen Delivery Method Room Air Weight: 212 lb 1.355 oz Body Mass Index (BMI) 29.4 Intake & Output: Intake and Output for Last 24 Hours 04/26/21 04/27/21 04/28/21 23:59 23:59 23:59 Intake Total 480 / 480 2049 / 2049 Output Total 3450 / 3450 2250 / 2250 Balance -2970 / -2970 -200 / -200 Lab / Micro Data Result Diagrams: 04/27/21 06:44 04/27/21 06:44 Labs: Laboratory Results - last 24 hr 04/27/21 06:44: WBC 10.9, RBC 3.36 L, Hgb 9.1 L, Hct 30.6 L, MCV 91.1, MCH 27.1, MCHC 29.7 L, RDW Std Deviation 59.5 H, RDW Coeff of Loreta 17.6 H, Plt Count 231, MPV 10.5, Immature Gran % (Auto) 0.600, Neut % (Auto) 74.8 H, Lymph % (Auto) 10.7 L, [place] % (Auto) 10.3 H, Eos % (Auto) 3.3, Baso % (Auto) 0.3, Absolute Neuts (auto) 8.2 H, Absolute Lymphs (auto) 1.17, Nucleated RBC % 0 04/27/21 06:44: Sodium 141, Potassium 3.7, Chloride 110 H, Carbon Dioxide 25.0, Anion Gap 6, BUN 42 H, Creatinine 1.10, Estim Creat Clear Calc 56.49, Est GFR (MDRD) Af Amer 82, Est GFR (MDRD) Non-Af 68, BUN/Creatinine Ratio 38.2 H, Glucose 110 H, Calcium 8.4 L Physical Exam Const no apparent distress Resp normal respiratory effort Cardio regular rate GI soft to palpation and non-tender Assessment & Plan Assessment/Plan (1) S/P ileal conduit: PLAN: Patient is doing well and tolerating a regular diet and having bowel movements. Conduit is soft and pink Jer Ramirez MD Pager: [facility] [address] [place] [address] [address] [phone] Office:
[2021-04-28 07:02] LABS: Absolute Lymphocyte Count 1.42 X10^3/uL (0.83-4.51); Absolute Neutrophil Count 9.9 X10^3/uL (2.0-7.7); Basophil# 0.02 X10^3/uL; Basophil% 0.1 % (0-1); Eosinophil# 0.53 X10^3/uL; Eosinophils% 3.9 % (0-5); Hematocrit 29.9 % (40-54); Lymphocyte # 1.42 X10^3/ul (0.83-4.51); Lymphocyte % 10.6 % (19-41); Mean Corp Hgb Conc 30.1 g/dL (32-36); Mean Corpuscular Hgb 26.7 pg (27.0-32.0); Mean Corpuscular Volume 88.7 fL (80-94); Monocyte# 1.44 X10^3/uL; Monocyte% 10.7 % (0-10); NRBC Flagged by Analyzer 0 % (0-5); Neutrophil # 9.92 X10^3/uL (2.7-7.7); Platelet Count 278 K/mm3 (150-450); RBC Distribution Width CV 17.2 % (11.6-14.6); RBC Distribution Width SD 56.6 fl (35.1-43.9); Red Blood Count 3.37 M/mm3 (4.6-6.2); White Blood Count 13.4 K/mm3 (4.4-11.0)
[2021-04-28 07:28] LABS: Anion Gap 6 (5-15); BUN 38 mg/dL (7-18); BUN/Creat Ratio 39.6 RATIO (10-20); Calcium,Total 8.3 mg/dL (8.5-10.1); Chloride 108 mmol/L (98-107); Creatinine, Serum 0.96 mg/dL (0.70-1.30); EST Glomerular Filtration Rate 79 mL/min (>60); Est Glom Filt Rate - Afr Amer 96 mL/min (>60); Estimated Creatinine Clearance 64.73 ml/min; Glucose 109 mg/dL (74-106); Potassium 3.8 mmol/L (3.5-5.1); Sodium Level 138 mmol/L (136-145)
--- NOTE | 2021-04-28 07:44 | PCM.DC ---
Discharge Instructions Diet Discharge Diet: No restrictions Activity Discharge Activity: Return to Normal Activity and May Not Drive (while taking narcotic pain medications.) Dressing / Incision Call your doctor if you observe: Fever of 101 or Higher Additional Dressing/Incision Instructions:: Ostomy care, MICHELLE care Follow Up Care Please Follow Up With: Taj Bey MD When: Call [phone] for an appointment Test Results: Test results from this visit will be discussed in further detail at your follow-up appointment, if applicable. Call for an appt next week to d/c MICHELLE drain Discharge Plan Admission Admit Date/Time: 04/22/21 05:41 Attending Provider: Ernesto Stock Primary Care Provider: Xu Coleman Consulting Providers: Jer Ramirez ; Serena Rangel ; Igor Armijo ; Kp Allan ; Ella Madrigal OCCUPATIONAL THERAPY PROGRAM DIRECTOR Discharge Orders/Prescriptions Prescriptions: New ciprofloxacin HCl [Cipro] 500 mg tablet 500 mg PO BID Qty: 14 RF: 0 Continued multivitamin tablet 1 tab PO QDAY RF: 0 omega-3 fatty acids [Fish Oil Concentrate] 1,000 mg capsule 1,000 mg PO DAILY RF: 0 aspirin 81 mg tablet,delayed release (DR/EC) 81 mg PO DAILY RF: 0 ferrous sulfate 325 mg (65 mg iron) tablet,delayed release (DR/EC) 325 mg PO QHS RF: 0 losartan [Cozaar] 50 mg tablet 50 mg PO BID RF: 0 metoprolol tartrate 25 mg tablet 50 mg PO BID RF: 0 Cbd Gummies 1 tab PO/SL BID RF: 0 Other Ambulatory Orders: T&S with Crossmatch, Red Cells (Routine) Timeframe: [id number] Location: None Selected Ordered By: Dr. Taj Bey Referrals / Follow Up: Taj Bey MD [STAFF PHYSICIAN] - Xu Coleman MD [Primary Care Provider] - Disposition Disposition (needs filled in before D/C Order can be placed): Home Health Service
--- NOTE | 2021-04-28 07:52 | WOUNDNOTE ---
In to review emptying of the ileal conduit and the MICHELLE drain. changed the MICHELLE drain dressing. pt states understanding. teaching booklet given to patient as well. Dr Bey in to see patient and plans to send patient home today. script for supplies already faxed to home health care agency. steri strips remain intact to mid abdominal incision. Pt denies further needs at this time.
[2021-04-28 08:02] VITALS: BP 137/74; PULSE 94; RESP 14; TEMP 36.9; O2SAT 99
[2021-04-28 08:09] VITALS: PULSE 94
[2021-04-28] MEDS: 0.9% Saline Lock 10 ML Syringe IV (08:09)
[2021-04-28] MEDS: Furosemide 40 MG/4 ML Vial IV (08:09)
[2021-04-28] MEDS: Docusate Sodium 100 MG Capsule 200 MG PO (08:09)
[2021-04-28] MEDS: Famotidine 20 MG Tablet PO (08:09)
[2021-04-28] MEDS: Metoprolol Tartrate 50 MG Tablet PO (08:09)
[2021-04-28 08:17] VITALS: O2SAT 96
--- NOTE | 2021-04-28 09:36 | PCM.PN.HOSP ---
Subjective Subjective Doing well, feels much better today. No issues overnight, hemoglobin is stable this morning Objective Data Objective Data Vital Signs: Vital Signs Temp Pulse Resp BP Pulse Ox 98.5 F 94 14 137/74 H 96 04/28/21 08:02 04/28/21 08:09 04/28/21 08:02 04/28/21 08:02 04/28/21 08:17 Oxygen Flow Rate (L/min) 2 Oxygen Delivery Method Room Air Weight: 212 lb 1.355 oz Body Mass Index (BMI) 29.4 Intake & Output: Intake and Output for Last 24 Hours 04/27/21 04/28/21 04/29/21 03:59 03:59 03:59 Intake Total 480 / 480 2049 / 2049 Output Total 3175 / 3175 2250 / 2250 430 / 430 Balance -2695 / -2695 -200 / -200 -430 / -430 Lab / Micro Data Result Diagrams: 04/28/21 06:54 04/28/21 06:54 Labs: Laboratory Results - last 24 hr 04/28/21 06:54: WBC 13.4 H, RBC 3.37 L, Hgb 9.0 L, Hct 29.9 L, MCV 88.7, MCH 26.7 L, MCHC 30.1 L, RDW Std Deviation 56.6 H, RDW Coeff of Loreta 17.2 H, Plt Count 278, MPV 10.0, Immature Gran % (Auto) 0.700, Neut % (Auto) 74.0 H, Lymph % (Auto) 10.6 L, Band[place] % (Auto) 10.7 H, Eos % (Auto) 3.9, Baso % (Auto) 0.1, Absolute Neuts (auto) 9.9 H, Absolute Lymphs (auto) 1.42, Nucleated RBC % 0 04/28/21 06:54: Sodium 138, Potassium 3.8, Chloride 108 H, Carbon Dioxide 24.0, Anion Gap 6, BUN 38 H, Creatinine 0.96, Estim Creat Clear Calc 64.73, Est GFR (MDRD) Af Amer 96, Est GFR (MDRD) Non-Af 79, BUN/Creatinine Ratio 39.6 H, Glucose 109 H, Calcium 8.3 L Physical Exam Const alert, oriented x3 and no apparent distress General Appearance: cooperative HEENT normocephalic and moist oral mucous membranes Eyes PERRL, EOMs intact bilaterally and conjunctivae normal Neck supple and no JVD Resp normal respiratory effort, no retractions, no use of accessory muscles and clear to auscultation bilaterally Auscultation: Negative for crackles, rales, rhonchi or wheezes Cardio regular rate, regular rhythm, S1 normal heart sound, S2 normal heart sound and no murmurs GI soft to palpation, non-tender and non-distended; Negative for hepatosplenomegaly Extremity normal to inspection and no clubbing, cyanosis or edema Skin no rashes or lesions noted Neuro no focal motor deficits and no sensory deficits noted Psych affect normal Appearance: appropriate Assessment & Plan Assessment/Plan (1) Hemorrhagic shock: (2) Bladder cancer: QUALIFIERS: Bladder location: overlapping sites Qualified Code(s): C67.8 - Malignant neoplasm of overlapping sites of bladder PLAN: 1. Acute on chronic anemia with hemorrhagic shock status post radical cystoprostatectomy for bladder cancer with ileal conduit/KHADIJAH -Feeling much better, he did have to have a transfusion 04/25/2021 his hemoglobin responded, remained stable -Renal function is improving, will continue to monitor -Continue with iron replacement -Okay for discharge from medical perspective follow-up as an outpatient with urology and general surgery. Recommend follow-up with PCP in 3 to 5 days. 2. HTN/HLD/chronic diastolic CHF/A. fib -No anticoagulation given his hemorrhagic shock -Continue with his home blood pressure medications -Can resume losartan on discharge -Echo in January 2021 with an EF of 60% and stage III diastolic dysfunction -Continue with Lasix for now and continue to monitor kidney function closely DVT: SCDs Charges/Coding Visit Charges Inpatient E&M: 64999 Subs Hosp L2
[2021-04-28 09:54] VITALS: BP 134/65; PULSE 81; RESP 16; TEMP 37.1; O2SAT 100
--- NOTE | 2021-05-02 08:50 | DS.PCM_ITS ---
Providers Date of Admission: 04/22/21 Primary Care Physician: Dr. Xu Coleman MD Consultations 04/22/21 22:37 Consult: Hospitalist Routine Consulting Provider: Serena Rangel Reason for Consult: blood pressure EMERGENT Consult: Yes Notified: Yes Date Notified: 04/22/21 Time Notified: 22:37 Method of Notification: Provider Initiated Method of Consult:: In-Person 04/22/21 22:38 Consult: Maternity Nurse / Pulmonary Medicine Routine Consulting Provider: Pulmonary Medicine lewis Wirtz Reason for Consult: hypotensive EMERGENT Consult: No Notified: Yes Date Notified: 04/23/21 Time Notified: 07:00 Method of Notification: Verbal Method of Consult:: In-Person 04/25/21 08:59 Consult: Onc/Wound/watch and clock repair clerk Routine Comment: Reason for Consult:: new ileal conduit Reason For Visit: LAP ROBOTIC CYSTECTOMY ILEO CONDUIT Diagnosis Discharge Diagnosis (1) Hemorrhagic shock: Status: Acute Code(s): R57.8 - Other shock (2) Bladder cancer: Status: Acute Code(s): C67.9 - Malignant neoplasm of bladder, unspecified Qualifiers: Bladder location: overlapping sites Qualified Code(s): C67.8 - Malignant neoplasm of overlapping sites of bladder Medications at Discharge Home Medications multivitamin 1 tab PO QDAY 01/07/18 losartan [Cozaar] 50 mg PO BID 03/17/21 aspirin 81 mg tablet,delayed release 81 mg PO DAILY 03/30/21 ferrous sulfate 325 mg (65 mg iron) tablet,delayed release 325 mg PO QHS 03/30/21 metoprolol tartrate 25 mg tablet 50 mg PO BID tab 03/30/21 omega-3 fatty acids 1,000 mg capsule 1,000 mg PO DAILY 03/30/21 Cbd Gummies 1 tab PO/SL BID 04/15/21 ciprofloxacin HCl [Cipro] 500 mg PO BID #14 tab 04/28/21 Hospital Course Summary of Care Provided Minutes Spent on Discharge: 20 Hospital Course: 86-year-old male with history of bladder cancer it was a large low-grade noninvasive tumor that was nonresectable extremely large tumor inside the bladder. Therefore we elected to proceed with a radical cystectomy and formation of ileal conduit. He underwent the surgery and had significant blood loss after the surgery he did require 4 units of blood to stabilize in the intensive care unit then after this his blood pressure stabilized he normalized bleeding stopped. He was transferred to the floor eventually advanced to reg ular diet and was then discharged home on post operative day #6 in good condition final pathology was bladder cancer noninvasive. This was expected given his diagnosis of very large unresectable tumor. He went home and the ileal conduit and he will go home with home health care for teaching of his stoma care. Physical Exam Const alert and oriented x3 General Appearance: cooperative HEENT normocephalic, head/scalp atraumatic, EAC's normal and TM's normal bilaterally Eyes PERRL and EOMs intact bilaterally Pupil: sluggish Neck no lymphadenopathy, supple and no JVD General: trachea midline Lymph Lymphatic: no lymphadenopathy noted, lymphedema and lymphadenopathy Resp normal respiratory effort, normal air movement and clear to auscultation bilaterally Cardio regular rate, regular rhythm and peripheral pulses 2+ throughout GI soft to palpation, non-tender and non-distended Extremity normal capillary refill and no clubbing, cyanosis or edema General Extremity: no tenderness to palpation of joints or extremities Skin no rashes or lesions noted General Skin Exam: turgor normal Lesions: no lesions Rashes: no rashes Neuro CN's II-XII intact bilaterally Speech: speech normal Motor Exam: strength 5/5 throughout; Negative for general weakness Psych thought process normal, cooperative and affect normal Appearance: appropriate Weight / BMI Weight Weight: 96.2 kg Body Mass Index (BMI) 29.4 ABG / Lab / Microbiology Data Result Diagrams: 04/28/21 06:54 04/28/21 06:54 D/C Instructions Discharge Diet: No restrictions Call your doctor if you observe: Fever of 101 or Higher Additional Dressing/Incision Instructions: Ostomy care, MICHELLE care Please Follow Up With: Taj Bey MD When: Call [phone] for an appointment Meaningful Use Info Meaningful Use Diagnoses (Choose all that apply): None applicable Discharge Plan Admission Admit Date/Time: 04/22/21 05:41 Attending Provider: Ernesto Stock Primary Care Provider: Xu Coleman Consulting Providers: Jer Ramirez ; Serena Rangel ; Igor Armijo ; Kp Allan ; Ella Madrigal NP Discharge Orders/Prescriptions Prescriptions: New ciprofloxacin HCl [Cipro] 500 mg tablet 500 mg PO BID Qty: 14 RF: 0 Continued multivitamin tablet 1 tab PO QDAY RF: 0 omega-3 fatty acids [Fish Oil Concentrate] 1,000 mg capsule 1,000 mg PO DAILY RF: 0 aspirin 81 mg tablet,delayed release (DR/EC) 81 mg PO DAILY RF: 0 ferrous sulfate 325 mg (65 mg iron) tablet,delayed release (DR/EC) 325 mg PO QHS RF: 0 losartan [Cozaar] 50 mg tablet 50 mg PO BID RF: 0 metoprolol tartrate 25 mg tablet 50 mg PO BID RF: 0 Cbd Gummies 1 tab PO/SL BID RF: 0 Other Ambulatory Orders: T&S with Crossmatch, Red Cells (Routine) Timeframe: [id number] Location: None Selected Ordered By: Dr. Taj Bey Referrals / Follow Up: Taj Bey MD [STAFF PHYSICIAN] - Xu Coleman MD [Primary Care Provider] - Disposition Disposition (needs filled in before D/C Order can be placed): Home Health Service
== END 2021-04-28 11:34 | disposition home health service (06) | DRG 653 ==
LOC: ACINP 05:44 → MS3 16:58 → ICU 19:12 → MS3 04-24 14:12
PROVIDERS: Anesthesiology; Family Medicine; Internal Medicine Critical Care Medicine; Student in an Organized Health Care Education/Training Program; Admitting Provider Urology; PCP Family Medicine; Referring Provider Urology; Visit Provider Family Medicine
PROC: 0TTB4ZZ Resection of Bladder, Percutaneous Endoscopic Approach (ICD-10-PCS; CPT 51999; principal; 2021-04-22 07:00)
DX: C67.8 Malignant neoplasm of overlapping sites of bladder (principal); R57.8 Other shock; D62 Acute posthemorrhagic anemia; N17.9 Acute kidney failure, unspecified; J98.11 Atelectasis; I50.32 Chronic diastolic (congestive) heart failure; I11.0 Hypertensive heart disease with heart failure; I95.81 Postprocedural hypotension; I48.0 Paroxysmal atrial fibrillation; E87.5 Hyperkalemia; K21.9 Gastro-esophageal reflux disease without esophagitis; D50.9 Iron deficiency anemia, unspecified; E78.5 Hyperlipidemia, unspecified; R31.0 Gross hematuria; R09.02 Hypoxemia
CPT/HCPCS: 36415; 71045; 80048; 80053; 83735; 84100; 85014; 85018; 85025; 85027; 85610; 85730; 86850; 86900; 86901; 86920; 86922; 88305; 88309; 88331; 93005; 97802; 99251; J7030; J7040; J7050; J7120; P9016; A4216; C1769; G0463; J0744; J1940; J2405

== ENCOUNTER → 2021-06-09 08:08 | Outpatient (CLI) | payer MEDICARE, SELFPAY ==
[2021-06-09 10:37] LABS: Absolute Lymphocyte Count 1.39 X10^3/uL (0.83-4.51); Absolute Neutrophil Count 5.6 X10^3/uL (2.0-7.7); Basophil# 0.04 X10^3/uL; Basophil% 0.5 % (0-1); Eosinophil# 0.39 X10^3/uL; Eosinophils% 4.9 % (0-5); Hemoglobin 11.2 g/dL (13.0-16.5); Lymphocyte # 1.39 X10^3/ul (0.83-4.51); Lymphocyte % 17.6 % (19-41); Mean Corp Hgb Conc 29.5 g/dL (32-36); Mean Corpuscular Hgb 25.1 pg (27.0-32.0); Mean Platelet Vol. 9.7 fl (6.2-12.0); Monocyte# 0.51 X10^3/uL; Monocyte% 6.4 % (0-10); NRBC Flagged by Analyzer 0 % (0-5); Neutrophil # 5.56 X10^3/uL (2.7-7.7); Neutrophil % 70.2 % (47-70); Platelet Count 442 K/mm3 (150-450); RBC Distribution Width CV 17.5 % (11.6-14.6); RBC Distribution Width SD 52.9 fl (35.1-43.9); Red Blood Count 4.47 M/mm3 (4.6-6.2); White Blood Count 7.9 K/mm3 (4.4-11.0)
[2021-06-09 10:55] LABS: Anion Gap 7 (5-15); BUN 19 mg/dL (7-18); BUN/Creat Ratio 21.7 RATIO (10-20); Calcium,Total 9.4 mg/dL (8.5-10.1); Chloride 111 mmol/L (98-107); Cholesterol 97 mg/dL (200); Creatinine, Serum 0.88 mg/dL (0.70-1.30); EST Glomerular Filtration Rate 88 mL/min (>60); Est Glom Filt Rate - Afr Amer 107 mL/min (>60); Glucose 96 mg/dL (74-106); High Density Lipoprotein 33 mg/dL; Potassium 4.3 mmol/L (3.5-5.1); Sodium Level 142 mmol/L (136-145); Triglycerides 74 mg/dL; Very Low Density Lipoprotein 15 mg/dL (5-40)
== END ==
PROVIDERS: PCP Family Medicine; Referring Provider Family Medicine; Visit Provider Family Medicine
DX: I10 Essential (primary) hypertension (principal)
CPT/HCPCS: 36415; 80048; 80061; 85025

== ENCOUNTER → 2021-08-15 16:44 | Outpatient (CLI) | payer MEDICARE, SELFPAY ==
[2021-08-15 17:52] LABS: ALB/GLOB Ratio 0.8 RATIO (0.9-2.4); AST(SGOT) 12 U/L (15-37); Alanine Aminotransfer ALT/SGPT 28 U/L (16-61); Albumin, Serum 3.6 g/dL (3.2-5.0); Alkaline Phosphatase 111 U/L (45-117); Anion Gap 8 (5-15); BUN 23 mg/dL (7-18); BUN/Creat Ratio 21.3 RATIO (10-20); Calcium,Total 9.4 mg/dL (8.5-10.1); Chloride 109 mmol/L (98-107); Creatinine, Serum 1.08 mg/dL (0.70-1.30); EST Glomerular Filtration Rate 69 mL/min (>60); Est Glom Filt Rate - Afr Amer 84 mL/min (>60); Globulin 4.4 g/dL (2.2-4.2); Glucose 93 mg/dL (74-106); Potassium 4.1 mmol/L (3.5-5.1); Sodium Level 141 mmol/L (136-145)
== END ==
PROVIDERS: PCP Family Medicine; Visit Provider Family Medicine
DX: L29.9 Pruritus, unspecified (principal)
CPT/HCPCS: 36415; 80053; 82140

== ENCOUNTER → 2022-01-17 | Outpatient (CLI) | payer MEDICARE, SELFPAY ==
[2022-01-17 08:34] LABS: Absolute Lymphocyte Count 1.74 X10^3/uL (0.83-4.51); Absolute Neutrophil Count 6.1 X10^3/uL (2.0-7.7); Basophil# 0.04 X10^3/uL; Basophil% 0.4 % (0-1); Eosinophil# 0.49 X10^3/uL; Eosinophils% 5.5 % (0-5); Hematocrit 41.6 % (40-54); Hemoglobin 12.8 g/dL (13.0-16.5); Lymphocyte # 1.74 X10^3/ul (0.83-4.51); Lymphocyte % 19.6 % (19-41); Mean Corp Hgb Conc 30.8 g/dL (32-36); Mean Corpuscular Hgb 28.1 pg (27.0-32.0); Mean Corpuscular Volume 91.4 fL (80-94); Mean Platelet Vol. 10.3 fl (6.2-12.0); Monocyte# 0.54 X10^3/uL; Monocyte% 6.1 % (0-10); NRBC Flagged by Analyzer 0 % (0-5); Neutrophil # 6.06 X10^3/uL (2.7-7.7); Neutrophil % 68.1 % (47-70); Platelet Count 306 K/mm3 (150-450); RBC Distribution Width CV 13.9 % (11.6-14.6); RBC Distribution Width SD 47.1 fl (35.1-43.9); Red Blood Count 4.55 M/mm3 (4.6-6.2); White Blood Count 8.9 K/mm3 (4.4-11.0)
[2022-01-17 09:11] LABS: AST(SGOT) 10 U/L (15-37); Alanine Aminotransfer ALT/SGPT 20 U/L (16-61); Albumin, Serum 3.6 g/dL (3.2-5.0); Alkaline Phosphatase 105 U/L (45-117); Anion Gap 5 (5-15); BUN 22 mg/dL (7-18); BUN/Creat Ratio 19.8 RATIO (10-20); Bilirubin, Direct 0.17 mg/dL (0.00-0.30); Calcium,Total 9.2 mg/dL (8.5-10.1); Chloride 112 mmol/L (98-107); Creatinine, Serum 1.11 mg/dL (0.70-1.30); EST Glomerular Filtration Rate 67 mL/min (>60); Est Glom Filt Rate - Afr Amer 81 mL/min (>60); Globulin 4.1 g/dL (2.2-4.2); Glucose 102 mg/dL (74-106); Potassium 4.2 mmol/L (3.5-5.1); Protein, Total 7.7 g/dL (6.4-8.2); Sodium Level 141 mmol/L (136-145); Thyroid Stim Hormone (TSH) 3.71 uIU/mL (0.358-3.74)
[2022-01-17 10:16] LABS: HIV - WCH Non-Reactive (Nonreactive); Hepatitis C Antibody Non-Reactive (Nonreactive)
[2022-01-19 18:19] LABS: Anti-Nuclear Antibody Test Negative (.)
[2022-01-24 11:07] LABS: Albumin 3.7 g/dL (2.9-4.4); Alpha-1-Globulins 0.3 g/dL (0.0-0.4); Alpha-2-Globulins 0.8 g/dL (0.4-1.0); Gamma Globulin 1.3 g/dL (0.4-1.8); Immunoglobulin A 326 mg/dL (61-437); Immunoglobulin E 302 IU/mL (6-495); Immunoglobulin G 1152 mg/dL (603-1613); Immunoglobulin M 61 mg/dL (15-143); PROEL- TOTAL PROTEIN 7.2 g/dL (6.0-8.5)
[2022-01-25 11:39] LABS: t-Transglutaminase IgA <2 U/mL (0-3)
== END | disposition home or self-care (01) ==
PROVIDERS: PCP Family Medicine; Referring Provider Dermatology; Visit Provider Dermatology
DX: L29.8 Other pruritus (principal)
CPT/HCPCS: 36415; 80048; 80076; 82784; 82785; 83516; 84165; 84439; 84443; 85025; 86038; 86334; 86703; 86803

== ENCOUNTER → 2022-03-15 | Outpatient (CLI) | payer MEDICARE, SELFPAY ==
[2022-03-15 09:56] LABS: Absolute Lymphocyte Count 1.23 X10^3/uL (0.83-4.51); Absolute Neutrophil Count 4.2 X10^3/uL (2.0-7.7); Basophil# 0.02 X10^3/uL; Basophil% 0.3 % (0-1); Eosinophil# 0.26 X10^3/uL; Eosinophils% 4.2 % (0-5); Hematocrit 34.7 % (40-54); Hemoglobin 10.4 g/dL (13.0-16.5); Lymphocyte # 1.23 X10^3/ul (0.83-4.51); Lymphocyte % 19.7 % (19-41); Mean Corpuscular Hgb 26.4 pg (27.0-32.0); Mean Corpuscular Volume 88.1 fL (80-94); Mean Platelet Vol. 10.4 fl (6.2-12.0); Monocyte# 0.54 X10^3/uL; Monocyte% 8.6 % (0-10); NRBC Flagged by Analyzer 0 % (0-5); Neutrophil # 4.18 X10^3/uL (2.7-7.7); Neutrophil % 66.9 % (47-70); Platelet Count 259 K/mm3 (150-450); RBC Distribution Width CV 14.6 % (11.6-14.6); Red Blood Count 3.94 M/mm3 (4.6-6.2); White Blood Count 6.3 K/mm3 (4.4-11.0)
== END | disposition home or self-care (01) ==
LOC: MFPLAB 09:20
PROVIDERS: PCP Family Medicine; Referring Provider Family Medicine; Visit Provider Family Medicine
DX: D69.2 Other nonthrombocytopenic purpura (principal)
CPT/HCPCS: 36415; 85025

== ENCOUNTER → 2022-03-24 | Outpatient (CLI) | payer MEDICARE, SELFPAY ==
--- NOTE | 2022-03-24 13:47 | CT_ITS ---
STUDY: CT ABDOMEN AND PELVIS WITHOUT CONTRAST REASON FOR EXAM: Male, 87 years old. CALCULUS OF KIDNEY RADIATION DOSAGE (If Supplied By Facility): CTDIvol = ( 20.22 ) mGy, DLP = ( 995.19 ) mGycm TECHNIQUE: Transaxial images were obtained from the dome of the diaphragm to the symphysis pubis without oral contrast, and without intravenous contrast. Sagittal and coronal images were reconstructed. Individualized dose optimization techniques were used for this CT. COMPARISON: None. FINDINGS: There is a 1.4 cm calcified granuloma in the posterior medial segment of the right lower lobe. Coronary artery calcification. Normal liver. There are multiple gallstones. Normal spleen. Normal pancreas. Normal bilateral adrenal glands. Normal right kidney. Mild degree of left hydronephrosis and left hydroureter due to faint 9.5 mm calculus in the distal portion of the left ureter.. There is a 1 cm nonobstructive calculus in the posterior upper pole calyx of the left kidney. This also evidence of a 1 cm cyst in the lateral aspect of the left kidney. Normal visualized stomach. Surgical anastomosis is seen in distal small bowel loops. There are multiple colonic diverticula consistent with diverticulosis. The appendix is visualized and appears normal. There is diffuse atherosclerotic calcification of the abdominal aorta, without a demonstrated aneurysm. Normal inferior vena cava. Normal retroperitoneum. The urinary bladder is empty. Small bilateral inguinal hernias. Fat is seen in the left inguinal hernia. Nondistended small bowel loops are seen in the right inguinal hernia. There is also evidence of a right lower anterior abdominal wall hernia containing nondilated small bowel loops. The neck of the hernia measures 3.6 cm. There are diffuse degenerative changes of the visualized lumbar spine. CT/Abdomen/Pelvis without Cont IMPRESSION: Mild left hydronephrosis and hydroureter due to a 9.5 mm calculus in the distal portion of the left ureter. Nonobstructive left intrarenal calculus as well as small left renal cyst. Multiple gallstones. Sigmoid diverticulosis. Bilateral inguinal hernias as well as a hernia in the anterior right lateral abdominal wall. Electronically Signed: Mati Knowles MD at 14:25 EDT ,
== END | disposition home or self-care (01) ==
LOC: CT 13:45
PROVIDERS: PCP Family Medicine; Referring Provider Urology; Visit Provider Urology
DX: N20.0 Calculus of kidney (principal)
CPT/HCPCS: 74176

== ENCOUNTER → 2022-05-17 | Outpatient (CLI) | payer MEDICARE, SELFPAY ==
[2022-05-17 10:33] LABS: Absolute Neutrophil Count 5.8 X10^3/uL (2.0-7.7); Basophil# 0.06 X10^3/uL; Basophil% 0.7 % (0-1); Eosinophil# 0.76 X10^3/uL; Eosinophils% 8.3 % (0-5); Hemoglobin 12.4 g/dL (13.0-16.5); Lymphocyte % 19.6 % (19-41); Mean Corp Hgb Conc 29.5 g/dL (32-36); Mean Corpuscular Hgb 25.9 pg (27.0-32.0); Mean Corpuscular Volume 87.7 fL (80-94); Monocyte# 0.73 X10^3/uL; Monocyte% 7.9 % (0-10); NRBC Flagged by Analyzer 0 % (0-5); Neutrophil # 5.82 X10^3/uL (2.7-7.7); Neutrophil % 63.3 % (47-70); Platelet Count 286 K/mm3 (150-450); RBC Distribution Width CV 18.1 % (11.6-14.6); RBC Distribution Width SD 58.3 fl (35.1-43.9); Red Blood Count 4.79 M/mm3 (4.6-6.2); White Blood Count 9.2 K/mm3 (4.4-11.0)
[2022-05-17 10:58] LABS: Anion Gap 7 (5-15); BUN 27 mg/dL (7-18); BUN/Creat Ratio 21.1 RATIO (10-20); Calcium,Total 9.2 mg/dL (8.5-10.1); Chloride 113 mmol/L (98-107); Creatinine, Serum 1.28 mg/dL (0.70-1.30); EST Glomerular Filtration Rate 57 mL/min (>60); Est Glom Filt Rate - Afr Amer 69 mL/min (>60); Glucose 108 mg/dL (74-106); Potassium 4.4 mmol/L (3.5-5.1); Sodium Level 143 mmol/L (136-145)
== END | disposition home or self-care (01) ==
LOC: MFPLAB 09:35
PROVIDERS: PCP Family Medicine; Referring Provider Family Medicine; Visit Provider Family Medicine
DX: I10 Essential (primary) hypertension (principal); D64.9 Anemia, unspecified
CPT/HCPCS: 36415; 80048; 85025

== ENCOUNTER 2022-06-11 13:56 | Emergency (ER) | payer MEDICARE, SELFPAY ==
[2022-06-11 13:58] VITALS: BP 117/71; PULSE 90; RESP 14; TEMP 37.2; O2SAT 98; BMI 29.5
--- NOTE | 2022-06-11 14:55 | RAD_ITS ---
STUDY: X-RAY - RIGHT HAND REASON FOR EXAM: Male, 87 years old. injury/FB LAC FROM TREE LIMB FALLING ON HAND TECHNIQUE: 3 view(s) of the hand. COMPARISON: None. FINDINGS: Normal radiocarpal articulation. Normal distal radioulnar joint. There is diffuse demineralization of the carpal bones. Normal carpal articulations There is severe degenerative arthrosis of the carpometacarpal articulation of the thumb with mild lateral subluxation of the first metacarpus. Normal second through fifth carpometacarpal joints. The second through fifth metacarpal bones have been partially amputated with complete amputation of the associated phalanges. The soft tissue structures are unremarkable. 1. RAD/Hand Min 3 Views IMPRESSION: No radiopaque foreign body Electronically Signed: Sebastián Bonilla MD at 15:30 EDT ,
[2022-06-11] MEDS: Cefazolin 1 GM/5 ML Vial IM (15:37)
--- NOTE | 2022-06-11 15:37 | EDS_ITS ---
HPI History of Present Illness Chief Complaint: Laceration Informant: patient Occured/Mechanism Mechanism/Context: Yes puncture wound Onset/Context/Timing Onset: Today Context: Sudden Onset Timing: Continuous Quality of Pain: - (sore) Location: R hand Current Severity: Mild Maximum Severity: Mild Worsened by: palpation Relieved by: leaving alone Associated Symptoms Associated Symptoms: Negative for Parasthesia, Weakness or Loss of Funtion Narrative Narrative: Patient was trying to clear fallen trees off of his property, and a branch from a mccoy tree fell onto his hand with a piece of bark impaling him in the radial aspect of his hand, he removed the piece of wood and discarded it. It has been oozing blood ever since, not a lot of pain, no other injury. He thinks his last tetanus was somewhere around 5 or 6 years ago. 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 [facility] Medical History Acidosis, lactic Alcohol abuse Anemia due to blood loss, acute Arthritis Atrial fibrillation Bilateral tinnitus Bladder tumor Cancer Carotid bruit Dilated aortic root Diverticulosis Easy bruising Esophageal spasm Essential (primary) hypertension Excessive bleeding Gastric reflux GI bleed (08/2019) Hyperlipidemia Iron deficiency anemia Non-smoker Nonrheumatic mitral (valve) insufficiency Postoperative atrial fibrillation (05/16/07) Wears glasses Home Medications multivitamin 1 tab PO QDAY supplement 01/07/18 [History Last Taken 03/17/21] aspirin 81 mg tablet,delayed release 81 mg PO DAILY Check with primary doctor 03/30/21 [History Last Taken Unknown] acetaminophen 650 mg tablet,extended release (Tylenol 8 Hour) 650 mg PO Q12H PRN 02/28/22 [History Last Taken Unknown] losartan 50 mg tablet (Cozaar) 50 mg PO BID bp #180 tabs 02/28/22 [Rx Last Taken Unknown] metoprolol tartrate 50 mg tablet 50 mg PO BID #180 tabs 02/28/22 [Rx Last Taken Unknown] cephalexin 500 mg capsule 500 mg PO Q6 #28 CAPSULES 06/11/22 [Rx Last Taken Unknown] Allergy/AdvReac Type Severity Reaction Status Date / Time oxycodone AdvReac Other Verified 06/11/22 13:58 Family History Mother Arthritis Brother CAD (coronary artery disease) CABG Myocardial infarction Son Diabetes Son Cancer Multiple sclerosis Surgical History History of bladder surgery (02/2021) History of cardioversion (06/2007) History of colonoscopy History of ileal conduit History of mitral valve repair (05/16/07) History of right and left heart catheterization (05/15/07) History of surgery on extremity Status post radical cystoprostatectomy (03/2021) Social History household members: spouse Smoking Status: Never smoker alcohol intake: current alcohol intake frequency: holidays/special occasions only Alcohol type: beer substance use type: does not use ROS ROS ED Constitutional Constitutional ED: Denies chills or fever(s) Musculoskeletal Musculoskeletal: Reports extremity pain; Denies neck pain Integumentary Reports wounds; Denies Abrasions or rash Neurologic Neurologic: Denies paresthesias or weakness EXAM Physical Exam Const Vital Signs: 06/11/22 13:58 Temperature 98.9 F Temperature Source Temporal Pulse Rate 90 Respiratory Rate 14 Blood Pressure 117/71 Blood Pressure Mean 86 Pulse Ox 98 Oxygen Delivery Method Room Air Positive well nourished and well developed General Appearance ED: well developed and NAD Neck full ROM and supple Back/Spine normal ROM and normal to inspection Extremity Extremity Narrative: 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 No bony tenderness. No obvious residual foreign body or debris. It is relatively clean except for clotted blood. Neuro oriented x3, no focal motor deficits and no sensory deficits noted Sensorium / Orientation: alert Psych mental status grossly normal and thought process normal Skin no wounds Rashes: no rashes MDM MDM MDM Narrative Medical decision making narrative: Three-view x-rays of the right hand were obtained to rule out retained foreign material since would should be radiopaque. It is negative. It is also negative for any acute bony abnormality. This is of relatively small wound even though it is open, I think will heal fine with secondary intent and given that it is a puncture I think it would be best not to suture it. Furthermore since he has had prior finger amputations down to the MCP J's including this ray, this wound is not on a usable area of his hand. He is in agreement with this plan. We gave him a dose of Ancef here, prescribed him cephalexin, he had a mitral valve repair and was advised to be on antibiotics whenever he has a wound like this but I think this will deserves them anyway, we discussed dressing changes nurses will cleanse it thoroughly here he is comfortable with that overall plan. He is not sure exactly when his last tetanus was, he will follow-up with his doctor after the weekend to discuss whether he needs another one or not. I think that is fine. Radiography Diagnostic Testing: Clinical Impression(s) from Imaging Studies Hand X-Ray 06/11/22 14:55 IMPRESSION: No radiopaque foreign body Electronically Signed: Sebastián Bonilla MD at 15:30 EDT Reading Location ID and State: [address] [place] [address] , Service support , Discharge Plan Triage Chief Complaint: Laceration ED Provider: Elpidio Stokes Dx/Rx/DC Orders Clinical Impression: Puncture wound of right hand, Skin tear of right hand without complication Instructions: ED Puncture Wound (General) Prescriptions: New cephalexin [cephalexin] 500 MG capsule 500 mg PO Q6 Qty: 28 0RF No Action multivitamin tablet 1 tab PO QDAY aspirin 81 mg tablet,delayed release (DR/EC) 81 mg PO DAILY Label Comments: stopped per Dr Bey on 03/24/21 for surgery on 04/22/21 acetaminophen [Tylenol 8 Hour] 650 mg tablet extended release 650 mg PO Q12H PRN losartan [Cozaar] 50 mg tablet 50 mg PO BID Qty: 180 3RF metoprolol tartrate 50 mg tablet 50 mg PO BID Qty: 180 3RF Primary Care Provider: Xu Coleman Referrals: Xu Coleman MD [Primary Care Provider] - 3-5 Days if not improving Activity Restrictions/Additional Instructions: Keep clean. Frequent dressing changes. Antibiotic ointment on the wound. Disposition Disposition: Home, Self Care
== END 2022-06-11 16:34 | disposition home or self-care (01) ==
PROVIDERS: Emergency Provider Emergency Medicine; PCP Family Medicine; Visit Provider Emergency Medicine
DX: S61.411A Laceration without foreign body of right hand, initial encounter (principal); S61.431A Puncture wound without foreign body of right hand, initial encounter; E78.5 Hyperlipidemia, unspecified; I10 Essential (primary) hypertension; W20.8XXA Other cause of strike by thrown, projected or falling object, initial encounter
CPT/HCPCS: 73130; 96372; 99282

== ENCOUNTER → 2022-11-13 | Outpatient (CLI) | payer MEDICARE, SELFPAY ==
[2022-11-13 15:45] LABS: Absolute Lymphocyte Count 1.37 X10^3/uL (0.83-4.51); Absolute Neutrophil Count 6.1 X10^3/uL (2.0-7.7); Basophil# 0.05 X10^3/uL; Basophil% 0.6 % (0-1); Eosinophil# 0.27 X10^3/uL; Eosinophils% 3.2 % (0-5); Hematocrit 35.1 % (40-54); Hemoglobin 9.8 g/dL (13.0-16.5); Lymphocyte # 1.37 X10^3/ul (0.83-4.51); Lymphocyte % 16.2 % (19-41); Mean Corp Hgb Conc 27.9 g/dL (32-36); Mean Corpuscular Hgb 27.7 pg (27.0-32.0); Mean Corpuscular Volume 99.2 fL (80-94); Mean Platelet Vol. 10.7 fl (6.2-12.0); Monocyte# 0.66 X10^3/uL; Monocyte% 7.8 % (0-10); NRBC Flagged by Analyzer 0 % (0-5); Neutrophil # 6.06 X10^3/uL (2.7-7.7); Neutrophil % 71.8 % (47-70); Platelet Count 306 K/mm3 (150-450); RBC Distribution Width CV 13.7 % (11.6-14.6); RBC Distribution Width SD 49.7 fl (35.1-43.9); Red Blood Count 3.54 M/mm3 (4.6-6.2); White Blood Count 8.4 K/mm3 (4.4-11.0)
[2022-11-13 16:00] LABS: Anion Gap 6 (5-15); BUN 25 mg/dL (7-18); BUN/Creat Ratio 19.4 RATIO (10-20); Calcium,Total 9.4 mg/dL (8.5-10.1); Chloride 109 mmol/L (98-107); Cholesterol 121 mg/dL (200); Creatinine, Serum 1.29 mg/dL (0.70-1.30); EST Glomerular Filtration Rate 56 mL/min (>60); Est Glom Filt Rate - Afr Amer 68 mL/min (>60); Glucose 91 mg/dL (74-106); High Density Lipoprotein 36 mg/dL; Potassium 4.7 mmol/L (3.5-5.1); Sodium Level 142 mmol/L (136-145); Triglycerides 86 mg/dL; Very Low Density Lipoprotein 17 mg/dL (5-40)
== END | disposition home or self-care (01) ==
PROVIDERS: PCP Family Medicine; Visit Provider Family Medicine
DX: K92.1 Melena (principal); I10 Essential (primary) hypertension
CPT/HCPCS: 36415; 80048; 80061; 85025

== ENCOUNTER → 2023-03-22 | Outpatient (CLI) | payer MEDICARE, SELFPAY ==
[2023-03-22 15:48] LABS: AST(SGOT) 15 U/L (15-37); Alanine Aminotransfer ALT/SGPT 22 U/L (16-61); Albumin, Serum 3.2 g/dL (3.2-5.0); Alkaline Phosphatase 105 U/L (45-117); Anion Gap 6 (5-15); BUN 23 mg/dL (7-18); BUN/Creat Ratio 16.4 RATIO (10-20); Calcium,Total 8.9 mg/dL (8.5-10.1); Chloride 110 mmol/L (98-107); EST Glomerular Filtration Rate 51 mL/min (>60); Est Glom Filt Rate - Afr Amer 62 mL/min (>60); Globulin 4.2 g/dL (2.2-4.2); Glucose 100 mg/dL (74-106); Potassium 4.4 mmol/L (3.5-5.1); Protein, Total 7.4 g/dL (6.4-8.2); Sodium Level 142 mmol/L (136-145); Thyroid Stim Hormone (TSH) 3.05 uIU/mL (0.358-3.74)
== END | disposition home or self-care (01) ==
LOC: LAB 14:05
PROVIDERS: PCP Family Medicine; Referring Provider Internal Medicine Cardiovascular Disease; Visit Provider Internal Medicine Cardiovascular Disease
DX: I10 Essential (primary) hypertension (principal); I48.91 Unspecified atrial fibrillation; Z98.890 Other specified postprocedural states
CPT/HCPCS: 36415; 80048; 80076; 84443

== ENCOUNTER → 2023-04-19 | Outpatient (CLI) | payer MEDICARE, SELFPAY ==
[2023-04-19 10:46] LABS: Hematocrit 49.5 % (40-54); Mean Corp Hgb Conc 30.3 g/dL (32-36); Mean Platelet Vol. 10.9 fl (6.2-12.0); Platelet Count 275 K/mm3 (150-450); RBC Distribution Width CV 16.5 % (11.6-14.6); RBC Distribution Width SD 53.3 fl (35.1-43.9); Red Blood Count 5.56 M/mm3 (4.6-6.2); White Blood Count 9.8 K/mm3 (4.4-11.0)
[2023-04-19 11:11] LABS: Anion Gap 9 (5-15); BUN 22 mg/dL (7-18); BUN/Creat Ratio 15.7 RATIO (10-20); Calcium,Total 9.4 mg/dL (8.5-10.1); Chloride 109 mmol/L (98-107); EST Glomerular Filtration Rate 51 mL/min (>60); Est Glom Filt Rate - Afr Amer 62 mL/min (>60); Glucose 90 mg/dL (74-106); Potassium 4.6 mmol/L (3.5-5.1); Sodium Level 140 mmol/L (136-145)
== END | disposition home or self-care (01) ==
LOC: LAB 09:08
PROVIDERS: PCP Family Medicine; Referring Provider Urology; Visit Provider Urology
DX: C67.8 Malignant neoplasm of overlapping sites of bladder (principal)
CPT/HCPCS: 36415; 80048; 85027

== ENCOUNTER → 2023-05-02 | Outpatient (CLI) | payer MEDICARE, SELFPAY ==
--- NOTE | 2023-05-02 12:56 | ECHOCS_ITS ---
Reason For Study: Afib/Flutter Procedure This was a 2D Doppler, Color Flow transthoracic echocardiogram. The study was technically difficult. Contrast injection was performed. Exam performed in department. Left Ventricle Normal LV size. Left ventricular systolic function is normal. No regional wall motion abnormalities noted. Right Ventricle Normal RV size. Normal systolic function. Atria The left atrium is mildly enlarged. Normal right atrium. Mitral Valve Status post mitral valve repair with annuloplasty ring. Tricuspid Valve Normal tricuspid valve. Mild (1+) tricuspid valve insufficiency. Pulmonary artery systolic pressure is 40 mmHg. Aortic Valve Trisinus/trileaflet aortic valve. Mild focal aortic valve calcification. Pulmonic Valve Normal pulmonic valve. Mild (1+) pulmonic valve insufficiency. Great Vessels Mildly dilated aortic root. The pulmonary artery is normal size. Normal inferior vena cava. Pericardium/Pleural No pericardial effusion. Medication 22 gauge I.V. with prn adaptor inserted into right arm. Diluted definity 1ml given slow IV push to enhance endocardial definition. MMode/2D Measurements & Calculations LVIDd: 5.2 cm IVSd: 0.97 cm Ao root diam: 4.1 cm LVIDs: 3.8 cm LVPWd: 0.88 cm LA dimension: 4.7 cm FS: 28.1 % LAV(MOD-bp): 85.0 ml LVAd ap4: 34.9 cm2 SV(MOD-sp4): 60.7 ml LAV(MOD-bp) Indexed: 38.9 ml/m2 LVLd ap4: 8.0 cm LAV(MOD-sp2): 95.2 ml EDV(MOD-sp4): 124.3 ml LAV(MOD-sp4): 67.3 ml EDV(sp4-el): 130.1 ml LVAs ap4: 23.2 cm2 LVLs ap4: 7.0 cm ESV(MOD-sp4): 63.5 ml ESV(sp4-el): 65.7 ml EF(MOD-sp4): 48.9 % EF(sp4-el): 49.5 % SV(sp4-el): 64.4 ml LA A4 area: 24.9 cm2 RA A4 area: 20.8 cm2 TAPSE: 1.5 cm Doppler Measurements & Calculations MV E max sally: 130.4 cm/sec MV V2 max: 178.3 cm/sec MV P1/2t max sally: 178.3 cm/sec MV max P.7 mmHg MV P1/2t: 79.9 msec MV V2 mean: 71.6 cm/sec MV mean P.1 mmHg MV dec slope: 653.8 cm/sec2 MV V2 VTI: 41.4 cm MVA(P1/2t): 2.8 cm2 Ao V2 max: 99.8 cm/sec LV V1 max: 104.1 cm/sec PA V2 max: 114.8 cm/sec Ao max P.0 mmHg LV V1 max P.3 mmHg TR max sally: 298.2 cm/sec TR max P.6 mmHg ECHO/Echo Complete W/ Contrast Interpretation Summary Status post mitral valve repair with annuloplasty ring. Normal LV size. Left ventricular systolic function is normal. No regional wall motion abnormalities noted. Mildly dilated aortic root. Pulmonary artery systolic pressure is 40 mmHg. Contrast injection was performed. Ordering Physician: Zachary August Referring Physician: Zachary August Performed By: Basilio Avina RCS
== END | disposition home or self-care (01) ==
LOC: CVS 12:55
PROVIDERS: PCP Family Medicine; Referring Provider Internal Medicine Cardiovascular Disease; Visit Provider Internal Medicine Cardiovascular Disease
DX: I48.0 Paroxysmal atrial fibrillation (principal)
CPT/HCPCS: 93306; Q9957; A4216; C8929

== ENCOUNTER → 2023-10-22 | Outpatient (CLI) | payer MEDICARE, SELFPAY ==
--- OUTSIDE RECORDS SUMMARY | 2023-10-22 09:52 | XMS RPT_ITS | CCD ---
Author Name Unknown Address [address] [place] [address] Organization [facility] Team Providers [facility] Specialists Name Role Phone Eleanor Lopez Unavailable Unavailable Eleanor Lopez Unavailable Unavailable Eleanor Lopez Unavailable Unavailable Binat Boss Unavailable Unavailable Binta Boss Unavailable Unavailable Allergies Allergy Classification Reported Allergen(s) Allergy Type Date of Onset Reaction(s) Facility (3 sources) ramipril drug allergy 11-04-2010 Dry cough [facility] Work Phone: (2 sources) ramipril Drug Allergy 11-04-2010 Dry cough [facility] Work Phone: Medications Completed/Discontinued Medications Medication Drug Class(es) Dates Sig (Normalized) Sig (Original) aspirin 81 mg delayed release oral tablet (7 sources) Nonsteroidal Anti-inflammatory Drug Start: 05-22-2007 take 1 tablet by mouth once daily ECOTRIN LOW STRENGTH 81 MG TBEC One tablet by mouth daily ASPIRIN [id number] Fidelia Mcintosh Problems Active Problems Problem Classification Problem Date Documented Da te Episodic/Chronic Aortic; peripheral; and visceral artery aneurysms (5 sources) Aneurysm of thoracic aorta; Translations: [Thoracic aortic aneurysm, without rupture] Onset: 11-04-2010 11-04-2010 Chronic Cardiac dysrhythmias (10 sources) Atrial fibrillation; Translations: [Atrial flutter] Onset: 11-04-2010 11-04-2010 Chronic Conduction disorders (10 sources) 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, unspecified; Translations: [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, unspecified] Onset: 11-04-2010 Resolved: 12-04-2011 12-04-2011 Chronic Congestive heart failure; nonhypertensive (10 sources) Congestive heart failure; Translations: [Heart failure, unspecified] Onset: 11-04-2010 Resolved: 12-26-2016 11-04-2010 Chronic Disorders of lipid metabolism (5 sources) Hyperlipidemia; Translations: [Hyperlipidemia, unspecified] Onset: 11-04-2010 11-04-2010 Chronic Essential hypertension (5 sources) Hypertensive disorder; Translations: [Essential (primary) hypertension] Onset: 11-04-2010 11-04-2010 Chronic Heart valve disorders (5 sources) Mitral valve prolapse; Translations: [Nonrheumatic mitral (valve) prolapse] Onset: 11-04-2010 11-04-2010 Chronic Unclassified (2 sources) Long-term drug therapy; Translations: [Other superintendent terminal (current) drug therapy] Onset: 11-04-2010 11-04-2010 Unclassified (2 sources) Replacement of mitral valve ; 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] Onset: 07-13-2015 06-29-2017 Past or Other Problems Problem Classification Problem Date Documented Date Episodic/Chronic Other aftercare (3 sources) Other jail (current) drug therapy; Translations: [Other superintendent terminal (current) drug therapy] Onset: 11-04-2010 11-04-2010 Episodic Other circulatory disease (5 sources) Carotid bruit; Translations: [Other specified symptoms and signs involving the circulatory and respiratory systems] Onset: 11-04-2010 11-04-2010 Episodic Other nutritional; endocrine; and metabolic disorders (8 sources) Body mass index (BMI) 29.0-29.9, adult; Translations: [Body mass index (BMI) 28.0-28.9, adult] Onset: 07-21-2014 07-13-2015 Episodic Unclassified (5 sources) Other specified postprocedural states; Translations: [Body mass index (BMI) 28.0-28.9, adult] Onset: 07-21-2014 07-13-2015 Episodic Unclassified (2 sources) Repair of mitral valve; Translations: [Other specified postprocedural states] Onset: 07-13-2015 07-13-2015 Results Test Name Value Interpretation Reference Range Facil ity Vital Signs Date Time Vital Sign Value Performing Clinician Mariama steward 06-29-2017 13:18-0400 BMI (Body Mass Index) 29.81 kg/m2 Binta [facility] Work Phone: 06-29-2017 13:18-0400 BP Diastolic 68 mm[Hg] Binta [facility] Work Phone: 06-29-2017 13:18-0400 BP Systolic 140 mm[Hg] Binta [facility] Work Phone: 06-29-2017 13:18-0400 Height 185.42 cm Binta [facility] Work Phone: 06-29-2017 13:18-0400 Pulse (Heart Rate) 84 /min B[facility] Work Phone: 06-29-2017 13:18-0400 Respiratory Rate 20 /min Binta [facility] Work Phone: 06-29-2017 13:18-0400 Weight 102.51 kg Binta [facility] Work Phone: 12-26-2016 16:20-0400 BMI (Body Mass Index) 29.81 kg/m2 Eleanor Viewsydarline [facility] Work Phone: 12-26-2016 16:20-0400 BP Diastolic 60 mm[Hg] Eleanor Ericay [facility] Work Phone: 12-26-2016 16:20-0400 BP Systolic 110 mm[Hg] Eleanor Ericay [facility] Work Phone: 12-26-2016 16:20-0400 Height 185.42 cm Eleanorcari Maldonadoy [facility] Work Phone: 12-26-2016 16:20-0400 Pulse (Heart Rate) 72 /min Eleanor Ericay [facility] Work Phone: 12-26-2016 16:20-0400 Respiratory Rate 20 /min Eleanor Marthey [facility] Work Phone: 12-26-2016 16:20-0400 Weight 102.51 kg Eleanor Jessica [facility] Work Phone: 07-18-2016 08:56-0500 BMI (Body Mass Index) 29.29 kg/m2 Eleanor Marthey [facility] Work Phone: 07-18-2016 08:56-0500 BP Diastolic 62 mm[Hg] Eleanor [facility] Work Phone: 07-18-2016 08:56-0500 BP Systolic 116 mm[Hg] Eleanor [facility] Work Phone: 07-18-2016 08:56-0500 BSA (Body Surface Area) 2.25 m2 Eleanor [facility] Work Phone: 07-18-2016 08:56-0500 Pulse (Heart Rate) 64 /min Elaenor [facility] Work Phone: 07-18-2016 08:56-0500 Respiratory Rate 18 /min Eleanor [facility] Work Phone: 07-18-2016 08:56-0500 Weight 100.7 kg Eleanorcari [facility] Work Phone: 12-04-2011 10:20-0400 Height 185.42 cm Eleanor [facility] Work Phone: Procedures Date Procedure Procedure Detail Performing Clinician Start: 06-29-2017 End: 06-29-2017 TOOL RENTAL TECHNICIAN Stephanie Vanegas PA-C Work Phone: Start: 06-29-2017 End: 06-29-2017 Follow Up Appt 6 months Stephanie blair PA-C Work Phone: Start: 12-26-2016 End: 12-26-2016 Ecg routine ecg w/least 12 lds w/i&r Zachary August MD Start: 12-26-2016 End: 12-26-2016 Follow Up Appt 6 months Meena Zendejas Start: 12-26-2016 End: 12-26-2016 MMM Zachary August MD Start: 12-26-2016 End: 12-26-2016 Electrocardiogram, complete Zachary Del Angel i, MD Start: 12-26-2016 End: 12-26-2016 Follow Up Appt 6 months Meena Zendejas Start: 12-26-2016 End: 12-26-2016 RACHEL August MD Start: 07-18-2016 End: 07-18-2016 DOMINGO Vanegas PA-C Work Phone: Start: 07-18-2016 End: 07-18-2016 Follow Up Appt 6 months Stephanie blair PA-C Work Phone: Start: 07-18-2016 End: 07-18-2016 DOMINGO Vanegas PA-C Work Phone: Start: 07-18-2016 End: 07-18-2016 Follow Up Appt 6 months Stephanie blair PA-C Work Phone: Start: 07-03-2016 End: 06-19-2017 *Hepatic Function Panel Meena Zendejas Start: 07-03-2016 End: 06-19-2017 Lipid 1996 panel - Serum or Plasma Zachary August MD Start: 01-18-2016 End: 01-18-2016 Follow Up Appt 6 months Meena Zendejas Start: 01-18-2016 End: 01-18-2016 RACHEL August MD Start: 01-18-2016 End: 01-18-2016 Follow Up Appt 6 months Meena Zendejas Start: 01-18-2016 End: 01-18-2016 RACHEL August MD Start: 07-13-2015 End: 07-13-2015 DOMINGO Vanegas PA-C Work Phone: Start: 07-13-2015 End: 07-12-2016 Echocardiography Stephanie Vanegas PA-C Work Phone: Start: 07-13-2015 End: 07-13-2015 Follow Up Appt 6 months Stephanie blair PA-C Work Phone: Start: 07-13-2015 End: 07-13-2015 TOOL RENTAL TECHNICIAN Stephanie Vanegas PA-C Work Phone: Start: 07-13-2015 End: 07-12-2016 Echocardiography Stephanie Vanegas PA-C Work Phone: Start: 07-13-2015 End: 07-13-2015 Follow Up Appt 6 months Stephanie blair PA-C Work Phone: Start: 07-01-2015 End: 07-02-2015 *Hepatic Function Panel Meena Zendejas Start: 07-01-2015 End: 07-02-2015 Lipid 1996 panel - Serum or Plasma Zachary August MD Start: 07-01-2015 End: 07-02-2015 *Hepatic Function Panel Meena Zendejas Start: 07-01-2015 End: 07-02-2015 Lipid panel [AGGREGATE] Meena Zendejas Start: 01-05-2015 End: 01-06-2015 Documentation of current medications Zachary August MD Start: 01-05-2015 End: 06-22-2015 Follow Up Appt 6 months Meena Zendejas Start: 01-05-2015 End: 06-22-2015 MMM Zachary August MD Start: 01-05-2015 End: 01-06-2015 Documentation of current medications Zachary August MD Start: 01-05-2015 End: 06-22-2015 Follow Up Appt 6 months Meena Zendejas Start: 01-05-2015 End: 06-22-2015 Meena August MD Start: 12-29-2014 End: 12-29-2014 *Hepatic Function Panel Stephanie blair PA-C Work Phone: Start: 12-29-2014 End: 12-29-2014 Lipid 1996 panel - Serum or Plasma Stephanie Vanegas PA-C Work Phone: Start: 12-29-2014 End: 12-29-2014 *Hepatic Function Panel Stephanie blair PA-C Work Phone: Start: 12-29-2014 End: 12-29-2014 Lipid panel [AGGREGATE] Stephanie blair PA-C Work Phone: Start: 12-25-2014 End: 12-29-2014 *Hepatic Function Panel Meena Zendejas Start: 12-25-2014 End: 12-29-2014 Lipid 1996 panel - Serum or Plasma Zachary August MD Start: 12-25-2014 End: 12-29-2014 *Hepatic Function Panel Meena Zendejas Start: 12-25-2014 End: 12-29-2014 Lipid panel [AGGREGATE] Meena Zendejas Start: 07-21-2014 End: 07-21-2014 DOMINGO Vanegas PA-C Work Phone: Start: 07-21-2014 End: 07-21-2014 Follow Up Appt 6 months Stephanie blair PA-C Work Phone: Start: 07-21-2014 End: 07-21-2014 DOMINGO Vanegas PA-C Work Phone: Start: 07-21-2014 End: 07-21-2014 Follow Up Appt 6 months Stephanie blair PA-C Work Phone: Start: 05-27-2014 End: 07-10-2014 *Hepatic Function Panel Meena Zendejas Start: 05-27-2014 End: 07-10-2014 Lipid 1996 panel - Serum or Plasma Zachary August MD Start: 05-27-2014 End: 07-10-2014 *Hepatic Function Panel Meena Zendejas Start: 05-27-2014 End: 07-10-2014 Lipid panel [AGGREGATE] Meena Zendejas Start: 01-09-2014 End: 01-09-2014 Follow Up Appt 6 months Meena Zendejas Start: 01-09-2014 End: 01-09-2014 MMM Zachary August MD Start: 01-09-2014 End: 01-09-2014 Follow Up Appt 6 months Meena Zendejas Start: 01-09-2014 End: 01-09-2014 MMM Zachary August MD Start: 11-25-2013 End: 12-16-2013 *Hepatic Function Panel Meena Zendejas Start: 11-25-2013 End: 12-16-2013 Lipid 1996 panel - Serum or Plasma Zachary August MD Start: 11-25-2013 End: 12-16-2013 *Hepatic Function Panel Meena Zendejas Start: 11-25-2013 End: 12-16-2013 Lipid panel [AGGREGATE] Meena Zendejas Start: 06-12-2013 End: 06-12-2013 TOOL RENTAL TECHNICIAN Stephanie Vanegas PA-C Work Phone: Start: 06-12-2013 End: 06-12-2013 Follow Up Appt 6 months Stephanie blair PA-C Work Phone: Start: 06-12-2013 End: 06-12-2013 TOOL RENTAL TECHNICIAN Stephanie Vanegas PA-C Work Phone: Start: 06-12-2013 End: 06-12-2013 Follow Up Appt 6 months Stephanie blair PA-C Work Phone: Start: 05-27-2013 End: 06-12-2013 *Hepatic Function Panel Meena Zendejas Start: 05-27-2013 End: 06-12-2013 Lipid 1996 panel - Serum or Plasma Zachary August MD Start: 05-27-2013 End: 06-12-2013 *Hepatic Function Panel Meena Zendejas Start: 05-27-2013 End: 06-12-2013 Lipid panel [AGGREGATE] Meena Zendejas Start: 12-11-2012 End: 06-04-2013 *Hepatic Function Panel Himanshu Waller MD Start: 12-11-2012 End: 12-11-2012 Follow Up Appt 6 months Meena Zendejas Start: 12-11-2012 End: 06-04-2013 Lipid 1996 panel - Serum or Plasma Himanshu Waller MD Start: 12-11-2012 End: 12-11-2012 RACHEL August MD Start: 12-11-2012 End: 06-04-2013 *Hepatic Function Panel Himanshu Waller MD Start: 12-11-2012 End: 12-11-2012 Follow Up Appt 6 months Meena Zendejas Start: 12-11-2012 End: 06-04-2013 Lipid panel [AGGREGATE] Himanshu Waller MD Start: 12-11-2012 End: 12-11-2012 MMM Zachary August MD Start: 06-14-2012 End: 06-14-2012 Ecg routine ecg w/least 12 lds w/i&r Himanshu Waller MD Start: 06-14-2012 End: 06-14-2012 Follow Up Appt 6 months Himanshu Waller MD Start: 06-14-2012 End: 06-14-2012 Electrocardiogram, complete Himanshu Waller MD Start: 06-14-2012 End: 06-14-2012 Follow Up Appt 6 months Himanshu Waller MD Start: 05-29-2012 End: 06-14-2012 *Hepatic Function Panel Himanshu Waller MD Start: 05-29-2012 End: 06-14-2012 Lipid 1996 panel - Serum or Plasma Himanshu Waller MD Start: 05-29-2012 End: 06-14-2012 *Hepatic Function Panel Himanshu Waller MD Start: 05-29-2012 End: 06-14-2012 Lipid panel [AGGREGATE] Himanshu Waller MD Start: 12-07-2011 End: 12-11-2011 Mri abdomen w/contrast material Himanshu Waller MD Start: 12-07-2011 End: 12-11-2011 Mri abdomen w/dye Himanshu Waller MD Start: 12-04-2011 End: 12-11-2011 Echocardiography Himanshu Waller MD Start: 12-04-2011 End: 12-04-2011 Follow Up Appt 6 months Himanshu Waller MD Start: 12-04-2011 End: 12-11-2011 Echocardiography Himanshu Waller MD Start: 12-04-2011 End: 12-04-2011 Follow Up Appt 6 months Himanshu Waller MD Plan of Treatment Date Care Activity Detail Author Start: 01-08-2018 End: 01-08-2018 Appointment Appointment [facility] Work Phone: Start: 06-29-2017 End: 06-29-2017 TOOL RENTAL TECHNICIAN TOOL RENTAL TECHNICIAN [facility] Work Phone: Start: 06-29-2017 End: 06-29-2017 Follow Up Appt 6 months Follow Up Appt 6 months [facility] Work Phone: Start: 06-29-2017 End: 06-29-2017 Appointment Appointment [facility] Work Phone: Start: 12-26-2016 End: 12-26-2016 Appointment Appointment [facility] Work Phone: Start: 12-26-2016 End: 12-26-2016 Ecg routine ecg w/least 12 lds w/i&r EKG (In office) [facility] Work Phone: Start: 12-26-2016 End: 12-26-2016 Follow Up Appt 6 months Follow Up Appt 6 months [facility] Work Phone: Start: 12-26-2016 End: 12-26-2016 MMM MMM [facility] Work Phone: Start: 12-26-2016 End: 12-26-2016 Electrocardiogram, complete EKG (In office) [facility] Work Phone: Start: 12-26-2016 End: 12-26-2016 Follow Up Appt 6 months Follow Up Appt 6 months [facility] Work Phone: Start: 12-26-2016 End: 12-26-2016 MMM MMM [facility] Work Phone: Start: 07-18-2016 End: 07-18-2016 TOOL RENTAL TECHNICIAN TOOL RENTAL TECHNICIAN [facility] Work Phone: Start: 07-18-2016 End: 07-18-2016 Follow Up Appt 6 months Follow Up Appt 6 months [facility] Work Phone: Start: 07-18-2016 End: 07-18-2016 TOOL RENTAL TECHNICIAN TOOL RENTAL TECHNICIAN [facility] Work Phone: Start: 07-18-2016 End: 07-18-2016 Follow Up Appt 6 months Follow Up Appt 6 months [facility] Work Phone: Start: 07-03-2016 End: 06-19-2017 *Hepatic Function Panel *Hepatic Function Panel [facility] Work Phone: Start: 07-03-2016 End: 06-19-2017 Lipid panel [AGGREGATE] *Lipid Profile CC PCP [facility] Work Phone: Start: 07-03-2016 End: 07-02-2015 *Hepatic Function Panel *Hepatic Function Panel [facility] Work Phone: Start: 07-03-2016 End: 07-02-2015 Lipid panel [AGGREGATE] *Lipid Profile CC PCP [facility] Work Phone: Start: 01-18-2016 End: 01-18-2016 Follow Up Appt 6 months Follow Up Appt 6 months [facility] Work Phone: Start: 01-18-2016 End: 01-18-2016 MMM MMM [facility] Work Phone: Start: 01-18-2016 End: 01-18-2016 Follow Up Appt 6 months Follow Up Appt 6 months [facility] Work Phone: Start: 01-18-2016 End: 01-18-2016 MMM MMM [facility] Work Phone: Start: 07-13-2015 End: 07-13-2015 TOOL RENTAL TECHNICIAN TOOL RENTAL TECHNICIAN [facility] Work Phone: Start: 07-13-2015 End: 07-13-2015 Echocardiography Echocardiogram (complete) [facility] Work Phone: Start: 07-13-2015 End: 07-13-2015 Follow Up Appt 6 months Follow Up Appt 6 months [facility] Work Phone: Start: 07-13-2015 End: 07-13-2015 TOOL RENTAL TECHNICIAN TOOL RENTAL TECHNICIAN [facility] Work Phone: Start: 07-13-2015 End: 07-13-2015 Echocardiography Echocardiogram (complete) [facility] Work Phone: Start: 07-13-2015 End: 07-13-2015 Follow Up Appt 6 months Follow Up Appt 6 months [facility] Work Phone: Start: 07-01-2015 End: 07-02-2015 *Hepatic Function Panel *Hepatic Function Panel [facility] Work Phone: Start: 07-01-2015 End: 07-02-2015 Lipid panel [AGGREGATE] *Lipid Profile CC PCP [facility] Work Phone: Start: 07-01-2015 End: 07-02-2015 *Hepatic Function Panel *Hepatic Function Panel [facility] Work Phone: Start: 07-01-2015 End: 07-02-2015 Lipid panel [AGGREGATE] *Lipid Profile CC PCP [facility] Work Phone: Start: 01-23-2015 End: 12-29-2014 *Hepatic Function Panel *Hepatic Function Panel [facility] Work Phone: Start: 01-23-2015 End: 12-29-2014 Lipid panel [AGGREGATE] *Lipid Profile CC PCP [facility] Work Phone: Start: 01-23-2015 End: 12-29-2014 *Hepatic Function Panel *Hepatic Function Panel [facility] Work Phone: Start: 01-23-2015 End: 12-29-2014 Lipid panel [AGGREGATE] *Lipid Profile CC PCP [facility] Work Phone: Start: 01-05-2015 End: 06-22-2015 Follow Up Appt 6 months Follow Up Appt 6 months [facility] Work Phone: Start: 01-05-2015 End: 06-22-2015 MMM MMM [facility] Work Phone: Start: 01-05-2015 End: 06-22-2015 Follow Up Appt 6 months Follow Up Appt 6 months [facility] Work Phone: Start: 01-05-2015 End: 06-22-2015 MMM MMM [facility] Work Phone: Start: 12-25-2014 End: 12-29-2014 *Hepatic Function Panel *Hepatic Function Panel [facility] Work Phone: Start: 12-25-2014 End: 12-29-2014 Lipid panel [AGGREGATE] *Lipid Profile CC PCP [facility] Work Phone: Start: 12-25-2014 End: 12-29-2014 *Hepatic Function Panel *Hepatic Function Panel [facility] Work Phone: Start: 12-25-2014 End: 12-29-2014 Lipid panel [AGGREGATE] *Lipid Profile CC PCP [facility] Work Phone: Start: 07-21-2014 End: 07-21-2014 TOOL RENTAL TECHNICIAN TOOL RENTAL TECHNICIAN [facility] Work Phone: Start: 07-21-2014 End: 07-21-2014 Follow Up Appt 6 months Follow Up Appt 6 months [facility] Work Phone: Start: 07-21-2014 End: 07-21-2014 TOOL RENTAL TECHNICIAN TOOL RENTAL TECHNICIAN [facility] Work Phone: Start: 07-21-2014 End: 07-21-2014 Follow Up Appt 6 months Follow Up Appt 6 months [facility] Work Phone: Start: 05-27-2014 End: 07-10-2014 *Hepatic Function Panel *Hepatic Function Panel [facility] Work Phone: Start: 05-27-2014 End: 07-10-2014 Lipid panel [AGGREGATE] *Lipid Profile CC PCP [facility] Work Phone: Start: 05-27-2014 End: 07-10-2014 *Hepatic Function Panel *Hepatic Function Panel [facility] Work Phone: Start: 05-27-2014 End: 07-10-2014 Lipid panel [AGGREGATE] *Lipid Profile CC PCP [facility] Work Phone: Start: 01-09-2014 End: 01-09-2014 Follow Up Appt 6 months Follow Up Appt 6 months [facility] Work Phone: Start: 01-09-2014 End: 01-09-2014 MMM MMM [facility] Work Phone: Start: 01-09-2014 End: 01-09-2014 Follow Up Appt 6 months Follow Up Appt 6 months [facility] Work Phone: Start: 01-09-2014 End: 01-09-2014 MMM MMM [facility] Work Phone: Start: 11-25-2013 End: 12-16-2013 *Hepatic Function Panel *Hepatic Function Panel [facility] Work Phone: Start: 11-25-2013 End: 12-16-2013 Lipid panel [AGGREGATE] *Lipid Profile CC PCP [facility] Work Phone: Start: 11-25-2013 End: 12-16-2013 *Hepatic Function Panel *Hepatic Function Panel [facility] Work Phone: Start: 11-25-2013 End: 12-16-2013 Lipid panel [AGGREGATE] *Lipid Profile CC PCP [facility] Work Phone: Start: 06-12-2013 End: 06-12-2013 TOOL RENTAL TECHNICIAN TOOL RENTAL TECHNICIAN [facility] Work Phone: Start: 06-12-2013 End: 06-12-2013 Follow Up Appt 6 months Follow Up Appt 6 months [facility] Work Phone: Start: 06-12-2013 End: 06-12-2013 TOOL RENTAL TECHNICIAN TOOL RENTAL TECHNICIAN [facility] Work Phone: Start: 06-12-2013 End: 06-12-2013 Follow Up Appt 6 months Follow Up Appt 6 months [facility] Work Phone: Start: 05-27-2013 End: 06-12-2013 *Hepatic Function Panel *Hepatic Function Panel [facility] Work Phone: Start: 05-27-2013 End: 06-12-2013 Lipid panel [AGGREGATE] *Lipid Profile [facility] Work Phone: Start: 05-27-2013 End: 06-12-2013 *Hepatic Function Panel *Hepatic Function Panel [facility] Work Phone: Start: 05-27-2013 End: 06-12-2013 Lipid panel [AGGREGATE] *Lipid Profile [facility] Work Phone: Start: 12-11-2012 End: 06-04-2013 *Hepatic Function Panel *Hepatic Function Panel [facility] Work Phone: Start: 12-11-2012 End: 12-11-2012 Follow Up Appt 6 months Follow Up Appt 6 months [facility] Work Phone: Start: 12-11-2012 End: 06-04-2013 Lipid panel [AGGREGATE] *Lipid Profile [facility] Work Phone: Start: 12-11-2012 End: 12-11-2012 MMM MMM [facility] Work Phone: Start: 12-11-2012 End: 06-04-2013 *Hepatic Function Panel *Hepatic Function Panel [facility] Work Phone: Start: 12-11-2012 End: 12-11-2012 Follow Up Appt 6 months Follow Up Appt 6 months [facility] Work Phone: Start: 12-11-2012 End: 06-04-2013 Lipid panel [AGGREGATE] *Lipid Profile [facility] Work Phone: Start: 12-11-2012 End: 12-11-2012 MMM MMM [facility] Work Phone: Start: 06-14-2012 End: 06-14-2012 Ecg routine ecg w/least 12 lds w/i&r EKG (In office) [facility] Work Phone: Start: 06-14-2012 End: 06-14-2012 Follow Up Appt 6 months Follow Up Appt 6 months [facility] Work Phone: Start: 06-14-2012 End: 06-14-2012 Electrocardiogram, complete EKG (In office) [facility] Work Phone: Start: 06-14-2012 End: 06-14-2012 Follow Up Appt 6 months Follow Up Appt 6 months [facility] Work Phone: Start: 05-29-2012 End: 06-14-2012 *Hepatic Function Panel *Hepatic Function Panel [facility] Work Phone: Start: 05-29-2012 End: 06-14-2012 Lipid panel [AGGREGATE] *Lipid Profile [facility] Work Phone: Start: 05-29-2012 End: 06-14-2012 *Hepatic Function Panel *Hepatic Function Panel [facility] Work Phone: Start: 05-29-2012 End: 06-14-2012 Lipid panel [AGGREGATE] *Lipid Profile [facility] Work Phone: Start: 12-07-2011 End: 12-07-2011 Mri abdomen w/contrast material MRI Abdomen with Contrast [facility] Work Phone: Start: 12-07-2011 End: 12-07-2011 Mri abdomen w/dye MRI Abdomen with Contrast [facility] Work Phone: Start: 12-04-2011 End: 12-04-2011 Echocardiography Echocardiogram (complete) [facility] Work Phone: Start: 12-04-2011 End: 12-04-2011 Follow Up Appt 6 months Follow Up Appt 6 months [facility] Work Phone: Start: 12-04-2011 End: 12-04-2011 Echocardiography Echocardiogram (complete) [facility] Phone: Start: 12-04-2011 End: 12-04-2011 Follow Up Appt 6 months Follow Up Appt 6 months [facility] Work Phone: Patient Education HYPERLIPIDEMIA , HYPERTENSION,%20AMBULATOR Y%20CARE, HEART%20HEALTHY%20DIET [employer] Work Phone: Additional Source Comments FOR RECORDS PERTAINING TO PATIENTS WHO ARE OR HAVE BEEN ENROLLED IN A CHEMICAL DEPENDENCY/SUBSTANCEABUSE PROGRAM, SOME INFORMATION MAY BE OMITTED. This clinical summary was aggregated from multiple sources. Caution should be exercised in using it in the provision of clinical care. This summary normalizes information from multiple sources, and as a consequence, information in this document may materially change the coding, format and clinical context of patient data. In addition, data may be omitted in some cases. CLINICAL DECISIONS SHOULD BE BASED ON THE PRIMARY CLINICAL RECORDS. [facility]. provides no warranty or guarantee of the accuracy or completeness of information in this document.
[2023-10-22 10:05] LABS: Hematocrit 49.6 % (40-54); Mean Corp Hgb Conc 30.2 g/dL (32-36); Mean Corpuscular Hgb 26.4 pg (27.0-32.0); Mean Corpuscular Volume 87.3 fL (80-94); Mean Platelet Vol. 10.3 fl (6.2-12.0); Platelet Count 243 K/mm3 (150-450); RBC Distribution Width SD 47.8 fl (35.1-43.9); Red Blood Count 5.68 M/mm3 (4.6-6.2); White Blood Count 8.9 K/mm3 (4.4-11.0)
[2023-10-22 10:43] LABS: Anion Gap 3 (5-15); BUN 18 mg/dL (7-18); BUN/Creat Ratio 14.3 RATIO (10-20); Calcium,Total 9.3 mg/dL (8.5-10.1); Chloride 110 mmol/L (98-107); Creatinine, Serum 1.26 mg/dL (0.70-1.30); EST Glomerular Filtration Rate 58 mL/min (>60); Est Glom Filt Rate - Afr Amer 70 mL/min (>60); Glucose 138 mg/dL (74-106); Potassium 4.3 mmol/L (3.5-5.1); Sodium Level 141 mmol/L (136-145)
== END | disposition home or self-care (01) ==
LOC: LAB 09:21
PROVIDERS: PCP Family Medicine; Referring Provider Urology; Visit Provider Urology
DX: C67.8 Malignant neoplasm of overlapping sites of bladder (principal)
CPT/HCPCS: 36415; 80048; 85027

== ENCOUNTER → 2024-04-21 | Outpatient (CLI) | payer MEDICARE, SELFPAY ==
[2024-04-21 09:51] LABS: Hematocrit 46.7 % (40-54); Hemoglobin 13.9 g/dL (13.0-16.5); Mean Corp Hgb Conc 29.8 g/dL (32-36); Mean Corpuscular Hgb 26.6 pg (27.0-32.0); Mean Corpuscular Volume 89.3 fL (80-94); Mean Platelet Vol. 10.9 fl (6.2-12.0); Platelet Count 246 K/mm3 (150-450); RBC Distribution Width CV 15.3 % (11.6-14.6); RBC Distribution Width SD 50.1 fl (35.1-43.9); Red Blood Count 5.23 M/mm3 (4.6-6.2); White Blood Count 11.1 K/mm3 (4.4-11.0)
[2024-04-21 10:41] LABS: Anion Gap 5 (5-15); BUN 19 mg/dL (7-18); Calcium,Total 9.2 mg/dL (8.5-10.1); Chloride 110 mmol/L (98-107); Creatinine, Serum 1.27 mg/dL (0.70-1.30); EST Glomerular Filtration Rate 57 mL/min (>60); Est Glom Filt Rate - Afr Amer 69 mL/min (>60); Glucose 113 mg/dL (74-106); Potassium 4.2 mmol/L (3.5-5.1); Sodium Level 141 mmol/L (136-145)
== END | disposition home or self-care (01) ==
LOC: LAB 09:00
PROVIDERS: PCP Family Medicine; Referring Provider Urology; Visit Provider Urology
DX: C67.8 Malignant neoplasm of overlapping sites of bladder (principal)
CPT/HCPCS: 36415; 80048; 85027

== ENCOUNTER → 2024-04-22 | Outpatient (CLI) | payer MEDICARE, SELFPAY ==
[2024-04-22 14:02] LABS: Cholesterol 110 mg/dL (200); High Density Lipoprotein 36 mg/dL; Triglycerides 78 mg/dL; Very Low Density Lipoprotein 16 mg/dL (5-40)
== END | disposition home or self-care (01) ==
LOC: MTLAB 09:34
PROVIDERS: PCP Family Medicine; Referring Provider Family Medicine; Visit Provider Family Medicine
DX: I10 Essential (primary) hypertension (principal)
CPT/HCPCS: 36415; 80061

== ENCOUNTER → 2024-10-16 | Outpatient (CLI) | payer MEDICARE, SELFPAY ==
[2024-10-16 10:14] LABS: Hematocrit 44.2 % (40-54); Hemoglobin 13.2 g/dL (13.0-16.5); Mean Corp Hgb Conc 29.9 g/dL (32-36); Mean Corpuscular Volume 90.6 fL (80-94); Mean Platelet Vol. 10.8 fl (6.2-12.0); Platelet Count 250 K/mm3 (150-450); RBC Distribution Width CV 15.2 % (11.6-14.6); RBC Distribution Width SD 49.8 fl (35.1-43.9); Red Blood Count 4.88 M/mm3 (4.6-6.2); White Blood Count 11.7 K/mm3 (4.4-11.0)
[2024-10-16 10:38] LABS: Anion Gap 4 (5-15); BUN 20 mg/dL (7-18); BUN/Creat Ratio 13.8 RATIO (10-20); Calcium,Total 9.1 mg/dL (8.5-10.1); Chloride 108 mmol/L (98-107); Creatinine, Serum 1.45 mg/dL (0.70-1.30); EST Glomerular Filtration Rate 49 mL/min (>60); Est Glom Filt Rate - Afr Amer 59 mL/min (>60); Glucose 106 mg/dL (74-106); Potassium 4.4 mmol/L (3.5-5.1); Sodium Level 140 mmol/L (136-145)
== END | disposition home or self-care (01) ==
LOC: LAB 09:42
PROVIDERS: PCP Family Medicine; Referring Provider Urology; Visit Provider Urology
DX: C67.8 Malignant neoplasm of overlapping sites of bladder (principal)
CPT/HCPCS: 36415; 80048; 85027

== ENCOUNTER → 2025-04-16 | Outpatient (CLI) | payer MEDICARE, SELFPAY ==
[2025-04-16 10:18] LABS: Hematocrit 44.5 % (40-54); Hemoglobin 13.6 g/dL (13.0-16.5); Mean Corp Hgb Conc 30.6 g/dL (32-36); Mean Corpuscular Volume 91.0 fL (80-94); Mean Platelet Vol. 10.9 fl (6.2-12.0); Platelet Count 256 K/mm3 (150-450); RBC Distribution Width CV 15.1 % (11.6-14.6); RBC Distribution Width SD 50.4 fl (35.1-43.9); Red Blood Count 4.89 M/mm3 (4.6-6.2); White Blood Count 7.9 K/mm3 (4.4-11.0)
[2025-04-16 10:42] LABS: Anion Gap 12 (5-15); BUN 20 mg/dL (4-19); BUN/Creat Ratio 14.9 RATIO (10-20); Calcium,Total 9.4 mg/dL (7.6-11.0); Carbon Dioxide 24.1 mmol/L (21.0-32.0); Chloride 104 mmol/L (98-108); Glucose 130 mg/dL (70-99); Potassium 4.5 mmol/L (3.3-5.1)
== END | disposition home or self-care (01) ==
PROVIDERS: PCP Family Medicine; Referring Provider Urology; Visit Provider Urology
DX: C67.8 Malignant neoplasm of overlapping sites of bladder (principal)
CPT/HCPCS: 36415; 80048; 85027

== ENCOUNTER → 2025-08-03 | Outpatient (CLI) | payer MEDICARE, SELFPAY ==
[2025-08-03 12:33] LABS: Hematocrit 41.3 % (40-54); Hemoglobin 12.1 g/dL (13.0-16.5); Immature Granulocytes Count 0.040 X10^3/uL (0.0-0.0); Mean Corp Hgb Conc 29.3 g/dL (32-36); Mean Corpuscular Volume 87.7 fL (80-94); Mean Platelet Vol. 10.9 fl (6.2-12.0); NRBC Flagged by Analyzer 0 % (0-5); Platelet Count 325 K/mm3 (150-450); RBC Distribution Width CV 15.4 % (11.6-14.6); RBC Distribution Width SD 49.1 fl (35.1-43.9); Red Blood Count 4.71 M/mm3 (4.6-6.2); White Blood Count 8.7 K/mm3 (4.4-11.0)
[2025-08-03 12:44] LABS: AST(SGOT) 16 U/L (<=37); Alanine Aminotransfer ALT/SGPT 11 U/L (<=46); Albumin, Serum 4.0 g/dL (3.4-4.8); Alkaline Phosphatase 103 U/L (40-129); Anion Gap 9 (5-15); BUN 18 mg/dL (4-19); BUN/Creat Ratio 15.4 RATIO (10-20); Calcium,Total 9.4 mg/dL (7.6-11.0); Carbon Dioxide 25.6 mmol/L (21.0-32.0); Chloride 107 mmol/L (98-108); Globulin 3.3 g/dL (2.2-4.2); Glucose 96 mg/dL (70-99); Potassium 4.6 mmol/L (3.3-5.1)
== END | disposition home or self-care (01) ==
LOC: MFPLAB 10:33
PROVIDERS: PCP Family Medicine; Visit Provider Family Medicine
DX: I10 Essential (primary) hypertension (principal); I48.91 Unspecified atrial fibrillation
CPT/HCPCS: 36415; 80053; 85025